=== PATIENT | female | born 1970 | race Caucasian/White ===

== ENCOUNTER 2016-07-17 10:43 | Emergency (ER) | payer BC, OTHER ==
[~2016-07-17] VITALS: Ht 170.2 cm; Wt 132.4 kg
[~2016-07-17 10:43] MED LIST: ALPR-411 PO; BUPR150T5 PO; FNCG50 TOP; IBUP-1427 PO; LSN20 PO; MELO7.5T5 PO; NSNN50 NAE; TRAM-10 PO; VENL75CA PO; WLLXL300 PO
[2016-07-17 10:48] VITALS: TEMP 37; Ht 170.2 cm; Wt 132.4 kg
[2016-07-17] MEDS ORDERED: LSN40 PO (11:05)
[2016-07-17] MEDS ORDERED: MOME6000 (11:05)
[2016-07-17] MEDS ORDERED: SODIUM CHLORIDE 0.9% 1000ML 500 ML IV ONE (11:08)
[2016-07-17 11:49] LABS: HEMATOCRIT 40.4 % (37-47); MEAN CORPUSCULAR HEMOGLOBIN 30.4 pg (25-34); MEAN CORPUSCULAR HGB CONC 34.2 g/dl (32-36); MEAN PLATELET VOLUME 9.6 fL (7.4-10.4); PLATELET COUNT 362 K/uL (130-400); RED BLOOD COUNT 4.54 M/uL (4.2-5.4); WHITE BLOOD COUNT 13.37 K/uL (4.8-10.8)
[2016-07-17 11:56] LABS: BUN/CREATININE RATIO 12.3 (10-20); CALCIUM 9.5 mg/dl (8.5-10.1); CREATININE 0.78 mg/dl (0.60-1.20); POTASSIUM 3.6 mmol/L (3.5-5.1)
[2016-07-17 12:10] LABS: URINE APPEARANCE CLEAR (CLEAR); URINE BILIRUBIN NEG (NEG); URINE COLOR YELLOW; URINE NITRITE NEG (NEG); URINE SPECIFIC GRAVITY 1.002 (1.000-1.030); UROBILINOGEN NEG (NEG); ZZUR CULT IF INDIC CLEAN CATCH NO
[2016-07-17] MEDS ORDERED: KETOROLAC TROMETHAMINE 30 MG/ML VIAL IV STA (12:20)
[2016-07-17 12:26] LABS: MANUAL MICROSCOPIC REQUIRED? NO; REVIEW REQ? NO
--- NOTE | 2016-07-17 13:31 | DIAGNOSTIC IMAGING REPORT ---
CT SCAN OF THE ABDOMEN AND PELVIS WITHOUT CONTRAST CLINICAL HISTORY: Left flank pain COMPARISON STUDY: 09/04/2015 TECHNIQUE: CT scan of the abdomen and pelvis was performed from the lung bases to the proximal femurs. Images are reviewed in the axial, sagittal, and coronal planes. IV contrast was not administered for this examination. CT DOSE: 1149.95 mGycm FINDINGS: Lower chest: There are minimal basilar atelectatic changes. Liver: The unenhanced liver is normal in size, contour, and attenuation. There is no intrahepatic biliary ductal dilatation. Gallbladder: Surgically absent Spleen: Normal in size and attenuation. Pancreas: Unremarkable. Adrenal glands: Unremarkable. Kidneys: There are bilateral nonobstructing intrarenal calculi. There is lower pole left renal cortical scarring. 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 No ureteral or bladder calculi are visualized. Bowel: There are no transition zones indicate bowel obstruction. The appendix appears normal. There is colonic diverticulosis. There is infiltration the pericolonic fat at the level of the splenic flexure consistent with acute diverticulitis. Peritoneum: There is no intraperitoneal free air or abdominal ascites. Vasculature: The abdominal aorta is normal in course and caliber. Adenopathy: None. Pelvic viscera: The bladder, and pelvic viscera are unremarkable. Skeletal structures: There is bilateral L5 spondylolysis. There is a grade 1 spinal listhesis of L5 on S1. There is a small disc osteophyte complex the T12-L1 level. IMPRESSION: 1. Acute diverticulitis at the level of the splenic flexure. No evidence of abscess. 2. No evidence of bowel obstruction. No evidence of free air 3. Normal appendix 4. Bilateral nephrolithiasis Electronically signed by: Alcides Velázquez M.D. 07/17/2016 1:30 PM Dictated Date/Time: 07/17/2016 1:26 PM
[2016-07-17] MEDS ORDERED: METRONIDAZOLE 250 MG TAB PO STA (13:52)
[2016-07-17] MEDS ORDERED: CIPROFLOXACIN 500 MG TAB PO STA (13:52)
[2016-07-17] MEDS ORDERED: CIPR-255 PO (14:12)
[2016-07-17] MEDS ORDERED: METR1TAB4 PO (14:12)
[2016-07-17 14:29] VITALS: BP 143/98; PULSE 92; O2SAT 94
--- NOTE | 2016-07-17 17:47 | EMERGENCY ROOM VISIT NOTE ---
History Report prepared by Vazquez: Lenny Luis Under the Supervision of: Dr. Luke Joseph D.O. First contact with patient: 11:42 Chief Complaint: KIDNEY STONE Stated Complaint: PAIN IN LEFT SIDE UPPER&LOWER History of Present Illness The patient is a 46 year old female who presents to the Emergency Room with complaints of persistent left flank for the past two days. The pain does not really radiate to the abdomen. She has a history of kidney stones and diverticulitis, and cannot really distinguish which her current pain resembles more. She notes that she did not have flank pain when she had previous kidney stones. There are no worsening or relieving factors known to the patient at this time. The patient is nauseous but denies any vomiting. The patient has her appendix but is s/p cholecystectomy. Patient denies headache, change in vision, fevers, chest pain, shortness of breath, diarrhea, pain with urination or other urinary symptoms, hematochezia, and melena. Source of History: patient Onset: two days ago Position: back (left flank) Timing: other (persistent) Modifying Factors (Worsening): other (none) Modifying Factors (Relieving): other (none) Associated Symptoms: + nausea, No SOB, No abdominal pain, No chest pain, No diarrhea, No fevers, No headache, No hematochezia, No melena, No urinary symptoms, No vomiting Review of Systems See HPI for pertinent positives & negatives. A total of 10 systems reviewed and were otherwise negative. Past Medical & Surgical Medical Problems: (1) Cholecystectomy (2) Kidney stone Family History No pertinent family history Social History Smoking Status: Never Smoker Alcohol Use: none Drug Use: none Marital Status: Housing Status: lives with family Occupation Status: employed Current/Historical Medications Scheduled Bupropion HCl (Bupropion HCl Xl), 300 MG PO QPM Bupropion Hcl (Bupropion Hcl Xl), 150 MG PO QPM Ciprofloxacin Hcl (Cipro), 500 MG PO BID Lisinopril (Lisinopril), 40 MG PO QPM Metronidazole (Flagyl), 500 MG PO TID Venlafaxine Hcl (Effexor Xr), 1 CAP PO QPM Scheduled PRN Alprazolam (Xanax), 0.5 MG PO TID PRN for RN Tramadol (Ultram), 50 MG PO Q6H PRN for RN Miscellaneous Medications Mometasone Furoate (Nasal) (Mometasone Furoate) Allergies Coded Allergies: Sulfa Drugs (Verified Allergy, Severe, RASH, 07/17/16) Penicillins (Verified Allergy, Mild, RASH, 07/17/16) Morphine (Verified Adverse Reaction, Severe, abd pain, 07/17/16) Hydromorphone (Verified Adverse Reaction, Unknown, abd pain, 07/17/16) Physical Exam Vital Signs Date Time Temp Pulse Resp B/P Pulse Ox O2 Delivery O2 Flow Rate FiO2 07/17/16 14:29 92 16 143/98 94 Room Air 07/17/16 12:42 88 16 157/110 99 Room Air 07/17/16 10:48 37.0 98 18 157/91 99 Room Air Physical Exam GENERAL: Sitting up in bed, disheveled, no acute distress, nontoxic. EYE EXAM: normal conjunctiva. OROPHARYNX: no exudate, no erythema, lips, buccal mucosa, and tongue normal and mucous membranes are moist NECK: supple, no nuchal rigidity, no adenopathy, non-tender LUNGS: Clear to auscultation. Normal chest wall mechanics HEART: no murmurs, S1 normal and S2 normal ABDOMEN: abdomen soft, tender in the left upper quadrant, normo-active bowel sounds, no masses, no rebound or guarding. BACK: Back is symmetrical on inspection and there is no deformity, no midline tenderness, no CVA tenderness. SKIN: no rashes and no bruising UPPER EXTREMITIES: upper extremities are grossly normal. LOWER EXTREMITIES: No pitting edema. NEURO EXAM: Normal sensorium, cranial nerves II-XII grossly intact, normal speech, no gross weakness of arms, no gross weakness of legs. Gross sensation intact. Medical Decision & Procedures ER Provider Diagnostic Interpretation: CT:Per my review, radiologist interpretation. CT SCAN OF THE ABDOMEN AND PELVIS WITHOUT CONTRAST CLINICAL HISTORY: Left flank pain COMPARISON STUDY: 09/04/2015 TECHNIQUE: CT scan of the abdomen and pelvis was performed from the lung bases to the proximal femurs. Images are reviewed in the axial, sagittal, and coronal planes. IV contrast was not administered for this examination. CT DOSE: 1149.95 mGycm FINDINGS: Lower chest: There are minimal basilar atelectatic changes. Liver: The unenhanced liver is normal in size, contour, and attenuation. There is no intrahepatic biliary ductal dilatation. Gallbladder: Surgically absent Spleen: Normal in size and attenuation. Pancreas: Unremarkable. Adrenal glands: Unremarkable. Kidneys: There are bilateral nonobstructing intrarenal calculi. There is lower pole left renal cortical scarring. 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 No ureteral or bladder calculi are visualized. Bowel: There are no transition zones indicate bowel obstruction. The appendix appears normal. There is colonic diverticulosis. There is infiltration the pericolonic fat at the level of the splenic flexure consistent with acute diverticulitis. Peritoneum: There is no intraperitoneal free air or abdominal ascites. Vasculature: The abdominal aorta is normal in course and caliber. Adenopathy: None. Pelvic viscera: The bladder, and pelvic viscera are unremarkable. Skeletal structures: There is bilateral L5 spondylolysis. There is a grade 1 spinal listhesis of L5 on S1. There is a small disc osteophyte complex the T12-L1 level. IMPRESSION: 1. Acute diverticulitis at the level of the splenic flexure. No evidence of abscess. 2. No evidence of bowel obstruction. No evidence of free air 3. Normal appendix 4. Bilateral nephrolithiasis Electronically signed by: Alcides Velázquez M.D. 07/17/2016 1:30 PM Dictated Date/Time: 07/17/2016 1:26 PM Laboratory Results 07/17/16 11:10 07/17/16 11:10 Test 07/17/16 11:10 Red Blood Count 4.54 M/uL (4.2-5.4) Mean Corpuscular Volume 89.0 fL (80-100) Mean Corpuscular Hemoglobin 30.4 pg (25-34) Mean Corpuscular Hemoglobin Concent 34.2 g/dl (32-36) RDW Standard Deviation 40.9 fL (36.4-46.3) RDW Coefficient of Variation 12.8 % (11.5-14.5) Mean Platelet Volume 9.6 fL (7.4-10.4) Urine Color YELLOW Urine Appearance CLEAR (CLEAR) Urine pH 7.0 (4.5-7.5) Urine Specific [place] 1.002 (1.000-1.030) Urine Protein NEG (NEG) Urine Glucose (UA) NEG (NEG) Urine Ketones NEG (NEG) Urine Occult Blood TRACE (NEG) Urine Nitrite NEG (NEG) Urine Bilirubin NEG (NEG) Urine Urobilinogen NEG (NEG) Urine Leukocyte Esterase NEG (NEG) Urine WBC (Auto) 1-5 /hpf (0-5) Urine RBC (Auto) 0-4 /hpf (0-4) Urine Hyaline Casts (Auto) 0 /lpf (0-5) Urine Epithelial Cells (Auto) 5-10 /lpf (0-5) Urine Bacteria (Auto) NEG (NEG) Anion Gap 8.0 mmol/L (3-11) Est Creatinine Clear Calc Drug Dose 129.3 ml/min Estimated GFR () 106.4 Estimated GFR (Non- 91.8 BUN/Creatinine Ratio 12.3 (10-20) Calcium Level 9.5 mg/dl (8.5-10.1) Total Bilirubin 0.7 mg/dl (0.2-1) Direct Bilirubin 0.2 mg/dl (0-0.2) Aspartate Amino Transf (AST/SGOT) 11 U/L (15-37) Alanine Aminotransferase (ALT/SGPT) 24 U/L (12-78) Alkaline Phosphatase 73 U/L (45-117) Total Protein 7.6 gm/dl (6.4-8.2) Albumin 3.7 gm/dl (3.4-5.0) Lipase 113 U/L (73-393) Laboratory results per my review. Medications Administered Medications (Trade) Dose Ordered Sig/[place]ron Route Start Time Stop Time Status Last Admin Dose Admin Sodium Chloride (Nss 1000ml) 500 ml @ 999 mls/hr Q31M ONCE IV 07/17/16 11:08 07/17/16 11:38 DC 07/17/16 11:08 999 MLS/HR Ketorolac Tromethamine (Toradol Inj) 30 mg NOW STAT IV 07/17/16 12:20 07/17/16 12:21 DC 07/17/16 12:41 30 MG Metronidazole (Flagyl Tab) 500 mg NOW STAT PO 07/17/16 13:52 07/17/16 13:54 DC 07/17/16 14:09 500 MG Ciprofloxacin (Cipro Tab) 500 mg NOW STAT PO 07/17/16 13:52 07/17/16 13:54 DC 07/17/16 14:08 500 MG ED Course ED COURSE: Vital signs were reviewed and were normal. The patients medical record was reviewed The above diagnostic studies were performed and reviewed. ED treatments and interventions as stated above. 1100: The patient was evaluated in room C9. A complete history and physical examination was performed. 1108: NSS 500 ml @ 999 mls/hr. 1200: Toradol 30 mg IV. 1352: Cipro 500 mg PO, Flagyl 500 mg PO. 1355: Upon reevaluation, the patient is feeling better.I discussed my findings with the patient and she understands and agrees with the treatment plan. Based on the patients age, coexisting illnesses, exam and lab findings the decision to treat as an outpatient was made. The patient remained stable while under my care. The patient appeared well at the time of discharge. Medical Decision Differential diagnoses includes but is not limited to gastritis, peptic ulcer disease, GERD, gallbladder disease, pancreatitis, small bowel obstruction, acute coronary syndrome, pericarditis, ischemic bowel, irritable bowel disease, irritable bowel syndrome, appendicitis, diverticulitis, malignancy, hernia, urinary tract infection, torsion, /ectopic (if female), perforation, trauma, infectious. Patient is a 46-year-old female who presents the ER with left upper quadrant abdominal pain which is been going on for the past several days. She denies any fevers. She is not been eating and drinking as much is normal. Labs show a leukocytosis 13.5 thousand. BMP along with LFTs, bilirubin or unremarkable. UA has trace hematuria but no signs of infection. CT of her abdomen pelvis shows acute diverticulitis. There is no abscess or perforation. The patient is otherwise well-appearing. Vitals are stable. Patient was discharged with Cipro and Flagyl to follow up as an outpatient with her primary care doctor on Wednesday. Discussed with Pt concerning signs and symptoms to watch out for. Pt was instructed to follow up with their PCP and discussed with the patient their option to return to the ED at anytime for persistent or worsening symptoms. The appropriate anticipatory guidance and out-patient management, including indications for return to the emergency department, were explained at length to the patient and understood. Impression Primary Impression: Diverticulitis Scribe Attestation The scribe's documentation has been prepared under my direction and personally reviewed by me in its entirety. I confirm that the note above accurately reflects all work, treatment, procedures, and medical decision making performed by me. Departure Information Dispostion Home / Self-Care Prescriptions Ciprofloxacin Hcl (CIPRO) 500 Mg Tab 500 MG PO BID, #20 TAB Prov: Luke Joseph, DO 07/17/16 Metronidazole (Flagyl) 250 Mg Tab 500 MG PO TID for 10 Days, #60 TAB Prov: Luke Joseph, DO 07/17/16 Referrals Ridge Ramos M.D. (PCP) Forms HOME CARE DOCUMENTATION FORM, IMPORTANT VISIT INFORMATION Patient Instructions ED Diverticulitis, [facility] Additional Instructions Please follow up with your primary care doctor with in the next 24 hours. Any worsening of your symptoms, please return to the ED immediately. This includes any fevers greater than 100.4, worsening abdominal pain, persistent nausea vomiting, or any other concerning signs or symptoms from your standpoint. Please take antibiotic as prescribed. Problem Qualifiers Primary Impression: Diverticulitis Diverticulitis site: large intestine Diverticulitis bleeding: without bleeding Diverticulitis complication: without perforation or abscess Qualified Codes: K57.32 - Diverticulitis of large intestine without perforation or abscess without bleeding
== END 2016-07-17 14:34 | disposition home or self-care (01) ==
LOC: C.EDB 10:44 → C.EDC 14:34
DX: K57.32 Diverticulitis of large intestine without perforation or abscess without bleeding (principal); Z79.899 Other long term (current) drug therapy; Z87.442 Personal history of urinary calculi; Z87.19 Personal history of other diseases of the digestive system

== ENCOUNTER 2017-01-13 09:52 | Emergency (ER) | payer OTHER ==
[~2017-01-13] VITALS: Ht 170.2 cm; Wt 131.1 kg
[~2017-01-13 09:52] MED LIST changes: +CIPR-255 PO; -FNCG50 TOP; -IBUP-1427 PO; -LSN20 PO; +LSN40 PO; -MELO7.5T5 PO; +MOME6000; -NSNN50 NAE
[2017-01-13 09:55] VITALS: TEMP 36.5; Ht 170.2 cm; Wt 131.1 kg
[2017-01-13] MEDS ORDERED: KETOROLAC TROMETHAMINE 30 MG/ML VIAL IV STA (10:13)
[2017-01-13] MEDS ORDERED: ONDANSETRON INJ 2 MG/ML 2 ML VIAL IV STA (10:13)
[2017-01-13] MEDS ORDERED: OPTIRAY 320 IV PRN (10:30)
[2017-01-13 10:48] LABS: URINE APPEARANCE CLOUDY (CLEAR); URINE BILIRUBIN NEG (NEG); URINE COLOR DK YELLOW; URINE EPITHELIAL CELL AUTO >30 /lpf (0-5); URINE NITRITE NEG (NEG); URINE SPECIFIC GRAVITY 1.024 (1.000-1.030); UROBILINOGEN NEG (NEG)
[2017-01-13 10:52] LABS: MANUAL MICROSCOPIC REQUIRED? NO; REVIEW REQ? YES
[2017-01-13 10:57] LABS: BASO % 0.3 %; BASO ABS # 0.04 K/uL (0-0.2); COMPLETE YES; EOS % 0.6 %; HEMATOCRIT 42.9 % (37-47); IG% 0.5 %; LYMPH % 14.7 %; LYMPH ABS # 1.95 K/uL (1.2-3.4); MEAN CELL VOLUME 91.1 fL (80-100); MEAN CORPUSCULAR HEMOGLOBIN 30.6 pg (25-34); MEAN CORPUSCULAR HGB CONC 33.6 g/dl (32-36); MEAN PLATELET VOLUME 9.9 fL (7.4-10.4); MONO % 5.1 %; NEUT % 78.8 %; PLATELET COUNT 376 K/uL (130-400); RED BLOOD COUNT 4.71 M/uL (4.2-5.4); WHITE BLOOD COUNT 13.28 K/uL (4.8-10.8)
[2017-01-13 11:04] LABS: BUN/CREATININE RATIO 19.4 (10-20); CALCIUM 9.1 mg/dl (8.5-10.1); CREATININE 0.86 mg/dl (0.60-1.20); POTASSIUM 3.9 mmol/L (3.5-5.1)
[2017-01-13] MEDS ORDERED: EFFSR150 PO (11:11)
[2017-01-13] MEDS ORDERED: FENTANYL CITRATE INJ 50 MCG/1 ML 2 ML VIAL IV STA (11:21)
--- NOTE | 2017-01-13 12:58 | DIAGNOSTIC IMAGING REPORT ---
CT OF THE ABDOMEN AND PELVIS WITH CONTRAST CLINICAL HISTORY: Left lower quadrant abdominal pain. COMPARISON STUDY: CT of the abdomen and pelvis July 17, 2016. TECHNIQUE: Following IV administration of 91 mL of Optiray-320, axial images of the abdomen and pelvis were obtained from the lung bases to the proximal femurs. Images were reviewed in the axial, sagittal, and coronal planes. IV contrast was administered without complication. A dose lowering technique was utilized adhering to the principles of ALARA. Oral contrast was administered. CT DOSE: 1784.25 mGy.cm FINDINGS: There is no biliary ductal dilatation status post cholecystectomy. No peripancreatic infiltration is present. The spleen and adrenal glands are normal. Malrotation of both kidneys is noted. There is no hydronephrosis. There is a 1.3 cm left renal cyst. Numerous bilateral renal calculi are noted. There are no ureteral calculi. There is no evidence for a bowel obstruction. There is colonic diverticulosis. Note is made of mild wall thickening and mild pericolonic infiltration of the distal descending colon consistent with acute diverticulitis. This may also involve the proximal sigmoid colon. There is trace fluid within the pelvis. There is no free air or abscess. No lymphadenopathy is present. There are no suspicious skeletal lesions. IMPRESSION: 1. Mild acute diverticulitis at the junction of the descending colon and sigmoid colon. No free air or abscess. 2. Bilateral nephrolithiasis. 3. Trace fluid within the pelvis. Electronically signed by: Alexandru Ragsdale M.D. 01/13/2017 12:57 PM Dictated Date/Time: 01/13/2017 12:44 PM
[2017-01-13] MEDS ORDERED: CIPR-255 PO (13:28)
[2017-01-13] MEDS ORDERED: OXYC1TAB3 PO (13:28)
[2017-01-13] MEDS ORDERED: METR-163 PO (13:28)
[2017-01-13 13:50] VITALS: BP 152/85; PULSE 92; O2SAT 97
--- NOTE | 2017-01-13 15:39 | EMERGENCY ROOM VISIT NOTE ---
History Report prepared by Vazquez: Shaunna Raymond Under the Supervision of: Dr. Evelio Miller M.D. First contact with patient: 10:00 Chief Complaint: ABDOMINAL PAIN Stated Complaint: PAIN IN LEFT LOWER FRONT Nursing Triage Summary: pt c/o of left-sided abdominal pain since last Wednesday and then began with nausea yesterday History of Present Illness The patient is a 46 year old female who presents to the Emergency Room with complaints of constant LLQ abdominal pain for the past 5 days. Initially her pain started higher up in the abdomen and moved into her LLQ. She describes her pain as cramping. Yesterday she developed nausea. The patient states that her pain was worse today so she came in for evaluation. She rates her current pain as a 9/10 in severity. She has a history of kidney stones, but states that this does not feel like her typical kidney stones. The patient also has a history of diverticulitis and was seen in the hospital for this in July. She states that her current symptoms feel similar to her previous episodes of diverticulitis. She denies any fever, vomiting, diarrhea, rectal bleeding, and urinary symptoms. Source of History: patient Onset: 5 days ago Position: abdomen (LLQ) Symptom Intensity: 9/10 Quality: cramping Timing: constant, worsening Associated Symptoms: + nausea, No fevers, No vomiting, No hematochezia, No diarrhea, No urinary symptoms Review of Systems See HPI for pertinent positives & negatives. A total of 10 systems reviewed and were otherwise negative. Past Medical & Surgical Medical Problems: (1) Cholecystectomy (2) Kidney stone Family History No pertinent family history Social History Smoking Status: Former Smoker Alcohol Use: none Drug Use: none Marital Status: Housing Status: lives with family Occupation Status: employed Current/Historical Medications Scheduled Bupropion HCl (Bupropion HCl Xl), 300 MG PO QPM Bupropion Hcl (Bupropion Hcl Xl), 150 MG PO QPM Ciprofloxacin Hcl (Cipro), 500 MG PO BID Lisinopril (Lisinopril), 40 MG PO QPM Metronidazole (Flagyl), 500 MG PO TID Venlafaxine Hcl (Effexor Xr), 75 MG PO QPM Venlafaxine Hcl (Effexor Extended Rel), 150 MG PO QPM Scheduled PRN Alprazolam (Xanax), 0.5 MG PO TID PRN for RN Oxycodone Ir (Roxicodone Ir), 5 MG PO Q4H PRN for Pain Tramadol (Ultram), 50 MG PO Q6H PRN for RN Miscellaneous Medications Mometasone Furoate (Nasal) (Mometasone Furoate) Allergies Coded Allergies: Sulfa Drugs (Verified Allergy, Severe, RASH, 01/13/17) Penicillins (Verified Allergy, Mild, RASH, 01/13/17) Morphine (Verified Adverse Reaction, Severe, abd pain, 01/13/17) Hydromorphone (Verified Adverse Reaction, Unknown, abd pain, 01/13/17) Physical Exam Vital Signs Date Time Temp Pulse Resp B/P (MAP) Pulse Ox O2 Delivery O2 Flow Rate FiO2 01/13/17 13:50 92 18 152/85 97 01/13/17 12:52 95 18 130/78 100 Room Air 01/13/17 11:10 90 18 125/67 99 Room Air 01/13/17 09:55 36.5 63 20 143/95 98 Room Air Physical Exam Constitutional: Vital signs reviewed. Eyes: Pupils are equal round reactive to light. Conjunctiva are noninjected. ENT: Pharynx is clear without erythema or exudate. Mucous membranes are moist. Neck supple without meningeal signs. Respiratory: Clear to auscultation bilaterally. Breath sounds are equal bilaterally. Cardiovascular: Regular rate and rhythm. No rubs or gallops. GI: Soft, nondistended. LLQ tenderness, no rebound or guarding. Bowel sounds are present. Musculoskeletal: No peripheral edema. No lower extremity tenderness. Integumentary: No cyanosis. Neurological: The patient is awake and alert. No focal deficits. Psychiatric: Normal affect. Medical Decision & Procedures ER Provider Diagnostic Interpretation: Radiology results as stated below per my review and the radiologist's interpretation: CT OF THE ABDOMEN AND PELVIS WITH CONTRAST CLINICAL HISTORY: Left lower quadrant abdominal pain. COMPARISON STUDY: CT of the abdomen and pelvis July 17, 2016. TECHNIQUE: Following IV administration of 91 mL of Optiray-320, axial images of the abdomen and pelvis were obtained from the lung bases to the proximal femurs. Images were reviewed in the axial, sagittal, and coronal planes. IV contrast was administered without complication. A dose lowering technique was utilized adhering to the principles of ALARA. Oral contrast was administered. CT DOSE: 1784.25 mGy.cm FINDINGS: There is no biliary ductal dilatation status post cholecystectomy. No peripancreatic infiltration is present. The spleen and adrenal glands are normal. Malrotation of both kidneys is noted. There is no hydronephrosis. There is a 1.3 cm left renal cyst. Numerous bilateral renal calculi are noted. There are no ureteral calculi. There is no evidence for a bowel obstruction. There is colonic diverticulosis. Note is made of mild wall thickening and mild pericolonic infiltration of the distal descending colon consistent with acute diverticulitis. This may also involve the proximal sigmoid colon. There is trace fluid within the pelvis. There is no free air or abscess. No lymphadenopathy is present. There are no suspicious skeletal lesions. IMPRESSION: 1. Mild acute diverticulitis at the junction of the descending colon and sigmoid colon. No free air or abscess. 2. Bilateral nephrolithiasis. 3. Trace fluid within the pelvis. Electronically signed by: Alexandru Ragsdale M.D. 01/13/2017 12:57 PM Dictated Date/Time: 01/13/2017 12:44 PM Laboratory Results 01/13/17 10:20 Red Blood Count 4.71, Mean Corpuscular Volume 91.1, Mean Corpuscular Hemoglobin 30.6, Mean Corpuscular Hemoglobin Concent 33.6, Mean Platelet Volume 9.9, Neutrophils (%) (Auto) 78.8, Lymphocytes (%) (Auto) 14.7, Monocytes (%) (Auto) 5.1, Eosinophils (%) (Auto) 0.6, Basophils (%) (Auto) 0.3, Neutrophils # (Auto) 10.46, Lymphocytes # (Auto) 1.95, Monocytes # (Auto) 0.68, Eosinophils # (Auto) 0.08, Basophils # (Auto) 0.04 01/13/17 10:20 Test 01/13/17 10:15 01/13/17 10:20 Urine Color DK YELLOW Urine Appearance CLOUDY (CLEAR) Urine pH 6.0 (4.5-7.5) Urine Specific [place] 1.024 (1.000-1.030) Urine Protein NEG (NEG) Urine Glucose (UA) NEG (NEG) Urine Ketones NEG (NEG) Urine Occult Blood NEG (NEG) Urine Nitrite NEG (NEG) Urine Bilirubin NEG (NEG) Urine Urobilinogen NEG (NEG) Urine Leukocyte Esterase TRACE (NEG) Urine WBC (Auto) 5-10 /hpf (0-5) Urine RBC (Auto) 0-4 /hpf (0-4) Urine Hyaline Casts (Auto) 5-10 /lpf (0-5) Urine Epithelial Cells (Auto) >30 /lpf (0-5) Urine Bacteria (Auto) 2+ (NEG) Urine Test NEG (NEG) White Blood Count 13.28 K/uL (4.8-10.8) Red Blood Count 4.71 M/uL (4.2-5.4) Hemoglobin 14.4 g/dL (12.0-16.0) Hematocrit 42.9 % (37-47) Mean Corpuscular Volume 91.1 fL (80-100) Mean Corpuscular Hemoglobin 30.6 pg (25-34) Mean Corpuscular Hemoglobin Concent 33.6 g/dl (32-36) Platelet Count 376 K/uL (130-400) Mean Platelet Volume 9.9 fL (7.4-10.4) Neutrophils (%) (Auto) 78.8 % Lymphocytes (%) (Auto) 14.7 % Monocytes (%) (Auto) 5.1 % Eosinophils (%) (Auto) 0.6 % Basophils (%) (Auto) 0.3 % Neutrophils # (Auto) 10.46 K/uL (1.4-6.5) Lymphocytes # (Auto) 1.95 K/uL (1.2-3.4) Monocytes # (Auto) 0.68 K/uL (0.11-0.59) Eosinophils # (Auto) 0.08 K/uL (0-0.5) Basophils # (Auto) 0.04 K/uL (0-0.2) RDW Standard Deviation 42.9 fL (36.4-46.3) RDW Coefficient of Variation 12.7 % (11.5-14.5) Immature Granulocyte % (Auto) 0.5 % Immature Granulocyte # (Auto) 0.07 K/uL (0.00-0.02) Anion Gap 5.0 mmol/L (3-11) Est Creatinine Clear Calc Drug Dose 116.6 ml/min Estimated GFR () 94.6 Estimated GFR (Non- 81.6 BUN/Creatinine Ratio 19.4 (10-20) Calcium Level 9.1 mg/dl (8.5-10.1) Total Bilirubin 0.5 mg/dl (0.2-1) Direct Bilirubin 0.1 mg/dl (0-0.2) Aspartate Amino Transf (AST/SGOT) 10 U/L (15-37) Alanine Aminotransferase (ALT/SGPT) 28 U/L (12-78) Alkaline Phosphatase 78 U/L (45-117) Total Protein 7.4 gm/dl (6.4-8.2) Albumin 3.5 gm/dl (3.4-5.0) Lipase 123 U/L (73-393) Laboratory results as reviewed by me. Medications Administered Medications (Trade) Dose Ordered Sig/Byron Route Start Time Stop Time Status Last Admin Dose Admin Ondansetron HCl (Zofran Inj) 4 mg NOW STAT IV 01/13/17 10:13 01/13/17 10:15 DC 01/13/17 10:34 4 MG Ketorolac Tromethamine (Toradol Inj) 10 mg NOW STAT IV 01/13/17 10:13 01/13/17 10:15 DC 01/13/17 10:35 10 MG Fentanyl Citrate (Fentanyl Inj) 50 mcg NOW STAT IV 01/13/17 11:21 01/13/17 11:22 DC 01/13/17 11:31 50 MCG ED Course 1000: The patient was evaluated in room B7. A complete history and physical exam was performed. 1013: Toradol 10 mg IV, Zofran 4 mg IV 1117: The patient is requesting more pain medications. 1121: Fentanyl 50 mcg IV 1318: I reassessed the patient at this time. She is feeling better and resting comfortably. I discussed the results and treatment plan with the patient. I discussed precautions regarding medications. I answered all pertaining questions that she had. She expressed understanding and verbalized agreement. The patient will be discharged home. 1334: The patient states that she is no longer taking Tramadol. Medical Decision This is a 46-year-old female who presents with left-sided abdominal pain. Differential diagnosis includes diverticulitis, perforation, abscess, kidney stone, UTI, strain. I did perform a limited focused review of portions of the patient's old chart on the electronic medical record. The patient was here in July for left sided flank pain. A CT of the abdomen and pelvis showed diverticulitis at the splenic flexure, no abscess. She was treated with Cipro and Flagyl. Medication Reconciliation: I attest that I have personally reviewed the patient' s current medication list. Blood Pressure Screening: Patient was found to have an elevated blood pressure and was referred to their primary doctor for recheck and further treatment. I did evaluate the patient as noted above. The patient is presenting with left- sided abdominal pain and has a prior history of diverticulitis. She has tenderness to left lower quadrant concerning for diverticulitis. She has no peritoneal signs. I did initially discuss conservative treatment with antibiotics and close follow up. After further discussion the patient preferred to have a CAT scan here despite risks of repeat CT scanning. IV access was established. The patient was treated with IV Toradol. She had no relief of her symptoms and so she was given fentanyl and Zofran IV. I did order and personally review the patient's urinalysis as described above. This specimen does appear contaminated. She denies urinary symptoms. I did order and review the patient's blood work as noted in the electronic medical record. Her white blood cell count slightly elevated. I did order a CT of the abdomen and pelvis. I did review the images myself as well as the radiology report as described above. She does have mild acute diverticulitis. I did discuss the test results with the patient. She is feeling better. She was discharged with a prescription for oxycodone, Flagyl and Cipro. She was given precautions regarding all of these medications and advised to avoid her tramadol while taking these medications. She states that she does not use her tramadol very often. She was discharged in good condition and will follow up with her doctor. [place] Drug Monitoring Program Search Results: patient reviewed within database, no issues identified Impression Primary Impression: Acute diverticulitis Scribe Attestation The scribe's documentation has been prepared under my direct and personally reviewed by me in its entirety. I confirm that the note above accurately reflects all work, treatment, procedures, and medical decision making performed by me. Departure Information Dispostion Home / Self-Care Prescriptions Metronidazole (Flagyl) 500 Mg Tab 500 MG PO TID for 10 Days, #30 TAB Prov: Evelio Miller M.D. 01/13/17 Oxycodone Ir (Roxicodone Ir) 5 Mg Tab 5 MG PO Q4H Y for Pain, #20 TAB Prov: Evelio Miller M.D. 01/13/17 Ciprofloxacin Hcl (CIPRO) 500 Mg Tab 500 MG PO BID, #20 TAB Prov: Evelio Miller M.D. 01/13/17 Referrals Ridge Ramos M.D. (PCP) Forms Call Back Authorization, HOME CARE DOCUMENTATION FORM, IMPORTANT VISIT INFORMATION Patient Instructions Diverticulitis [facility] Additional Instructions You have been examined and treated today on an emergency basis only. This is not a substitute for, or an effort to provide, complete comprehensive medical care. It is impossible to recognize and treat all injuries or illnesses in a single emergency department visit. It is therefore important that you follow up closely with your physician. Call as soon as possible for an appointment. Return for worsening symptoms or if you develop fever, vomiting, or any other concerning symptoms. Do not take tramadol with oxycodone. Do not take tramadol with Cipro as it will increase your risk of seizure.
== END 2017-01-13 13:45 | disposition home or self-care (01) ==
LOC: C.EDB 09:54
DX: K57.92 Diverticulitis of intestine, part unspecified, without perforation or abscess without bleeding (principal); Z87.442 Personal history of urinary calculi; Z90.49 Acquired absence of other specified parts of digestive tract; Z87.891 Personal history of nicotine dependence; Z79.899 Other long term (current) drug therapy

== ENCOUNTER 2021-05-26 10:39 | Inpatient (IN) ==
[2021-05-26 11:49] LABS: Basophils # (auto) 0.03 K/uL (0-0.2); Basophils % (auto) 0.3 %; Eosinophils # (auto) 0.11 K/uL (0-0.5); Eosinophils % (auto) 0.9 %; Hematocrit (blood only) 45.6 % (37-47); Hemoglobin 14.8 g/dL (12.0-16.0); Immature Granulocytes # (auto) 0.03 K/uL (0.00-0.02); Immature Granulocytes % (auto) 0.3 %; Lymphocytes # (auto) 1.53 K/uL (1.2-3.4); Lymphocytes % (auto) 13.1 %; Mean Corpuscular Hemoglobin 30.3 pg (25-34); Mean Corpuscular Hgb Conc 32.5 g/dL (32-36); Mean Corpuscular Volume 93.3 fL (80-100); Monocytes # (auto) 0.64 K/uL (0.11-0.59); Monocytes % (auto) 5.5 %; Neutrophils # (auto) 9.37 K/uL (1.4-6.5); Neutrophils % (auto) 79.9 %; Platelet Count 326 K/uL (130-400); RDW Coefficient of Variation 13.1 % (11.5-14.5); RDW Standard Deviation 44.9 fL (36.4-46.3); Red Blood Count 4.89 M/uL (4.2-5.4); White Blood Count 11.71 K/uL (4.8-10.8)
[2021-05-26 12:01] LABS: Partial Thromboplastin Ratio 1.1; Partial Thromboplastin Time 28.4 Seconds (21.0-31.0); Prothrombin Time 10.3 Seconds (9.0-12.0)
[2021-05-26 12:21] LABS: Albumin Level 3.8 gm/dl (3.4-5.0); BUN Creatinine Ratio 12.6 (10-20); Blood Urea Nitrogen 13 mg/dl (7-18); Calcium 10.1 mg/dl (8.5-10.1); Carbon Dioxide 28 mmol/L (21-32); Chloride 105 mmol/L (98-107); Creatinine Clr Calc Pharmacy 93.9 ml/min; Est GFR (African American) 73.4 ml/min; Est GFR (Non-African American) 63.3 ml/min; Glucose 122 mg/dl (70-99); Magnesium 2.3 mg/dl (1.8-2.4); Potassium 3.6 mmol/L (3.5-5.1); Sodium 139 mmol/L (136-145)
[2021-05-26 12:27] LABS: Alanine Aminotransferase 26 (12-78); Albumin Globulin Ratio 0.9 (0.9-2); Alkaline Phosphatase 89 U/L (45-117); Aspartate Aminotransferase 14 U/L (15-37); Bilirubin,Total 0.7 mg/dl (0.2-1); Globulin 4.4 gm/dl (2.5-4.0); Total Protein 8.2 gm/dl (6.4-8.2); Troponin I < 0.015 ng/ml (0-0.045)
[2021-05-26] MEDS ORDERED: KETOROLAC 30 MG/ML VIAL IV ONE (13:06)
--- NOTE | 2021-05-26 14:14 | XRay Report ---
XR chest 1V portable HISTORY: 51 years-old Female SOB acute shortness of breath COMPARISON: CT abdomen and pelvis 01/04/2020 TECHNIQUE: Portable AP view of the chest FINDINGS: The cardiomediastinal and hilar silhouettes are within normal limits. There is no pneumothorax, pleur al effusion, airspace consolidation or overt pulmonary edema. Subtle interstitial opacities of the david ng bases. The bones appear grossly intact. IMPRESSION: Subtle interstitial opacities of the lung bases may represent atelectasis versus a develo ping infectious or inflammatory pneumonitis. ACT 112: Negative or not required by law. The above report was generated using voice recognition software. It may contain grammatical, syntax o r spelling errors. Electronically signed by: Paras William M.D. 05/26/2021 2:13 PM
--- NOTE | 2021-05-26 14:20 | Electrocardiogram Report ---
Test Reason : Blood Pressure : / mmHG Vent. Rate : 097 BPM Atrial Rate : 097 BPM P-R Int : 168 ms QRS Dur : 090 ms QT Int : 374 ms P-R-T Axes : 056 -04 022 degrees QTc Int : 474 ms Normal sinus rhythm Possible Old Septal infarct (cited on or before 04-JAN-2020) Abnormal ECG When compared with ECG of 04-JAN-2020 15:52, Nonspecific T wave abnormality no longer evident in Lateral leads Confirmed by Colt Fang ([id number]) on 05/26/2021 2:20:07 PM Referred By: REFERRED SELF Confirmed By:Colt Fang
[2021-05-26] MEDS ORDERED: OPTIRAY 320 125ml IV ONE (14:35)
--- NOTE | 2021-05-26 14:56 | CT Scan Report ---
CT angio chest PE protocol CLINICAL HISTORY: Shortness of breath. Evaluate for pulmonary embolus COMPARISON STUDY: Portable chest from 05/26/2021 and old CTA chest from 02/20/2013 CT DOSE: 832.55 mGy.cm TECHNIQUE: CT Angio of the chest was performed.followed by image post processing with coronal, and s agittal MIP reformats. Contrast Volume: Optiray 320, 120 ml FINDINGS: Vasculature: There are intraluminal filling defects seen within the right upper lobe and right lower lobe pulmonary arteries along with the left upper lobe and left lower lobe pulmonary arteries. No sven tral emboli are identified. Airway: The airway is clear. No endobronchial lesion is identified. Lungs: The suspected interstitial opacities at the lung bases represents crowding the bronchovascular markings with no evidence for atelectasis or infiltrate. The lungs are clear of acute alveolar opaci ties, air bronchograms or pulmonary nodules. Pleura: There is no evidence for pleural effusion. There is no evidence for pneumothorax. Mediastinum: There is no evidence for pathologic adenopathy. There is evidence for mild right heart s train with straightening of the interventricular septum. The heart size is within normal limits. The thoracic aorta is within normal limits. There is no evidence for pericardial effusion. Upper abdomen:There is a the 2.4 cm low-attenuation left adrenal nodule characteristic of an adenoma. Surgical clips are present from previous cholecystectomy. Osseous structures: There is no acute osseous pathology. Degenerative changes are seen within the sp ine. Impression: 1. Positive CTA with pulmonary emboli identified within the right upper and lower lobes along with th e left upper and lower lobes. 2. Associated mild right heart strain. 3. Otherwise, no acute chest disease as described. 4. Additional nonacute findings are delineated above. The emergency department will be informed of these findings. ACT 112: Negative or not required by law. Electronically signed by: Roland Carver M.D. 05/26/2021 2:55 PM
--- NOTE | 2021-05-26 15:20 | Emergency Department Note ---
Impression & Plan Bilateral pulmonary embolism, Left-sided chest pain, Left-sided back pain, Shortness of breath ED Provider Note CHIEF COMPLAINT: Left chest and back pains HISTORY OF PRESENT ILLNESS: Loreto Rojas is a 51 year old female with history including but not limited to HTN, diverticulitis, kidney stones among others listed below who presents to the Emergency Department for evaluation of left sided chest and back pains with associated shortness of breath which has been worsening over the past 4 days. Initially, her pain started in her lower left chest wall which has since radiated into her left upper back. She describes shooting pains and rates her discomfort as a 10/10 which worsens with attempts of deep breaths. She also states that she often feels like it is hard to catch her breath. Symptoms are unchanged with position or to palpation of the area. She denies recent falls or trauma to her chest or back. The patient does have a pulse ox monitor at home and noted that her HR was elevated up to 105 while she was resting last evening which is higher than normal for her. Her oxygen satu rations have remained in mid 90s on room air. Of note, the patient did recently have +COVID-19 in March after being fully vaccinated. Last week, she does state that she developed a fever x 1. She also notes recent non-productive cough, sore throat, and sinus congestion. She denies abdominal pain but does note nausea. No vomiting. She did have multiple movements of diarrhea yesterday. No urinary symptoms. The patient is not on anticoagulants/antiplatelets. She does not have known history of blood clots or clotting disorders. She does smoke cigarettes. She is not on control. She denies recent prolonged periods of immobilization. REVIEW OF SYSTEMS: 10 systems were reviewed and were negative unless otherwise stated in HPI as above PHYSICAL EXAM: VITALS: Vitals are noted on the nurse's note and reviewed by myself. Vital signs stable. General: Resting in bed, no acute distress HEENT: Normocephalic, PERRL, EOMI, mucous membranes moist, oropharynx clear Resp: Moderate inspiratory effort on room air with discomfort at the top of the breath. Breath sounds distant but clear bilaterally without wheezing, rales or rhonchi. Chest wall non-tender to palpation. CV: Regular rate and rhythm, peripheral pulses palpated Back: Notes tenderness to the left upper back but not reproducible to palpation, no CVA tenderness to palpation Abd: Soft, non-tender to palpation MSK: Moving all extremities without apparent pain or difficulty Integumentary: No apparent rash Neuro: Awake, alert, interacting and answering questions appropriately Differential diagnosis includes acute coronary syndrome, pulmonary embolus, aortic dissection, musculoskeletal pain, pneumonia, pleural effusion, p neumothorax among other etiologies were considered. EMERGENCY DEPARTMENT COURSE: Physical exam and history were performed. Nursing triage notes, EMR, and medication list were personally reviewed. Patient appears to have left sided chest and back pains with associated shortness of breath which has been worsening over the past 4 days as described above. On exam, she did have moderate inspiratory effort on room air with discomfort at the top of breath. Breath sounds were distant but clear rebekah aterally without wheezing, rales or rhonchi. Chest wall was not tender to palpation. She also noted tenderness to the left upper back which was not reproducible to palpation, no CVA tenderness. No other significant findings on exam. The patient was offered pain medication. IV access was established and she was given Toradol 30 mg. EKG was obtained and reviewed by myself as below. This did show normal sinus rhythm at 97 bpm with possible old septal infarct when compared to 01/04/2020. No ectopy or concern for acute ischemic change. Labs were obtained and reviewed by myself as below. Of note, she did have mild leukocytosis with a WBC of 11.71 with neutrophilic shift at 9.37. No concern for anemia with hemoglobin 14.8. Electrolytes WNL, renal indices stable. Troponin negative at <0.015. Coagulation studies WNL. Chest x-ray was obtained and did show subtle interstitial opacities of the lung bases which may represent atelectasis versus developing infection as or inflammatory pneumonitis. CTA was obtained and reviewed by myself and radiologist as below. This did show pulmonary emboli within the right upper and lower lobes along with the left upper and lower lobes with associated mild right heart strain. Upon reevaluation, the patient was resting more comfortably after receiving the pain medication. I discussed the results of the above findings with her at bedside as well as my attending, Dr. Green, who was involved throughout the patient's course of care. Due to the acute finding of bilateral PEs with right heart strain, we do feel that she would benefit from continued monitoring in the hospital to begin anticoagulation treatment. The patient did verbalize understanding and agreement with this treatment plan. I discussed the patient's case with the [facility] who did agree to evaluate the patient. The patient verbalized understanding and agreement with the treatment plan as above. The chart was completed utilizing [employer] Speech Voice Recognition Software. Grammatical errors, random word insertions, pronoun errors, and incomplete sentences are an occasional consequence of this system due to software limitations, ambient noise, and hardware issues. Any formal questions or concerns about the content, text, or information contained within the body of this dictation should be directly addressed to the provider for clarification. Past Med/Surg History Medical History Anxiety Chronic back pain follows with chiropractor Depression Diverticular disease Epigastric pain reason for EGD History of anesthesia reaction difficulty waking History of kidney stones History of migraine headaches Hypertension Morbid obesity with BMI of 45.0-49.9, adult Sleep apnea does not use CPAP as ordered UTI (urinary tract infection) Surgical History History of bilateral tubal ligation History of cholecystectomy History of colonoscopy History of cystoscopy History of endometrial ablation History of left breast biopsy benign History of wisdom tooth extraction Family History Father Family history of diabetes mellitus Other No family history of adverse response to anesthesia Social History Smoking Status: Current every day smoker Tobacco Type: Cigarettes Cigarettes Per Day: less than 1 pack a day; Second Hand Exposure: Yes (father smoked); Hx Alcohol Use: Yes Alcohol type: hard liquor Hx Substance Use: No Preferred Language: Palestinian Communication Ability: Effective Bar[employer]if[employer]ach Required: No Beliefs That Will Affect Care: None marital status: Current Living Situation: Spouse and Family Current Living Situation Comment: Lives with 2 adult kids current occupational status: employed Feels Safe at Home: Yes Assistive Devices: Glasses Allergies Allergies Allergy/AdvReac Type Severity Reaction Status Date / Time Penicillins Allergy Intermediate RASH Verified 05/26/21 16:11 Sulfa (Sulfonamide Allergy Intermediate RASH Verified 05/26/21 16:11 Antibiotics) hydromorphone AdvReac Intermediate abd pain Verified 05/26/21 16:11 morphine AdvReac Intermediate abd pain Verified 05/26/21 16:11 Home Meds Home Medications Medication Instructions Recorded Confirmed alprazolam 0.5 mg tablet 0.5 mg PO TID PRN 01/09/19 05/26/21 lisinopril 40 mg tablet 40 mg PO QAM 01/09/19 05/26/21 mometasone 50 mcg/actuation nasal 2 spray INTRANASAL DAILY PRN 01/09/19 05/26/21 spray montelukast 10 mg tablet 10 mg PO HS 01/09/19 05/26/21 valacyclovir 1 gram tablet 2,000 mg PO Q12H PRN 01/09/19 05/26/21 bupropion HCl 300 mg 24 hr tablet, 300 mg PO QAM 01/04/20 05/26/21 extended release (Wellbutrin XL) pantoprazole 40 mg tablet,delayed 40 mg PO QAM 01/11/20 05/26/21 release (Protonix) amlodipine 10 mg tablet 10 mg PO DAILY 05/26/21 05/26/21 cetirizine 10 mg tablet (Zyrtec) 10 mg PO HS 05/26/21 05/26/21 desvenlafaxine succinate 100 mg 100 mg PO DAILY 05/26/21 05/26/21 tablet,extended release 24 hr hydrochlorothiazide 12.5 mg capsule 12.5 mg PO DAILY 05/26/21 05/26/21 metoprolol succinate 50 mg 50 mg PO DAILY 05/26/21 05/26/21 tablet,extended release 24 hr Results & Data (ED) Vital Signs Vital Signs - 24 hr 05/26/21 11:00 05/26/21 13:13 05/26/21 13:30 Temperature 36.3 C L Temperature Source Temporal Artery Scan Pulse Rate 110 H 82 Pulse Rate [Apical] 97 H Respiratory Rate 20 17 21 Respiratory Effort / Characteristics Non-Labored Respiratory Depth Normal Blood Pressure 160/117 H 127/85 Blood Pressure [Right Arm] 128/92 Blood Pressure Mean 131 99 Blood Pressure Mean [Right Arm] 104 Pulse Oximetry 92 95 99 Oxygen Delivery Method Room Air Room Air Sepsis Recent Fever Within 48 Hours No Sepsis New/Unexplained Change in Mental Status N/A Sepsis Action Taken by Nursing No Action Required 05/26/21 16:38 05/26/21 16:48 05/26/21 17:01 Temperature Temperature Source Pulse Rate 84 87 Pulse Rate [Apical] 91 H Respiratory Rate 16 22 16 Respiratory Effort / Characteristics Respiratory Depth Blood Pressure 132/81 115/96 Blood Pressure [Right Arm] 132/81 Blood Pressure Mean 98 102 Blood Pressure Mean [Right Arm] 98 Pulse Oximetry 96 Oxygen Delivery Method Room Air Sepsis Recent Fever Within 48 Hours Sepsis New/Unexplained Change in Mental Status Sepsis Action Taken by Nursing 05/26/21 17:30 05/26/21 18:00 Temperature Temperature Source Pulse Rate Pulse Rate [Apical] 84 Respiratory Rate 18 Respiratory Effort / Characteristics Respiratory Depth Blood Pressure 130/84 Blood Pressure [Right Arm] 119/80 Blood Pressure Mean 99 Blood Pressure Mean [Right Arm] 93 Pulse Oximetry 94 Oxygen Delivery Method Room Air Sepsis Recent Fever Within 48 Hours Sepsis New/Unexplained Change in Mental Status Sepsis Action Taken by Nursing Laboratory Data Result diagrams: 05/26/21 11:25 05/26/21 11:25 Lab Results 05/26/21 05/26/21 05/26/21 Range/Units 11:25 11:25 11:25 WBC 11.71 H (4.8-10.8) K/uL RBC 4.89 (4.2-5.4) M/uL Hgb 14.8 (12.0-16.0) g/dL Hct 45.6 (37-47) % MCV 93.3 (80-100) fL MCH 30.3 (25-34) pg MCHC 32.5 (32-36) g/dL RDW Std Deviation 44.9 (36.4-46.3) fL RDW Coeff of Serenity 13.1 (11.5-14.5) % Plt Count 326 (130-400) K/uL MPV 10.0 (7.4-10.4) fL Immature Gran % (Auto) 0.3 % Neut % (Auto) 79.9 % Lymph % (Auto) 13.1 % White % (Auto) 5.5 % Eos % (Auto) 0.9 % Baso % (Auto) 0.3 % Neut # (Auto) 9.37 H (1.4-6.5) K/uL Lymph # (Auto) 1.53 (1.2-3.4) K/uL White # (Auto) 0.64 H (0.11-0.59) K/uL Eos # (Auto) 0.11 (0-0.5) K/uL Baso # (Auto) 0.03 (0-0.2) K/uL Immature Gran # (Auto) 0.03 H (0.00-0.02) K/uL PT 10.3 (9.0-12.0) Seconds INR 1.0 (0.9-1.1) APTT 28.4 (21.0-31.0) Seconds PTT Ratio 1.1 Sodium 139 (136-145) mmol/L Potassium 3.6 (3.5-5.1) mmol/L Chloride 105 (98-107) mmol/L Carbon Dioxide 28 (21-32) mmol/L Anion Gap 6.0 (3-11) BUN 13 (7-18) mg/dl Creatinine 1.03 (0.6-1.2) mg/dl Est Cr Clr Drug Dosing 93.9 ml/min Est GFR ( Amer) 73.4 ml/min Est GFR (Non-Af Amer) 63.3 ml/min BUN/Creatinine Ratio 12.6 (10-20) Glucose 122 H (70-99) mg/dl Calcium 10.1 (8.5-10.1) mg/dl Magnesium 2.3 (1.8-2.4) mg/dl Total Bilirubin 0.7 (0.2-1) mg/dl AST 14 L (15-37) U/L ALT 26 (12-78) Alkaline Phosphatase 89 (45-117) U/L Troponin I < 0.015 (0-0.045) ng/ml Total Protein 8.2 (6.4-8.2) gm/dl Albumin 3.8 (3.4-5.0) gm/dl Globulin 4.4 H (2.5-4.0) gm/dl Albumin/Globulin Ratio 0.9 (0.9-2) SARS-CoV-2, RNA, NAAT (NEGATIVE) 05/26/21 Range/Units 16:24 WBC (4.8-10.8) K/uL RBC (4.2-5.4) M/uL Hgb (12.0-16.0) g/dL Hct (37-47) % MCV (80-100) fL MCH (25-34) pg MCHC (32-36) g/dL RDW Std Deviation (36.4-46.3) fL RDW Coeff of Serenity (11.5-14.5) % Plt Count (130-400) K/uL MPV (7.4-10.4) fL Immature Gran % (Auto) % Neut % (Auto) % Lymph % (Auto) % White % (Auto) % Eos % (Auto) % Baso % (Auto) % Neut # (Auto) (1.4-6.5) K/uL Lymph # (Auto) (1.2-3.4) K/uL White # (Auto) (0.11-0.59) K/uL Eos # (Auto) (0-0.5) K/uL Baso # (Auto) (0-0.2) K/uL Immature Gran # (Auto) (0.00-0.02) K/uL PT (9.0-12.0) Seconds INR (0.9-1.1) APTT (21.0-31.0) Seconds PTT Ratio Sodium (136-145) mmol/L Potassium (3.5-5.1) mmol/L Chloride (98-107) mmol/L Carbon Dioxide (21-32) mmol/L Anion Gap (3-11) BUN (7-18) mg/dl Creatinine (0.6-1.2) mg/dl Est Cr Clr Drug Dosing ml/min Est GFR ( Amer) ml/min Est GFR (Non-Af Amer) ml/min BUN/Creatinine Ratio (10-20) Glucose (70-99) mg/dl Calcium (8.5-10.1) mg/dl Magnesium (1.8-2.4) mg/dl Total Bilirubin (0.2-1) mg/dl AST (15-37) U/L ALT (12-78) Alkaline Phosphatase (45-117) U/L Troponin I (0-0.045) ng/ml Total Protein (6.4-8.2) gm/dl Albumin (3.4-5.0) gm/dl Globulin (2.5-4.0) gm/dl Albumin/Globulin Ratio (0.9-2) SARS-CoV-2, RNA, NAAT NEGATIVE (NEGATIVE) Administered Medications Heparin Sodium/Dextrose (Heparin Sodium/Dextrose) 25,000 units in 500 mls @ 33 mls/hr IV .[id number]; Protocol Stop: 06/25/21 15:59 Last Admin: 05/26/21 16:20 Dose: 1,650 units/hr, 33 mls/hr Documented by: [id number] Cosigned by: [id number] Discontinued Medications Heparin Sodium (Porcine) (Heparin Sod (Porcine) 1000 Unit/Ml) 1 units IV NOW ONE Stop: 05/26/21 15:59 Last Admin: 05/26/21 16:19 Dose: 7,000 units Documented by: [id number] Cosigned by: [id number] Heparin Sodium/Dextrose (Heparin Iv Adult Wt-Based Standard With Bolus Protocol) 1 ea IV NOW STA; Protocol Stop: 05/26/21 15:44 Last Admin: 05/26/21 16:27 Dose: Not Given Documented by: [id number] Ioversol (Optiray 320 125ml) 114 ml IV ONCE ONE Stop: 05/26/21 14:36 Last Admin: 05/26/21 14:35 Dose: 114 ml Documented by: [id number] Ketorolac Tromethamine (Ketorolac 30 Mg/Ml Vial) 30 mg IV NOW ONE Stop: 05/26/21 13:07 Last Admin: 05/26/21 13:12 Dose: 30 mg Documented by: [id number] Imaging Data Radiologist's Impression: Chest X-Ray 05/26/21 11:03 XR chest 1V portable HISTORY: 51 years-old Female SOB acute shortness of breath COMPARISON: CT abdomen and pelvis 01/04/2020 TECHNIQUE: Portable AP view of the chest FINDINGS: The cardiomediastinal and hilar silhouettes are within normal limits. There is no pneumothorax, pleural effusion, airspace consolidation or overt pulmonary edema. Subtle interstitial opacities of the lung bases. The bones appear grossly intact. IMPRESSION: Subtle interstitial opacities of the lung bases may represent atelectasis versus a developing infectious or inflammatory pneumonitis. ACT 112: Negative or not required by law. The above report was generated using voice recognition software. It may contain grammatical, syntax or spelling errors. Electronically signed by: Paras William M.D. 05/26/2021 2:13 PM Chest CTA 05/26/21 13:04 CT angio chest PE protocol CLINICAL HISTORY: Shortness of breath. Evaluate for pulmonary embolus COMPARISON STUDY: Portable chest from 05/26/2021 and old CTA chest from 02/20/2013 CT DOSE: 832.55 mGy.cm TECHNIQUE: CT Angio of the chest was performed.followed by image post processing with coronal, and sagittal MIP reformats. Contrast Volume: Optiray 320, 120 ml FINDINGS: Vasculature: There are intraluminal filling defects seen within the right upper lobe and right lower lobe pulmonary arteries along with the left upper lobe and left lower lobe pulmonary arteries. No central emboli are identified. Airway: The airway is clear. No endobronchial lesion is identified. Lungs: The suspected interstitial opacities at the lung bases represents crowding the bronchovascular markings with no evidence for atelectasis or infiltrate. The lungs are clear of acute alveolar opacities, air bronchograms or pulmonary nodules. Pleura: There is no evidence for pleural effusion. There is no evidence for pneumothorax. Mediastinum: There is no evidence for pathologic adenopathy. There is evidence for mild right heart strain with straightening of the interventricular septum. The heart size is within normal limits. The thoracic aorta is within normal limits. There is no evidence for pericardial effusion. Upper abdomen:There is a the 2.4 cm low-attenuation left adrenal nodule characteristic of an adenoma. Surgical clips are present from previous cholecystectomy. Osseous structures: There is no acute osseous pathology. Degenerative changes are seen within the spine. Impression: 1. Positive CTA with pulmonary emboli identified within the right upper and lower lobes along with the left upper and lower lobes. 2. Associated mild right heart strain. 3. Otherwise, no acute chest disease as described. 4. Additional nonacute findings are delineated above. The emergency department will be informed of these findings. ACT 112: Negative or not required by law. Electronically signed by: Roland Carver M.D. 05/26/2021 2:55 PM ECG Data Additional Comments: normal sinus rhythm at 97 bpm with possible old septal infarct when compared to 01/04/2020. No ectopy or concern for acute ischemic change. Discharge Plan Visit Data Chief Complaint: Shortness of Breath/Dyspnea Stated Complaint: LT BACK PAIN, SOB ED Provider: Zheng Green ED Midlevel Provider: Digna Bernard Patient Disposition: Being Evaluated by Hospitalist Prescriptions Prescriptions: No Action valacyclovir 1 gram tablet 2,000 mg PO Q12H PRN (Reason: Cold Sores) RF: 0 mometasone 50 mcg/actuation spray,non-aerosol 2 spray intranasal DAILY PRN (Reason: Nasal Congestion) RF: 0 montelukast 10 mg tablet 10 mg PO HS RF: 0 lisinopril 40 mg tablet 40 mg PO QAM RF: 0 alprazolam 0.5 mg tablet 0.5 mg PO TID PRN (Reason: Anxiety) RF: 0 pantoprazole [Protonix] 40 mg Tablet,Delayed Release (Dr/Ec) 40 mg PO QAM RF: 0 bupropion HCl [Wellbutrin XL] 300 mg Tablet Extended Release 24 Hr 300 mg PO QAM RF: 0 cetirizine [Zyrtec] 10 mg Tablet 10 mg PO HS RF: 0 metoprolol succinate 50 mg tablet extended release 24 hr 50 mg PO DAILY RF: 0 amlodipine 10 mg tablet 10 mg PO DAILY RF: 0 hydrochlorothiazide 12.5 mg capsule 12.5 mg PO DAILY RF: 0 desvenlafaxine succinate 100 mg tablet extended release 24 hr 100 mg PO DAILY RF: 0
--- NOTE | 2021-05-26 15:37 | History & Physical Report ---
Date of Service May 26, 2021 Assessment & Plan (1) Pulmonary embolism: Plan: - Admit to PCU - Check 2D echo - Start on heparin gtt with bolus and can further determine switch to DOAC tomorrow per primary team - CTPE reviewed showing PE within the RUP and RLL, mild right heart strain - Encourage deep breaths, flutter, and ambulation as tolerated - Currently o2 sats in mid 90s on RA, will require 2-step prior to dc home, may need O2 with exertional activities temporarily - Hx of tobacco use, can order nicotine patch if pt requests (2) Post-acute sequelae of COVID-19 (PASC): Plan: - PE likely secondary to recent COVID-19, diagnosed on 04/07/21, with increased risk for clot formation post-infection - Pt fully vaccinated since Nov with booster shot - Check COVID swab now with fever, nasal congestion, diarrhea to r/o acute infection. (3) Depression: Plan: - Continue on home medications including wellbutrin, Pristique, and prn xanax ( although reports some days does not take any - last took 0.5 mg this morning due to pain and worsening anxiety with shortness of breath ) (4) Anxiety: Plan: - Medications as above (5) Morbid obesity with BMI of 45.0-49.9, adult: Plan: - Diet and exercise to be encouraged throughout hospital stay, may continue HH diet DVT ppx: teds, heparin gtt as above CODE: FULL Dispo: From home, likely to remain in the hospital x 1-2 days. History of Present Illness Chief Complaint: Shortness of breath Primary Care Provider: Ridge Ramos MD This is a 51 yo F with PMhx of obesity with BMI of 46.7, adjustment disorder, current tobacco use and hx of being COVID-19 positive on 04/07/21 who called her PCP office this morning with complaints of increased left sided chest pain which radiated to her back and to left side with associated shortness of breath on exertion. Chest pain started about 3 days ago in her chest with exertional activities. She reports having a fever on but didn't have any other symptoms, but denies fevers since then. Yesterday she had diarrhea x 4 episodes and thought that it was due to eating kinyarwanda food the night prior. Denies any leg swelling but states she has had some body aches involving both legs recently. She is vaccinated against COVID-19 with the last of the 2 dose series being 5 days prior to when she popped positive for COVID in March. Since then she has gotten her booster shot. At baseline she does not wear any supplemental O2, although has previously been prescribed to wear CPAP, she doesn't due to chronic nasal/sinus congestion. Pt denies any prior hx of clotting issues for herself or family. 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 When she is not working however admits to being fairly sedentary. She denies other chest pain, palpitations, flutter, fever, chills, sweats, or abdominal pain. Allergies Allergy/AdvReac Type Severity Reaction Status Date / Time Penicillins Allergy Intermediate RASH Verified 05/26/21 16:11 Sulfa (Sulfonamide Allergy Intermediate RASH Verified 05/26/21 16:11 Antibiotics) hydromorphone AdvReac Intermediate abd pain Verified 05/26/21 16:11 morphine AdvReac Intermediate abd pain Verified 05/26/21 16:11 Home Medications Medication Instructions Recorded Confirmed Type alprazolam 0.5 mg tablet 0.5 mg PO TID PRN 01/09/19 05/26/21 History lisinopril 40 mg tablet 40 mg PO QAM 01/09/19 05/26/21 History mometasone 50 mcg/actuation nasal 2 spray INTRANASAL DAILY PRN 01/09/19 05/26/21 History spray montelukast 10 mg tablet 10 mg PO 01/09/19 05/26/21 History valacyclovir 1 gram tablet 2,000 mg PO Q12H PRN 01/09/19 05/26/21 History bupropion HCl 300 mg 24 hr tablet, 300 mg PO QAM 01/04/20 05/26/21 History extended release (Wellbutrin XL) pantoprazole 40 mg tablet,delayed 40 mg PO QAM 01/11/20 05/26/21 History release (Protonix) amlodipine 10 mg tablet 10 mg PO DAILY 05/26/21 05/26/21 History cetirizine 10 mg tablet (Zyrtec) 10 mg PO 05/26/21 05/26/21 History desvenlafaxine succinate 100 mg 100 mg PO DAILY 05/26/21 05/26/21 History tablet,extended release 24 hr hydrochlorothiazide 12.5 mg capsule 12.5 mg PO DAILY 05/26/21 05/26/21 History metoprolol succinate 50 mg 50 mg PO DAILY 05/26/21 05/26/21 History tablet,extended release 24 hr Past Med/Surg History Medical History (Updated 05/26/21 @ 15:45 by Jana Garcia PA-C) Anxiety Chronic back pain follows with chiropractor Depression Diverticular disease Epigastric pain reason for EGD History of anesthesia reaction difficulty waking History of kidney stones History of migraine headaches Hypertension Morbid obesity with BMI of 45.0-49.9, adult Sleep apnea does not use CPAP as ordered UTI (urinary tract infection) Surgical History History of bilateral tubal ligation History of cholecystectomy History of colonoscopy History of cystoscopy History of endometrial ablation History of left breast biopsy benign History of wisdom tooth extraction Family History Father Family history of diabetes mellitus Other No family history of adverse response to anesthesia Social History Smoking Status: Current every day smoker Tobacco Type: Cigarettes Cigarettes Per Day: less than 1 pack a day; Second Hand Exposure: Yes (father smoked); Hx Alcohol Use: Yes Alcohol type: hard liquor Hx Substance Use: No Preferred Language: Khmer Communication Ability: Effective 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 No cough, sputum, + dyspnea on exertion Cardiovascular: As per HPI, + chest pain with radiation to back and around left side, no tightness or palpitations Abdomen: No pain, nausea, vomiting, +diarrhea x 4 yesterday, no constipation Musculoskeletal: No joint pain, calf pain, swelling Neurologic: No weakness, numbness/tingling, or balance problems Psychiatric: + anxiety and depression on mediation Skin: No rash or itch Physical Exam Physical Exam: General: awake, alert, no apparent distress, + morbidly obese with BMI of 46.7 Head: Normocephalic, atraumatic ENT: PERRL, EOMI, no pharyngeal exudate, mucous membranes moist Chest: Clear to auscultation, on room air with O2 sats at 95% at rest, no adventitious breath sounds Cardiac: Regular rate and rhythm, no murmur, no JVD, normal peripheral pulses, good capillary refill Abdominal: NABS x 4 quadrants, soft, nondistended, nontender to palpation, no rebound or guarding Extremities: Left forearm edema s/p IV contrast with bad IV site, no ecchymosis, nonpainful to touch. Otherwise Normal inspection, no peripheral edema or erythema, calfs nontender to palpation Psych: Normal mood and affect Neuro: AAO x 3, strength intact bilaterally and rated 5/5, no motor deficits, s peech is clear, no peripheral sensory deficits Results & Data Results & Data ([facility]) Vital Signs (Past 12 Hours) Vital Signs Temp Pulse Pulse Resp BP BP Pulse Ox 05/26/21 13:13 97 H 17 128/92 95 05/26/21 11:00 36.3 C L 110 H 20 160/117 H 92 Laboratory Results 05/26/21 05/26/21 05/26/21 11:25 11:25 11:25 WBC 11.71 H RBC 4.89 Hgb 14.8 Hct 45.6 MCV 93.3 MCH 30.3 MCHC 32.5 RDW Std Deviation 44.9 RDW Coeff of Serenity 13.1 Plt Count 326 MPV 10.0 Immature Gran % (Auto) 0.3 Neut % (Auto) 79.9 Lymph % (Auto) 13.1 [place] % (Auto) 5.5 Eos % (Auto) 0.9 Baso % (Auto) 0.3 Neut # (Auto) 9.37 H Lymph # (Auto) 1.53 [place] # (Auto) 0.64 H Eos # (Auto) 0.11 Baso # (Auto) 0.03 Immature Gran # (Auto) 0.03 H PT 10.3 INR 1.0 APTT 28.4 PTT Ratio 1.1 Sodium 139 Potassium 3.6 Chloride 105 Carbon Dioxide 28 Anion Gap 6.0 BUN 13 Creatinine 1.03 Est Cr Clr Drug Dosing 93.9 Est GFR ( Amer) 73.4 Est GFR (Non-Af Amer) 63.3 BUN/Creatinine Ratio 12.6 Glucose 122 H Calcium 10.1 Magnesium 2.3 Total Bilirubin 0.7 AST 14 L ALT 26 Alkaline Phosphatase 89 Troponin I < 0.015 Total Protein 8.2 Albumin 3.8 Globulin 4.4 H Albumin/Globulin Ratio 0.9 Diagnostic Findings Chest X-Ray 05/26/21 11:03 XR chest 1V portable HISTORY: 51 years-old Female SOB acute shortness of breath COMPARISON: CT abdomen and pelvis 01/04/2020 TECHNIQUE: Portable AP view of the chest FINDINGS: The cardiomediastinal and hilar silhouettes are within normal limits. There is no pneumothorax, pleural effusion, airspace consolidation or overt pulmonary edema. Subtle interstitial opacities of the lung bases. The bones appear grossly intact. IMPRESSION: Subtle interstitial opacities of the lung bases may represent atelectasis versus a developing infectious or inflammatory pneumonitis. ACT 112: Negative or not required by law. The above report was generated using voice recognition software. It may contain grammatical, syntax or spelling errors. Electronically signed by: Paras William M.D. 05/26/2021 2:13 PM Chest CTA 05/26/21 13:04 CT angio chest PE protocol CLINICAL HISTORY: Shortness of breath. Evaluate for pulmonary embolus COMPARISON STUDY: Portable chest from 05/26/2021 and old CTA chest from 02/20/2013 CT DOSE: 832.55 mGy.cm TECHNIQUE: CT Angio of the chest was performed.followed by image post processing with coronal, and sagittal MIP reformats. Contrast Volume: Optiray 320, 120 ml FINDINGS: Vasculature: There are intraluminal filling defects seen within the right upper lobe and right lower lobe pulmonary arteries along with the left upper lobe and left lower lobe pulmonary arteries. No central emboli are identified. Airway: The airway is clear. No endobronchial lesion is identified. Lungs: The suspected interstitial opacities at the lung bases represents crowding the bronchovascular markings with no evidence for atelectasis or infiltrate. The lungs are clear of acute alveolar opacities, air bronchograms or pulmonary nodules. Pleura: There is no evidence for pleural effusion. There is no evidence for pneumothorax. Mediastinum: There is no evidence for pathologic adenopathy. There is evidence for mild right heart strain with straightening of the interventricular septum. The heart size is within normal limits. The thoracic aorta is within normal limits. There is no evidence for pericardial effusion. Upper abdomen:There is a the 2.4 cm low-attenuation left adrenal nodule characteristic of an adenoma. Surgical clips are present from previous cholecystectomy. Osseous structures: There is no acute osseous pathology. Degenerative changes are seen within the spine. Impression: 1. Positive CTA with pulmonary emboli identified within the right upper and lower lobes along with the left upper and lower lobes. 2. Associated mild right heart strain. 3. Otherwise, no acute chest disease as described. 4. Additional nonacute findings are delineated above. The emergency department will be informed of these findings. ACT 112: Negative or not required by law. Electronically signed by: Roland Carver M.D. 05/26/2021 2:55 PM ECG Additional Comments: Test Reason : Blood Pressure : / mmHG Vent. Rate : 097 BPM Atrial Rate : 097 BPM P-R Int : 168 ms QRS Dur : 090 ms QT Int : 374 ms P-R-T Axes : 056 -04 022 degrees QTc Int : 474 ms Normal sinus rhythm Possible Old Septal infarct (cited on or before 04-JAN-2020) Abnormal ECG When compared with ECG of 04-JAN-2020 15:52, Nonspecific T wave abnormality no longer evident in Lateral leads Code Status & VTE Plan Code Status Full code - discussed with the patient at bedside Supervising Physician Co-Signing Physician Notes 51-year-old female with PMH of recent diagnosis of Covid [April 07] followed by self-isolation for 10 days, BMI 46, anxiety, depression, diverticulitis presented to our ED 05/26/2021 with complaint of left-sided lower chest pain that started 3 days ago prior to arrival, radiating to back that started today on the day of arrival, a/w SOB worse with exertion. Patient works as a general manager in training and states that her work does not involve much of walking around. Patient denies use of OCP. Patient is a current smoker [1 packs lasts 2 days; from age [age], relapsed again since 2014]. Patient reports rare alcohol use and no use of recreational drugs or marijuana. Patient reports having diarrheal events x4 yesterday likely secondary to Irish food she had eaten the night prior. No further diarrheal events on the day of arrival. Patient vaccinated/boosted against Covid. No personal or family history of blood clot. 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 Patient found to have bilateral PE. Echo. Heparin drip. Follow-up Covid swab. Resume home medications. Flutter valve/incentive spirometer/ambulation as tolerated. Supplemental oxygen as appropriate. Nicotine patch for history of tobacco abuse. Upon Exam GENERAL: Alert and oriented x3. NAD, on RA. Morbid obesity HEENT: No pallor, no icterus. Pupils equal, round and reactive to light. Oral mucosa moist. NECK: No JVD, no neck masses. HEART: S1 and S2 heard. Regular rate and rhythm. No murmur, no gallop. RESPIRATORY SYSTEM: Normal AP diameter. No accessory muscle use. No wheezing, no crackles. ABDOMEN: Soft, bowel sounds present, nontender, no distention. CENTRAL NERVOUS SYSTEM: No facial droop. Speech is clear. Obeys simple commands. Moves extremities. EXTREMITIES: No edema, no erythema seen. I have seen and examined the patient and have discussed the case with the provider above. I agree with the assessment and plan as stated.
[2021-05-26] MEDS ORDERED: Heparin IV Adult Wt-Based Standard WITH Bolus Protocol IV STA (15:43)
[2021-05-26] MEDS ORDERED: HEPARIN SOD (PORCINE) 1000 UNIT/ML IV ONE (15:58)
--- NOTE | 2021-05-26 16:00 | Emergency Department Note ---
ED Visit Note Physician Evaluation Note: Patient was seen in conjunction with the physician cataloging assistant. Please see the physician cataloging assistant note for full details of the visit. I have personally evaluated and examined this patient. I performed a substantive portion of the patient visit including medical decision making and interpretation of diagnostic studies. On my examination the patient is in no acute distress, CT angiography of the chest does show evidence of bilateral pulmonary emboli with radiographic evidence of right heart strain, troponin is negative x1, patient is comfortable appearing on my assessment, denies any current chest pain. Given these findings on CT imaging patient will be admitted to the [facility] hospitalist service for further care, heparin bolus/drip will be initiated per the hospitalist service. Patient is in agreement to the above plan and she was admitted in stable condition. I agree with assessment and plan of MEMO Crystal DO .
[2021-05-26] MEDS: HEPARIN SODIUM/DEXTROSE 25,000 UNITS/500 ML BAG IV SCH (16:20)
[2021-05-26] MEDS ORDERED: ONDANSETRON INJ 2 MG/ML 2 ML VIAL IV PRN (20:40)
[2021-05-26 22:56] LABS: Partial Thromboplastin Ratio 2.2; Partial Thromboplastin Time 56.7 Seconds (21.0-31.0)
[2021-05-27 06:13] LABS: Hematocrit (blood only) 40.1 % (37-47); Mean Corpuscular Hemoglobin 30.3 pg (25-34); Mean Corpuscular Hgb Conc 32.4 g/dL (32-36); Mean Corpuscular Volume 93.5 fL (80-100); Mean Platelet Volume 9.9 fL (7.4-10.4); Platelet Count 278 K/uL (130-400); RDW Coefficient of Variation 13.3 % (11.5-14.5); RDW Standard Deviation 45.9 fL (36.4-46.3); Red Blood Count 4.29 M/uL (4.2-5.4); White Blood Count 8.61 K/uL (4.8-10.8)
[2021-05-27 06:49] LABS: Albumin Level 3.3 gm/dl (3.4-5.0); BUN Creatinine Ratio 16.3 (10-20); Bilirubin,Total 0.5 mg/dl (0.2-1); Calcium 9.4 mg/dl (8.5-10.1); Creatinine Clr Calc Pharmacy 88.9 ml/min; Est GFR (African American) 68.5 ml/min; Est GFR (Non-African American) 59.1 ml/min; Potassium 3.6 mmol/L (3.5-5.1)
[2021-05-27 06:53] LABS: Partial Thromboplastin Ratio 2.1
[2021-05-27 06:54] LABS: Globulin 3.4 gm/dl (2.5-4.0); Partial Thromboplastin Time 54.9 Seconds (21.0-31.0); Total Protein 6.7 gm/dl (6.4-8.2)
[2021-05-27 07:28] LABS: Estimated Average Glucose 117 mg/dl; Hemoglobin A1C 5.7 % (4.5-5.6)
[2021-05-27] MEDS: HEPARIN SODIUM/DEXTROSE 25,000 UNITS/500 ML BAG IV SCH (08:06)
[2021-05-27] MEDS: NICOTINE 14 MG/24 HR PATCH TD SCH (08:07)
[2021-05-27] MEDS: lisinopril 40 MG TAB PO SCH (08:07)
[2021-05-27] MEDS: METOPROLOL SUCC 50MG EXT REL TAB PO SCH (08:07)
[2021-05-27] MEDS: ACETAMINOPHEN 325 MG TAB PO PRN ×2 (08:23→18:01)
[2021-05-27] MEDS: hydroCHLOROthiazide 25 MG TAB PO SCH (09:15)
[2021-05-27] MEDS: amLODIPine BESYLATE 5 MG TAB PO SCH (09:15)
[2021-05-27] MEDS: PANTOprazole 40 MG TAB PO SCH (13:57)
[2021-05-27] MEDS: buPROPion XL 300 MG TABCR PO SCH (13:57)
--- NOTE | 2021-05-27 18:09 | Hospitalist Progress Note ---
Date of Service May 27, 2021 Assessment & Plan (1) Pulmonary embolism: Plan: - CT PE reviewed showing PE within the RUP and RLL, mild right heart strain - Checked 2D echo There is moderate concentric LVH. LV wall motion is normal. LVEF 55 to 60%. LV chamber size and systolic function are qualitatively normal on the limited visual assessment. Doppler findings do not suggest pulmonary hypertension. Aortic root is mildly dilated with diameter of 4 cm. The proximal ascending aorta is normal. - Started on heparin gtt on admission, continue for now. Likely switch to DOAC tomorrow - Encourage deep breaths, flutter, and ambulation as tolerated - Currently O2 sats in mid 90s on RA, may need 2-step prior to dc home - Hx of tobacco use, can order nicotine patch if pt requests (2) Post-acute sequelae of COVID-19 (PASC): Plan: - PE likely secondary to recent COVID-19, diagnosed on 04/07/21, with increased risk for clot formation post-infection - Pt fully vaccinated since Nov with booster shot - now covid negative (3) Depression: Plan: - Continue on home medications including wellbutrin, Pristique, and prn xanax ( although reports some days does not take any - last took 0.5 mg this morning due to pain and worsening anxiety with shortness of breath ) (4) Anxiety: Plan: - Medications as above (5) Morbid obesity with BMI of 45.0-49.9, adult: Plan: - weight/ lifestyle modification counselling DVT ppx: heparin gtt as above CODE: FULL Dispo: From home, likely to remain in the hospital x 1-2 days. Admission and Anticipated Discharge Date Admission Date: May 26, 2021 Subjective Patient seen in follow-up of PE, history of COVID Currently she is lying in bed, in no acute distress Says that her chest pain is much improved, however still has some, valeri.when taking deep breath Denies any cough, denies any hemoptysis No fevers, chills, shortness of breath is much improved No abdominal pain nausea vomiting Review of Systems Review of Systems: All systems reviewed & are unremarkable except as noted in Subjective Physical Exam Physical Exam: General: + morbidly obese F in NAD (BMI of 44) Head: Normocephalic, atraumatic ENT: PERRL, EOMI, no pharyngeal exudate, mucous membranes moist Chest: Clear to auscultation, on room air with O2 sats at 94% at rest, no adventitious breath sounds Cardiac: Regular rate and rhythm, no murmur, no JVD, normal peripheral pulses, good capillary refill Abdominal: NABS x 4 quadrants, soft, nondistended, +obese, nontender to palpation, no rebound or guarding Extremities: Left forearm edema s/p IV contrast with bad IV site, no ecchymosis, nonpainful to touch. Otherwise Normal inspection, no peripheral edema or erythema, calves nontender to palpation Psych: Normal mood and affect Neuro: AAO x 3, strength intact bilaterally and rated 5/5, no motor deficits, speech is clear, no peripheral sensory deficits Results & Data Results & Data ([facility]) Vital Signs (Past 12 Hours) Vital Signs Temp Pulse Pulse Resp BP Pulse Ox 05/27/21 16:00 36.6 C 73 18 108/71 94 05/27/21 11:24 80 05/27/21 11:22 36.9 C 81 18 131/70 91 05/27/21 07:16 36.5 C 18 112/79 97 Laboratory Results 05/27/21 05/27/21 05/27/21 Range/Units 05:57 05:57 05:57 WBC (4.8-10.8) K/uL RBC (4.2-5.4) M/uL Hgb (12.0-16.0) g/dL Hct (37-47) % MCV (80-100) fL MCH (25-34) pg MCHC (32-36) g/dL RDW Std Deviation (36.4-46.3) fL RDW Coeff of Serenity (11.5-14.5) % Plt Count (130-400) K/uL MPV (7.4-10.4) fL APTT 54.9 H* (21.0-31.0) Seconds PTT Ratio 2.1 Sodium 139 (136-145) mmol/L Potassium 3.6 (3.5-5.1) mmol/L Chloride 105 (98-107) mmol/L Carbon Dioxide 30 (21-32) mmol/L Anion Gap 4.0 (3-11) BUN 18 (7-18) mg/dl Creatinine 1.09 (0.6-1.2) mg/dl Est Cr Clr Drug Dosing 88.9 ml/min Est GFR ( Amer) 68.5 ml/min Est GFR (Non-Af Amer) 59.1 ml/min BUN/Creatinine Ratio 16.3 (10-20) Glucose 90 (70-99) mg/dl Estimat Average Glucose 117 mg/dl Hemoglobin A1c 5.7 H (4.5-5.6) % Calcium 9.4 (8.5-10.1) mg/dl Total Bilirubin 0.5 (0.2-1) mg/dl AST 13 L (15-37) U/L ALT 25 (12-78) Alkaline Phosphatase 66 (45-117) U/L Total Protein 6.7 (6.4-8.2) gm/dl Albumin 3.3 L (3.4-5.0) gm/dl Globulin 3.4 (2.5-4.0) gm/dl Albumin/Globulin Ratio 1.0 (0.9-2) Triglycerides 128 (0-150) mg/dl Cholesterol 161 (0-200) mg/dl LDL Cholesterol, Calc 76 mg/dl VLDL Cholesterol, Calc 26 mg/dl HDL Cholesterol 59 mg/dl Cholesterol/HDL Ratio 3 05/27/21 05/26/21 Range/Units 05:57 22:22 WBC 8.61 (4.8-10.8) K/uL RBC 4.29 (4.2-5.4) M/uL Hgb 13.0 (12.0-16.0) g/dL Hct 40.1 (37-47) % MCV 93.5 (80-100) fL MCH 30.3 (25-34) pg MCHC 32.4 (32-36) g/dL RDW Std Deviation 45.9 (36.4-46.3) fL RDW Coeff of Serenity 13.3 (11.5-14.5) % Plt Count 278 (130-400) K/uL MPV 9.9 (7.4-10.4) fL APTT 56.7 H* (21.0-31.0) Seconds PTT Ratio 2.2 Sodium (136-145) mmol/L Potassium (3.5-5.1) mmol/L Chloride (98-107) mmol/L Carbon Dioxide (21-32) mmol/L Anion Gap (3-11) BUN (7-18) mg/dl Creatinine (0.6-1.2) mg/dl Est Cr Clr Drug Dosing ml/min Est GFR ( Amer) ml/min Est GFR (Non-Af Amer) ml/min BUN/Creatinine Ratio (10-20) Glucose (70-99) mg/dl Estimat Average Glucose mg/dl Hemoglobin A1c (4.5-5.6) % Calcium (8.5-10.1) mg/dl Total Bilirubin (0.2-1) mg/dl AST (15-37) U/L ALT (12-78) Alkaline Phosphatase (45-117) U/L Total Protein (6.4-8.2) gm/dl Albumin (3.4-5.0) gm/dl Globulin (2.5-4.0) gm/dl Albumin/Globulin Ratio (0.9-2) Triglycerides (0-150) mg/dl Cholesterol (0-200) mg/dl LDL Cholesterol, Calc mg/dl VLDL Cholesterol, Calc mg/dl HDL Cholesterol mg/dl Cholesterol/HDL Ratio Medications Administered Current Inpatient Medications Acetaminophen (Acetaminophen 325 Mg Tab) 650 mg PO Q4H PRN PRN Reason: Moderate Pain Stop: 06/25/21 20:39 Last Admin: 05/27/21 08:23 Dose: 650 mg Documented by: Amlodipine Besylate (Amlodipine Besylate 5 Mg Tab) 10 mg PO DAILY [facility] Stop: 06/26/21 08:59 Last Admin: 05/27/21 09:15 Dose: 10 mg Documented by: Bupropion HCl (Bupropion Xl 300 Mg Tabcr) 300 mg PO DAILY [facility] Stop: 06/26/21 11:59 Last Admin: 05/27/21 13:57 Dose: 300 mg Documented by: Hydrochlorothiazide (Hydrochlorothiazide 25 Mg Tab) 12.5 mg PO DAILY [facility] Stop: 06/26/21 08:59 Last Admin: 05/27/21 09:15 Dose: 12.5 mg Documented by: Heparin Sodium/Dextrose (Heparin Sodium/Dextrose) 25,000 units in 500 mls @ 33 mls/hr IV .[id number] [facility]; Protocol Stop: 06/25/21 15:59 Last Admin: 05/27/21 08:06 Dose: 1,650 units/hr, 33 mls/hr Documented by: Lisinopril (Lisinopril 40 Mg Tab) [facility] [place] Stop: 06/26/21 08:59 Last Admin: 05/27/21 08:07 Dose: 40 mg Documented by: Metoprolol Succinate (Metoprolol Succ 50mg Ext Rel Tab) 50 mg PO DAILY [facility] Stop: 06/26/21 08:59 Last Admin: 05/27/21 08:07 Dose: 50 mg Documented by: Miscellaneous (Remove Nicoderm Patch) 1 ea N/A DAILY@0859 [facility] Stop: 06/26/21 08:58 Last Admin: 05/27/21 08:06 Dose: Not Given Documented by: Miscellaneous (Pristiq- Order Awaiting Action) 1 ea N/A QS [facility] Stop: 06/26/21 15:59 Last Admin: 05/27/21 16:31 Dose: Not Given Documented by: Nicotine (Nicotine 14 Mg/24 Hr Patch) [address] [facility] Stop: 06/26/21 08:59 Last Admin: 05/27/21 08:07 Dose: Not Given Documented by: Ondansetron HCl (Ondansetron Inj 2 Mg/Ml 2 Ml Vial) 4 mg IV Q4H PRN PRN Reason: Nausea And Vomiting Stop: 06/25/21 20:39 Pantoprazole Sodium (Pantoprazole 40 Mg Tab) [address] [facility] Stop: 06/26/21 11:59 Last Admin: 05/27/21 13:57 Dose: 40 mg Documented by:
[2021-05-28] MEDS: HEPARIN SODIUM/DEXTROSE 25,000 UNITS/500 ML BAG IV SCH ×2 (00:50→17:00)
[2021-05-28 07:50] LABS: Hematocrit (blood only) 37.2 % (37-47); Hemoglobin 12.4 g/dL (12.0-16.0); Mean Corpuscular Hemoglobin 30.6 pg (25-34); Mean Corpuscular Hgb Conc 33.3 g/dL (32-36); Mean Corpuscular Volume 91.9 fL (80-100); Mean Platelet Volume 10.1 fL (7.4-10.4); Platelet Count 285 K/uL (130-400); RDW Standard Deviation 43.7 fL (36.4-46.3); Red Blood Count 4.05 M/uL (4.2-5.4); White Blood Count 8.05 K/uL (4.8-10.8)
[2021-05-28 08:10] LABS: Partial Thromboplastin Time 53.2 Seconds (21.0-31.0)
[2021-05-28 08:25] LABS: Albumin Globulin Ratio 1.3 (0.9-2); Albumin Level 3.6 gm/dl (3.4-5.0); BUN Creatinine Ratio 15.2 (10-20); Bilirubin,Total 0.4 mg/dl (0.2-1.0); Calcium 9.2 mg/dl (8.5-10.1); Creatinine Clr Calc Pharmacy 97.8 ml/min; Est GFR (Non-African American) 66.4 ml/min; Globulin 2.8 gm/dl (2.5-4.0); Total Protein 6.4 gm/dl (6.0-8.3)
[2021-05-28] MEDS: NICOTINE 14 MG/24 HR PATCH TD SCH (08:46)
[2021-05-28] MEDS: amLODIPine BESYLATE 5 MG TAB PO SCH (08:47)
[2021-05-28] MEDS: PANTOprazole 40 MG TAB PO SCH (08:47)
[2021-05-28] MEDS: METOPROLOL SUCC 50MG EXT REL TAB PO SCH (08:47)
[2021-05-28] MEDS: lisinopril 40 MG TAB PO SCH (08:47)
[2021-05-28] MEDS: buPROPion XL 300 MG TABCR PO SCH (08:48)
[2021-05-28] MEDS: hydroCHLOROthiazide 25 MG TAB PO SCH (08:48)
[2021-05-28] MEDS: ACETAMINOPHEN 325 MG TAB PO PRN (12:33)
[2021-05-28] MEDS ORDERED: RIVAROXABAN 15 MG TAB PO SCH (16:30)
--- NOTE | 2021-05-28 16:39 | Discharge Summary ---
Date of Service May 28, 2021 Admission HPI Per Admitting Provider This is a 51 yo F with PMhx of obesity with BMI of 46.7, adjustment disorder, current tobacco use and hx of being COVID-19 positive on 04/07/21 who called her PCP office this morning with complaints of increased left sided chest pain which radiated to her back and to left side with associated shortness of breath on exertion. Chest pain started about 3 days ago in her chest with exertional activities. She reports having a fever on but didn't have any other symptoms, but denies fevers since then. Yesterday she had diarrhea x 4 episodes and thought that it was due to eating setswana food the night prior. Denies any leg swelling but states she has had some body aches involving both legs recently. She is vaccinated against COVID-19 with the last of the 2 dose series being 5 days prior to when she popped positive for COVID in March. Since then she has gotten her booster shot. At baseline she does not wear any supplemental O2, although has previously been prescribed to wear CPAP, she keenan sn't due to chronic nasal/sinus congestion. Pt denies any prior hx of clotting issues for herself or family. 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 When she is not working however admits to being fairly sedentary. She denies other chest pain, palpitations, flutter, fever, chills, sweats, or abdominal pain. Admission Exam Per Admitting Provider General: awake, alert, no apparent distress, + morbidly obese with BMI of 46.7 Head: Normocephalic, atraumatic ENT: PERRL, EOMI, no pharyngeal exudate, mucous membranes moist Chest: Clear to auscultation, on room air with O2 sats at 95% at rest, no adventitious breath sounds Cardiac: Regular rate and rhythm, no murmur, no JVD, normal peripheral pulses, good capillary refill Abdominal: NABS x 4 quadrants, soft, nondistended, nontender to palpation, no rebound or guarding Extremities: Left forearm edema s/p IV contrast with bad IV site, no ecchymosis, nonpainful to touch. Otherwise Normal inspection, no peripheral edema or erythema, calfs nontender to palpation Psych: Normal mood and affect Neuro: AAO x 3, strength intact bilaterally and rated 5/5, no motor deficits, speech is clear, no peripheral sensory deficits Principal Diagnosis 35 minutes Discharge Exam General: + morbidly obese F in NAD (BMI of 44) Head: Normocephalic, atraumatic ENT: PERRL, EOMI, no pharyngeal exudate, mucous membranes moist Chest: Clear to auscultation, on room air with O2 sats at 94% at rest, no adventitious breath sounds Cardiac: Regular rate and rhythm, no murmur, no JVD, normal peripheral pulses, good capillary refill Abdominal: NABS x 4 quadrants, soft, nondistended, +obese, nontender to palpation, no rebound or guarding Extremities: Left forearm edema s/p IV contrast with bad IV site, no ecchymosis, nonpainful to touch. Otherwise Normal inspection, no peripheral edema or erythema, calves nontender to palpation Psych: Normal mood and affect Neuro: AAO x 3, strength intact bilaterally and rated 5/5, no motor deficits, speech is clear, no peripheral sensory deficits Discharge Data Allergies Allergy/AdvReac Type Severity Reaction Status Date / Time Penicillins Allergy Intermediate RASH Verified 05/26/21 16:11 Sulfa (Sulfonamide Allergy Intermediate RASH Verified 05/26/21 16:11 Antibiotics) hydromorphone AdvReac Intermediate abd pain Verified 05/26/21 16:11 morphine AdvReac Intermediate abd pain Verified 05/26/21 16:11 Consultations 05/26/21 15:33 ED Decision to Admit Stat Ordered Studies 05/26/21 13:04 CT angio chest PE protocol Stat CT angio chest PE protocol CLINICAL HISTORY: Shortness of breath. Evaluate for pulmonary embolus COMPARISON STUDY: Portable chest from 05/26/2021 and old CTA chest from 02/20/2013 CT DOSE: 832.55 mGy.cm TECHNIQUE: CT Angio of the chest was performed.followed by image post processing with coronal, and sagittal MIP reformats. Contrast Volume: Optiray 320, 120 ml FINDINGS: Vasculature: There are intraluminal filling defects seen within the right upper lobe and right lower lobe pulmonary arteries along with the left upper lobe and left lower lobe pulmonary arteries. No central emboli are identified. Airway: The airway is clear. No endobronchial lesion is identified. Lungs: The suspected interstitial opacities at the lung bases represents crowding the bronchovascular markings with no evidence for atelectasis or infiltrate. The lungs are clear of acute alveolar opacities, air bronchograms or pulmonary nodules. Pleura: There is no evidence for pleural effusion. There is no evidence for pneumothorax. Mediastinum: There is no evidence for pathologic adenopathy. There is evidence for mild right heart strain with straightening of the interventricular septum. The heart size is within normal limits. The thoracic aorta is within normal limits. There is no evidence for pericardial effusion. Upper abdomen:There is a the 2.4 cm low-attenuation left adrenal nodule characteristic of an adenoma. Surgical clips are present from previous cholecystectomy. Osseous structures: There is no acute osseous pathology. Degenerative changes are seen within the spine. Impression: 1. Positive CTA with pulmonary emboli identified within the right upper and lower lobes along with the left upper and lower lobes. 2. Associated mild right heart strain. 3. Otherwise, no acute chest disease as described. 4. Additional nonacute findings are delineated above. The emergency department will be informed of these findings. ACT 112: Negative or not required by law. Electronically signed by: Roland Carver M.D. 05/26/2021 2:55 PM Dictated:05/26/21 1445 Transcribed: 05/26/21 1445 XR chest 1V portable HISTORY: 51 years-old Female SOB acute shortness of breath COMPARISON: CT abdomen and pelvis 01/04/2020 TECHNIQUE: Portable AP view of the chest FINDINGS: The cardiomediastinal and hilar silhouettes are within normal limits. There is no pneumothorax, pleural effusion, airspace consolidation or overt pulmonary edema. Subtle interstitial opacities of the lung bases. The bones appear grossly intact. IMPRESSION: Subtle interstitial opacities of the lung bases may represent atelectasis versus a developing infectious or inflammatory pneumonitis. ACT 112: Negative or not required by law. The above report was generated using voice recognition software. It may contain grammatical, syntax or spelling errors. Electronically signed by: Paras William M.D. 05/26/2021 2:13 PM Dictated:05/26/21 1411 Transcribed: 05/26/21 141 Hospital Course (1) Pulmonary embolism: - CT PE reviewed showing PE within the RUP and RLL, mild right heart strain - Checked 2D echo There is moderate concentric LVH. LV wall motion is normal. LVEF 55 to 60%. LV chamber size and systolic function are qualitatively normal on the limited visual assessment. Doppler findings do not suggest pulmonary hypertension. Aortic root is mildly dilated with diameter of 4 cm. The proximal ascending aorta is normal. -Currently on IV heparin drip that was started on admission, transition to Xarelto - Encourage deep breaths, flutter, and ambulation as tolerated - Currently O2 sats in mid 90s on RA, may need 2-step prior to dc home - Hx of tobacco use, can order nicotine patch if pt requests -Patient walked in the hallway with nurse checking her oxygen level while walking. Oxygen level was between 92 to 95% on room air -Does not require any oxygen supplement with ambulation or exertion or at rest (2) Post-acute sequelae of COVID-19 (PASC): - PE likely secondary to recent COVID-19, diagnosed on 04/07/21, with increased risk for clot formation post-infection - Pt fully vaccinated since Nov with booster shot - now covid negative (3) Depression: - Continue on home medications including wellbutrin, Pristique, and prn xanax ( although reports some days does not take any - last took 0.5 mg this morning due to pain and worsening anxiety with shortness of breath ) (4) Anxiety: - Medications as above (5) Morbid obesity with BMI of 45.0-49.9, adult: - weight/ lifestyle modification counselling DVT ppx: heparin gtt as above CODE: FULL Dispo: Discharge home today Total Time Total Time Spent Total Time Spent (In Minutes): 35 minutes Discharge Plan Discharge Items Patient Disposition: Home - Self-Care Reason For Visit: PULMONARY EMBOLISM, BILATERAL Discharge Diagnosis: Pulmonary embolism: Post-acute sequelae of COVID-19 (PASC): Activity: Resume your previous activity Non-emergency contact: Primary Care Provider Call non-emergency contact if: you have any medication questions Follow-up/Referrals: Ridge Ramos MD [Primary Care Provider] - (Date & Time 06/02/2021 9:40 AM Provider Ridge Ramos MD Department [facility] ) Diet: Heart Healthy Addtl Attending Provider Instructions: Follow up with your primary care provider Dr. Ramos on 06/02/2021 @9:40 AM at the [facility] [place] precaution Seek medical attention if your symptoms worsening Please monitor for any abnormal bleeding(such as blood in stool, urine...) and notify your provider or seek urgent medical attention Medication Instructions: Xarelto Your condition is typically treated with an anticoagulant. Anticoagulants will thin your blood to help prevent new clots. You should take her medication exactly as directed. Never skip a dose. Never take a double dose. If you miss a dose, take it as soon as you remember. Avoid NSAIDs (Motrin, Aleve, Naproxen, Ibuprofen, Advil, Meloxicam,..) due to risks of bleeding Call your Primary Care doctor if you experience any of the following: Swelling or Pain in your leg Sudden, continuous pain deep in a muscle Pain that worsens when you are active or when you stand still for a long time Chest Pain Sudden Shortness of Breath Rapid or pounding heart beat Fainting Dizziness Cough with blood or bloody sputum Sweating more than normal Bruises Heavy or uncontrolled bleeding Blood in your urine, stool or vomit Black or tarry stools Caring for Your Self at Home: Avoid sitting, standing or lying down for long periods without moving your legs and feet When traveling by car, stop to get out and move around at least once every 3 hours On long airplane, train or bus rides, get up and move around when possible If you can't get up, wiggle your toes and tighten your calves to keep your blood moving Follow Up: It is important for you to keep your follow up appointments with your medical provider. Pending Studies at Discharge: No Stand-Alone Forms: [facility], Work/School Release, Smoking Cessation Medications and DC Order Prescriptions: New Xarelto DVT-PE Treat 30d Start 15 mg (42)- 20 mg (9) tablets,dose pack See Rx Instructions .ROUTE .COMPLEX Qty: 51 RF: 0 Continued valacyclovir 1 gram tablet 2,000 mg PO Q12H PRN (Reason: Cold Sores) RF: 0 mometasone 50 mcg/actuation spray,non-aerosol 2 spray intranasal DAILY PRN (Reason: Nasal Congestion) RF: 0 montelukast 10 mg tablet 10 mg PO HS RF: 0 lisinopril 40 mg tablet 40 mg PO QAM RF: 0 alprazolam 0.5 mg tablet 0.5 mg PO TID PRN (Reason: Anxiety) RF: 0 pantoprazole [Protonix] 40 mg Tablet,Delayed Release (Dr/Ec) 40 mg PO QAM RF: 0 bupropion HCl [Wellbutrin XL] 300 mg Tablet Extended Release 24 Hr 300 mg PO QAM RF: 0 cetirizine [Zyrtec] 10 mg Tablet 10 mg PO HS RF: 0 metoprolol succinate 50 mg tablet extended release 24 hr 50 mg PO DAILY RF: 0 amlodipine 10 mg tablet 10 mg PO DAILY RF: 0 hydrochlorothiazide 12.5 mg capsule 12.5 mg PO DAILY RF: 0 desvenlafaxine succinate 100 mg tablet extended release 24 hr 100 mg PO DAILY RF: 0 Discharge Orders: Discharge Order (Routine); Ordered 05/28/21 Ordered By: Ayanna Agustin/Other Patient Handouts: Xarelto Oral Tablet 20 mg Admission Data Admit Date/Time: 05/26/21 15:43 Attending Provider: Ayanna Eason Admit Provider: Mane Arriaga Primary Care Provider: Ridge Ramos Other Providers: Mane Arriaga ; Rl Greco Other Interventions: Discharge Summary Assessment (RN) Last Done: 05/28/21 17:44
== END 2021-05-28 19:00 | disposition home or self-care (01) | DRG 176 ==
LOC: ED 10:39 → 2S 15:43 → SUATTDRO 15:43 → 2S 18:00

== ENCOUNTER 2023-04-24 13:49 | Inpatient (IN) ==
--- OUTSIDE RECORDS SUMMARY | 2023-04-24 13:57 | External Medical Summary | Summary of Care ---
Author Name Unknown Organization [facility] Address [address] [facility] [place] [address] Phone [phone] Care Team Providers Care Special Programs Director Name Role Phone Ankush Ribeiro MD Primary Care Provider [phone] Reason for Visit * Reason Comments eRx-Medication Refill Encounter Details Date Type Department Care Team Description 12/02/2022 Refill [facility] [address] [place] [address] Ankush Ribeiro MD [address] [place] [address] Allergies Active Allergy Reactions Severity Noted Date Comments Sulfamethoxazole-Trimethoprim Rash Low 2008 Itch, hives Hydromorphone Abdominal pain 01/09/2019 Morphine Abdominal pain High 01/09/2019 Penicillins 12/19/1998 rash documented as of this encounter (statuses as of 12/03/2022) Medications Medication Sig Dispensed Refills Start Date End Date Status cetirizine (ZYRTEC) 10 MG TabletIndications: Chronic rhinitis TAKE 1 TABLET BY MOUTH EVERY DAY 30 Tab 11 01/25/20 18 Active Mometasone Furoate (NASONEX) 50 MCG/ACT nasal sprayIndications:C hronic rhinitis Administer 2 Sprays into each nostril daily. 1 Inhaler 5 01/04/20 19 Active Cyclobenzaprine HCl 10 MG Oral Tablet (Flexeril)Indicati ons:Flank pain Take by mouth 1 Tablet as needed before bedtime for Muscle spasms. 10 Tablet 0 10/18/19 22 Active valACYclovir HCl 1 GM Oral Tablet (Valtrex) TAKE 2 TABLETS BY MOUTH EVERY 12 HOURS FOR 1 DAY FOR COLD SORES 4 Tablet 5 12/13/19 22 Active [facility] Vitamin B-12 1000 MCG Oral Tablet (vitamin b 12) TAKE 1 TABLET BY MOUTH EVERY DAY IN THE MORNING 90 Tablet 1 03/09/20 22 Active Rivaroxaban 20 MG Oral Tablet (Xarelto) TAKE 1 TABLET BY MOUTH EVERY DAY 90 Tablet 1 05/07/20 22 Active Saccharomyces boulardii 250 MG Oral Capsule (Florastor)Indicat ions:Diverticuliti s of colon,Diarrhea, unspecified type Take 1 Capsule by mouth in the morning and 1 Capsule before bedtime. 60 Capsule 1 08/05/19 23 Active Ondansetron 8 MG Oral Tablet Disintegrating (Zofran)Indication s:Nausea and vomiting, unspecified vomiting type Place 1 Tablet on tongue every 8 hours as needed for Nausea. dissolve on tongue. 20 Tablet 1 08/05/19 23 Active Proventil HFA 108 (90 Base) MCG/ACT Inhalation Aerosol SolutionIndication s:Bronchitis,Short ness of breath Inhale 2 Puffs by mouth every 4 hours as needed for Wheezing. 18 g 3 08/08/19 23 Active Anoro Ellipta 62.5-25 MCG/ACT Inhalation Aerosol Powder Breath Activated (umeclidinium-celine nterol) Inhale 1 Puff by mouth in the morning. 30 Each 08/08/19 23 Active Additional Information Patient not taking.Reported on 11/25/2022 hydroCHLOROthiazid e 12.5 MG Oral Capsule (Hydrodiuril)Indic ations:Hypertensiv e urgency,Essential (primary) hypertension TAKE 1 CAPSULE BY MOUTH EVERY DAY 90 Capsule 1 09/01/19 23 Active Montelukast Sodium 10 MG Oral Tablet (Singulair) Take 1 Tablet by mouth daily. 90 Tablet 3 09/01/19 23 Active Lisinopril 40 MG Oral TabletIndications: HTN, goal below 140/90 TAKE 1 TABLET BY MOUTH EVERY DAY IN THE MORNING 90 Tablet 0 09/22/19 23 Active Metoprolol Succinate ER 50 MG Oral Tablet Extended Release 24 Hour (toPROL XL)Indications:Hyp ertensive urgency,Essential (primary) hypertension TAKE 1 TABLET BY MOUTH EVERY DAY 90 Tablet 3 10/08/19 23 Active ALPRAZolam 0.5 MG Oral Tablet (xaNAX) Take 1 Tablet by mouth 3 times a day as needed for Anxiety. 90 Tablet 1 10/08/19 Active buPROPion HCl ER (XL) 150 MG Oral Tablet Extended Release 24 Hour (Wellbutrin XL) Take 3 Tablets by mouth in the morning. 90 Tablet 2 10/29/19 Active Desvenlafaxine Succinate ER 100 MG Oral Tablet Extended Release 24 Hour (Pristiq) Take 1 Tablet by mouth in the morning. Note- take it with the desvenlafaxine 50 mg tablet for a total of 150 mg daily. 30 Tablet 2 10/29/19 Active Desvenlafaxine Succinate ER 50 MG Oral Tablet Extended Release 24 Hour (Pristiq) Take 1 Tablet by mouth in the morning. 30 Tablet 2 10/29/19 Active Pantoprazole Sodium 40 MG Oral Tablet Delayed Release (Protonix) TAKE 1 TABLET BY MOUTH EVERY DAY 90 Tablet 1 12/04/19 Active amLODIPine Besylate 10 MG Oral Tablet (Norvasc) TAKE 1 TABLET BY MOUTH EVERY DAY 90 Tablet 1 12/04/19 Active amLODIPine Besylate 10 MG Oral Tablet (Norvasc) TAKE 1 TABLET BY MOUTH EVERY DAY 90 Tablet 1 05/26/19 023 Discontinued Pantoprazole Sodium 40 MG Oral Tablet Delayed Release (Protonix) TAKE 1 TABLET BY MOUTH EVERY DAY 90 Tablet 05/26/19 023 Discontinued Hospital, Clinic, or Other Facility Administered Medication Ordered Dose Route Frequency Start Date End Date Status Albuterol Sulfate (Proventil) (2.5 MG/3ML) 0.083% inhalation solution 2.5 mgIndications:Chronic obstructive pulmonary disease, unspecified COPD type (HCC),History of tobacco abuse 2.5 mg NEBULIZER ONCE PRN 11/27/2022 11/27/2023 Active documented as of this encounter (statuses as of 12/03/2022) Active Problems Problem Noted Date Chronic obstructive pulmonary disease Treatment-resistant depression 3 LAI (generalized anxiety disorder) 08/06 History of pulmonary embolism 03/20/2022 Chronic anticoagulation 03/20/2022 Moderate episode of recurrent major depr essive disorder 09/09/2021 Obesity, morbid (more than 100 lbs over ideal weight or BMI > 40) 12/17/2011 Overview: bmi= 47.02 12/17/11 HTN, goal below 140/90 01/08/1999 Allergic rhinitis ADJ DISORDER W/DEPRES MOOD documented as of this encounter (statuses as of 12/03/2022) Resolved Problems Problem Noted Date Resolved Date Open wound of finger 12/17/2011 01/05/2017 Cat bite 12/17/2011 01/05/2017 Allergic reaction 12/17/2011 01/05/2017 Need for fxjactjsco-vljfzch-gixuudhvb (Tdap) vac cine 12/17/2011 01/20/2012 Obesity, morbid (more than 1 00 lbs over ideal weight or BMI > 40) 08/13/2009 01/05/2017 Overview: Per Obesity Taxonomy ICD-10 update of inactive term OBESITY, UNSPECIFIED 09/20/2000 08/13/2009 Overview: Per Obesity Taxonomy Other general counseling and advice for contraceptive management 01/08/1999 01/05/2017 documented as of this encounter (statuses as of 12/03/2022) Immunizations Name Administration Dates Next Due COVID-19 mRNA, LNP-s, No Pre serve, 2-Dose Series (Pfizer) 04/01/2021,09/03/2020,08/13/2020 Pneumococcal Conjugate Vacci ne, 20-valent ([id number]) 11/27/2022 Pneumococcal Polysaccharide PPV23 (Pneumovax) 09/09/2021,02/17/2016(Deferred: Patient Refused) Seasonal Influenza Virus Vac cine, Unspecified Formulation 03/11/2022 Seasonal Influenza, Quadriva lent, No Preserve, 6 Mons & Above, IM 03/11/2022,02/07/2021,03/22/2020,12/0 09/2018,05/03/2018,05/06/2017 Seasonal Influenza, Quadriva lent, No Preserve, IM 02/17/2016,02/25/2015 Seasonal Influenza, Split, I IV3, With Preserve, Inj 01/20/2012,04/05/2010,04/25/2008(Defe rred: Patient Refused),03/15/2007 TDAP (age 10 and older)(Boostrix) 01/30/2022,06/201112/16/2021 Zoster Vaccine Recombinant (Shingrix) 11/27/2022 ,09/09/2021 documented as of this encounter Social History Tobacco Use Types Packs/Day Years Used Date Smoking Tobacco: Every Day Cigarettes 1 15 Passive Smoke Exposure: Current Smokeless Tobacco: Never Comments:09/17/20 currently smoking 10 cig/day; has smoked on and off-quit several times Alcohol Use Standard Drinks/Week Comments Yes 0 (1 standard drink = 0.6 oz pur e alcohol) occ Food Insecurity Answer Date Recorded Within the past 12 months, y ou worried that your food would run out before you got money to buy more. Never true 2022 Within the past 12 months, t he food you bought just didn't last and you didn't have money to get more. Patient refused 10/2022 Sex Assigned at Date Recorded Female 08/07/2022 11:05 AM EDT Job Start Date Occupation Industry Not on file Not on file Not on file documented as of this encounter Miscellaneous Notes * Telephone Encounter - Michel Snowden RPh - 12/03/2022 11:37 AM EDT Signed Prescriptions: Disp Refills Pantoprazole Sodium 40 MG Oral Tablet Shea*90 Tab*1 Sig: TAKE 1TABLET BY MOUTH EVERY DAYAuthorizing Provider: ANKUSH RIBEIRO User: MICHEL SNOWDEN amLODIPine Besylate 10 MG Oral Tablet (Nor*90 Tab*1 Sig: TAKE 1 TABLET BY MOUTH EVERY DAYAuthori zing Provider: ANKUSH RIBEIRO User: MICHEL SNOWDEN documented in this encounter Plan of Treatment Upcoming Encounters Date Type Specialty Care Team Description 12/04/2022 Telemedicine Psychiatry Cathie Jewell CRNP [address] [place] [address] 12/22/2022 PulmDiagnostic Pulmonary Function [place], [address] [place] [id number] 12/22/2022 Imaging Radiology 05/31/2023 Office Visit Family Medicine Ankush Ribeiro MD [address], [place] [id number] Scheduled Procedures Name Priority Associated Diagnoses Date/Ti me COLONOSCOPY FLEXIBLE PROXIMA L DIAGNOSTIC Recall Special screening for malignant neoplasms, colon Health Maintenance Due Date Last Done Comments DISCUSS TOBACCO CESSATION (REFER TO SMARTSET #2801) 1971 Hepatitis B (1 of 3 - 3-dose series) 1971 HIV Screening 1986 Albumin/Creatinine Ratio 1989 Alpha-1 Antitrypsin 1989 Hepatitis C Screening 1989 Cologuard 2016 Fecal Occult Blood Test 2016 Sigmoidoscopy 2016 Pap Smear 11/18/2020 11/19/2015, 01/2008 (Done elsewhere), 01/05/2003, Additional history exists COVID-19 Vaccine (4 - Pfizer series) 05/27/2021 04/01/2021, 09/03/2020, 08/13/2020 Mammogram 07/16/2022 07/16/2021, 01/2017, 10/25/2015, Additional history exists GFR 09/09/2022 09/09/2021, 03/17, 04/24/2019, Additional history exists *COPD SEVERITY VERIFIED BY PFT 11/29/2022 Influenza Vaccine (FLU shot) (#1) 2023 03/11/2022, 03/11/2022, 02/07/2021, Additional history exists Depression Screening, Annual for Pts 12 and Over 11/20/2023 11/19/2022 O2 ASSESSMENT COMPLETED IN PAST YEAR FOR COPD 11/28/2023 11/27/2022 Diabetes Screening 09/09/2024 09/09/2021, 1 05/27/2019, 04/24/2019, Additional history exists Colonoscopy 10/29/2024 10/29/2014, 10/29/2014 Colorectal Cancer Screening 10/29/2024 Lipid Panel 03/27/2025 03/27/2020, 01/2019, 05/12/2018, Additional history exists DTaP,Tdap,and Td Vaccines (3 - Td or Tdap) 01/31/2032 01/30/2022, 12/17/2011 Pneumococcal Vaccine: Pediatrics (0 to 5 Years) and At-Risk Patients (6 to 64 Years) Completed 11/27/2022, 09/09/2021 Zoster Vaccines Completed 11/27/2022, 09/09/2021 GARDASIL-HPV IMMUNIZATION SERIES Aged Out No longer eligible based on patient's age to complete this topic MENINGOCOCCAL (MENACTRA/MENVEO) Aged Out No longer eligible based on patient's age to complete this topic documented as of this encounter Medical Devices Not on filedocumented as of this encounter Care Teams Special Programs Director Relationship Specialty Start Date End Date Ankush Ribeiro MD [address] [place] [address] PCP - General 05/26/00 documented as of this encounter
--- OUTSIDE RECORDS SUMMARY | 2023-04-24 13:57 | External Medical Summary | Summary of Care ---
Author Name Unknown Organization [facility] Address [address] [place] [address] Phone [phone] Care Team Providers Care Billet Driller Name Role Phone Ridge Ramos MD Primary Care Provider [phone] Reason for Visit * Reason Onset Date Comments Medication Refill 01/08/2023 Encounter Details Date Type Department Care Team Description 01/08/2023 Refill [facility] [address], [place] [id number] Cathie Jewell CRNP [address] [place] [address] Allergies Active Allergy Reactions Severity Noted Date Comments Sulfamethoxazole-Trimethoprim Rash Low 2008 Itch, hives Hydromorphone Abdominal pain 01/09/2019 Morphine Abdominal pain High 01/09/2019 Penicillins 12/19/1998 rash documented as of this encounter (statuses as of 01/08/2023) Medications Medication Sig Dispensed Refills Start Date End Date Status cetirizine (ZYRTEC) 10 MG TabletIndications:C hronic rhinitis TAKE 1 TABLET BY MOUTH EVERY DAY 30 Tab 11 8 Active Mometasone Furoate (NASONEX) 50 MCG/ACT nasal sprayIndications:Ch ronic rhinitis Administer 2 Sprays into each nostril daily. 1 Inhaler 5 9 Active Cyclobenzaprine HCl 10 MG Oral Tablet (Flexeril)Indicatio ns:Flank pain Take by mouth 1 Tablet as needed before bedtime for Muscle spasms. 10 Tablet 0 2 Active valACYclovir HCl 1 GM Oral Tablet (Valtrex) TAKE 2 TABLETS BY MOUTH EVERY 12 HOURS FOR 1 DAY FOR COLD SORES 4 Tablet 5 2 Active [facility] Vitamin B-12 1000 MCG Oral Tablet (vitamin b 12) TAKE 1 TABLET BY MOUTH EVERY DAY IN THE MORNING 90 Tablet 1 2 Active Rivaroxaban 20 MG Oral Tablet (Xarelto) TAKE 1 TABLET BY MOUTH EVERY DAY 90 Tablet 1 2 Active Saccharomyces boulardii 250 MG Oral Capsule (Florastor)Indicati ons:Diverticulitis of colon,Diarrhea, unspecified type Take 1 Capsule by mouth in the morning and 1 Capsule before bedtime. 60 Capsule 1 3 Active Ondansetron 8 MG Oral Tablet Disintegrating (Zofran)Indications :Nausea and vomiting, unspecified vomiting type Place 1 Tablet on tongue every 8 hours as needed for Nausea. dissolve on tongue. 20 Tablet 1 3 Active Proventil HFA 108 (90 Base) MCG/ACT Inhalation Aerosol SolutionIndications :Bronchitis,Shortne ss of breath Inhale 2 Puffs by mouth every 4 hours as needed for Wheezing. 18 g 3 3 Active Anoro Ellipta 62.5-25 MCG/ACT Inhalation Aerosol Powder Breath Activated (umeclidinium-vilan terol) Inhale 1 Puff by mouth in the morning. 30 Each 3 Active Additional Information Patient not taking.Reported on 11/25/2022 hydroCHLOROthiazide 12.5 MG Oral Capsule (Hydrodiuril)Indica tions:Hypertensive urgency,Essential (primary) hypertension TAKE 1 CAPSULE BY MOUTH EVERY DAY 90 Capsule 1 3 Active Montelukast Sodium 10 MG Oral Tablet (Singulair) Take 1 Tablet by mouth daily. 90 Tablet 3 3 Active Lisinopril 40 MG Oral TabletIndications:H TN, goal below 140/90 TAKE 1 TABLET BY MOUTH EVERY DAY IN THE MORNING 90 Tablet 0 3 Active Metoprolol Succinate ER 50 MG Oral Tablet Extended Release 24 Hour (toPROL XL)Indications:Hype rtensive urgency,Essential (primary) hypertension TAKE 1 TABLET BY MOUTH EVERY DAY 90 Tablet 3 3 Active buPROPion HCl ER (XL) 150 MG Oral Tablet Extended Release 24 Hour (Wellbutrin XL) Take 3 Tablets by mouth in the morning. 90 Tablet 2 3 Active Desvenlafaxine Succinate ER 100 MG Oral Tablet Extended Release 24 Hour (Pristiq) Take 1 Tablet by mouth in the morning. Note- take it with the desvenlafaxine 50 mg tablet for a total of 150 mg daily. 30 Tablet 2 3 Active Desvenlafaxine Succinate ER 50 MG Oral Tablet Extended Release 24 Hour (Pristiq) Take 1 Tablet by mouth in the morning. 30 Tablet 2 3 Active Pantoprazole Sodium 40 MG Oral Tablet Delayed Release (Protonix) TAKE 1 TABLET BY MOUTH EVERY DAY 90 Tablet 1 3 Active amLODIPine Besylate 10 MG Oral Tablet (Norvasc) TAKE 1 TABLET BY MOUTH EVERY DAY 90 Tablet 1 3 Active Neomycin-Polymyxin- HC 3.5-72595-5 Otic SolutionIndications :Black head Administer 4 Drops into the left ear in the morning and 4 Drops at noon and 4 Drops before bedtime. To affected ear, for 10 days.. 10 mL 1 3 Active ALPRAZolam 0.5 MG Oral Tablet (xaNAX) Take 1 Tablet by mouth 3 times a day as needed for Anxiety. 90 Tablet 0 3 Active ALPRAZolam 0.5 MG Oral Tablet (xaNAX) Take 1 Tablet by mouth 3 times a day as needed for Anxiety. 90 Tablet 1 3 01/09/20 23 Discontinu ed(Refill) Hospital, Clinic, or Other Facility Administered Medication Ordered Dose Route Frequency Start Date End Date Status Albuterol Sulfate (Proventil) (2.5 MG/3ML) 0.083% inhalation solution 2.5 mgIndications:Chronic obstructive pulmonary disease, unspecified COPD type (HCC),History of tobacco abuse 2.5 mg NEBULIZER ONCE PRN 11/27/2022 11/27/2023 Active documented as of this encounter (statuses as of 01/08/2023) Active Problems Problem Noted Date Chronic obstructive [...] as of this encounter (statuses as of 01/08/2023) Resolved Problems Problem Noted Date Resolved Date Open wound of finger 12/17/2011 01/05/2017 Cat bite 12/17/2011 01/05/2017 Allergic reaction 12/17/2011 01/05/2017 Need for nllkwehveg-navpljf-nhdxfiiqk (Tdap) vac cine 12/17/2011 01/20/2012 Obesity, morbid (more than 1 00 lbs over ideal weight or BMI > 40) 08/13/2009 01/05/2017 Overview: Per Obesity Taxonomy ICD-10 update of inactive term OBESITY, UNSPECIFIED 09/20/2000 08/13/2009 Overview: Per Obesity Taxonomy Other general counseling and advice for contraceptive management 01/08/1999 01/05/2017 documented as of this encounter (statuses as of 01/08/2023) Immunizations Name Administration Dates Next Due COVID-19 mRNA, LNP-s, No Pre serve, 2-Dose Series (Pfizer) 04/01/2021,09/03/2020,08/13/2020 Pneumococcal Conjugate Vacci ne, 20-valent ([id number]) 11/27/2022 Pneumococcal Polysaccharide PPV23 (Pneumovax) 09/09/2021,02/17/2016(Deferred: Patient Refused) Seasonal Influenza Virus Vac cine, Unspecified Formulation 03/11/2022 Seasonal Influenza, PF, 6 mo ns & Above, IM , (Flulaval) 03/11/2022,02/07/2021,03/22/2020,1209/2018,05/03/2018,05/06/2017 Seasonal Influenza, Quadriva lent, No Preserve, IM [...] encounter Miscellaneous Notes * Telephone Encounter - Mikki Cowan MD - 01/08/2023 4:09 PM EDT Signed Prescriptions: Disp Refills ALPRAZolam 0.5 MG Oral Tablet (xaNAX) 90 Tab*0 Sig: Take 1 Tablet by mouth 3 times a day as needed for Anxiety. Authorizing Provider: MIKKI COWAN * Telephone Encounter - Leyla Felder LPN - 01/08/2023 12:54 PM EDTPending Prescriptions: Disp Refills ALPRAZolam 0.5 MG Oral Tablet (xaNAX) 90 Tab*1 Sig: Take 1 Tablet by mouth 3 times a day as needed for Anxiety. * Telephone Encounter - Leyla Felder LPN - 01/08/2023 12:52 PM EDT Refill request from patient ([facility]) for Xanax 0.5mg. Medication last filled on 10/07/22 with 1 refills. Patient last seen on 10/28/22 with return appointment scheduled for NEEDS. Patient had 1 cancelled appointments and 0 NO SHOW appointments. documented in this encounter Plan of Treatment Upcoming Encounters Date Type Specialty Care Team Description 05/31/2023 Office Visit Family Medicine Ridge Ramos MD [address] [place] [address] Scheduled Procedures Name Priority Associated Diagnoses Date/Ti me COLONOSCOPY FLEXIBLE PROXIMA L DIAGNOSTIC Recall Special screening for malignant neoplasms, colon Health Maintenance Due Date Last Done Comments DISCUSS TOBACCO CESSATION (REFER TO SMARTSET #8681) 1971 Hepatitis B (1 of 3 - 3-dose series) 1971 HIV Screening 1986 Albumin/Creatinine Ratio 1989 Alpha-1 Antitrypsin 1989 Hepatitis C Screening 1989 HPV/Co-Test 2001 Cologuard 2016 Fecal Occult Blood Test 2016 Sigmoidoscopy 2016 Cervical Cancer Screening 11/18/2018 Pap Smear 11/18/2018 11/19/2015, 01/2008 (Done elsewhere), 01/05/2003, Additional history exists COVID-19 Vaccine (4 - Pfizer series) 05/27/2021 04/01/2021, 09/03/2020, 08/13/2020 Mammogram 07/16/2022 07/16/2021, 060 01/2017, 10/25/2015, Additional history exists GFR 09/09/2022 09/09/2021, 03/17, 04/24/2019, Additional history exists *COPD SEVERITY VERIFIED BY PFT 11/29/2022 Influenza Vaccine (FLU shot) (#1) 2023 03/11/2022, 03/11/2022, 02/07/2021, Additional history exists Depression Screening, Annual for Pts 12 and Over 11/20/2023 11/19/2022 O2 ASSESSMENT COMPLETED IN PAST YEAR FOR COPD 01/08/2024 01/07/2023 Diabetes Screening 09/09/2024 09/09/2021, 1 05/27/2019, 04/24/2019, [...] filedocumented as of this encounter Care Teams Billet Driller Relationship Specialty Start Date End Date Ridge Ramos MD [address] [place] [address] PCP - General 05/26/00 documented as of this encounter
--- OUTSIDE RECORDS SUMMARY | 2023-04-24 13:57 | External Medical Summary | Summary of Care ---
Author Name Unknown Organization [facility] Address [address] [place] [facility] [place] [address] Phone [phone] Care Team Providers Care Wheelabrator Operator Name Role Phone Ridge Ramos MD Primary Care Provider [phone]- [phone] Reason for Referral * (Within 10 days (routine)) - Authorized Specialty Diagnoses / Procedures Referred By Jalen cullen Referred To Contact Radiology Diagnoses History of tobacco abuse Procedures LUNG CANCER SCREENING PROGRAM REFERRAL Claudia Rivas PA-C [address] [place] [address] Referral ID Status Reason Start Date Expiration Date V isits Requested Visits Authorized [id number] Authorized 11/27/2022 999 999 Reason for Visit * Reason Onset Date Comments Acute Follow up from e r visit 11/25/2022 back pain, chest tightness. Still has back pain and chest feels better. Immunizations 11/27/2022 Shingrix Encounter Details Date Type Department Care Team Description 11/27/2022 Office Visit [facility] [address] [place] [facility] [place] [id number] Claudia Rivas PA-C [address] [place] [facility] [facility] [place] [address] Chronic obstructive pulmonary disease, unspecified COPD type (HCC)*; Flank pain; Chest pain on breathing; Encounter for screening mammogram for breast cancer; History of tobacco abuse; Need for pneumococcal 20-valent conjugate vaccination; Need for vaccination for zoster Allergies Active Allergy Reactions Severity Noted Date Comments Sulfamethoxazole-Trimethoprim Rash Low 02/05/ 2009 Itch, hives Hydromorphone Abdominal pain 01/09/2019 Morphine Abdominal pain High 01/09/2019 Penicillins 12/19/1998 rash documented as of this encounter (statuses as of 11/27/2022) Medications Medication Sig Dispensed Refills Start Date End Date Status cetirizine (ZYRTEC) 10 MG TabletIndications:C hronic rhinitis TAKE 1 TABLET BY MOUTH EVERY DAY 30 Tab 11 01/24/2018 Active Mometasone Furoate (NASONEX) 50 MCG/ACT nasal sprayIndications:Ch ronic rhinitis Administer 2 Sprays into each nostril daily. 1 Inhaler 5 01/03/2019 Active Cyclobenzaprine HCl 10 MG Oral Tablet (Flexeril)Indicatio ns:Flank pain Take by mouth 1 Tablet as needed before bedtime for Muscle spasms. 10 Tablet 0 10/17/2021 Active valACYclovir HCl 1 GM Oral Tablet (Valtrex) TAKE 2 TABLETS BY MOUTH EVERY 12 HOURS FOR 1 DAY FOR COLD SORES 4 Tablet 5 12/12/2021 Active [facility] Vitamin B-12 1000 MCG Oral Tablet (vitamin b 12) TAKE 1 TABLET BY MOUTH EVERY DAY IN THE MORNING 90 Tablet 1 03/09/2022 Active Rivaroxaban 20 MG Oral Tablet (Xarelto) TAKE 1 TABLET BY MOUTH EVERY DAY 90 Tablet 1 05/07/2022 Active amLODIPine Besylate 10 MG Oral Tablet (Norvasc) TAKE 1 TABLET BY MOUTH EVERY DAY 90 Tablet 1 05/26/2022 Active Pantoprazole Sodium 40 MG Oral Tablet Delayed Release (Protonix) TAKE 1 TABLET BY MOUTH EVERY DAY 90 Tablet 1 05/26/2022 Active Saccharomyces boulardii 250 MG Oral Capsule (Florastor)Indicati ons:Diverticulitis of colon,Diarrhea, unspecified type Take 1 Capsule by mouth in the morning and 1 Capsule before bedtime. 60 Capsule 1 08/04/2022 Active Ondansetron 8 MG Oral Tablet Disintegrating (Zofran)Indications :Nausea and vomiting, unspecified vomiting type Place 1 Tablet on tongue every 8 hours as needed for Nausea. dissolve on tongue. 20 Tablet 1 08/04/2022 Active Proventil HFA 108 (90 Base) MCG/ACT Inhalation Aerosol SolutionIndications :Bronchitis,Shortne ss of breath Inhale 2 Puffs by mouth every 4 hours as needed for Wheezing. 18 g 3 08/07/2022 Active Anoro Ellipta 62.5-25 MCG/ACT Inhalation Aerosol Powder Breath Activated (umeclidinium-vilan terol) Inhale 1 Puff by mouth in the morning. 30 Each 08/07/2022 Active Additional Information Patient not taking.Reported on 11/25/2022 hydroCHLOROthiazide 12.5 MG Oral Capsule (Hydrodiuril)Indica tions:Hypertensive urgency,Essential (primary) hypertension TAKE 1 CAPSULE BY MOUTH EVERY DAY 90 Capsule 1 08/31/2022 Active Montelukast Sodium 10 MG Oral Tablet (Singulair) Take 1 Tablet by mouth daily. 90 Tablet 3 08/31/2022 Active Lisinopril 40 MG Oral TabletIndications:H TN, goal below 140/90 TAKE 1 TABLET BY MOUTH EVERY DAY IN THE MORNING 90 Tablet 0 09/21/2022 Active Metoprolol Succinate ER 50 MG Oral Tablet Extended Release 24 Hour (toPROL XL)Indications:Hype rtensive urgency,Essential (primary) hypertension TAKE 1 TABLET BY MOUTH EVERY DAY 90 Tablet 3 10/07/2022 Active ALPRAZolam 0.5 MG Oral Tablet (xaNAX) Take 1 Tablet by mouth 3 times a day as needed for Anxiety. 90 Tablet 1 10/07/2022 Active buPROPion HCl ER (XL) 150 MG Oral Tablet Extended Release 24 Hour (Wellbutrin XL) Take 3 Tablets by mouth in the morning. 90 Tablet 2 10/28/2022 Active Desvenlafaxine Succinate ER 100 MG Oral Tablet Extended Release 24 Hour (Pristiq) Take 1 Tablet by mouth in the morning. Note- take it with the desvenlafaxine 50 mg tablet for a total of 150 mg daily. 30 Tablet 2 10/28/2022 Active Desvenlafaxine Succinate ER 50 MG Oral Tablet Extended Release 24 Hour (Pristiq) Take 1 Tablet by mouth in the morning. 30 Tablet 2 10/28/2022 Active Hospital, Clinic, or Other Facility Administered Medication Ordered Dose Route Frequency Start Date End Date Status Albuterol Sulfate (Proventil) (2.5 MG/3ML) 0.083% inhalation solution 2.5 mgIndications:Chronic obstructive pulmonary disease, unspecified COPD type (HCC),History of tobacco abuse 2.5 mg NEBULIZER ONCE PRN 11/27/2022 11/27/2023 Active documented as of this encounter (statuses as of 11/27/2022) Active Problems Problem Noted Date Chronic obstructive [...] as of this encounter (statuses as of 11/27/2022) Resolved Problems Problem Noted Date Resolved Date Open wound of finger 12/17/2011 01/05/2017 Cat bite 12/17/2011 01/05/2017 Allergic reaction 12/17/2011 01/05/2017 Need for qarivqlpyo-fpjmcwv-agjfamjpc (Tdap) vac cine 12/17/2011 01/20/2012 Obesity, morbid (more than 1 00 lbs over ideal weight or BMI > 40) 08/13/2009 01/05/2017 Overview: Per Obesity Taxonomy ICD-10 update of inactive term OBESITY, UNSPECIFIED 09/20/2000 08/13/2009 Overview: Per Obesity Taxonomy Other general counseling and advice for contraceptive management 01/08/1999 01/05/2017 documented as of this encounter (statuses as of 11/27/2022) Immunizations Name Administration Dates Next Due COVID-19 mRNA, LNP-s, No Pre serve, 2-Dose Series ([employer]) 04/01/2021,09/03/2020,08/13/2020 Pneumococcal Conjugate Vacci ne, 20-valent (Lyalkcc06) 11/27/2022 Pneumococcal Polysaccharide PPV23 (Pneumovax) 09/09/2021,02/17/2016(Deferred: Patient Refused) Seasonal Influenza Virus Vac cine, Unspecified Formulation 03/11/2022 Seasonal Influenza, Quadriva lent, No Preserve, 6 Mons & Above, IM 03/11/2022,02/07/2021,03/22/2020,12/09/2018,05/03/2018,05/06/2017 Seasonal Influenza, Quadriva lent, No Preserve, IM 02/17/2016,02/25/2015 Seasonal Influenza, Split, I IV3, With Preserve, Inj 01/20/2012,04/05/2010,04/25/2008(Defe rred: Patient Refused),03/15/2007 TDAP (age 10 and older)(Boostrix) 01/30/2022,06/201112/16/2021 Zoster Vaccine Recombinant (Shingrix) 11/27/2022 ,09/09/2021 documented as of this encounter Social History Tobacco Use Types Packs/Day Years Used Date Smoking Tobacco: Every Day Cigarettes 1 15 Passive Smoke Exposure: Current Smokeless Tobacco: Never Tobacco Cessation:Ready to Q uit: Not Asked; Counseling Given: Not Answered Comments:09/17/20 currently smoking 10 cig/day; has smoked [...] on file documented as of this encounter Last Filed Vital Signs Vital Sign Reading Time Taken Comments Blood Pressure 134/84 11/27/2022 12:43 PM EDT Pulse 100 11/27/2022 12:43 PM EDT Temperature 36.9 C (98.4 F) 11/27/2022 1 2:43 PM EDT Respiratory Rate 18 11/27/2022 12:4 3 PM EDT Oxygen Saturation 98% 11/27/2022 12: 43 PM EDT Inhaled Oxygen Concentration - - Weight 139.3 kg (307 lb 3.2 oz) 023 12:43 PM EDT Height - - Body Mass Index 46.16 11/25/2022 2:14 PM EDT documented in this encounter Patient Instructions * Patient Instructions* Malini Iverson LPN - 11/27/2022 12:42 PM EDT ~~PATIENT INSTRUCTIONS FOR SHINGRIX VACCINE~~ Possible side effects of Shingrix vaccine, (shingles), are usually mild and can include: 1. Soreness or redness at injection site 2. Low grade fever 3. Body aches You may use a fever / pain reducing medication as needed for these symptoms. LET YOUR DOCTOR KNOW IMMEDIATELY IF YOU HAVE DIFFICULTY BREATHING OR SWALLOWING, EXPERIENCE ITCHINGOF FEET OR HANDS, HAVE SWELLING OF EYES, FACE OR INSIDE OF NOSE. Loreto Rojas [phone] Benefits of Quitting Smoking Why should I quit smoking? Smoking is bad for you and bad for others around you. Smoking causes cancer, heart attacks, hardening of the arteries, bronchitis, emphysema, cough, shortness of breath, wrinkles, and premature aging. It stains teeth and fingers, irritates the eyes, furs the tongue, and causes bad breath. People are living longer today than their parents did, so it makes sense to work on staying healthy and independent. One of the best ways to do this is to quit smoking. Benefits of quitting smoking It takes time to reverse many years' worth of smoking damage to your body, but some benefits of quitting smoking begin immediately. For example, you're financially better off on day one. Your health starts to improve right away, too, because you remove a former constant source of irritation from your lungs. People may comment that you no longer cough. Your blood circulation is likely to improve, so your hands and feet may feel warmer. Your teeth, breath, and fingers are no longer a turn-off. Benefits that you're less aware of also begin to occur. These include better resistance to colds and respiratory infections, less likelihood of major heart and circulation problems, less risk of high blood pressure or stroke, and less risk of developing cancer. The following arguments are often presented by smokers as justifications for their continuing to smoke: "I have to sometime, so I might as well enjoy life until then." True, but as a smoker you're much more likely to of a heart attack or cancer - neither of whichare very pleasant ways to go. "I'm only hurting myself." True, if you don't count the heartache and grief you may cause your loved ones by your early or permanent disability, or the damage of your smoke to others. "Lots of people who smoke live to ripe old ages in perfect health." True, but this is rare. Nearly all smokers have significant health problems. "Smoking is one of my pleasures. I don't want to quit." Smoking is associated with pleasure because the nicotine in tobacco is an addictive drug. Your bodywill continue to crave a regular supply until you can overcome the habit. Smoking is always a disadvantage to your health and that of your loved ones. "It's my choice and I choose to smoke." True. It is your choice. In a survey of older former smokers, more than 90% quit on their own because they decided to do so. The main reasons they gave for quitting were wanting to stay healthy, following health care provider's advice, regaining control of their lives, and making a loved one happy . [place] Department of Health Quit Line [employer] Free Quitline 0-641 QUIT NOW ( ) Your insurance company may also have more information and helpful programs to help you quit. Some may even help cover some of the costs. For example, [facility] members can call to find out about their smoking cessation program and medication coverage. Developed by Ivana Matute MD, for [employer]. Published by [employer]. Last modified: 2005-09-25 Last reviewed: 2005-07-15 This content is reviewed periodically and is subject to change as new health information becomes available. The information is intended to inform and educate and is not a replacement for medical evaluation, advice, diagnosis or treatment by a healthcare professional. Adult Health Advisor 2006.4 Index Adult Health Advisor 2006.4 Credits Copyright 2006 [employer] and/or one of its subsidiaries. All Rights Reserved. documented in this encounter Progress Notes * Claudia Rivas PA-C - 11/27/2022 12:49 PM EDT Images from the original note were not included. History of Present Illness Loreto Rojas is a 52 year old female that presents for Acute (Follow up from er visit 11/25/2022 back pain, chest tightness. Still has back pain and chest feels better.) and Immunizations (Shingrix) Here for er f/u. Was to [facility] on 11/25/2022 for back pain and chest tightness. [facility] to [facility] and had hematuria. There was concern for pe or renal calculi. PE was ruled out. They did not check for kidney stone. She was felt to have msk pain. She has had this before - similar to when she had the blood clot before. She feels like it might be a pulled muscle. She has had renal calculi before. She is urinating normally. She is not good about getting enough fluids. denies fever and chills. Pain is still present in her back when she takes a deep breathe. It is more dull. At the er, she was just laying in bed and her oxygen level dropped. She was told she should have pft and possibly some films done. She does smoke She has smoked since she was a teenager. She has quit multiple times. Physical Exam Vitals: 11/27/22 1243 Temp: 36.9 C (98.4 F) Pulse: 100 Resp: 18 SpO2: 98% BP: 134/84 BP Readings from Last 3 Encounters: 11/27/22 134/84 11/25/22 128/76 11/19/22 132/84 Wt Readings from Last 3 Encounters: 11/27/22 (!) 139.3 kg (307 lb 3.2 oz) 11/25/22 (!) 139.3 kg (307 lb 3.2 oz) 11/19/22 (!) 137.9 kg (304 lb) BMI Readings from Last 3 Encounters: 11/27/22 46.16 kg/m 11/25/22 46.16 kg/m 11/19/22 47.61 kg/m Ht Readings from Last 3 Encounters: 11/25/22 1.737 m (5' 8.4") 11/19/22 1.702 m (5' 7") 03/24/23 1.702 m (5' 7") General: alert, healthy and no distress Head: Normocephalic, No masses, lesions, tenderness or abnormalities Eye Exam: PERRLA, extraocular movements intact, conjunctiva are pink and non- injected, sclera clear Heart: regular rate & rhythm, no murmur, no gallops, S-1 normal and S-2 normal Lungs: chest symmetric with normal AP diameter, no chest deformities noted, no chest wall tenderness, lungs clear to auscultation Abdomen: abdomen soft, non-tender, normal bowel sounds and no masses or organomegaly Back: back symmetric, no curvature, range of motion is normal, mild L cva Extremities: less than 2 second capillary refill, no joint deformities, effusion, or inflammation Skin: skin color, texture, turgor are normal, no rashes or significant lesions Assessment and Plan Chronic obstructive pulmonary disease, unspecified COPD type (HCC) (Primary) - SPIROMETRY B/A BRONCHODILATOR; Future; Expected date: 11/27/2022 - Albuterol Sulfate (Proventil) (2.5 MG/3ML) 0.083% inhalation solution 2.5 mg - PNEUMOCOCCAL VACC, PCV20, IM ([id number]) Flank pain - possible stone, push fluids, consider imaging - she will think about this. Chest pain on breathing -resolved Encounter for screening mammogram for breast cancer - MAMMOGRAM SCREENING MARGIE BILATERAL; Future; Expected date: 11/27/2022 History of tobacco abuse - LUNG CANCER SCREENING PROGRAM REFERRAL; Future; Expected date: 11/27/2022 - SPIROMETRY B/A BRONCHODILATOR; Future; Expected date: 11/27/2022 - Albuterol Sulfate (Proventil) (2.5 MG/3ML) 0.083% inhalation solution 2.5 mg - PNEUMOCOCCAL VACC, PCV20, IM ([id number]) Need for pneumococcal 20-valent conjugate vaccination - PNEUMOCOCCAL VACC, PCV20, IM ([id number]) Need for vaccination for zoster - ZOSTER VACCINE RECOMB, 2 DOSE, IM (SHINGRIX) Check-out note: Pft Wrap-Up Rev er note from [facility] along with ct scan Time: I spent a total of 20-29 minutes (exact time 29 mins) on the date of service in preparation, delivery, and documentation of the care provided to Loreto Rojas excluding any time spent in the performance of separately billed services. The following information was reviewed/discussed with the patient: ? Benefits & harms of screening ? Potential indications for follow-up testing, if/when necessary ? Risk of over-diagnosis, false positive findings, and radiation exposure ? Importance of cigarette smoking abstinence, if applicable ? Annual adherence to lung cancer screening ? Impact of comorbidities and ability or willingness to undergo diagnostic testing and/or treatmentif something concerning is identified during screening. Claudia Rivas PA-C 11/27/2022 1:03 PM * Malini Iverson LPN - 11/27/2022 12:42 PM EDT Pre-Administration Time Out Procedure Performed: Yes Patient Identified (Ask Name/Date of ): Yes Does the patient have a fever greater than 101 degrees today? No Patient allergic to latex? No Has the patient ever fainted after receiving an injection? No VFC Stock: No Immunization(s) verified: Yes, Immunization Name: Prevnar 20 (PCV20) and Shingrix, VIS Sheet(s) given: Yes Verified Side and Site: Yes Verified Shot(s) with Parent(s)/Patient: Yes documented in this encounter Nursing Notes * Malini Iverson LPN - 11/27/2022 12:36 PM EDT Chief Complaint Patient presents with Acute Follow up from er visit 11/25/2022 back pain, chest tightness. Still has back pain and chest feels better. documented in this encounter Plan of Treatment Upcoming Encounters Date Type Specialty Care Team Description 12/04/2022 Telemedicine Psychiatry Cathie Jewell CRNP [address] [place] [address] 12/22/2022 PulmDiagnostic Pulmonary Function [place], [address] [place] [address] 12/22/2022 Imaging Radiology 05/31/2023 Office Visit Family Medicine Ridge Ramos MD [address] [facility] [place] [address] Scheduled Orders Name Type Priority Associated Diagnoses Orde r Schedule MAMMOGRAM SCREENING MARGIE BILATERAL Medical Imaging Routine Encounter for screening mammogram for breast cancer Expected: 11/27/2022, Expires: 12/29/2023 LUNG CANCER SCREENING PROGRAM REFERRAL Medical Imaging Routine History of tobacco abuse Expected: 11/27/2022, Expires: 11/27/2024 SPIROMETRY B/A BRONCHODILATOR Procedures Routine Chronic obstructive pulmonary disease, unspecified COPD type (HCC) History of tobacco abuse Expected: 11/27/2022, Expires: 11/28/2023 Scheduled Procedures Name Priority Associated Diagnoses Date/Ti me COLONOSCOPY FLEXIBLE PROXIMA L DIAGNOSTIC Recall Special screening for malignant neoplasms, colon Health Maintenance Due Date Last Done Comments DISCUSS TOBACCO CESSATION (REFER TO SMARTSET #3294) 1970 Hepatitis B (1 of 3 - [...] 09/09/2022 09/09/2021, 03/17, 04/24/2019, Additional history exists Influenza Vaccine (FLU shot) (#1) 2023 03/11/2022, 03/11/2022, 02/07/2021, Additional history exists Depression Screening, Annual for Pts 12 and Over 11/20/2023 11/19/2022 O2 ASSESSMENT COMPLETED IN PAST YEAR FOR COPD 11/26/2023 11/25/2022 Diabetes Screening 09/09/2024 09/09/2021, 1 05/27/2019, 04/24/2019, Additional history exists Colonoscopy 10/29/2024 10/29/2014, 10/29/2014 Colorectal Cancer Screening 10/29/2024 Lipid Panel 03/27/2025 03/27/2020, 12/0 01/2019, 05/12/2018, Additional history exists DTaP,Tdap,and Td [...] Not on filedocumented as of this encounter Visit Diagnoses Diagnosis Chronic obstructive pulmonary disease, unspecified COPD type (HCC)- Primary Flank pain Abdominal pain, unspecified site Chest pain on breathing Painful respiration Encounter for screening mammogram for breast cancer History of tobacco abuse Personal history of tobacco use, presenting hazards to health Need for pneumococcal 20-valent conjugate vaccination Need for vaccination for zoster Need for prophylactic vaccination and inoculation against other viral diseases documented in this encounter Care Teams Wheelabrator Operator Relationship Specialty Start Date End Date Ridge Ramos MD [address] [place] [address] PCP - General 05/26/00 documented as of this encounter
--- OUTSIDE RECORDS SUMMARY | 2023-04-24 13:57 | External Medical Summary | Summary of Care ---
Author Name Unknown Organization [facility] Address [address] [facility] [place] [address] Phone [phone] Care Team Providers Care Ict Customer Support Officer Name Role Phone Ridge Ramos MD Primary Care Provider [phone]- [phone] Reason for Visit * Reason Comments Acute Possible Covid, Husb and tested positive WednesdayPt started feeling sick on Wednesday morning Encounter Details Date Type Department Care Team (Late st Contact Info) Description 04/09/2023 8:20 AM EST Office Visit [facility] [address] [place] [address] Ridge Ramos MD [address] [place] [address] Viral respiratory illness* Allergies Active Allergy Reactions Criticality Noted Date Comments Sulfamethoxazole-Trimethoprim Rash Low 2008 Itch, hives Hydromorphone Abdominal pain 01/09/2019 Morphine Abdominal pain High 01/09/2019 Penicillins 12/19/1998 rash documented as of this encounter (statuses as of 04/09/2023) Medications Medication Sig Dispensed Refills Start Date [...] Muscle spasms. 10 Tablet 0 2 Active Saccharomyces boulardii 250 MG Oral [...] for Wheezing. 18 g 3 3 Active Montelukast Sodium 10 MG Oral Tablet (Singulair) Take 1 Tablet by mouth daily. 90 Tablet 3 3 Active Metoprolol Succinate ER 50 MG Oral Tablet Extended Release 24 Hour (toPROL XL)Indications:Hype rtensive urgency,Essential (primary) hypertension TAKE 1 TABLET BY MOUTH EVERY DAY 90 Tablet 3 3 Active Desvenlafaxine Succinate ER 100 MG [...] 90 Tablet 1 3 Active Neomycin-Polymyxin- HC 3.5-51559-7 Otic SolutionIndications :Black head Administer 4 Drops into the left ear in the morning and 4 Drops at noon and 4 Drops before bedtime. To affected ear, for 10 days.. 10 mL 1 3 Active ALPRAZolam 0.5 MG Oral Tablet (xaNAX) Take 1 Tablet by mouth 3 times a day as needed for Anxiety. 90 Tablet 0 3 Active buPROPion HCl ER (XL) 300 MG Oral Tablet Extended Release 24 Hour (Wellbutrin XL) Take 1 Tablet by mouth in the morning. 0 3 Active buPROPion HCl ER (XL) 150 MG Oral Tablet Extended Release 24 Hour (Wellbutrin XL) Take 3 Tablets by mouth in the morning. Note to pharmacy- please tell patient to make appointment to be seen in order to get subsequent refill.. 30 Tablet 0 3 Active Lisinopril 40 MG Oral TabletIndications:H TN, goal below 140/90 TAKE 1 TABLET BY MOUTH EVERY DAY IN THE MORNING 90 Tablet 0 3 Active hydroCHLOROthiazide 12.5 MG Oral Capsule (Hydrodiuril)Indica tions:Hypertensive urgency,Essential (primary) hypertension TAKE 1 CAPSULE BY MOUTH EVERY DAY 90 Capsule 0 3 Active Rivaroxaban 20 MG Oral Tablet (Xarelto) TAKE 1 TABLET BY MOUTH EVERY DAY 90 Tablet 0 3 Active valACYclovir HCl 1 GM Oral Tablet (Valtrex) TAKE 2 TABLETS BY MOUTH EVERY 12 HOURS FOR 1 DAY FOR COLD SORES 4 Tablet 0 3 Active B-12 1000 MCG Oral Capsule TAKE 1 CAPSULE BY MOUTH EVERY DAY IN THE MORNING 90 Capsule 1 3 Active Anoro Ellipta 62.5-25 MCG/ACT Inhalation Aerosol Powder Breath Activated (umeclidinium-vilan terol) Inhale 1 Puff by mouth in the morning. 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 LAI (generalized anxiety disorder) 08/06/2022 History of pulmonary embolism 03/20/2022 Chronic anticoagulation 03/20/2022 Moderate episode of recurrent major depressive d isorder 09/09/2021 Obesity, morbid (more than 1 00 lbs over ideal weight or BMI > 40) 12/17/2011 Overview: bmi= 47.02 12/17/11 HTN, goal below 140/90 01/08/1999 Allergic rhinitis ADJ DISORDER W/DEPRES MOOD documented as of this encounter (statuses as of 04/09/2023) Resolved Problems Problem Noted Date Diagnosed Date Resolved Date Open wound of finger 12/17/2011 017 Cat bite 12/17/2011 01/05/2017 Allergic reaction 12/17/2011 01/05/2017 Need for diphtheria-tetanus- pertussis (Tdap) vaccine 12/17/2011 01/20/2012 Obesity, morbid (more than 1 00 lbs over ideal weight or BMI > 40) 08/13/2009 01/05/2017 Overview: Per Obesity Taxonomy ICD-10 update of inactive term OBESITY, UNSPECIFIED 09/20/2000 010 Overview: Per Obesity Taxonomy Other general counseling and advice for contraceptive management 01/08/1999 01/05/2017 documented as of this encounter (statuses as of 04/09/2023) Immunizations Name Administration Dates Next Due COVID-19 mRNA, LNP-s, No Pre serve, 2-Dose Series ([employer]) 04/01/2021,09/03/2020,08/13/2020 Pneumococcal Conjugate Vacci ne, 20-valent ([id number]) 11/27/2022 Pneumococcal Polysaccharide PPV23 (Pneumovax) 09/09/2021,02/17/2016(Deferred: Patient Refused) SEASONAL INFLUENZA, PF, 6 M & Above, IM , (FLULAVAL or FLUZONE) 03/11/2022,02/07/2021,03/22/2020,12/0 09/2018,05/03/2018,05/06/2017 Seasonal Influenza Virus Vac cine, Unspecified Formulation 03/11/2022 Seasonal Influenza, Quadriva lent, No Preserve, IM [...] = 0.6 oz pur e alcohol) occ PHQ-2 Answer Date Recorded PHQ Adult Total Score 1 11/19/2022 Hunger Vital Sign Answer Date Recorded Within the past 12 months, y ou worried that your food would run out before you got the money to buy more. Never true Within the past 12 months, t he food you bought just didn't last and you didn't have money to get more. Patient refused 10/2022 Sex and Gender Information Value Date Recorded Sex Assigned at Female 08/07/2022 11:05 AM EDT Gender Identity Female 08/07/2022 11:05 AM EDT Sexual Orientation Straight 08/07/2022 11 :05 AM EDT Job Start Date Occupation Industry Not on file Not on file Not on file documented as of this encounter Last Filed Vital Signs Vital Sign Reading Time Taken Comments Blood Pressure 130/86 04/09/2023 8:23 AM EST Pulse 98 04/09/2023 8:23 AM EST Temperature 36.3 C (97.3 F) 04/09/2023 8:23 AM ES T Respiratory Rate 18 04/09/2023 8:23 AM EST Oxygen Saturation 95% 04/09/2023 8:23 AM EST Inhaled Oxygen Concentration - - Weight 140.3 kg (309 lb 6.4 oz) 04/09/2023 8:23 AM EST Height - - Body Mass Index 47.04 02/03/2023 8:56 AM EDT documented in this encounter Progress Notes * Ridge Ramos MD - 04/09/2023 8:47 AM EST Subjective: Loreto Rojas is a 52 year old female here today for Chief Complaint Patient presents with Acute Possible Covid, tested positive Wednesday Pt started feeling sick on Wednesday morning Patient presents for evaluation of acute illness. Patient started feeling poorly 2 days ago on Wednesday. On the same day, her tested positive for COVID. Patient states that was there last kit so she did not test herself. She has upper respiratory congestion, fever, body aches, cough. No respiratory distress. No fever at the current time. Past Medical History: Diagnosis Date Adjustment disorder with depressed mood Allergic rhinitis HTN, goal to be determined 2001 on lisinopril Obesity, BMI not known Sleep apnea, obstructive Past Surgical History: Procedure Laterality Date BREAST BIOPSY Right 10/27/2016 Benign COLONOSCOPY, DIAGNOSTIC (RECTUM) 10/29/2014 diverticulosis/[facility] EGD, FLEXIBLE, DIAGNOSTIC 01/17/2020 gastritis / [facility] HYSTEROSCOPY;ENDOMETRIAL ABLAT 03/13/2016 LAP;FULGURATION OVIDUCTS Tubal Ligation,Laparoscopic REMOVE GALLBLADDER 10/2002 Review of patient's allergies indicates: Allergen Reactions Morphine Abdominal pain Hydromorphone Abdominal pain Penicillins rash Bactrim [Sulfamethoxazole-Trimethoprim] Rash Itch, hives Current Outpatient Medications Medication Sig Dispense Refill cetirizine (ZYRTEC) 10 MG Tablet TAKE 1 TABLET BY MOUTH EVERY DAY 30 Tab 11 Cyclobenzaprine HCl 10 MG Oral Tablet (Flexeril) Take by mouth 1 Tablet as needed before bedtime for Muscle spasms. 10 Tablet 0 Saccharomyces boulardii 250 MG Oral Capsule (Florastor) Take 1 Capsule by mouth in the morning and 1 Capsule before bedtime. 60 Capsule 1 Ondansetron 8 MG Oral Tablet Disintegrating (Zofran) Place 1 Tablet on tongue every 8 hours as needed for Nausea. dissolve on tongue. 20 Tablet 1 Proventil HFA 108 (90 Base) MCG/ACT Inhalation Aerosol Solution Inhale 2 Puffs by mouth every 4 hours as needed for Wheezing. 18 g 3 Montelukast Sodium 10 MG Oral Tablet (Singulair) Take 1 Tablet by mouth daily. 90 Tablet 3 Metoprolol Succinate ER 50 MG Oral Tablet Extended Release 24 Hour (toPROL XL) TAKE 1 TABLET BY MOUTH EVERY DAY 90 Tablet 3 Desvenlafaxine Succinate ER 100 MG Oral Tablet Extended Release 24 Hour (Pristiq) Take 1 Tablet by mouth in the morning. Note- take it with the desvenlafaxine 50 mg tablet for a total of 150 mg daily. 30 Tablet 2 Desvenlafaxine Succinate ER 50 MG Oral Tablet Extended Release 24 Hour (Pristiq) Take 1 Tablet by mouth in the morning. 30 Tablet 2 Pantoprazole Sodium 40 MG Oral Tablet Delayed Release (Protonix) TAKE 1 TABLET BY MOUTH EVERY DAY 90 Tablet 1 amLODIPine Besylate 10 MG Oral Tablet (Norvasc) TAKE 1 TABLET BY MOUTH EVERY DAY 90 Tablet 1 Tnmarthx-Ellfsrtzv-UL 3.5-57240-3 Otic Solution Administer 4 Drops into the left ear in the morningand 4 Drops at noon and 4 Drops before bedtime. To affected ear, for 10 days.. 10 mL 1 ALPRAZolam 0.5 MG Oral Tablet (xaNAX) Take 1 Tablet by mouth 3 times a day as needed for Anxiety. 90 Tablet 0 buPROPion HCl ER (XL) 300 MG Oral Tablet Extended Release 24 Hour (Wellbutrin XL) Take 1 Tablet by mouth in the morning. buPROPion HCl ER (XL) 150 MG Oral Tablet Extended Release 24 Hour (Wellbutrin XL) Take 3 Tablets bymouth in the morning. Note to pharmacy- please tell patient to make appointment to be seen in orderto get subsequent refill.. 30 Tablet 0 Lisinopril 40 MG Oral Tablet TAKE 1 TABLET BY MOUTH EVERY DAY IN THE MORNING 90 Tablet 0 hydroCHLOROthiazide 12.5 MG Oral Capsule (Hydrodiuril) TAKE 1 CAPSULE BY MOUTH EVERY DAY 90 Capsule0 Rivaroxaban 20 MG Oral Tablet (Xarelto) TAKE 1 TABLET BY MOUTH EVERY DAY 90 Tablet 0 valACYclovir HCl 1 GM Oral Tablet (Valtrex) TAKE 2 TABLETS BY MOUTH EVERY 12 HOURS FOR 1 DAY FOR COLD SORES 4 Tablet 0 B-12 1000 MCG Oral Capsule TAKE 1 CAPSULE BY MOUTH EVERY DAY IN THE MORNING 90 Capsule 1 Mometasone Furoate (NASONEX) 50 MCG/ACT nasal spray Administer 2 Sprays into each nostril daily. 1 Inhaler 5 Current Facility-Administered Medications Medication Dose Route Frequency Provider Last Rate Last Admin Albuterol Sulfate (Proventil) (2.5 MG/3ML) 0.083% inhalation solution 2.5 mg 2.5 mg Nebulizer Once PRN Claudia Rivas PA-C Objective: BP 130/86 | Pulse 98 | Temp 36.3 C (97.3 F) (Infrared ) | Resp 18 | Wt (!) 140.3 kg (309 lb 6.4 oz) | SpO2 95% | BMI 47.04 kg/m | BSA 2.59 m GEN: NAD HEENT: TM's clear, OP clear, Nares clear. MMM NECK: Supple with no LAD, TM, JVD CHEST: CTA B CV: RRR Assessment and Plan: Viral respiratory illness (Primary) -patient has the same symptoms and timeline of illness as her who tested positive for COVID. We discussed that patient should be considered to have COVID. I would consider a negative test to be a false negative. I believe diagnosis can be made clinically and with the history. No evidence for bacterial infection on exam. Patient is not interested in taking Paxlovid so we do not need a testfor that purpose. She will call for any new or worsening symptoms. She should be out of work through 04/12/23. She may return on 04/13/23 provided she is not having any fever and is improving with her symptoms. 20 min with pt and documentation Ridge Ramos MD documented in this encounter Nursing Notes * Malini Iverson LPN - 04/09/2023 8:19 AM EST Chief Complaint Patient presents with Acute Possible Covid, tested positive Wednesday Pt started feeling sick on Wednesday morning documented in this encounter Plan of Treatment Upcoming Encounters Date Type Department Care Team (Late st Contact Info) Description 05/31/2023 10:20 AM EST Office Visit [facility] [address] [facility], [place] [address] Ridge Ramos MD [address] [place] [facility] [place] [address] Scheduled Procedures Name Priority Associated Diagnoses Date/Ti me COLONOSCOPY FLEXIBLE PROXIMA L DIAGNOSTIC Recall Special screening for malignant neoplasms, colon Health Maintenance Due Date Last Done Comments DISCUSS TOBACCO CESSATION (REFER TO SMARTSET #8205) 1971 Hepatitis B (1 of 3 - 3-dose series) 1971 HIV Screening 1986 Albumin/Creatinine Ratio 1989 Alpha-1 Antitrypsin 1989 Hepatitis C Screening 1989 HPV/Co-Test 2001 Cologuard 2016 Fecal Occult Blood Test 2016 Sigmoidoscopy 2016 Cervical Cancer Screening 11/18/2018 Pap Smear 11/18/2018 11/19/2015, 01/2008 (Done elsewhere), 01/05/2003, Additional history exists Mammogram 07/16/2022 07/16/2021, 01/2017, 10/25/2015, Additional history exists GFR 09/09/2022 09/09/2021, 03/17, 04/24/2019, Additional history exists *COPD SEVERITY VERIFIED BY PFT 11/29/2022 COVID-19 Vaccine ( season) 2023 04/01/2021, 09/03/2020, 08/13/2020 Influenza Vaccine (FLU shot) (#1) 2023 03/11/2022, 03/11/2022, 02/07/2021, Additional history exists Depression Screening 11/20/2023 11/19/2022 O2 ASSESSMENT COMPLETED IN PAST YEAR FOR COPD 02/04/2024 02/03/2023 Diabetes Screening 09/09/2024 09/09/2021, 1 05/27/2019, 04/24/2019, [...] as of this encounter Visit Diagnoses Diagnosis Viral respiratory illness- Primary Unspecified viral infection, in conditions classified elsewhere and of unspecified site documented in this encounter Care Teams Ict Customer Support Officer Relationship Specialty Start Date End Date Ridge Ramos MD [address] [place] [address] PCP - General 05/26/00 documented as of this encounter"
--- OUTSIDE RECORDS SUMMARY | 2023-04-24 13:57 | External Medical Summary | Summary of Care ---
Author Name Unknown Organization [facility] Address [address] [facility] [place] [address] Phone [phone] Care Team Providers Care Sander Setter Name Role Phone Ankush Ribeiro MD Primary Care Provider [phone]- [phone] Reason for Visit * Reason Comments eRx-Medication Refill Encounter Details Date Type Department Care Team Description 02/22/2023 Refill [facility] [address] [place] [address] Ankush Ribeiro MD [address] [place] [address] Hypertensive urgency; Essential (primary) hypertension Allergies Active Allergy Reactions Severity Noted Date Comments Sulfamethoxazole-Trimethoprim Rash Low 2008 Itch, hives Hydromorphone Abdominal pain 01/09/2019 Morphine Abdominal pain High 01/09/2019 Penicillins 12/19/1998 rash documented as of this encounter (statuses as of 02/23/2023) Medications Medication Sig Dispensed Refills Start Date [...] spasms. 10 Tablet 0 10/18/19 22 Active [facility] Vitamin B-12 1000 MCG Oral Tablet (vitamin b 12) TAKE 1 TABLET BY MOUTH EVERY DAY IN THE MORNING 90 Tablet 1 03/09/20 22 Active Saccharomyces boulardii 250 MG Oral [...] mouth in the morning. 30 Each 11 08/08/19 23 Active Additional Information Patient not taking.Reported on 11/25/2022 Montelukast Sodium 10 MG Oral Tablet (Singulair) Take 1 Tablet by mouth daily. 90 Tablet 3 09/01/19 23 Active Metoprolol Succinate ER 50 MG Oral Tablet Extended Release 24 Hour (toPROL XL)Indications:Hyp ertensive urgency,Essential (primary) hypertension TAKE 1 TABLET BY MOUTH EVERY DAY 90 Tablet 3 10/08/19 23 Active Desvenlafaxine Succinate ER 100 MG Oral Tablet Extended Release 24 Hour (Pristiq) Take 1 Tablet by mouth in the morning. Note- take it with the desvenlafaxine 50 mg tablet for a total of 150 mg daily. 30 Tablet 2 10/29/19 23 Active Desvenlafaxine Succinate ER 50 MG Oral Tablet Extended Release 24 Hour (Pristiq) Take 1 Tablet by mouth in the morning. 30 Tablet 2 10/29/19 23 Active Pantoprazole Sodium 40 MG Oral Tablet Delayed Release (Protonix) TAKE 1 TABLET BY MOUTH EVERY DAY 90 Tablet 1 12/04/19 23 Active amLODIPine Besylate 10 MG Oral Tablet (Norvasc) TAKE 1 TABLET BY MOUTH EVERY DAY 90 Tablet 1 12/04/19 23 Active Neomycin-Polymyxin -HC 3.5-10283-1 Otic SolutionIndication s:Black head Administer 4 Drops into the left ear in the morning and 4 Drops at noon and 4 Drops before bedtime. To affected ear, for 10 days.. 10 mL 1 01/08/20 23 Active ALPRAZolam 0.5 MG Oral Tablet (xaNAX) Take 1 Tablet by mouth 3 times a day as needed for Anxiety. 90 Tablet 0 01/09/20 23 Active buPROPion HCl ER (XL) 300 MG Oral Tablet Extended Release 24 Hour (Wellbutrin XL) Take 1 Tablet by mouth in the morning. 0 01/09/20 23 Active buPROPion HCl ER (XL) 150 MG Oral Tablet Extended Release 24 Hour (Wellbutrin XL) Take 3 Tablets by mouth in the morning. Note to pharmacy- please tell patient to make appointment to be seen in order to get subsequent refill.. 30 Tablet 0 02/05/20 23 Active Lisinopril 40 MG Oral TabletIndications: HTN, goal below 140/90 TAKE 1 TABLET BY MOUTH EVERY DAY IN THE MORNING 90 Tablet 0 02/10/20 23 Active hydroCHLOROthiazid e 12.5 MG Oral Capsule (Hydrodiuril)Indic ations:Hypertensiv e urgency,Essential (primary) hypertension TAKE 1 CAPSULE BY MOUTH EVERY DAY 90 Capsule 0 02/24/20 23 Active Rivaroxaban 20 MG Oral Tablet (Xarelto) TAKE 1 TABLET BY MOUTH EVERY DAY 90 Tablet 0 02/24/20 23 Active valACYclovir HCl 1 GM Oral Tablet (Valtrex) TAKE 2 TABLETS BY MOUTH EVERY 12 HOURS FOR 1 DAY FOR COLD SORES 4 Tablet 0 02/24/20 23 Active valACYclovir HCl 1 GM Oral Tablet (Valtrex) TAKE 2 TABLETS BY MOUTH EVERY 12 HOURS FOR 1 DAY FOR COLD SORES 4 Tablet 5 12/13/19 22 023 Discontinued Rivaroxaban 20 MG Oral Tablet (Xarelto) TAKE 1 TABLET BY MOUTH EVERY DAY 90 Tablet 1 05/07/20 22 023 Discontinued hydroCHLOROthiazid e 12.5 MG Oral Capsule (Hydrodiuril)Indic ations:Hypertensiv e urgency,Essential (primary) hypertension TAKE 1 CAPSULE BY MOUTH EVERY DAY 90 Capsule 1 09/01/19 23 023 Discontinued Hospital, Clinic, or Other Facility Administered Medication Ordered Dose Route Frequency Start Date End Date Status Albuterol Sulfate (Proventil) (2.5 MG/3ML) 0.083% inhalation solution 2.5 mgIndications:Chronic obstructive pulmonary disease, unspecified COPD type (HCC),History of tobacco abuse 2.5 mg NEBULIZER ONCE PRN 11/27/2022 11/27/2023 Active documented as of this encounter (statuses as of 02/23/2023) Active Problems Problem Noted Date Chronic obstructive pulmonary disease Treatment-resistant depression LAI (generalized anxiety disorder) 08/06 History of pulmonary embolism 03/20/2022 Chronic anticoagulation 03/20/2022 Moderate episode of recurrent major depr essive disorder 09/09/2021 Obesity, morbid (more than 100 lbs over ideal weight or BMI > 40) 12/17/2011 Overview: bmi= 47.02 12/17/11 HTN, goal below 140/90 01/08/1999 Allergic rhinitis ADJ DISORDER W/DEPRES MOOD documented as of this encounter (statuses as of 02/23/2023) Resolved Problems Problem Noted Date Resolved Date Open wound of finger 12/17/2011 01/05/2017 Cat bite 12/17/2011 01/05/2017 Allergic reaction 12/17/2011 01/05/2017 Need for dlrygcpkop-lfzirpw-lbrwxbpqs (Tdap) vac cine 12/17/2011 01/20/2012 Obesity, morbid (more than 1 00 lbs over ideal weight or BMI > 40) 08/13/2009 01/05/2017 Overview: Per Obesity Taxonomy ICD-10 update of inactive term OBESITY, UNSPECIFIED 09/20/2000 08/13/2009 Overview: Per Obesity Taxonomy Other general counseling and advice for contraceptive management 01/08/1999 01/05/2017 documented as of this encounter (statuses as of 02/23/2023) Immunizations Name Administration Dates Next Due COVID-19 mRNA, LNP-s, No Pre serve, 2-Dose Series (Amanda Huff [employer]) 04/01/2021,09/03/2020,08/13/2020 Pneumococcal Conjugate Vacci ne, 20-valent ([id number]) 11/27/2022 Pneumococcal Polysaccharide PPV23 (Pneumovax) 09/09/2021,02/17/2016(Deferred: Patient [...] encounter Miscellaneous Notes * Telephone Encounter - Janki Wooten RPh - 02/23/2023 3:31 PM EDT Signed Prescriptions: Disp Refills hydroCHLOROthiazide 12.5 MG Oral Capsule (*90 Cap*0 Sig: TAKE 1 CAPSULE BY MOUTH EVERY DAYAuthorizing Provider: ANKUSH RIBEIRO User: TUMAN, JANKI GREGG Rivaroxaban 20 MG Oral Tablet (Xarelto) 90 Tab*0 Sig: TAKE 1 TABLET BY MOUTH EVERY DAYJavon roberto Provider: ANKUSH RIBEIRO User: JANKI WOOTEN valACYclovir HCl 1 GM Oral Tablet (Valtrex)4 Tabl*0 Sig: TAKE 2 TABLETS BY MOUTH EVERY 12 HOURS FOR 1 DAY FOR COLD SORESAuthorizing Provider: ANKUSH RIBEIRO User: JANKI WOOTEN * Telephone Encounter - Janki Wooten RPh - 02/23/2023 3:26 PM EDT Patient will be contacted in 02/09 encounter regarding needing OV and/or lab work. 1 refill approved. Thank you, Janki Wooten, PharmD, RIMA Clinical Pharmacist [facility] ([facility]) (formerly Telepharmacy) 02/23/23 3:28 PM [phone] documented in this encounter Plan of Treatment Upcoming Encounters Date Type Specialty Care Team Description 05/31/2023 Office Visit Family Medicine Ankush Ribeiro MD [address] [place] [address] Scheduled Procedures Name Priority Associated Diagnoses Date/Ti me COLONOSCOPY FLEXIBLE PROXIMA L DIAGNOSTIC Recall Special screening for malignant neoplasms, colon Health Maintenance Due Date Last Done Comments DISCUSS TOBACCO CESSATION (REFER TO SMARTSET #1486) 1971 Hepatitis B (1 of 3 - [...] as of this encounter Visit Diagnoses Diagnosis Hypertensive urgency Unspecified essential hypertension Essential (primary) hypertension Unspecified essential hypertension documented in this encounter Care Teams Sander Setter Relationship Specialty Start Date End Date Ankush Ribeiro MD [address] [place] [address] PCP - General 05/26/00 documented as of this encounter
--- OUTSIDE RECORDS SUMMARY | 2023-04-24 13:57 | External Medical Summary | Summary of Care ---
Author Name Unknown Organization [facility] Address [address] [place] [address] Phone [phone] Care Team Providers Care Alteration Tailor Apprentice Name Role Phone Ridge Ramos MD Primary Care Provider +1- [phone] Reason for Visit * Reason Onset Date Comments Referral 11/30/2022 Encounter Details Date Type Department Care Team Description 11/30/2022 Telephone Thoracic Surg [facility] [address] [place] [address] Maryellen Garcia, butcher's assistant Allergies Active Allergy Reactions Severity Noted Date Comments Sulfamethoxazole-Trimethoprim Rash Low 2008 Itch, hives Hydromorphone Abdominal pain 01/09/2019 Morphine Abdominal pain High 01/09/2019 Penicillins 12/19/1998 rash documented as of this encounter (statuses as of 12/15/2022) Medications Medication Sig Dispensed Refills Start Date [...] EVERY DAY 90 Tablet 1 05/07/2022 Active Saccharomyces boulardii 250 MG Oral Capsule [...] mouth in the morning. 30 Each 11 08/07/2022 Active Additional Information Patient not taking.Reported [...] as of this encounter (statuses as of 12/15/2022) Active Problems Problem Noted Date Chronic obstructive [...] as of this encounter (statuses as of 12/15/2022) Resolved Problems Problem Noted Date Resolved Date Open wound of finger 12/17/2011 01/05/2017 Cat bite 12/17/2011 01/05/2017 Allergic reaction 12/17/2011 01/05/2017 Need for abfguymgxl-fqaylah-ylsgblvfs (Tdap) vac cine 12/17/2011 01/20/2012 Obesity, morbid (more than 1 00 lbs over ideal weight or BMI > 40) 08/13/2009 01/05/2017 Overview: Per Obesity Taxonomy ICD-10 update of inactive term OBESITY, UNSPECIFIED 09/20/2000 08/13/2009 Overview: Per Obesity Taxonomy Other general counseling and advice for contraceptive management 01/08/1999 01/05/2017 documented as of this encounter (statuses as of 12/15/2022) Immunizations Name Administration Dates Next Due COVID-19 mRNA, LNP-s, No Pre serve, 2-Dose Series (Pfizer) 04/01/2021,09/03/2020,08/13/2020 Pneumococcal Conjugate Vacci ne, 20-valent ([id number]) 11/27/2022 Pneumococcal Polysaccharide PPV23 (Pneumovax) 09/09/2021,02/17/2016(Deferred: Patient [...] encounter Miscellaneous Notes * Telephone Encounter - Maryellen Garcia RN - 12/15/2022 10:08 AM EDT Lung Cancer Screening Program ([facility]) Referral Call Summary 12/15/2022 Outcome: I cannot reach the patient to discuss - letter sent. Ordering provider contacted. The patient has been referred by their provider to the Lung Cancer Screening Program (LCSP). Patient contacted to review the LCSP program and address any questions. The following program requirements criteria have been reviewed: Age 50-80 Current or Former Smoker (quit within 15 years) 20+ pack year No Signs of Lung Cancer Shared decision making completed Maryellen Garcia RN Lung Cancer Screening Analytical Scientist * Telephone Encounter - Maryellen Garcia RN - 12/03/2022 2:57 PM EDT Lung Cancer Screening Program ([facility]) Referral Call Summary 12/03/2022 Outcome: Left Message Calling to verify smoking history The patient has been referred by their provider to the Lung Cancer Screening Program ([facility]SP). Patient contacted to review the LCSP program and address any questions. The following program requirements criteria have been reviewed: Age 50-80 Current or Former Smoker (quit within 15 years) 20+ pack year No Signs of Lung Cancer Shared decision making completed Maryellen Garcia RN Lung Cancer Screening Analytical Scientist * Telephone Encounter - Maryellen Garcia RN - 11/30/2022 10:19 AM EDT Lung Cancer Screening Program ([facility]) Referral Call Summary 11/30/2022 Outcome: Left Message The patient has been referred by their provider to the Lung Cancer Screening Program ([facility]). Patient contacted to review the LCSP program and address any questions. The following program requirements criteria have been reviewed: Age 50-80 Current or Former Smoker (quit within 15 years) 20+ pack year No Signs of Lung Cancer Shared decision making completed Maryellen Garcia RN Lung Cancer Screening Analytical Scientist documented in this encounter Plan of Treatment Upcoming Encounters Date Type Specialty Care Team Description 12/22/2022 PulmDiagnostic Pulmonary Function [place], [address] [facility] [place] [address] 12/22/2022 Imaging Radiology 05/31/2023 Office Visit Family Medicine Ridge Ramos MD [address] [place] [address] Scheduled Procedures Name Priority Associated Diagnoses Date/Ti me COLONOSCOPY FLEXIBLE PROXIMA L DIAGNOSTIC Recall Special screening for malignant neoplasms, colon Health Maintenance Due Date Last Done Comments DISCUSS TOBACCO CESSATION (REFER TO SMARTSET #9417) 1970 Hepatitis B (1 of 3 - [...] filedocumented as of this encounter Care Teams Alteration Tailor Apprentice Relationship Specialty Start Date End Date Ridge Ramos MD [address] [place] [address] PCP - General 05/26/00 documented as of this encounter
--- OUTSIDE RECORDS SUMMARY | 2023-04-24 13:57 | External Medical Summary | Summary of Care ---
Author Name Unknown Organization [facility] Address [address] [facility] [address] Phone [phone] Care Team Providers Care Chemical Engineering Intern Name Role Phone Ridge Ramos MD Primary Care Provider +1- [phone] Reason for Visit * Reason Comments Acute Cough, congestion, s ore throat-symptoms started Wednesday, slight fever Wednesday. Coworkers had covid Encounter Details Date Type Department Care Team Description 02/03/2023 Office Visit [facility] [address] [place] [address] SeptemberRashi MD [address] [place] [address] Viral URI with cough* Allergies Active Allergy Reactions Severity Noted Date Comments Sulfamethoxazole-Trimethoprim Rash Low 2008 Itch, hives Hydromorphone Abdominal pain 01/09/2019 Morphine Abdominal pain High 01/09/2019 Penicillins 12/19/1998 rash documented as of this encounter (statuses as of 02/03/2023) Medications Medication Sig Dispensed Refills Start Date [...] EVERY DAY 90 Tablet 3 10/07/2022 Active buPROPion HCl ER (XL) 150 [...] the morning. 30 Tablet 2 10/28/2022 Active Pantoprazole Sodium 40 MG Oral Tablet Delayed Release (Protonix) TAKE 1 TABLET BY MOUTH EVERY DAY 90 Tablet 1 12/03/2022 Active amLODIPine Besylate 10 MG Oral Tablet (Norvasc) TAKE 1 TABLET BY MOUTH EVERY DAY 90 Tablet 1 12/03/2022 Active Neomycin-Polymyxin- HC 3.5-46442-5 Otic SolutionIndications :Black head Administer 4 Drops into the left ear in the morning and 4 Drops at noon and 4 Drops before bedtime. To affected ear, for 10 days.. 10 mL 1 01/07/2023 Active ALPRAZolam 0.5 MG Oral Tablet (xaNAX) Take 1 Tablet by mouth 3 times a day as needed for Anxiety. 90 Tablet 0 01/08/2023 Active buPROPion HCl ER (XL) 300 MG Oral Tablet Extended Release 24 Hour (Wellbutrin XL) Take 1 Tablet by mouth in the morning. 0 01/08/2023 Active Hospital, Clinic, or Other Facility Administered Medication Ordered Dose Route Frequency Start Date End Date Status Albuterol Sulfate (Proventil) (2.5 MG/3ML) 0.083% inhalation solution 2.5 mgIndications:Chronic obstructive pulmonary disease, unspecified COPD type (HCC),History of tobacco abuse 2.5 mg NEBULIZER ONCE PRN 11/27/2022 11/27/2023 Active documented as of this encounter (statuses as of 02/03/2023) Active Problems Problem Noted Date Chronic obstructive [...] as of this encounter (statuses as of 02/03/2023) Resolved Problems Problem Noted Date Resolved Date Open wound of finger 12/17/2011 01/05/2017 Cat bite 12/17/2011 01/05/2017 Allergic reaction 12/17/2011 01/05/2017 Need for ljoaxzhdqm-ekgtokn-vclndnjpg (Tdap) vac cine 12/17/2011 01/20/2012 Obesity, morbid (more than 1 00 lbs over ideal weight or BMI > 40) 08/13/2009 01/05/2017 Overview: Per Obesity Taxonomy ICD-10 update of inactive term OBESITY, UNSPECIFIED 09/20/2000 08/13/2009 Overview: Per Obesity Taxonomy Other general counseling and advice for contraceptive management 01/08/1999 01/05/2017 documented as of this encounter (statuses as of 02/03/2023) Immunizations Name Administration Dates Next Due COVID-19 mRNA, LNP-s, No Pre serve, 2-Dose Series ([employer]) 04/01/2021,09/03/2020,08/13/2020 Pneumococcal Conjugate Vacci ne, 20-valent (Ivamtsv22) 11/27/2022 Pneumococcal Polysaccharide PPV23 (Pneumovax) 09/09/2021,02/17/2016(Deferred: Patient Refused) Seasonal Influenza Virus Vac cine, Unspecified Formulation 03/11/2022 Seasonal Influenza, PF, 6 mo ns & Above, IM , (Flulaval) 03/11/2022,02/07/2021,03/22/2020,12/0 09/2018,05/03/2018,05/06/2017 Seasonal Influenza, Quadriva lent, No [...] Sign Reading Time Taken Comments Blood Pressure 120/82 02/03/2023 8:56 AM EDT Pulse 86 02/03/2023 8:56 AM EDT Temperature 36.5 C (97.7 F) 02/03/2023 8:56 AM ED T Respiratory Rate 18 02/03/2023 8:56 AM EDT Oxygen Saturation 96% 02/03/2023 8:56 AM EDT Inhaled Oxygen Concentration - - Weight 140.6 kg (310 lb) 02/03/2023 8:56 AM EDT Height 172.7 cm (5' 8") 02/03/2023 8:56 AM EDT Body Mass Index 47.14 02/03/2023 8:56 AM EDT documented in this encounter Progress Notes * Rashi Greene MD - 02/03/2023 9:09 AM EDT Images from the original note were not included. Assessment and Plan 1. Viral URI with cough Viral URI. Rule out COVID. If COVID positive must isolate through 02/05/2023 then wear mask through02/10/2023. If COVID negative can go to scheduled meeting on 02/04/2023. Recommend patient get COVIDbooster either ALYSE if COVID negative or 90 days after illness if COVID positive. Continue szkc-cfz-akpkjva medications. Notify the office if shortness of breath, lethargy, inability to tolerate p.o.develop. - SARS-COV-2 (COVID-19), NAAT - RETURN TO WORK OR SCHOOL Wrap-Up Follow up as needed. History of Present Illness The patient is a 52 year old female with past medical history of HTN, COPD, obesity, LAI/depressionwho presents for sick visit. Patient presents with symptoms starting late 01/31/2023. On 02/01/2023 she had fever, cough, chills, fatigue. This has slowly improved since that time. She was exposed to a co-worker who tested positive for COVID last week. She has not tested herself. She denies significant chest pain or shortness a breath. She has been taking oiat-zpb-slrmyrl cough medicines with mild improvement. She is eating and drinking normally without nausea or diarrhea. Physical Exam Vitals: 02/03/23 0856 Temp: 36.5 C (97.7 F) Pulse: 86 Resp: 18 SpO2: 96% BP: 120/82 BMI: 47.15 Physical Exam Physical Exam Vitals reviewed. Constitutional: General: She is not in acute distress. Appearance: She is obese. HENT: Right Ear: Tympanic membrane normal. There is no impacted cerumen. Left Ear: Tympanic membrane normal. There is no impacted cerumen. Nose: Rhinorrhea present. Mouth/Throat: Mouth: Mucous membranes are moist. Pharynx: Posterior oropharyngeal erythema present. No oropharyngeal exudate. Cardiovascular: Rate and Rhythm: Normal rate and regular rhythm. Heart sounds: No murmur heard. Pulmonary: Effort: Pulmonary effort is normal. No respiratory distress. Breath sounds: Normal breath sounds. No wheezing. Musculoskeletal: Cervical back: Neck supple. Lymphadenopathy: Cervical: No cervical adenopathy. Skin: General: Skin is warm and dry. Neurological: Mental Status: She is alert. documented in this encounter Nursing Notes * Roselyn Damian LPN - 02/03/2023 9:02 AM EDT The patient has been properly identified by confirmation of name and date of . Chief Complaint Patient presents with Acute Cough, congestion, sore throat-symptoms started Wednesday, slight fever Wednesday. Coworkers had covid documented in this encounter Plan of Treatment Upcoming Encounters Date Type Specialty Care Team Description 05/31/2023 Office Visit Family Medicine Ridge Ramos MD [address] [place] [address] Pending Results Name Type Priority Associated Diagnoses Date /Time SARS-COV-2 (COVID-19), NAAT Lab Routine Viral URI with cough 02/03/2023 9:30 AM EDT Scheduled Procedures Name Priority Associated Diagnoses Date/Ti me COLONOSCOPY FLEXIBLE PROXIMA L DIAGNOSTIC Recall Special screening for malignant neoplasms, colon Health Maintenance Due Date Last Done Comments DISCUSS TOBACCO CESSATION (REFER TO SMARTSET #3296) 1970 Hepatitis B (1 of 3 - [...] of this encounter Visit Diagnoses Diagnosis Viral URI with cough- Primary Acute upper respiratory infections of unspecified site documented in this encounter Care Teams Chemical Engineering Intern Relationship Specialty Start Date End Date Ridge Ramos MD [address] [place] [address] PCP - General 05/26/00 documented as of this encounter
--- OUTSIDE RECORDS SUMMARY | 2023-04-24 13:57 | External Medical Summary | Summary of Care ---
Author Name Unknown Organization [facility] Address [address] [place] [address] Phone [phone] Care Team Providers Care Smooth And Burr Worker Composites Name Role Phone Ridge Ramos MD Primary Care Provider [phone]- [phone] Reason for Visit * Reason Onset Date Comments Medication Refill 02/03/2023 Encounter Details Date Type Department Care Team Description 02/03/2023 Refill [facility] [address], [place] [id number] Hilaria Jewell CRNP [address] [place] [address] Allergies Active Allergy Reactions Severity Noted Date Comments Sulfamethoxazole-Trimethoprim Rash Low 2008 Itch, hives Hydromorphone Abdominal pain 01/09/2019 Morphine Abdominal pain High 01/09/2019 Penicillins 12/19/1998 rash documented as of this encounter (statuses as of 02/04/2023) Medications Medication Sig Dispensed Refills Start Date [...] 90 Tablet 1 3 Active Neomycin-Polymyxin- HC 3.5-80003-9 Otic SolutionIndications :Black head Administer 4 Drops [...] subsequent refill.. 30 Tablet 0 3 Active buPROPion HCl ER (XL) 150 MG Oral Tablet Extended Release 24 Hour (Wellbutrin XL) Take 3 Tablets by mouth in the morning. 90 Tablet 2 3 02/04/20 23 Discontinu ed(Refill) Hospital, Clinic, or Other Facility Administered Medication Ordered Dose Route Frequency Start Date End Date Status Albuterol Sulfate (Proventil) (2.5 MG/3ML) 0.083% inhalation solution 2.5 mgIndications:Chronic obstructive pulmonary disease, unspecified COPD type (HCC),History of tobacco abuse 2.5 mg NEBULIZER ONCE PRN 11/27/2022 11/27/2023 Active documented as of this encounter (statuses as of 02/04/2023) Active Problems Problem Noted Date Chronic obstructive [...] as of this encounter (statuses as of 02/04/2023) Resolved Problems Problem Noted Date Resolved Date Open wound of finger 12/17/2011 01/05/2017 Cat bite 12/17/2011 01/05/2017 Allergic reaction 12/17/2011 01/05/2017 Need for sspsflsmfr-cywbbsh-eiunmgbyt (Tdap) vac cine 12/17/2011 01/20/2012 Obesity, morbid (more than 1 00 lbs over ideal weight or BMI > 40) 08/13/2009 01/05/2017 Overview: Per Obesity Taxonomy ICD-10 update of inactive term OBESITY, UNSPECIFIED 09/20/2000 08/13/2009 Overview: Per Obesity Taxonomy Other general counseling and advice for contraceptive management 01/08/1999 01/05/2017 documented as of this encounter (statuses as of 02/04/2023) Immunizations Name Administration Dates Next Due COVID-19 mRNA, LNP-s, No Pre serve, 2-Dose Series (Pfizer) 04/01/2021,09/03/2020,08/13/2020 Pneumococcal Conjugate Vacci ne, 20-valent ([id number]) 11/27/2022 Pneumococcal Polysaccharide PPV23 (Pneumovax) 09/09/2021,02/17/2016(Deferred: Patient Refused) Seasonal Influenza Virus Vac cine, Unspecified Formulation 03/11/2022 Seasonal Influenza, PF, 6 mo ns & Above, IM , (Flulaval) 03/11/2022,02/07/2021,03/22/2020,12/09/2018,05/03/2018,05/06/2017 Seasonal Influenza, Quadriva lent, No Preserve, [...] encounter Miscellaneous Notes * Telephone Encounter - OLGA Zheng - 02/04/2023 11:27 AM EDT Signed Prescriptions: Disp Refills buPROPion HCl ER (XL) 150 MG Oral Tablet E*30 Tab*0 Sig: Take 3 Tablets by mouth in the morning. Note to pharmacy- please tell patient to make appointment to be seen in order to get subsequent refill..Authorizing Provider: HILARIA JEWELL * Telephone Encounter - Emely Arriaga LPN - 02/03/2023 1:52 PM EDT Patient calling for refill on Wellbutrin. Medication was last filled on 10/28/2022 with 2 refills. Patient last seen on 10/28/2022 with return appointment scheduled for NONE. Patient had 1 cancelled appointments and 1 NO SHOW appointments. documented in this encounter Plan of Treatment Upcoming Encounters Date Type Specialty Care Team Description 05/31/2023 Office Visit Family Medicine Ridge Ramos MD [address] [place] [address] Scheduled Procedures Name Priority Associated Diagnoses Date/Ti me COLONOSCOPY FLEXIBLE PROXIMA L DIAGNOSTIC Recall Special screening for malignant neoplasms, colon Health Maintenance Due Date Last Done Comments DISCUSS TOBACCO CESSATION (REFER TO SMARTSET #1354) 1970 Hepatitis B (1 of 3 - [...] Cancer Screening 10/29/2024 Lipid Panel 03/27/2025 03/27/2020, 1201/2019, 05/12/2018, Additional history exists DTaP,Tdap,and Td Vaccines [...] filedocumented as of this encounter Care Teams Smooth And Burr Worker Composites Relationship Specialty Start Date End Date Ridge Ramos MD [address], [place] [id number] PCP - General 05/26/00 documented as of this encounter
--- OUTSIDE RECORDS SUMMARY | 2023-04-24 13:57 | External Medical Summary | Summary of Care ---
Author Name Unknown Organization [facility] Address [address] [facility] [place] [address] Phone [phone] Care Team Providers Care Geophysical Laboratory Chief Name Role Phone Ridge Ramos MD Primary Care Provider +1- [phone] Reason for Visit * Reason Comments eRx-Medication Refill Encounter Details Date Type Department Care Team (Late st Contact Info) Description 04/01/2023 Refill [facility] [address] [place] [address] Ridge Ramos MD [address] [place] [address] Hypertensive urgency; Essential (primary) hypertension Allergies Active Allergy Reactions Criticality Noted Date Comments Sulfamethoxazole-Trimethoprim Rash Low 2008 Itch, hives Hydromorphone Abdominal pain 01/09/2019 Morphine Abdominal pain High 01/09/2019 Penicillins 12/19/1998 rash documented as of this encounter (statuses as of 04/02/2023) Medications Medication Sig Dispensed Refills Start Date [...] Muscle spasms. 10 Tablet 0 10/17/2021 Active Saccharomyces boulardii 250 MG Oral Capsule [...] mouth daily. 90 Tablet 3 08/31/2022 Active Metoprolol Succinate ER 50 MG Oral Tablet Extended Release 24 Hour (toPROL XL)Indications:Hype rtensive urgency,Essential (primary) hypertension TAKE 1 TABLET BY MOUTH EVERY DAY 90 Tablet 3 10/07/2022 Active Desvenlafaxine Succinate ER 100 MG Oral [...] 90 Tablet 1 12/03/2022 Active Neomycin-Polymyxin- HC 3.5-35356-2 Otic SolutionIndications :Black head Administer 4 Drops [...] mouth in the morning. 0 01/08/2023 Active buPROPion HCl ER (XL) 150 MG Oral Tablet Extended Release 24 Hour (Wellbutrin XL) Take 3 Tablets by mouth in the morning. Note to pharmacy- please tell patient to make appointment to be seen in order to get subsequent refill.. 30 Tablet 0 02/04/2023 Active Lisinopril 40 MG Oral TabletIndications:H TN, goal below 140/90 TAKE 1 TABLET BY MOUTH EVERY DAY IN THE MORNING 90 Tablet 0 02/09/2023 Active hydroCHLOROthiazide 12.5 MG Oral Capsule (Hydrodiuril)Indica tions:Hypertensive urgency,Essential (primary) hypertension TAKE 1 CAPSULE BY MOUTH EVERY DAY 90 Capsule 0 02/23/2023 Active Rivaroxaban 20 MG Oral Tablet (Xarelto) TAKE 1 TABLET BY MOUTH EVERY DAY 90 Tablet 0 02/23/2023 Active valACYclovir HCl 1 GM Oral Tablet (Valtrex) TAKE 2 TABLETS BY MOUTH EVERY 12 HOURS FOR 1 DAY FOR COLD SORES 4 Tablet 0 02/23/2023 Active B-12 1000 MCG Oral Capsule TAKE 1 CAPSULE BY MOUTH EVERY DAY IN THE MORNING 90 Capsule 1 03/19/2023 Active Hospital, Clinic, or Other Facility Administered Medication Ordered Dose Route Frequency Start Date End Date Status Albuterol Sulfate (Proventil) (2.5 MG/3ML) 0.083% inhalation solution 2.5 mgIndications:Chronic obstructive pulmonary disease, unspecified COPD type (HCC),History of tobacco abuse 2.5 mg NEBULIZER ONCE PRN 11/27/2022 11/27/2023 Active documented as of this encounter (statuses as of 04/02/2023) Active Problems Problem Noted Date Diagnosed Date [...] as of this encounter (statuses as of 04/02/2023) Resolved Problems Problem Noted Date Diagnosed Date [...] as of this encounter (statuses as of 04/02/2023) Immunizations Name Administration Dates Next Due COVID-19 mRNA, LNP-s, No Pre serve, 2-Dose Series ([email or web address]) 04/01/2021,09/03/2020,08/13/2020 Pneumococcal Conjugate Vacci ne, 20-valent ([email or web address]) 11/27/2022 Pneumococcal Polysaccharide PPV23 (Pneumovax) 09/09/2021,02/17/2016(Deferred: Patient [...] encounter Miscellaneous Notes * Telephone Encounter - Zabrina Steven RPh - 04/02/2023 5:51 AM EST Refused Prescriptions: Disp Refills hydroCHLOROthiazide 12.5 MG Oral Capsule (*90 Cap*0 Sig: TAKE 1 CAPSULE BY MOUTH EVERY DAYRefused By: ZABRINA STEVEN for Refusal: Too soon documented in this encounter Plan of Treatment Upcoming Encounters Date Type Department Care Team (Late st Contact Info) Description 05/31/2023 10:20 AM EST Office Visit [facility] [address] [place] [facility] [place] [address] Ridge Ramos MD [address] [place] [address] Scheduled Procedures Name Priority Associated Diagnoses Date/Ti me COLONOSCOPY FLEXIBLE PROXIMA L DIAGNOSTIC Recall Special screening for malignant neoplasms, colon Health Maintenance Due Date Last Done Comments DISCUSS TOBACCO CESSATION (REFER TO SMARTSET #2137) 1970 Hepatitis B (1 of 3 - [...] Cancer Screening 10/29/2024 Lipid Panel 03/27/2025 03/27/2020, 12/01/2019, 05/12/2018, Additional history exists DTaP,Tdap,and Td Vaccines [...] hypertension documented in this encounter Care Teams Geophysical Laboratory Chief Relationship Specialty Start Date End Date Ridge Ramos MD [address] [place] [address] PCP - General 05/26/00 documented as of this encounter
--- OUTSIDE RECORDS SUMMARY | 2023-04-24 13:57 | External Medical Summary | Summary of Care ---
Author Name Unknown Organization [facility] Address [address] [facility] [place] [address] Phone [phone] Care Team Providers Care Access Liaison Name Role Phone Ridge Ramos MD Primary Care Provider +1- [phone] Reason for Referral * Evaluate & Treat - Unlimited Visits (Within 30 days (routine)) - Authorized Specialty Diagnoses / Procedures Referred By Contac t Referred To Contact Contact Center Team Lead Diagnoses Moderate episode of recurrent major depressive disorder (HCC) Anxiety Ridge Ramos MD [address] [place] [address] Referral ID Status Reason Start Date Expiration Date Visits Requested Visits Authorized [id number] Authorized Specialty Services Required 11/19/[phone] Question Answer Referral Priority Within 30 days (routine) Role Behavioral Health Contact Center Team LeadClinical Account Liaison Health Contact Center Team Lead Referral Reason Depression (PHQ-[id number]) Comments Please assist with arranging psychology visit for cognitive behavioral therapy for depression and anxiety Reason for Visit * Reason Onset Date Comments Status Check Immunizations 11/19/2022 Shingrix Encounter Details Date Type Department Care Team Description 11/19/2022 Office Visit [facility] [address] [place] [facility] [place] [address] Ridge Ramos MD [address] [place] [address] HTN, goal below 140/90*; Need for vaccination for zoster; Moderate episode of recurrent major depressive disorder (HCC); Anxiety; Obesity, morbid (more than 100 lbs over ideal weight or BMI > 40) (HCC); ADJ DISORDER W/DEPRES MOOD; LAI (generalized anxiety disorder) Allergies Active Allergy Reactions Severity Noted Date Comments Sulfamethoxazole-Trimethoprim Rash Low 2008 Itch, hives Hydromorphone Abdominal pain 01/09/2019 Morphine Abdominal pain High 01/09/2019 Penicillins 12/19/1998 rash documented as of this encounter (statuses as of 12/07/2022) Medications Medication Sig Dispensed Refills Start Date [...] needed for Wheezing. 18 g 3 08/08/19 Active Anoro Ellipta 62.5-25 MCG/ACT Inhalation Aerosol Powder Breath Activated (umeclidinium-celine nterol) Inhale 1 Puff by mouth in the morning. 30 Each 08/08/19 Active Additional Information Patient not taking.Reported on 11/25/2022 hydroCHLOROthiazid e 12.5 MG Oral Capsule (Hydrodiuril)Indic ations:Hypertensiv e urgency,Essential (primary) hypertension TAKE 1 CAPSULE BY MOUTH EVERY DAY 90 Capsule 1 09/01/19 Active Montelukast Sodium 10 MG Oral Tablet (Singulair) Take 1 Tablet by mouth daily. 90 Tablet 3 09/01/19 Active Lisinopril 40 MG Oral TabletIndications: HTN, goal below 140/90 TAKE 1 TABLET BY MOUTH EVERY DAY IN THE MORNING 90 Tablet 0 09/22/19 Active Metoprolol Succinate ER 50 MG Oral Tablet Extended Release 24 Hour (toPROL XL)Indications:Hyp ertensive urgency,Essential (primary) hypertension TAKE 1 TABLET BY MOUTH EVERY DAY 90 Tablet 3 10/08/19 Active ALPRAZolam 0.5 MG Oral Tablet (xaNAX) [...] the morning. 30 Tablet 2 10/29/19 Active amLODIPine Besylate 10 MG Oral Tablet (Norvasc) TAKE 1 TABLET BY MOUTH EVERY DAY 90 Tablet 1 05/26/19 023 Discontinued Pantoprazole Sodium 40 MG Oral Tablet Delayed Release (Protonix) TAKE 1 TABLET BY MOUTH EVERY DAY 90 Tablet 1 05/26/19 023 Discontinued Ciprofloxacin HCl 500 MG Oral Tablet (Cipro) Take 1 Tablet by mouth in the morning and 1 Tablet before bedtime. 0 07/31/19 23 023 Discontinued(Me dication List Clean Up) metroNIDAZOLE 500 MG Oral Tablet (Flagyl) TAKE 1 TABLET BY MOUTH TWICE A DAY FOR 14 DAYS 0 07/31/19 23 023 Discontinued(Me dication List Clean Up) Azithromycin 250 MG Oral Tablet (Zithromax Z-Moisés) Take two tablets by mouth on first day, then 1 tablet daily until gone 6 Tablet 0 08/08/19 23 023 Discontinued(Me dication List Clean Up) methylPREDNISolone 4 MG Oral Tablet Therapy Pack (Medrol Dosepack) follow package directions 21 Tablet 0 08/08/19 23 023 Discontinued(Me dication List Clean Up) documented as of this encounter (statuses as of 12/07/2022) Active Problems Problem Noted Date Chronic obstructive [...] as of this encounter (statuses as of 12/07/2022) Resolved Problems Problem Noted Date Resolved Date Open wound of finger 12/17/2011 01/05/2017 Cat bite 12/17/2011 01/05/2017 Allergic reaction 12/17/2011 01/05/2017 Need for yzyfejsooi-ejrgwoz-zpjisjhqw (Tdap) vac cine 12/17/2011 01/20/2012 Obesity, morbid (more than 1 00 lbs over ideal weight or BMI > 40) 08/13/2009 01/05/2017 Overview: Per Obesity Taxonomy ICD-10 update of inactive term OBESITY, UNSPECIFIED 09/20/2000 08/13/2009 Overview: Per Obesity Taxonomy Other general counseling and advice for contraceptive management 01/08/1999 01/05/2017 documented as of this encounter (statuses as of 12/07/2022) Immunizations Name Administration Dates Next Due COVID-19 mRNA, LNP-s, No Pre serve, 2-Dose Series (Pfizer) 04/01/2021,09/03/2020,08/13/2020 Pneumococcal Polysaccharide PPV23 (Pneumovax) 09/09/2021,02/17/2016(Deferred: Patient Refused) Seasonal Influenza Virus Vac cine, Unspecified Formulation 03/11/2022 Seasonal Influenza, Quadriva lent, No Preserve, 6 Mons & Above, IM 03/11/2022,02/07/2021,03/22/2020,09/2018,05/03/2018,05/06/2017 Seasonal Influenza, Quadriva lent, No Preserve, IM 02/17/2016,02/25/2015 Seasonal Influenza, Split, I IV3, With Preserve, Inj 01/20/2012,04/05/2010,04/25/2008(Defe rred: Patient Refused),03/15/2007 TDAP (age 10 and older)(Boostrix) 01/30/2022,06/201112/16/2021 Zoster Vaccine Recombinant (Shingrix) 09/09/2021 documented as of this encounter Social History Tobacco Use Types Packs/Day Years Used Date Smoking Tobacco: Every Day Cigarettes 1 15 Smokeless Tobacco: Never Comments:09/17/20 currently smoking 10 [...] Sign Reading Time Taken Comments Blood Pressure 132/84 11/19/2022 12:58 PM EDT Pulse 77 11/19/2022 12:58 PM EDT Temperature 36.7 C (98 F) 11/19/2022 12:58 PM EDT Respiratory Rate 16 11/19/2022 12:58 PM EDT Oxygen Saturation 94% 11/19/2022 12:58 PM EDT Inhaled Oxygen Concentration - - Weight 137.9 kg (304 lb) 11/19/2022 12:58 PM EDT Height 170.2 cm (5' 7") 11/19/2022 12:58 PM EDT Body Mass Index 47.61 11/19/2022 12:58 PM EDT documented in this encounter Patient Instructions * Patient Instructions* Amie Fischer LPN - 11/19/2022 1:02 PM EDT ~~PATIENT INSTRUCTIONS FOR SHINGRIX VACCINE~~ [...] OF EYES, FACE OR INSIDE OF NOSE. documented in this encounter Progress Notes * Ridge Ramos MD - 12/07/2022 10:40 PM EDT Subjective: Loreto Rojas is a 52 year old female here today for Chief Complaint Patient presents with Status Check Immunizations Shingrix Here for routine recheck. Still working on mental health and trying to assist getting adequate evals and treatment. Agreeable to shingrix Tolerating current meds for BP. Denies chest pain, shortness of breath, cough, nausea, vomiting, abd pain, dysuria, urinary frequency, nocturia, fever, melena, hematochezia, peripheral edema. Past Medical History: Diagnosis Date Adjustment disorder with depressed mood Allergic rhinitis HTN, goal to be determined 2001 on lisinopril Obesity, BMI not known Sleep apnea, obstructive Past Surgical History: Procedure Laterality Date BREAST BIOPSY Right 10/27/2016 Benign COLONOSCOPY, DIAGNOSTIC (RECTUM) 10/29/2014 diverticulosis/[facility] EGD, FLEXIBLE, DIAGNOSTIC 01/17/2020 gastritis / [facility] HYSTEROSCOPY;ENDOMETRIAL ABLAT 03/13/2016 LAP;FULGURATION OVIDUCTS Tubal Ligation,Laparoscopic REMOVE GALLBLADDER 10/2002 Review of patient's allergies indicates: Allergen Reactions Morphine Abdominal pain Hydromorphone Abdominal pain Penicillins rash Bactrim [Sulfamethoxazole-Trimethoprim] Rash Itch, hives Current Outpatient Medications Medication Sig Dispense Refill Mometasone Furoate (NASONEX) 50 MCG/ACT nasal spray Administer 2 Sprays into each nostril daily. 1 Inhaler 5 Cyclobenzaprine HCl 10 MG Oral Tablet (Flexeril) Take by mouth 1 Tablet as needed before bedtime for Muscle spasms. 10 Tablet 0 [facility] Vitamin B-12 1000 MCG Oral Tablet (vitamin b 12) TAKE 1 TABLET BY MOUTH EVERY DAY IN THE MORNING 90 Tablet 1 Rivaroxaban 20 MG Oral Tablet (Xarelto) TAKE 1 TABLET BY MOUTH EVERY DAY 90 Tablet 1 hydroCHLOROthiazide 12.5 MG Oral Capsule (Hydrodiuril) TAKE 1 CAPSULE BY MOUTH EVERY DAY 90 Capsule 1 Montelukast Sodium 10 MG Oral Tablet (Singulair) Take 1 Tablet by mouth daily. 90 Tablet 3 Lisinopril 40 MG Oral Tablet TAKE 1 TABLET BY MOUTH EVERY DAY IN THE MORNING 90 Tablet 0 Metoprolol Succinate ER 50 MG Oral Tablet Extended Release 24 Hour (toPROL XL) TAKE 1 TABLET BYMOUTH EVERY DAY 90 Tablet 3 ALPRAZolam 0.5 MG Oral Tablet (xaNAX) Take 1 Tablet by mouth 3 times a day as needed for Anxiety. 90 Tablet 1 buPROPion HCl ER (XL) 150 MG Oral Tablet Extended Release 24 Hour (Wellbutrin XL) Take 3 Tablets by mouth in the morning. 90 Tablet 2 Desvenlafaxine Succinate ER 100 MG Oral Tablet Extended Release 24 Hour (Pristiq) Take 1 Tabletby mouth in the morning. Note- take it with the desvenlafaxine 50 mg tablet for a total of 150 mg daily. 30 Tablet 2 Desvenlafaxine Succinate ER 50 MG Oral Tablet Extended Release 24 Hour (Pristiq) Take 1 Tablet by mouth in the morning. 30 Tablet 2 cetirizine (ZYRTEC) 10 MG Tablet TAKE 1 TABLET BY MOUTH EVERY DAY 30 Tab 11 valACYclovir HCl 1 GM Oral Tablet (Valtrex) TAKE 2 TABLETS BY MOUTH EVERY 12 HOURS FOR 1 DAY FOR COLD SORES 4 Tablet 5 Saccharomyces boulardii 250 MG Oral Capsule (Florastor) Take 1 Capsule by mouth in the morning and 1 Capsule before bedtime. 60 Capsule 1 Ondansetron 8 MG Oral Tablet Disintegrating (Zofran) Place 1 Tablet on tongue every 8 hours as needed for Nausea. dissolve on tongue. 20 Tablet 1 Proventil HFA 108 (90 Base) MCG/ACT Inhalation Aerosol Solution Inhale 2 Puffs by mouth every 4hours as needed for Wheezing. 18 g 3 Anoro Ellipta 62.5-25 MCG/ACT Inhalation Aerosol Powder Breath Activated (umeclidinium-vilanterol) Inhale 1 Puff by mouth in the morning. (Patient not taking: Reported on 11/25/2022) 30 Each 11 Pantoprazole Sodium 40 MG Oral Tablet Delayed Release (Protonix) TAKE 1 TABLET BY MOUTH EVERY DAY 90 Tablet 1 amLODIPine Besylate 10 MG Oral Tablet (Norvasc) TAKE 1 TABLET BY MOUTH EVERY DAY 90 Tablet 1 Current Facility-Administered Medications Medication Dose Route Frequency Provider Last Rate Last Admin Albuterol Sulfate (Proventil) (2.5 MG/3ML) 0.083% inhalation solution 2.5 mg 2.5 mg Nebulizer Once PRN Claudia Rivas PA-C Objective: BP 132/84 | Pulse 77 | Temp 36.7 C (98 F) (Infrared ) | Resp 16 | Ht 1.702 m (5' 7")| Wt (!) 137.9 kg (304 lb) | SpO2 94% | BMI 47.61 kg/m | BSA 2.55 m GEN: NAD HEENT: Benign NECK: Supple with no LAD, TM, JVD CHEST: CTA B CV: RRR ABD: Soft, NT/ND, No HSM, NABS EXT: No c,c,e Assessment and Plan: HTN, goal below 140/90 (Primary) -continue current meds Need for vaccination for zoster Moderate episode of recurrent major depressive disorder (HCC) Anxiety - POPULATION HEALTH REFERRAL OP -continue current meds Obesity, morbid (more than 100 lbs over ideal weight or BMI > 40) (HCC) -best efforts with dietary change, exercise, weight loss ADJ DISORDER W/DEPRES MOOD LAI (generalized anxiety disorder) -as above Follow Up: Return for 40 min ben for skin lesion removal. | For: 40 min ben for skin lesion removal 32 min with pt and chart review Ridge Ramos MD * Amie Fischer LPN - 11/19/2022 1:02 PM EDT . documented in this encounter Nursing Notes * Amie Fischer LPN - 11/19/2022 12:57 PM EDT The patient has been properly identified by confirmation of name and date of . Chief Complaint Patient presents with Status Check Return visit No concerns documented in this encounter Plan of Treatment Upcoming Encounters Date Type Specialty Care Team Description 12/22/2022 PulmDiagnostic Pulmonary Function [place] [address] [place] [address] 12/22/2022 Imaging Radiology 05/31/2023 Office Visit Family Medicine Ridge Ramos MD [address] [place] [address] Scheduled Procedures Name Priority Associated Diagnoses Date/Ti ms COLONOSCOPY FLEXIBLE PROXIMA L DIAGNOSTIC Recall Special screening for malignant neoplasms, colon Scheduled Referrals Name Type Priority Associated Diagnoses Orde r Schedule POPULATION HEALTH REFERRAL OP Referral Within 30 days (routine) Moderate episode of recurrent major depressive disorder (HCC) Anxiety Ordered: 11/19/2022 Health Maintenance Due Date Last Done Comments DISCUSS TOBACCO CESSATION (REFER TO SMARTSET #1426) 1970 Hepatitis B (1 of 3 - [...] as of this encounter Visit Diagnoses Diagnosis HTN, goal below 140/90- Primary Unspecified essential hypertension Need for vaccination for zoster Need for prophylactic vaccination and inoculation against other viral diseases Moderate episode of recurrent major depressive disorder (HCC) Anxiety Anxiety state, unspecified Obesity, morbid (more than 100 lbs over ideal weight or BMI > 40) (HCC) Morbid obesity ADJ DISORDER W/DEPRES MOOD Adjustment disorder with depressed mood LAI (generalized anxiety disorder) Generalized anxiety disorder documented in this encounter Care Teams Access Liaison Relationship Specialty Start Date End Date Ridge Ramos MD [address] [place] [address] PCP - General 05/26/00 documented as of this encounter
--- OUTSIDE RECORDS SUMMARY | 2023-04-24 13:57 | External Medical Summary | Summary of Care ---
Author Name Unknown Organization [facility] Address [address] [facility] [place] [address] Phone [phone] Care Team Providers Care Reimbursement Analyst Name Role Phone Ridge Ramos MD Primary Care Provider +1- [phone] Reason for Visit * Reason Onset Date Comments Excuse for Absence 04/12/2023 Work excuse / Covid -19 Encounter Details Date Type Department Care Team (Late st Contact Info) Description 04/12/2023 Telephone [facility] [address] [place] [address] Ridge Ramos MD [address] [place] [address] Excuse for Absence (Work excuse /Covid -19) Allergies Active Allergy Reactions Criticality Noted Date Comments Sulfamethoxazole-Trimethoprim Rash Low 2008 Itch, hives Hydromorphone Abdominal pain 01/09/2019 Morphine Abdominal pain High 01/09/2019 Penicillins 12/19/1998 rash documented as of this encounter (statuses as of 04/13/2023) Medications Medication Sig Dispensed Refills Start Date [...] for Wheezing. 18 g 3 08/07/2022 Active Montelukast Sodium 10 MG Oral Tablet [...] 90 Tablet 1 12/03/2022 Active Neomycin-Polymyxin- HC 3.5-76144-1 Otic SolutionIndications :Black head Administer 4 Drops [...] as of this encounter (statuses as of 04/13/2023) Active Problems Problem Noted Date Diagnosed Date [...] as of this encounter (statuses as of 04/13/2023) Resolved Problems Problem Noted Date Diagnosed Date [...] as of this encounter (statuses as of 04/13/2023) Immunizations Name Administration Dates Next Due COVID-19 mRNA, LNP-s, No Pre serve, 2-Dose Series (Pfizer) 04/01/2021,09/03/2020,08/13/2020 Pneumococcal Conjugate Vacci ne, 20-valent ([id number]) 11/27/2022 Pneumococcal Polysaccharide PPV23 (Pneumovax) 09/09/2021,02/17/2016(Deferred: Patient [...] encounter Miscellaneous Notes * Telephone Encounter - Toshia Guillen OSA - 04/13/2023 9:26 AM EST Faxed to patients workplace with success. Patient will stop by the office to apple picker a hard copy. * Telephone Encounter - Ridge Ramos MD - 04/12/2023 5:06 PM EST Signed - can fax or return to pt. * Telephone Encounter - Prudence Pennington OSA - 04/12/2023 12:16 PM EST School or Work Note?: Work Has patient been seen for the current issue? Yes /Covid -19 If yes patient has been seen for the current issue, list issue/symptoms causing missed work/school (Call Details not required): tired , aches , low grade fever If no patient has not been seen for the current issue, complete Call Details. Dates Missed: 04/07/2023-04-14-2023 Date Returnin04/15/2023 Note will be faxed or picked up?: fax to [phone] Fax number or phone number to call when note is completed: [phone] documented in this encounter Plan of Treatment Upcoming Encounters Date Type Department Care Team (Late st Contact Info) Description 05/31/2023 10:20 AM EST Office Visit [facility] [address] [place] [address] Ridge Ramos MD [address] [place] [address] Scheduled Procedures Name Priority Associated Diagnoses Date/Ti me COLONOSCOPY FLEXIBLE PROXIMA L DIAGNOSTIC Recall Special screening for malignant neoplasms, colon Health Maintenance Due Date Last Done Comments DISCUSS TOBACCO CESSATION (REFER TO SMARTSET #1164) 1970 Hepatitis B (1 of 3 - [...] ASSESSMENT COMPLETED IN PAST YEAR FOR COPD 04/09/2024 04/09/2023 Diabetes Screening 09/09/2024 09/09/2021, 1 05/27/2019, 04/24/2019, [...] as of this encounter Visit Diagnoses Diagnosis COVID-19 virus infection- Primary documented in this encounter Care Teams Reimbursement Analyst Relationship Specialty Start Date End Date Ridge Ramos MD [address] [place] [address] PCP - General 05/26/00 documented as of this encounter
--- OUTSIDE RECORDS SUMMARY | 2023-04-24 13:57 | External Medical Summary | Summary of Care ---
Author Name Unknown Organization [facility] Address [address] [facility] [place] [address] Phone [phone] Care Team Providers Care Membership Secretary Name Role Phone Ridge Ramos MD Primary Care Provider +1- [phone] Reason for Visit * Reason Comments Blocked Ear Pt states that her L ear feels blocked since 01/06 Encounter Details Date Type Department Care Team Description 01/07/2023 Office Visit [facility] [address] [place] [address] Claudia Rivas PA-C [address] [place] [address] Bilateral impacted cerumen*; Black head Allergies Active Allergy Reactions Severity Noted Date Comments Sulfamethoxazole-Trimethoprim Rash Low 2008 Itch, hives Hydromorphone Abdominal pain 01/09/2019 Morphine Abdominal pain High 01/09/2019 Penicillins 12/19/1998 rash documented as of this encounter (statuses as of 01/07/2023) Medications Medication Sig Dispensed Refills Start Date [...] 90 Tablet 1 12/03/2022 Active Neomycin-Polymyxin- HC 3.5-40401-0 Otic SolutionIndications :Black head Administer 4 Drops into the left ear in the morning and 4 Drops at noon and 4 Drops before bedtime. To affected ear, for 10 days.. 10 mL 1 01/07/2023 Active Hospital, Clinic, or Other Facility Administered Medication Ordered Dose Route Frequency Start Date End Date Status Albuterol Sulfate (Proventil) (2.5 MG/3ML) 0.083% inhalation solution 2.5 mgIndications:Chronic obstructive pulmonary disease, unspecified COPD type (HCC),History of tobacco abuse 2.5 mg NEBULIZER ONCE PRN 11/27/2022 11/27/2023 Active documented as of this encounter (statuses as of 01/07/2023) Active Problems Problem Noted Date Chronic obstructive [...] as of this encounter (statuses as of 01/07/2023) Resolved Problems Problem Noted Date Resolved Date Open wound of finger 12/17/2011 01/05/2017 Cat bite 12/17/2011 01/05/2017 Allergic reaction 12/17/2011 01/05/2017 Need for lovkvddlln-tyqmitj-jimhjjiyp (Tdap) vac cine 12/17/2011 01/20/2012 Obesity, morbid (more than 1 00 lbs over ideal weight or BMI > 40) 08/13/2009 01/05/2017 Overview: Per Obesity Taxonomy ICD-10 update of inactive term OBESITY, UNSPECIFIED 09/20/2000 08/13/2009 Overview: Per Obesity Taxonomy Other general counseling and advice for contraceptive management 01/08/1999 01/05/2017 documented as of this encounter (statuses as of 01/07/2023) Immunizations Name Administration Dates Next Due COVID-19 mRNA, LNP-s, No Pre serve, 2-Dose Series (Pfizer) 04/01/2021,09/03/2020,08/13/2020 Pneumococcal Conjugate Vacci ne, 20-valent ([id number]) 11/27/2022 Pneumococcal Polysaccharide PPV23 (Pneumovax) 09/09/2021,02/17/2016(Deferred: Patient [...] Sign Reading Time Taken Comments Blood Pressure 126/85 01/07/2023 8:39 AM EDT Pulse 98 01/07/2023 8:39 AM EDT Temperature 36.3 C (97.3 F) 01/07/2023 8:39 AM ED T Respiratory Rate 16 01/07/2023 8:39 AM EDT Oxygen Saturation 99% 01/07/2023 8:39 AM EDT Inhaled Oxygen Concentration - - Weight 141.6 kg (312 lb 3.2 oz) 01/07/2023 8:39 AM EDT Height 172.7 cm (5' 8") 01/07/2023 8:39 AM EDT Body Mass Index 47.47 01/07/2023 8:39 AM EDT documented in this encounter Patient Instructions * Patient Instructions* Claudia Rivas PA-C - 01/07/2023 8:[address] 1 - 3 drops of baby oil in each ear. Then place a cotton ball in the ear, take a warm bath with the cotton balls in place. Remove the cotton balls after the bath. You may do this every 3 weeks as needed for maintenance. Avoid q-tips or any other object that is placed in the ear canal as this may push wax further into the canal or damage the ear. documented in this encounter Progress Notes * Claudia Rivas PA-C - 01/07/2023 8:48 AM EDT Images from the original note were not included. History of Present Illness Loreto Rojas is a 52 year old female that presents for Blocked Ear (Pt states that her L ear feelsblocked since 01/06) Here for blocked ear. Her L ear has been blocked since 01/06. She thinks this is due to wax. There might be a pimple in there as well. Physical Exam Vitals: 01/07/23 0839 Temp: 36.3 C (97.3 F) Pulse: 98 Resp: 16 SpO2: 99% BP: 126/85 BMI: 47.48 BP Readings from Last 3 Encounters: 01/07/23 126/85 11/27/22 134/84 11/25/22 128/76 Wt Readings from Last 3 Encounters: 01/07/23 (!) 141.6 kg (312 lb 3.2 oz) 11/27/22 (!) 139.3 kg (307 lb 3.2 oz) 11/25/22 (!) 139.3 kg (307 lb 3.2 oz) BMI Readings from Last 3 Encounters: 01/07/23 47.47 kg/m 11/27/22 46.16 kg/m 11/25/22 46.16 kg/m Ht Readings from Last 3 Encounters: 01/07/23 1.727 m (5' 8") 11/25/22 1.737 m (5' 8.4") 11/19/22 1.702 m (5' 7") General: alert, healthy, and no distress Head: Normocephalic, No masses, lesions, tenderness or abnormalities Eye Exam: PERRLA, extraocular movements intact, conjunctiva are pink and non- injected, sclera clear Ears: External ears normal, R TM not visualized secondary to cerumen, L TM not visualized secondaryto cerumen, black head in L ear canal - no infection noted Assessment and Plan Bilateral impacted cerumen (Primary) - REMOVAL IMPACTED CERUMEN IRRIGATION/LAVAGE, UNILAT Black head - Tvaayuvt-Kyxvdknzu-XB 3.5-47600-6 Otic Solution; Administer 4 Drops into the left ear in the morning and 4 Drops at noon and 4 Drops before bedtime. To affected ear, for 10 days.. Nursing to do water lavage Place 1 - 3 drops of baby oil in each ear. Then place a cotton ball in the ear, take a warm bath with the cotton balls in place. Remove the cotton balls after the bath. You may do this every 3 weeks as needed for maintenance. Avoid q-tips or any other object that is placed in the ear canal as this may push wax further into the canal or damage the ear. Wrap-Up Time: I spent a total of 10-19 minutes (exact time 10 mins) on the date of service in preparation, delivery, and documentation of the care provided to Loreto Rojas excluding any time spent in the performance of separately billed services. Claudia Rivas PA-C 01/07/2023 8:52 AM documented in this encounter Nursing Notes * ALEXEI Ascencio - 01/07/2023 8:39 AM EDT Loreto Rojas is a 52 year old female who presents today for Chief Complaint Patient presents with Blocked Ear Pt states that her L ear feels blocked since 01/06 documented in this encounter Plan of Treatment Upcoming Encounters Date Type Specialty Care Team Description 05/31/2023 Office Visit Family Medicine Ridge Ramos MD [address] [place] [address] Scheduled Orders Name Type Priority Associated Diagnoses Orde r Schedule REMOVAL IMPACTED CERUMEN IRRIGATION/LAVAGE, UNILAT Procedures Routine Bilateral impacted cerumen Ordered: 01/07/2023 Scheduled Procedures Name Priority Associated Diagnoses Date/Ti me COLONOSCOPY FLEXIBLE PROXIMA L DIAGNOSTIC Recall Special screening for malignant neoplasms, colon Health Maintenance Due Date Last Done Comments DISCUSS TOBACCO CESSATION (REFER TO SMARTSET #3290) 1970 Hepatitis B (1 of 3 - [...] as of this encounter Visit Diagnoses Diagnosis Bilateral impacted cerumen- Primary Impacted cerumen Black head Other acne documented in this encounter Care Teams Membership Secretary Relationship Specialty Start Date End Date Ridge Ramos MD [address] [place] [address] PCP - General 05/26/00 documented as of this encounter
--- OUTSIDE RECORDS SUMMARY | 2023-04-24 13:57 | External Medical Summary | Summary of Care ---
Author Name Unknown Organization [facility] Address [address] [facility] [place] [address] Phone [phone] Care Team Providers Care Cathead Operator Name Role Phone Ankush Ribeiro MD Primary Care Provider [phone]- [phone] Reason for Visit * Reason Comments eRx-Medication Refill Encounter Details Date Type Department Care Team (Late st Contact Info) Description 03/19/2023 Refill [facility] [address] [place] [address] Ankush Ribeiro MD [address] [place] [address] Allergies Active Allergy Reactions Criticality Noted Date Comments Sulfamethoxazole-Trimethoprim Rash Low 2008 Itch, hives Hydromorphone Abdominal pain 01/09/2019 Morphine Abdominal pain High 01/09/2019 Penicillins 12/19/1998 rash documented as of this encounter (statuses as of 03/19/2023) Medications Medication Sig Dispensed Refills Start Date [...] spasms. 10 Tablet 0 10/18/19 22 Active Saccharomyces boulardii 250 MG Oral [...] Tablet 1 12/04/19 23 Active Neomycin-Polymyxin -HC [id number] Otic SolutionIndication s:Black head Administer 4 Drops [...] SORES 4 Tablet 0 02/24/20 23 Active B-12 1000 MCG Oral Capsule TAKE 1 CAPSULE BY MOUTH EVERY DAY IN THE MORNING 90 Capsule 1 03/19/20 23 Active [facility] Vitamin B-12 1000 MCG Oral Tablet (vitamin b 12) TAKE 1 TABLET BY MOUTH EVERY DAY IN THE MORNING 90 Tablet 1 03/09/20 22 023 Discontinued Hospital, Clinic, or Other Facility Administered Medication Ordered Dose Route Frequency Start Date End Date Status Albuterol Sulfate (Proventil) (2.5 MG/3ML) 0.083% inhalation solution 2.5 mgIndications:Chronic obstructive pulmonary disease, unspecified COPD type (HCC),History of tobacco abuse 2.5 mg NEBULIZER ONCE PRN 11/27/2022 11/27/2023 Active documented as of this encounter (statuses as of 03/19/2023) Active Problems Problem Noted Date Diagnosed Date [...] as of this encounter (statuses as of 03/19/2023) Resolved Problems Problem Noted Date Diagnosed Date [...] as of this encounter (statuses as of 03/19/2023) Immunizations Name Administration Dates Next Due COVID-19 mRNA, LNP-s, No Pre serve, 2-Dose Series (Pfizer) 04/01/2021,09/03/2020,08/13/2020 Pneumococcal Conjugate Vacci ne, 20-valent ([id number]) 11/27/2022 Pneumococcal Polysaccharide PPV23 (Pneumovax) 09/09/2021,02/17/2016(Deferred: Patient Refused) SEASONAL INFLUENZA, PF, 6 M & Above, IM , (FLULAVAL or FLUZONE) 03/11/2022,02/07/2021,03/22/2020,12/09/2018,05/03/2018,05/06/2017 Seasonal Influenza Virus Vac cine, Unspecified Formulation [...] encounter Miscellaneous Notes * Telephone Encounter - Ankush Ribeiro MD - 03/19/2023 3:47 PM EDTSigned Prescriptions: Disp Refills B-12 1000 MCG Oral Capsule 90 Cap*1 Sig: TAKE 1 CAPSULE BY MOUTH EVERY DAY IN THE MORNINGAuthorizing Provider: ANKUSH RIBEIRO * Telephone Encounter - Shayy Golden LPN - 03/19/2023 2:38 PM EDTPending Prescriptions: Disp Refills B-12 1000 MCG Oral Capsule [Pharmacy Med N*90 Cap*1 Sig: TAKE 1 CAPSULE BY MOUTH EVERY DAY IN THE MORNING * Telephone Encounter - Ashwin Vogel - 03/19/2023 1:54 PM EDTPending Prescriptions: Disp Refills B-12 1000 MCG Oral Capsule [Pharmacy Med N*90 Cap*1 Sig: TAKE 1CAPSULE BY MOUTH EVERY DAY IN THE MORNING documented in this encounter Plan of Treatment Upcoming Encounters Date Type Department Care Team (Late st Contact Info) Description 05/31/2023 10:20 AM EST Office Visit [facility] [address] [facility] [place] [place] [address] Ankush Ribeiro MD [address] [place] [facility] [place] [address] Scheduled Procedures Name Priority Associated Diagnoses Date/Ti me COLONOSCOPY FLEXIBLE PROXIMA L DIAGNOSTIC Recall Special screening for malignant neoplasms, colon Health Maintenance Due Date Last Done Comments DISCUSS TOBACCO CESSATION (REFER TO SMARTSET #3243) 1970 Hepatitis B (1 of 3 - [...] filedocumented as of this encounter Care Teams Cathead Operator Relationship Specialty Start Date End Date Ankush Ribeiro MD [address] [place] [address] PCP - General 05/26/00 documented as of this encounter
--- OUTSIDE RECORDS SUMMARY | 2023-04-24 13:57 | External Medical Summary ---
Author Name Unknown Address Unknown Organization K01:[facility] - [address] [place] [address] Laboratory Report Ordering Provider Test Date Status 02/03/2023 09:30:54 Final For PreSurgery, Procedure, O B Admit, or Surveillance testing - Nasal Turbinate source preferred.

For Symptomatic testing - Nasopharyngeal source preferred.
null Observation Date Value Abnormality Reference (Units ) Status SARS Coronavirus 2 02/03/2023 09:30:54 Negative N egative Final 2018 Novel Coronavirus not d etected.

This automated test was developed and its performance characteristics determined by [facility]. It has not been cleared or approved by the U.S. Food and Drug Administration (FDA). FDA does not require this test to go thru premarket FDA review. This test is used for clinical purposes. It should not be regarded as investigational or for research. This laboratory is certified under the Clinical Laboratory Improvement Amendments (CLIA) as qualified to perform high complexity clinical laboratory testing.

This test is a nucleic acid amplification test (NAAT), a reverse transcriptase polymerase chain reaction (RT-PCR) test, or a Centers for Disease Control-acceptable equivalent. The test is performed in a high complexity Clinical Laboratory Improvement Amendments-(CLIA) certified laboratory. The test is acceptable for SARS-CoV-2 diagnosis, surveillance, and travel within the [place] and to most countries. Please check with local testing authorities about requirements before travel. Performing Location [facility] - [address] [place] [address]
--- OUTSIDE RECORDS SUMMARY | 2023-04-24 13:58 | External Medical Summary | Summary of Care ---
Author Name Unknown Organization [facility] Address [address] [facility] [place] [address] Phone [phone] Care Team Providers Care Law Researcher Name Role Phone Ridge Ramos MD Primary Care Provider [phone]- [phone] Reason for Visit * Reason Comments Other Left flank pain Encounter Details Date Type Department Care Team Description 11/25/2022 Convenient Care Visit [facility] [address] [place] [address] Loreto Subramanian PA-C [address] [facility] [place] [address] Acute left flank pain* Allergies Active Allergy Reactions Severity Noted Date Comments Sulfamethoxazole-Trimethoprim Rash Low 2008 Itch, hives Hydromorphone Abdominal pain 01/09/2019 Morphine Abdominal pain High 01/09/2019 Penicillins 12/19/1998 rash documented as of this encounter (statuses as of 11/25/2022) Medications Medication Sig Dispensed Refills Start Date End Date Status cetirizine (ZYRTEC) 10 MG TabletIndications:C hronic rhinitis TAKE 1 TABLET BY MOUTH EVERY DAY 30 Tab 11 01/24/2018 Active Mometasone Furoate (NASONEX) 50 MCG/ACT nasal sprayIndications:Ch ronic rhinitis Administer 2 Sprays into each nostril daily. 1 Inhaler 5 01/03/2019 Active Additional Information Patient not taking.Reported on 11/25/2022 Cyclobenzaprine HCl 10 MG Oral Tablet (Flexeril)Indicatio [...] on tongue. 20 Tablet 1 08/04/2022 Active Additional Information Patient not taking.Reported on 11/25/2022 Proventil HFA 108 (90 Base) MCG/ACT Inhalation [...] the morning. 30 Tablet 2 10/28/2022 Active documented as of this encounter (statuses as of 11/25/2022) Active Problems Problem Noted Date Treatment-resistant depression LAI (generalized anxiety disorder) 08/06 History of pulmonary embolism 03/20/2022 Chronic anticoagulation 03/20/2022 Moderate episode of recurrent major depr essive disorder 09/09/2021 Obesity, morbid (more than 100 lbs over ideal weight or BMI > 40) 12/17/2011 Overview: bmi= 47.02 12/17/11 HTN, goal below 140/90 01/08/1999 Allergic rhinitis ADJ DISORDER W/DEPRES MOOD documented as of this encounter (statuses as of 11/25/2022) Resolved Problems Problem Noted Date Resolved Date Open wound of finger 12/17/2011 01/05/2017 Cat bite 12/17/2011 01/05/2017 Allergic reaction 12/17/2011 01/05/2017 Need for jtmbsunxgz-yxskwac-kxeuakvyn (Tdap) vac cine 12/17/2011 01/20/2012 Obesity, morbid (more than 1 00 lbs over ideal weight or BMI > 40) 08/13/2009 01/05/2017 Overview: Per Obesity Taxonomy ICD-10 update of inactive term OBESITY, UNSPECIFIED 09/20/2000 08/13/2009 Overview: Per Obesity Taxonomy Other general counseling and advice for contraceptive management 01/08/1999 01/05/2017 documented as of this encounter (statuses as of 11/25/2022) Immunizations Name Administration Dates Next Due COVID-19 mRNA, LNP-s, No Pre serve, 2-Dose Series (Pfizer) 04/01/2021,09/03/2020,08/13/2020 Pneumococcal Polysaccharide PPV23 (Pneumovax) 09/09/2021,02/17/2016(Deferred: Patient Refused) Seasonal Influenza Virus Vac cine, Unspecified Formulation 03/11/2022 Seasonal Influenza, Quadriva lent, No Preserve, 6 Mons & Above, IM 03/11/2022,02/07/2021,03/22/2020,1209/2018,05/03/2018,05/06/2017 Seasonal Influenza, Quadriva lent, No Preserve, IM 02/17/2016,02/25/2015 Seasonal Influenza, Split, I IV3, With Preserve, Inj 01/20/2012,04/05/2010,04/25/2008(Defe rred: Patient Refused),03/15/2007 TDAP (age 10 and older)(Boostrix) 01/30/2022,06/201112/16/2021 Zoster Vaccine Recombinant (Shingrix) 09/09/2021 documented as of this encounter Social History Tobacco Use Types Packs/Day Years Used Date Smoking Tobacco: Every Day Cigarettes 1 15 Smokeless Tobacco: Never Tobacco Cessation:Ready to Q [...] Sign Reading Time Taken Comments Blood Pressure 128/76 11/25/2022 2:14 PM EDT Pulse 94 11/25/2022 2:14 PM EDT Temperature 36.7 C (98.1 F) 11/25/2022 2:14 PM ED T Respiratory Rate 18 11/25/2022 2:14 PM EDT Oxygen Saturation 96% 11/25/2022 2:14 PM EDT Inhaled Oxygen Concentration - - Weight 139.3 kg (307 lb 3.2 oz) 11/25/2022 2:14 PM EDT Height 173.7 cm (5' 8.4") 11/25/2022 2:14 PM EDT Body Mass Index 46.16 11/25/2022 2:14 PM EDT documented in this encounter Patient Instructions * Patient Instructions* Loreto Subramanian PA-C - 11/25/2022 2:51 PM EDT I recommend ED eval to rule out PE and stone disease. documented in this encounter Progress Notes * Loreto Subramanian PA-C - 11/25/2022 2:22 PM EDT CONVENIENT CARE NOTE HPI: Loreto Rojas is a 52 year old female who presents with chief complaint of flank pain x today.Notes "this is the same pain that I have had when I have blood clots in my lungs". Patient is currently taking anti-coagulation. Follows with hematology. Last diagnosed with bilateral PE in May 2021. Denies fam history of clotting issues. Patient notes that she was told that the clots were likely due to covid. Patient describes the pain as sharp sensation which doesn't radiate. Patient also notes that "my chest feels a little heavy". Pain started acutely 1 day ago while walking to car afterball game. Patient notes that she drove an hour and 45 minutes to daughters over a weekend about 3-6 weeks. Denies recent change in legs-no new pain or swelling. Patient rates the pain a 7-8/10. States pain seems worse with abdominal rotation, and deep breathing. Pain improves with "being still". No change in pain with leaning forward, or lying supine. Patient denies SOB, diaphoresis, + nausea, denies vomiting. Denies any hemoptysis, loss of taste/smell, notes that she had some dizziness yesterday but not since then. Past medical history significant for smoking, HTN, high stress (mother in alf, work environment), BENITA (does not use cpap). Patient possibly have a history of asthma. Notes "I get inhalers when I am sick". Patient does have a history of GERD-notes that she is on pantoprazole. Recent dyspepsia. Family hx significant for none Denies dysuria, urinary frequency Reports hx of UTIs in the past ( last UTI months ago). hx of kidney stones. Last one a few years ago. No blood in urine. denies fever, chills, +left upper back pain. denies chance of . denies new sexual partners or concern for STD's. denies genital itching, discharge or bleeding. Patient was accompanied by Self. Constitutional: no fevers, chills, sweats, fatigue Last test for COVID was not recent Patient is vaccinated against COVID Patient has not been positive for COVID in the last 90 days ROS All others negative other than those noted in HPI Recent illnesses in household: No PAST MEDICAL HISTORY: Patient Active Problem List Diagnosis Code HTN, goal below 140/90 I10 Allergic rhinitis J30.9 ADJ DISORDER W/DEPRES MOOD F43.21 Obesity, morbid (more than 100 lbs over ideal weight or BMI > 40) ([facility]) E66.01 Moderate episode of recurrent major depressive disorder (HCC) F33.1 History of pulmonary embolism Z86.711 Chronic anticoagulation Z79.01 LAI (generalized anxiety disorder) F41.1 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 Past Surgical History: Procedure Laterality Date BREAST BIOPSY Right 10/27/2016 Benign COLONOSCOPY, DIAGNOSTIC (RECTUM) 10/29/2014 diverticulosis/[facility] EGD, FLEXIBLE, DIAGNOSTIC 01/17/2020 gastritis / [facility] HYSTEROSCOPY;ENDOMETRIAL ABLAT 03/13/2016 LAP;FULGURATION OVIDUCTS Tubal Ligation,Laparoscopic REMOVE GALLBLADDER 10/2002 Review of patient's allergies indicates: Allergen Reactions Morphine Abdominal pain Hydromorphone Abdominal pain Penicillins rash Bactrim [Sulfamethoxazole-Trimethoprim] Rash Itch, hives Current Outpatient Medications Medication Sig Dispense Refill cetirizine (ZYRTEC) 10 MG Tablet TAKE 1 TABLET BY MOUTH EVERY DAY 30 Tab 11 [facility] Vitamin B-12 1000 MCG Oral Tablet (vitamin b 12) TAKE 1 TABLET BY MOUTH EVERY DAY IN THE MORNING 90 Tablet 1 Rivaroxaban 20 MG Oral Tablet (Xarelto) TAKE 1 TABLET BY MOUTH EVERY DAY 90 Tablet 1 amLODIPine Besylate 10 MG Oral Tablet (Norvasc) TAKE 1 TABLET BY MOUTH EVERY DAY 90 Tablet 1 Pantoprazole Sodium 40 MG Oral Tablet Delayed Release (Protonix) TAKE 1 TABLET BY MOUTH EVERY DAY 90 Tablet 1 Saccharomyces boulardii 250 MG Oral Capsule (Florastor) Take 1 Capsule by mouth in the morning and 1 Capsule before bedtime. 60 Capsule 1 hydroCHLOROthiazide 12.5 MG Oral Capsule (Hydrodiuril) [...] TABLET BYMOUTH EVERY DAY 90 Tablet 3 buPROPion HCl ER (XL) 150 MG Oral [...] mouth in the morning. 30 Tablet 2 Mometasone Furoate (NASONEX) 50 MCG/ACT nasal spray Administer 2 Sprays into each nostril daily. (Patient not taking: Reported on 11/25/2022) 1 Inhaler 5 Cyclobenzaprine HCl 10 MG Oral Tablet (Flexeril) Take by mouth 1 Tablet as needed before bedtime for Muscle spasms. 10 Tablet 0 valACYclovir HCl 1 GM Oral Tablet (Valtrex) TAKE 2 TABLETS BY MOUTH EVERY 12 HOURS FOR 1 DAY FOR COLD SORES 4 Tablet 5 Ondansetron 8 MG Oral Tablet Disintegrating (Zofran) Place 1 Tablet on tongue every 8 hours as needed for Nausea. dissolve on tongue. (Patient not taking: Reported on 11/25/2022) 20 Tablet 1 Proventil HFA 108 (90 Base) MCG/ACT Inhalation Aerosol Solution Inhale 2 Puffs by mouth every 4hours as needed for Wheezing. 18 g 3 Anoro Ellipta 62.5-25 MCG/ACT Inhalation Aerosol Powder Breath Activated (umeclidinium-vilanterol) Inhale 1 Puff by mouth in the morning. (Patient not taking: Reported on 11/25/2022) 30 Each 11 ALPRAZolam 0.5 MG Oral Tablet (xaNAX) Take 1 Tablet by mouth 3 times a day as needed for Anxiety. 90 Tablet 1 No current facility-administered medications for this visit. Nursing Notes: Wilner Demarco LPN 11/25/22 1420 Signed Loreto Arellano Crystal is a 52 year old female who presents to walk-in clinic today complaining of Chief Complaint Patient presents with Other Left flank pain How lon11-25-22 Tried: Pt accompanied by: self EXAM: BP 128/76 | Pulse 94 | Temp 36.7 C (98.1 F) (Tympanic) | Resp 18 | Ht 1.737 m (5' 8.4") | Wt (!) 139.3 kg (307 lb 3.2 oz) | SpO2 96% | BMI 46.16 kg/m | BSA 2.59 m GENERAL: alert, healthy, no distress, obese, well nourished and well developed NECK: supple, no adenopathy HEART: regular rate & rhythm, no murmurs and no gallops LUNGS: coarse breath sounds but clear to auscultation bilaterally, no wheezing, rales or rhonchi ABDOMEN: abdomen soft, non-tender, normal bowel sounds and no masses or organomegaly, no CVA tenderness NEURO: alert & oriented x 3 with fluent speech, no focal motor/sensory deficits, gait normal, reflexes normal and symmetric ASSESSMENT/PLAN Acute left flank pain (Primary) - URINALYSIS, POINT OF CARE (ENTER/EDIT) - CULTURE, URINE, QUANTITATIVE; Future; Expected date: 11/25/2022 - CULTURE, URINE, QUANTITATIVE Urinalysis shows microscopic hematuria. Due to RF and exam findings, cannot rule out stone disease vs PE. Patient has several risk factors. Spoke to [facility] and agreeable for ED evaluation. ED triage nurse contacted and patient presented for continuity of care. Care instructions given. Additional instructions per patient instructions attached. Patient agrees with the plan and demonstrates verbal understanding. Patient stable at the time of discharge. Loreto Subramanian PA-C [address] [address] documented in this encounter Nursing Notes * Wilner Demarco LPN - 11/25/2022 2:19 PM EDT Loreto Rojas is a 52 year old female who presents to walk-in clinic today complaining of Chief Complaint Patient presents with Other Left flank pain How lon-12-23 Tried: Pt accompanied by: self documented in this encounter Plan of Treatment Upcoming Encounters Date Type Specialty Care Team Description 12/04/2022 Telemedicine Psychiatry Cathie Jewell CRNP [address] [place] [address] 05/31/2023 Office Visit Family Medicine Ridge Ramos MD [facility] [place] [address] Pending Results Name Type Priority Associated Diagnoses Date /Time CULTURE, URINE, QUANTITATIVE Lab Routine Acute left flank pain 11/25/2022 2:33 PM EDT Scheduled Orders Name Type Priority Associated Diagnoses Orde r Schedule CULTURE, URINE, QUANTITATIVE Lab Routine Acute left flank pain Expected: 11/25/2022, Expires: 11/26/2023 Scheduled Procedures Name Priority Associated Diagnoses Date/Ti me COLONOSCOPY FLEXIBLE PROXIMA L DIAGNOSTIC Recall Special screening for malignant neoplasms, colon Health Maintenance Due Date Last Done Comments Hepatitis B (1 of 3 - 3-dose series) 1970 HIV Screening 1986 Albumin/Creatinine Ratio 1989 Hepatitis C Screening 1989 Cologuard 2016 Fecal Occult Blood Test 2016 Sigmoidoscopy 2016 Pap Smear 11/18/2020 11/19/2015, 01/2008 (Done elsewhere), 01/05/2003, Additional history exists COVID-19 Vaccine (4 - Pfizer series) 05/27/2021 04/01/2021, 09/03/2020, 08/13/2020 Zoster Vaccines (2 of 2) 11/04/2021 09/09/2021 Mammogram 07/16/2022 07/16/2021, 01/2017, 10/25/2015, Additional history exists GFR 09/09/2022 09/09/2021, 03/17, 04/24/2019, Additional history exists Pneumococcal Vaccine: Pediatrics (0 to 5 Years) and At-Risk Patients (6 to 64 Years) (2 - PCV) 09/09/2022 09/09/2021 Influenza Vaccine (FLU shot) (#1) 2023 03/11/2022, 03/11/2022, 02/07/2021, Additional history exists Depression Screening, Annual for Pts 12 and Over 11/20/2023 11/19/2022 Diabetes Screening 09/09/2024 09/09/2021, 1 05/27/2019, 04/24/2019, Additional history exists Colonoscopy 10/29/2024 10/29/2014, 10/29/2014 Colorectal Cancer Screening 10/29/2024 Lipid Panel 03/27/2025 03/27/2020, 01/2019, 05/12/2018, Additional history exists DTaP,Tdap,and Td Vaccines (3 - Td or Tdap) 01/31/2032 01/30/2022, 12/17/2011 GARDASIL-HPV IMMUNIZATION SERIES Aged Out No longer eligible based on patient's age to complete this topic MENINGOCOCCAL (MENACTRA/MENVEO) Aged Out No longer eligible based on patient's age to complete this topic documented as of this encounter Medical Devices Not on filedocumented as of this encounter Procedures Procedure Name Priority Date/Time Associated Diagnosis Comments URINALYSIS, POINT OF CARE (ENTER/EDIT) Routine 11/25/2022 2:31 PM EDT Acute left flank pain documented in this encounter Results * (ABNORMAL) URINALYSIS, POINT OF CARE (ENTER/EDIT) (11/25/2022 2:31 PM EDT) Color, Urine Yellow Yellow or Light Yellow Clarity, Urine Clear Clear Glucose, Urine Negative Negative mg/dL Bilirubin, Urine Negative Negative Ketone, Urine Negative Negative mg/dL Specific [place], Urine 1.025 1.003 - 1.030 Blood, Urine Moderate(A) Negative pH, Urine 6.0 5.0 - 7.5 units Protein, Urine Negative Negative mg/dL Urobilinogen, Urine 0.2 0.2 - 1.0 mg/dL Nitrite, Urine Negative Negative Esterase, Urine Negative Negative Urine 11/25/2022 2:31 PM EDT Loreto Subramanian PA-C LAB POINT OF CARE TEST ENTER/EDIT ORDERABLES documented in this encounter Visit Diagnoses Diagnosis Acute left flank pain- Primary Abdominal pain, unspecified site documented in this encounter Care Teams Law Researcher Relationship Specialty Start Date End Date Ridge Ramos MD [address] [place] [address] PCP - General 05/26/00 documented as of this encounter
--- OUTSIDE RECORDS SUMMARY | 2023-04-24 13:58 | External Medical Summary | Summary of Care ---
Author Name Unknown Organization [facility] Address [address] [place] [place] [address] Phone [phone] Care Team Providers Care Slunk Skinner Name Role Phone Ridge Ramos MD Primary Care Provider [phone]- [phone] Reason for Visit * Reason Onset Date Comments Referral 11/19/2022 Epic 178 Encounter Details Date Type Department Care Team Description 11/19/2022 Telephone [facility] [address] [place] [address] [facility] Referral (Epic 178) Allergies Active Allergy Reactions Severity Noted Date Comments Sulfamethoxazole-Trimethoprim Rash Low 2008 Itch, hives Hydromorphone Abdominal pain 01/09/2019 Morphine Abdominal pain High 01/09/2019 Penicillins 12/19/1998 rash documented as of this encounter (statuses as of 11/19/2022) Medications Medication Sig Dispensed Refills Start Date [...] the morning. 30 Each 11 08/07/2022 Active hydroCHLOROthiazide 12.5 MG Oral Capsule (Hydrodiuril)Indica [...] as of this encounter (statuses as of 11/19/2022) Active Problems Problem Noted Date Treatment-resistant depression [...] as of this encounter (statuses as of 11/19/2022) Resolved Problems Problem Noted Date Resolved Date Open wound of finger 12/17/2011 01/05/2017 Cat bite 12/17/2011 01/05/2017 Allergic reaction 12/17/2011 01/05/2017 Need for ukgwmvrmkf-fvkjlfa-bgezeprqc (Tdap) vac cine 12/17/2011 01/20/2012 Obesity, morbid (more than 1 00 lbs over ideal weight or BMI > 40) 08/13/2009 01/05/2017 Overview: Per Obesity Taxonomy ICD-10 update of inactive term OBESITY, UNSPECIFIED 09/20/2000 08/13/2009 Overview: Per Obesity Taxonomy Other general counseling and advice for contraceptive management 01/08/1999 01/05/2017 documented as of this encounter (statuses as of 11/19/2022) Immunizations Name Administration Dates Next Due COVID-19 [...] encounter Miscellaneous Notes * Telephone Encounter - BENITA Barragan - 11/19/2022 2:20 PM EDT Referring provider: Ridge Ramos MD [facility] Reason for referral: Member interested in CBT for depression and anxiety. Outcome: Contacted member. Emailed member a list a providers as requested. [facility] closed [facility] provider list emailed to [email or web address] Member can be directed to [facility] at [phone] M-F 8am-5pm documented in this encounter Plan of Treatment Upcoming Encounters Date Type Specialty Care Team Description 12/04/2022 Telemedicine Psychiatry Cathie Jewell CRNP [address] [place] [address] 05/31/2023 Office Visit Family Medicine Ridge Raoms MD [address] [place] [address] Scheduled Procedures Name Priority Associated Diagnoses Date/Ti [...] 07/16/2022 07/16/2021, 01/2017, 10/25/2015, Additional history exists Depression Screening, Annual for Pts 12 and Over 09/09/2022 09/09/2021 GFR 09/09/2022 09/09/2021, 03/17, 04/24/2019, Additional history exists Influenza Vaccine (FLU shot) (#1) 2023 03/11/2022, 03/11/2022, 02/07/2021, Additional history exists Diabetes Screening 09/09/2024 09/09/2021, 1 05/27/2019, 04/24/2019, Additional history exists Colonoscopy 10/29/2024 10/29/2014, 10/29/2014 Colorectal Cancer Screening 10/29/2024 Lipid Panel 03/27/2025 03/27/2020, 1201/2019, 05/12/2018, Additional history exists DTaP,Tdap,and Td Vaccines (3 - Td or Tdap) 01/31/2032 01/30/2022, 12/17/2011 Pneumococcal Vaccine: Pediatrics (0 to 5 Years) and At-Risk Patients (6 to 64 Years) Aged Out 09/09/2021 No longer eligible based on patient's age to complete this topic GARDASIL-HPV IMMUNIZATION SERIES Aged Out No longer eligible based on patient's age to complete this topic MENINGOCOCCAL (MENACTRA/MENVEO) Aged Out No longer eligible based on patient's age to complete this topic documented as of this encounter Medical Devices Not on filedocumented as of this encounter Care Teams Slunk Skinner Relationship Specialty Start Date End Date Ridge Ramos MD [address] [place] [address] PCP - General 05/26/00 documented as of this encounter
--- OUTSIDE RECORDS SUMMARY | 2023-04-24 13:58 | External Medical Summary | Summary of Care ---
Author Name Unknown Organization [facility] Address [address] [place] [address] Phone [phone] Care Team Providers Care Team Assembler Name Role Phone Ridge Ramos MD Primary Care Provider [phone]- [phone] Reason for Visit * Reason Onset Date Comments Other 10/29/2022 Encounter Details Date Type Department Care Team Description 10/29/2022 Telephone [facility] [place] [address] [place] [address] Cathie Jewell CRNP [address] [place] [address] Other (/) Allergies Active Allergy Reactions Severity Noted Date Comments Sulfamethoxazole-Trimethoprim Rash Low 2008 Itch, hives Hydromorphone Abdominal pain 01/09/2019 Morphine Abdominal pain High 01/09/2019 Penicillins 12/19/1998 rash documented as of this encounter (statuses as of 10/29/2022) Medications Medication Sig Dispensed Refills Start Date [...] EVERY DAY 90 Tablet 1 05/26/2022 Active Ciprofloxacin HCl 500 MG Oral Tablet (Cipro) Take 1 Tablet by mouth in the morning and 1 Tablet before bedtime. 0 07/30/2022 Active metroNIDAZOLE 500 MG Oral Tablet (Flagyl) TAKE 1 TABLET BY MOUTH TWICE A DAY FOR 14 DAYS 0 07/30/2022 Active Saccharomyces boulardii 250 MG Oral Capsule [...] on tongue. 20 Tablet 1 08/04/2022 Active Azithromycin 250 MG Oral Tablet (Zithromax Z-Moisés) Take two tablets by mouth on first day, then 1 tablet daily until gone 6 Tablet 0 08/07/2022 Active methylPREDNISolone 4 MG Oral Tablet Therapy Pack (Medrol Dosepack) follow package directions 21 Tablet 0 08/07/2022 Active Proventil HFA 108 (90 Base) MCG/ACT [...] as of this encounter (statuses as of 10/29/2022) Active Problems Problem Noted Date Treatment-resistant depression 3 LAI (generalized anxiety disorder) 08/06 History of pulmonary embolism 03/20/2022 Chronic anticoagulation 03/20/2022 Moderate episode of recurrent major depr essive disorder 09/09/2021 Obesity, morbid (more than 100 lbs over ideal weight or BMI > 40) 12/17/2011 Overview: bmi= 47.02 12/17/11 HTN, goal below 140/90 01/08/1999 Allergic rhinitis ADJ DISORDER W/DEPRES MOOD documented as of this encounter (statuses as of 10/29/2022) Resolved Problems Problem Noted Date Resolved Date Open wound of finger 12/17/2011 01/05/2017 Cat bite 12/17/2011 01/05/2017 Allergic reaction 12/17/2011 01/05/2017 Need for ehpataudec-uommkby-tbuqiirya (Tdap) vac cine 12/17/2011 01/20/2012 Obesity, morbid (more than 1 00 lbs over ideal weight or BMI > 40) 08/13/2009 01/05/2017 Overview: Per Obesity Taxonomy ICD-10 update of inactive term OBESITY, UNSPECIFIED 09/20/2000 08/13/2009 Overview: Per Obesity Taxonomy Other general counseling and advice for contraceptive management 01/08/1999 01/05/2017 documented as of this encounter (statuses as of 10/29/2022) Immunizations Name Administration Dates Next Due COVID-19 [...] Types Packs/Day Years Used Date Smoking Tobacco: Former Cigarettes 1 15 Smokeless Tobacco: Never Comments:09/17/20 currently smoking 10 cig/day; has smoked on and off-quit several times Alcohol Use Standard Drinks/Week Comments Yes 0 (1 standard drink = 0.6 oz pur e alcohol) occ Food Insecurity Answer Date Recorded Within the past 12 months, y ou worried that your food would run out before you got money to buy more. Never true 08/07/2022 Within the past 12 months, t he food you bought just didn't last and you didn't have money to get more. Never true 08/07/2022 Sex Assigned at Date Recorded Female 08/07/2022 11:05 AM EDT Job Start Date Occupation Industry Not on file Not on file Not on file documented as of this encounter Miscellaneous Notes * Telephone Encounter - BENITA Haile - 10/29/2022 8:08 AM EDT Joo, Provider Cathie Jewell reached out in regards to therapy and ADHD resources. Please confirm that these resources are in network. [facility] [address] [place], [place] [id number] miles [facility] [address] [place], [place] [phone] miles [facility] [address] [place], [place] [phone] miles Arabella Kingsley PhD [facility] [address] [place], [place] [phone] miles documented in this encounter Plan of Treatment Upcoming Encounters Date Type Specialty Care Team Description 11/19/2022 Office Visit Family Medicine Ridge Ramos MD [address] [place] [address] 11/20/2022 Telemedicine Psychiatry Cathie Jewell CRNP [address] [place] [address] Scheduled Procedures Name Priority Associated Diagnoses Date/Ti [...] 09/09/2022 09/09/2021, 03/17, 04/24/2019, Additional history exists Diabetes Screening 09/09/2024 09/09/2021, [...] on patient's age to complete this topic Influenza Vaccine (FLU shot) Completed , 03/11/2022, 02/07/2021, Additional history exists GARDASIL-HPV IMMUNIZATION SERIES Aged Out No longer eligible based on patient's age to complete this topic MENINGOCOCCAL (MENACTRA/MENVEO) Aged Out No longer eligible based on patient's age to complete this topic documented as of this encounter Medical Devices Not on filedocumented as of this encounter Care Teams Team Assembler Relationship Specialty Start Date End Date Ridge Ramos MD [address] [place] [address] PCP - General 05/26/00 documented as of this encounter
--- OUTSIDE RECORDS SUMMARY | 2023-04-24 13:58 | External Medical Summary | Summary of Care ---
Author Name Unknown Organization [facility] Address [address] [place] [address] Phone [phone] Care Team Providers Care Packaging Design Engineer Name Role Phone Ridge Ramos MD Primary Care Provider [phone] Reason for Visit * Reason Comments Anxiety Depression Encounter Details Date Type Department Care Team Description 10/28/2022 [facility] Psychiatry, [place] [address] [place] [address] Cathie Jewell CRNP [address] [place] [address] Treatment-resistant depression*; LAI (generalized anxiety disorder) Allergies Active Allergy Reactions Severity Noted Date Comments Sulfamethoxazole-Trimethoprim Rash Low 2008 Itch, hives Hydromorphone Abdominal pain 01/09/2019 Morphine Abdominal pain High 01/09/2019 Penicillins 12/19/1998 rash documented as of this encounter (statuses as of 10/28/2022) Medications Medication Sig Dispensed Refills Start Date [...] DAY 90 Tablet 1 05/07/20 22 Active amLODIPine Besylate 10 MG Oral Tablet (Norvasc) TAKE 1 TABLET BY MOUTH EVERY DAY 90 Tablet 1 05/26/19 23 Active Pantoprazole Sodium 40 MG Oral Tablet Delayed Release (Protonix) TAKE 1 TABLET BY MOUTH EVERY DAY 90 Tablet 1 05/26/19 23 Active Ciprofloxacin HCl 500 MG Oral Tablet (Cipro) Take 1 Tablet by mouth in the morning and 1 Tablet before bedtime. 0 07/31/19 23 Active metroNIDAZOLE 500 MG Oral Tablet (Flagyl) TAKE 1 TABLET BY MOUTH TWICE A DAY FOR 14 DAYS 0 07/31/19 23 Active Saccharomyces boulardii 250 MG Oral Capsule [...] tongue. 20 Tablet 1 08/05/19 23 Active Azithromycin 250 MG Oral Tablet (Zithromax Z-Moisés) Take two tablets by mouth on first day, then 1 tablet daily until gone 6 Tablet 0 08/08/19 23 Active methylPREDNISolone 4 MG Oral Tablet Therapy Pack (Medrol Dosepack) follow package directions 21 Tablet 0 08/08/19 23 Active Proventil HFA 108 (90 Base) MCG/ACT Inhalation Aerosol SolutionIndication s:Bronchitis,Short ness of breath Inhale 2 Puffs by mouth every 4 hours as needed for Wheezing. 18 g 3 08/08/19 23 Active Anoro Ellipta 62.5-25 MCG/ACT Inhalation Aerosol Powder Breath Activated (umeclidinium-celine nterol) Inhale 1 Puff by mouth in the morning. 30 Each 11 08/08/19 23 Active hydroCHLOROthiazid e 12.5 MG Oral [...] needed for Anxiety. 90 Tablet 1 10/08/19 23 Active buPROPion HCl ER (XL) 150 MG Oral Tablet Extended Release 24 Hour (Wellbutrin XL) Take 3 Tablets by mouth in the morning. 90 Tablet 2 10/29/19 23 Active Desvenlafaxine Succinate ER 100 MG [...] morning. 30 Tablet 2 10/29/19 23 Active Desvenlafaxine Succinate ER 100 MG Oral Tablet Extended Release 24 Hour (Pristiq) Take 1 Tablet by mouth in the morning. Note- take it with the desvenlafaxine 50 mg tablet for a total of 150 mg daily. 30 Tablet 2 10/08/19 23 023 Discontinued(Re fill) buPROPion HCl ER (XL) 300 MG Oral Tablet Extended Release 24 Hour (Wellbutrin XL) Take 1 Tablet by mouth in the morning. 30 Tablet 2 10/08/19 23 023 Discontinued Desvenlafaxine Succinate ER 50 MG Oral Tablet Extended Release 24 Hour (Pristiq) Take 1 Tablet by mouth in the morning. 30 Tablet 2 10/08/19 23 023 Discontinued(Re fill) documented as of this encounter (statuses as of 10/28/2022) Active Problems Problem Noted Date Treatment-resistant depression [...] as of this encounter (statuses as of 10/28/2022) Resolved Problems Problem Noted Date Resolved Date Open wound of finger 12/17/2011 01/05/2017 Cat bite 12/17/2011 01/05/2017 Allergic reaction 12/17/2011 01/05/2017 Need for dwalviztwm-qxgyndm-qedvpcyrt (Tdap) vac cine 12/17/2011 01/20/2012 Obesity, morbid (more than 1 00 lbs over ideal weight or BMI > 40) 08/13/2009 01/05/2017 Overview: Per Obesity Taxonomy ICD-10 update of inactive term OBESITY, UNSPECIFIED 09/20/2000 08/13/2009 Overview: Per Obesity Taxonomy Other general counseling and advice for contraceptive management 01/08/1999 01/05/2017 documented as of this encounter (statuses as of 10/28/2022) Immunizations Name Administration Dates Next Due COVID-19 mRNA, LNP-s, No Pre serve, 2-Dose Series (Radio Waves) 04/01/2021,09/03/2020,08/13/2020 Pneumococcal Polysaccharide PPV23 (Pneumovax) 09/09/2021,02/17/2016(Deferred: Patient [...] on file documented as of this encounter Progress Notes * OLGA Zheng - 10/28/2022 10:30 AM EDT OUTPATIENT PSYCHIATRY RETURN VISIT DIVISION OF PSYCHIATRY [place] [address] Name: Loreto Rojas : 1970 Date and Time Patient was Seen: 10/28/2022 at 10:40 AM After connecting through televstartuplyo, patient was verified with two unique identifiers. Patient (or authorized legal ambulatory service representative) was then informed that this was a Telemedicine visit and that the exam was being conducted confidentially over secure lines. My office door was closed. No one else was in the room with me. Patient acknowledged consent and understanding of privacy and security of the Telemedicine visit and gave permission to have a telemedicine presenter stay in the room in order to assist with the history and to conduct the exam as needed. I informed the patient that I have reviewed their record in [facility] and presented the opportunity for them to ask any questions regarding the visit today. The patient agreed to participate. Additional telemed for psych required: Provider reviewed elements of Outpatient Services Description including limits of confidentiality, how to contact the department, risks and benefits of treatment and consent for treatment. Patient isunable to sign acknowledgment receiving form. Signature will be obtained when Covid 19 crisis has passed and in person services resume. For [facility] members, Encounter Form unable to be signed, signature exempt - Telehealth, and will beobtained when Covid 19 crisis has passed and in person services resume. Treatment plan signature page document signatures may be marked "signature exempt - Telehealth" with a provider policy to obtain signatures as soon as possible after the COVID-19 crisis has passed and in person services resume. Start Time: . Stop Time: 11.20 Total direct cikn-oa-fbau time: 20 Physical Location of patient: home CC: follow up INTERVAL HISTORY: Pt didn't notice any change since the increase of pristiq to 150 mg daily except " I dont cry as much. I still have low energy, dont feel like doing stuff". Reviewed ask a doc message by her pcp who reported trail of several antidepressants alone and in combination with Wellbutrin w/o benefit. Per the message, those antidepressants(prozac, abilify , effexor, ativan, zoloft, celexa, wellbutrin, abilify) were titrated up to a therapeutic dose. During this encounter, pt admitted all those trails and said her symptoms have been chronic though worsened last year. Pt said there wasn't added stresslast year and unsure what made symptoms worse. She continues to report low energy, low motivation, p oor focus, poor concentration, easily distracted, depressed mood, anhedonia and anxiety. Sleep is 'good'. Denied si, hi, avh, paranoia, delusion, nightmares and flashbacks. Discussed need to incorporate other tx modalities , like therapy which pt hasnt had in "a long time". During first encounter, she denied trauma though endorsed "difficult marriage, my is difficult to talk to, my cause me anxiety". Informed her the need for therapy. Also due to issues with focus, poor concentration and easily distracted, encouraged her to seek a neuropsychologist to evaluate her though she is yet to call her insurance. Informed her the need to complete blood workordered last month because medical issues like hypothyroidism, low fe level etc could cause symptoms like low energy, weakness , which are some symptoms she complain. Pt agreed to complete blood workand agreed to call her insurance to get a therapist and a neuropsychologist. Informed the team to send resources for therapy and neuropsychologist to her. Also recommended pt follows up with a medical claims manager due to high BMI , and increased appetite. She declined need. Pt reports good adherence with medication and denies side effects. Plan to increase wellbutrin to 450mg daily, no sz d/o, glaucoma etc. Pt has h/o HTN and bp has been wdl, in july it was 136/82 and pt said she has done couple others and they are wdl. Educated her about benefits and risks of increasing wellbutrin and pt agreed with plan. [place]-SUICIDE SEVERITY RATING SCALE Frequent Screener Ask questions that are bold and underlined Since Last Contact (Zheng with an X) YES NO Have you actually had thoughts about killing yourself? x If YES, ask the following questions. If NO, go directly to the last question Have you been thinking about how you might do this? Have you had these thoughts and had some intention of acting on them? E.g. I thought about taking an overdose, but I never made a specific plan as to when where or how I would actually do it.and I would never go through with it. Have you started to work out or worked out the details of how to kill yourself? Do you intend to carry out this plan? As opposed to I have the thoughts, but I definitely will not do anything about them. Have you done anything, started to do anything, or prepared to do anything to end your life? Examples: Collected pills, obtained a gun, gave away valuables, wrote a will or suicide note, took out pills but didn't swallow any, held a gun but changed your mind or it was grabbed from your hand,went to the roof but didn't jump; or actually took pills, tried to shoot yourself, cut yourself, tried to hang yourself, etc. x Low Risk 1. Complete or review crisis plan with patient 2. Discuss risk/protective factors and reasons for living Moderate Risk 3. Complete or review crisis plan with patient 4. Discuss risk/protective factors and reasons for living 5. Discuss removal of means 6. High Risk 7. Maintain 1 to 1 monitoring until assessment is completed 8. Evaluate for higher level of care (Inpatient or PHP) 9. Consultation with Emergency Services as appropriate 10. If patient not admitted: Complete or review crisis plan with patient Discuss risk/protective factors and reasons for living Advise removal of means Consider family or collateral contact to promote safety Schedule follow up care consistent with assessment ALLERGIES Review of patient's allergies indicates: Allergen Reactions Morphine Abdominal pain Hydromorphone Abdominal pain Penicillins rash Bactrim [Sulfamethoxazole-Trimethoprim] Rash Itch, hives CURRENT MEDICATIONS: Current Outpatient Medications Medication Sig Dispense Refill cetirizine (ZYRTEC) 10 MG Tablet TAKE 1 TABLET BY MOUTH EVERY DAY 30 Tab 11 Mometasone Furoate (NASONEX) 50 MCG/ACT nasal spray Administer 2 Sprays into each nostril daily. 1 Inhaler 5 Cyclobenzaprine HCl 10 MG Oral Tablet (Flexeril) Take by mouth 1 Tablet as needed before bedtime for Muscle spasms. 10 Tablet 0 valACYclovir HCl 1 GM Oral Tablet (Valtrex) TAKE 2 TABLETS BY MOUTH EVERY 12 HOURS FOR 1 DAY FOR COLD SORES 4 Tablet 5 [facility] Vitamin B-12 1000 MCG Oral Tablet [...] BY MOUTH EVERY DAY 90 Tablet 1 Ciprofloxacin HCl 500 MG Oral Tablet (Cipro) Take 1 Tablet by mouth in the morning and 1 Tabletbefore bedtime. metroNIDAZOLE 500 MG Oral Tablet (Flagyl) TAKE 1 TABLET BY MOUTH TWICE A DAY FOR 14 DAYS Saccharomyces boulardii 250 MG Oral Capsule (Florastor) Take 1 Capsule by mouth in the morning and 1 Capsule before bedtime. 60 Capsule 1 Ondansetron 8 MG Oral Tablet Disintegrating (Zofran) Place 1 Tablet on tongue every 8 hours as needed for Nausea. dissolve on tongue. 20 Tablet 1 Azithromycin 250 MG Oral Tablet (Zithromax Z-Moisés) Take two tablets by mouth on first day, then 1 tablet daily until gone 6 Tablet 0 methylPREDNISolone 4 MG Oral Tablet Therapy Pack (Medrol Dosepack) follow package directions 21Tablet 0 Proventil HFA 108 (90 Base) MCG/ACT Inhalation Aerosol Solution Inhale 2 Puffs by mouth every 4hours as needed for Wheezing. 18 g 3 Anoro Ellipta 62.5-25 MCG/ACT Inhalation Aerosol Powder Breath Activated (umeclidinium-vilanterol) Inhale 1 Puff by mouth in the morning. 30 Each 11 hydroCHLOROthiazide 12.5 MG Oral Capsule (Hydrodiuril) TAKE [...] TABLET BYMOUTH EVERY DAY 90 Tablet 3 Desvenlafaxine Succinate ER 100 MG Oral Tablet Extended Release 24 Hour (Pristiq) Take 1 Tabletby mouth in the morning. Note- take it with the desvenlafaxine 50 mg tablet for a total of 150 mg daily. 30 Tablet 2 buPROPion HCl ER (XL) 300 MG Oral Tablet Extended Release 24 Hour (Wellbutrin XL) Take 1 Tabletby mouth in the morning. 30 Tablet 2 ALPRAZolam 0.5 MG Oral Tablet (xaNAX) Take 1 Tablet by mouth 3 times a day as needed for Anxiety. 90 Tablet 1 Desvenlafaxine Succinate ER 50 MG Oral Tablet Extended Release 24 Hour (Pristiq) Take 1 Tablet by mouth in the morning. 30 Tablet 2 No current facility-administered medications for this visit. RECENT LABS/IMAGING: No results found for this or any previous visit (from the past 672 hour(s)). VITALS There were no vitals filed for this visit. Wt Readings from Last 3 Encounters: 08/07/22 (!) 136.5 kg (300 lb 14.4 oz) 08/04/22 (!) 137.4 kg (303 lb) 07/13/22 (!) 139.7 kg (308 lb) There is no height or weight on file to calculate BMI. CURRENT MEDICATIONS: Current Outpatient Medications Medication Sig Dispense Refill cetirizine (ZYRTEC) 10 MG Tablet TAKE 1 TABLET BY MOUTH EVERY DAY 30 Tab 11 Mometasone Furoate (NASONEX) 50 MCG/ACT nasal spray Administer 2 Sprays into each nostril daily. 1 Inhaler 5 Cyclobenzaprine HCl 10 MG Oral Tablet (Flexeril) Take by mouth 1 Tablet as needed before bedtime for Muscle spasms. 10 Tablet 0 valACYclovir HCl 1 GM Oral Tablet (Valtrex) TAKE 2 TABLETS BY MOUTH EVERY 12 HOURS FOR 1 DAY FOR COLD SORES 4 Tablet 5 [facility] Vitamin B-12 1000 MCG Oral Tablet [...] BY MOUTH EVERY DAY 90 Tablet 1 Ciprofloxacin HCl 500 MG Oral Tablet (Cipro) Take 1 Tablet by mouth in the morning and 1 Tabletbefore bedtime. metroNIDAZOLE 500 MG Oral Tablet (Flagyl) TAKE 1 TABLET BY MOUTH TWICE A DAY FOR 14 DAYS Saccharomyces boulardii 250 MG Oral Capsule (Florastor) Take 1 Capsule by mouth in the morning and 1 Capsule before bedtime. 60 Capsule 1 Ondansetron 8 MG Oral Tablet Disintegrating (Zofran) Place 1 Tablet on tongue every 8 hours as needed for Nausea. dissolve on tongue. 20 Tablet 1 Azithromycin 250 MG Oral Tablet (Zithromax Z-Moisés) Take two tablets by mouth on first day, then 1 tablet daily until gone 6 Tablet 0 methylPREDNISolone 4 MG Oral Tablet Therapy Pack (Medrol Dosepack) follow package directions 21Tablet 0 Proventil HFA 108 (90 Base) MCG/ACT Inhalation Aerosol Solution Inhale 2 Puffs by mouth every 4hours as needed for Wheezing. 18 g 3 Anoro Ellipta 62.5-25 MCG/ACT Inhalation Aerosol Powder Breath Activated (umeclidinium-vilanterol) Inhale 1 Puff by mouth in the morning. 30 Each 11 hydroCHLOROthiazide 12.5 MG Oral Capsule (Hydrodiuril) TAKE [...] TABLET BYMOUTH EVERY DAY 90 Tablet 3 Desvenlafaxine Succinate ER 100 MG Oral Tablet Extended Release 24 Hour (Pristiq) Take 1 Tabletby mouth in the morning. Note- take it with the desvenlafaxine 50 mg tablet for a total of 150 mg daily. 30 Tablet 2 buPROPion HCl ER (XL) 300 MG Oral Tablet Extended Release 24 Hour (Wellbutrin XL) Take 1 Tabletby mouth in the morning. 30 Tablet 2 ALPRAZolam 0.5 MG Oral Tablet (xaNAX) Take 1 Tablet by mouth 3 times a day as needed for Anxiety. 90 Tablet 1 Desvenlafaxine Succinate ER 50 MG Oral Tablet Extended Release 24 Hour (Pristiq) Take 1 Tablet by mouth in the morning. 30 Tablet 2 No current facility-administered medications for this visit. FAMILY HISTORY: Family History Problem Relation Age of Onset Diabetes Father Hypertension Father Other (Sepsis) Father in his 80s No Known Problems Sister No Known Problems Sister Cancer Grandfather (Paternal) lung PAST MEDICAL HISTORY: Past Medical History: Diagnosis Date Adjustment disorder with depressed mood Allergic rhinitis HTN, goal to be determined 2001 on lisinopril Obesity, BMI not known Sleep apnea, obstructive SUMMARY OF/CHANGES TO PAST PSYCHIATRIC, MEDICAL, FAMILY, OR SOCIAL HISTORY: See interval history MEDICAL REVIEW OF SYSTEMS: CONSTITUTIONAL: No weakness, No fatigue and No fevers, sweats, or chills EYE: No recent significant change in vision, No eye pain, redness, discharge, No diplopia, No h/o cataracts and No h/o glaucoma EARS: No ear pain, No drainage, No tinnitus or vertigo and No recent change in hearing NOSE: No history of frequent colds or sinusitis, No nasal stuffiness, No history of Hay Fever and No significant epistaxis MOUTH: No bleeding gums, No thrush or No sore throat NECK: No lumps or masses, No swollen glands, No recent swelling in thyroid area, No significant pain in neck and No h/o goiter or thyroid disease PULMONARY: No cough, sputum, or hemoptysis, No wheezing, No rales, No shortness of breath and No recent change in breathing CARDIOVASCULAR: No chest pain, No shortness of breath, No dyspnea on exertion, No orthopnea, No paroxysmal nocturnal dyspnea, No edema, No palpitations and No syncope GASTROINTESTINAL:+fluctuating weight, No abdominal pain, No change in bowel habits, No significant heartburn, No nausea, vomiting, diarrhea, or constipation, No hematemesis, No blood in stools or black tarry stools, No abdominal bloating or early satiety and No dysphagia EXTREMITIES: No pain, redness or swelling on the joints MENTAL STATUS EVALUATION: Appearance: overweight Muscle strength and tone: no abnormal involuntary movement or gross abnormality of muscle strength and tone noticeable via tele-medicine encounter Gait and Station: No abnormalities noted via tele-medicine encounter Behavior: cooperative and fidgety Speech: normal, rate, tone and volume Mood: anxious and depressed Affect: type - dysthymic and anxious; range - full range; lability - yes Associations: intact Thought Process: goal directed and logical Abstract Reasoning: intact Thought Content: denies suicidal ideations, homicidal ideations, auditory hallucinations, visual hallucinations, delusions, impulsivity to act out or preoccupation with violence Orientation: alert and oriented to person, place, time and situation Attention span/concentration as evidenced by: following conversation - intact, though she reported "I have poor focus all my life, and it is getting worse" Insight: age appropriate Judgment: age appropriate ASSESSMENT AND PLAN: Treatment resistant depression, 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 2. Laboratory tests: None ordered, needs to complete blood work ordered on 09/21/22 3. Therapy: continue to offer psychotherapy as an adjunct to evaluation and management and prescription of psychiatric medications. Pt is yet to connect with a therapist, yet to call her insurance, encouraged her again to. Also informed the team to send resources for therapy and for ADHD testing to her 4. RTC: in 3week(s) and earlier if needed 5: Teach coping skills and encourage her to use skills 6: Recommended medical claims manager referral, pt declined at this time Treatment options and alternatives reviewed with patient who agrees with the above plan. Information about current medications was provided to the patient including reasons why medications are being used. Patient understood the risks, benefits, side-effects, and potential complications associated with changes in medications being proposed (both medications being started, and medications being discontinued or having dose changed). Patient is making an informed medical decision to follow the recommendations outlined in this note. Directed pt to call with any questions or concerns, worsening symptoms and/or ask for earlier appointment. Greater than 50% of the time was spent counseling or coordinating the care of the patient Risk assessment was performed. This is a patient being treated for chronic mental health conditionsand/or substance use disorder as characterized above; at the time of this visit, there was no indication that this patient was either a risk to self, others, or gravely disabled by symptoms of a mental illness or substance use disorder. At the time of this evaluation, pt did not appear to be an acute risk to self or others, there were enough protective factors in place, and it was deemed safe andappropriate to continue with treatment on an outpatient basis with return to clinic in the timeframe described above. We reviewed previous crisis plan should he/she experience worsening of symptoms before next follow-up appointment, including being aware of what resources to use according to the urgency and severityof symptoms. Loreto Rojas was able to verbalize understanding of the steps necessary to obtain help between appointments should be needed, from requesting a phone call, to requesting an appointment sooner, including reaching clinic after hours, accessing our system, and accessing emergency mental health and medical services, either at a local emergency department or by activating mobile crisis teams and EMS. Time Spent on Visit: 30 minutes Please note 17 minutes of counseling time over and above medication management was spent on Billing code: [id number] and [id number] Outpatient Adult Psychiatry Treatment Plan Treatment plan was developed on 10/07/22, treatment will continue to focus on goals below; Treatment update will occur when clinically indicated or by 04/25/2023. 1. Patient's goals captured in patient's words: "to feel happy again, have good energy and go to the beach" 2. Crisis Planning: What I can do if I ever experience a crisis (much worse symptoms, severe distress or thoughts of self-harm): Call my provider or dial 911 3. People I can call in the event of a crisis: Provider: OLGA Guzman and 911 2. Additional resources I can utilize if the previous steps are ineffective (e.g: ED, hotlines): Suicide and Crisis Lifeline - 988 3. Patient/Family Received Copy of Treatment Plan: Patient has access to MyChart 4. Signature Obtained on Treatment Plan: Treatment plan developed with patient and/or family duringtelemedicine/telephonic visit. No treatment plan signature page was signed. Will obtain signatures once sessions resume in clinic. 5. Expected family or significant other involvement: Not applicable 6. Patient strengths and facilitating factors to care:Recognizes need for change, Seeking help, Goal Oriented, Attempting to realize ones potential, Manages multiple demands in life, Has a purpose inlife, Steady employment, Cooperative and Able to care for own personal hygiene Patient Identified Needs/Goals Interventions/Type of Service Duration of Treatment Frequency of Treatment Objective/ Discharge Criteria Problem/Need1: Medication Mangement Medication Management ongoing Next apt in 3 weeks PHQ<5 and LAI<5 Please choose a method to track patient's improvement based on clinical assessment: PHQ-9 Adult Data LAI-7 Data Treatment plan reviewed with the patient. Patient voices understanding and concurs with plan. OLGA Scherer [facility] 10/28/2022 documented in this encounter Plan of Treatment Upcoming Encounters Date Type Specialty Care Team Description 11/19/2022 Office Visit Family Medicine Ridge Ramos MD [address], [place] [id number] 11/20/2022 Telemedicine Psychiatry Cathie Jewell CRNP [address] [place], [place] [id number] Scheduled Procedures Name Priority Associated Diagnoses Date/Ti [...] as of this encounter Visit Diagnoses Diagnosis Treatment-resistant depression- Primary LAI (generalized anxiety disorder) Generalized anxiety disorder documented in this encounter Care Teams Packaging Design Engineer Relationship Specialty Start Date End Date Ridge Ramos MD [address] [place] [address] PCP - General 05/26/00 documented as of this encounter
--- OUTSIDE RECORDS SUMMARY | 2023-04-24 13:58 | External Medical Summary | Summary of Care ---
Author Name Unknown Organization [facility] Address [address] [facility] [place] [address] Phone [phone] Care Team Providers Care Key Holder Name Role Phone Ridge Ramos MD Primary Care Provider [phone]- [phone] Reason for Visit * Reason Comments Other Left flank pain Encounter Details Date Type Department Care Team Description 11/25/2022 Convenient Care Visit [facility] [address] [id number] Loreto Subramanian PA-C [address] [facility] [place] [address] Acute left flank pain* Allergies Active Allergy [...] 01/05/2017 Allergic reaction 12/17/2011 01/05/2017 Need for awknmhanda-agvncem-zdvxxhkdm (Tdap) vac cine 12/17/2011 01/20/2012 Obesity, morbid [...] for smoking, HTN, high stress (mother in [employer], work environment), BENITA (does not use cpap). 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 Loreto Subramanian PA-C [address] [address] documented in this encounter Nursing Notes * [...] Telemedicine Psychiatry Cathie Jewell CRNP [address] [place] [address] 05/31/2023 Office Visit Family Medicine Ridge [place] [address] Pending Results Name Type Priority Associated Diagnoses [...] Negative Ketone, Urine Negative Negative mg/dL Specific [place], Urine 1.025 1.003 - 1.030 Blood, Urine [...] site documented in this encounter Care Teams Key Holder Relationship Specialty Start Date End Date Ridge Ramos MD [address] [place] [address] PCP - General 05/26/00 documented as of this encounter
--- OUTSIDE RECORDS SUMMARY | 2023-04-24 13:58 | External Medical Summary ---
Author Name Unknown Address Unknown Organization K01:[facility] [place] - [address] [place] [id number] Laboratory Report Ordering Provider Test Date Status TADEO BARRETO 11/25/2022 14:33:21 Final Observation Date Value Abnormality Reference (Units) Status Bacteria identified in Unspecified specimen by Culture 11/25/2022 14:33:21 No significant growth Final Test: Culture, Urine, Quanti tative
Specimen Source: Urine, Clean Catch
Specimen Type: Urine
Specimen Date: 11/25/2022 2:33 PM
Result Date: 11/26/2022 3:24 PM
Result Status: Final result
Resulting Lab: [facility] [place]
[address]
[place] [id number]

CULTURE

No significant growth

null Performing Location [facility] [place] - [address] [place] [id number]
[2023-04-24 14:46] LABS: Basophils # (auto) 0.07 K/uL (0.00-0.20); Basophils % (auto) 0.6 %; Eosinophils # (auto) 0.21 K/uL (0.00-0.50); Eosinophils % (auto) 1.8 %; Hematocrit (blood only) 38.4 % (37.0-47.0); Hemoglobin 12.8 g/dl (12.0-16.0); Immature Granulocytes # (auto) 0.04 K/uL (0.01-0.20); Immature Granulocytes % (auto) 0.3 %; Lymphocytes # (auto) 1.81 K/uL (1.20-3.40); Lymphocytes % (auto) 15.6 %; Mean Corpuscular Hemoglobin 29.7 pg (25.0-34.0); Mean Corpuscular Hgb Conc 33.3 g/dL (32.0-36.0); Mean Corpuscular Volume 89.1 fL (80.0-100.0); Mean Platelet Volume 10.1 fL (9.4-12.4); Monocytes # (auto) 0.56 K/uL (0.11-0.59); Monocytes % (auto) 4.8 %; Neutrophils # (auto) 8.94 K/uL (1.40-6.50); Neutrophils % (auto) 76.9 %; Platelet Count 345 K/uL (130-400); RDW Coefficient of Variation 12.5 % (11.5-14.5); RDW Standard Deviation 40.5 fL (36.4-46.3); Red Blood Count 4.31 M/uL (4.20-5.40); White Blood Count 11.63 K/ul (4.8-10.8)
[2023-04-24 15:04] LABS: Albumin Globulin Ratio 1.3 (0.9-2); Albumin Level 3.9 gm/dl (3.4-5.0); Bilirubin,Total 0.9 mg/dl (0.2-1.0); Calcium 9.4 mg/dl (8.6-10.3); Creatinine Clr Calc Pharmacy 98.3 ml/min; Est GFR (African American) 75.5 ml/min; Est GFR (Non-African American) 65.2 ml/min; Globulin 2.9 gm/dl (2.5-4.0); Potassium 4.4 mmol/L (3.5-5.1); Total Protein 6.8 gm/dl (6.0-8.3)
[2023-04-24] MEDS ORDERED: KETOROLAC TROMETHAMINE 15 MG/ML VIAL IV ONE (15:13)
[2023-04-24] MEDS ORDERED: SODIUM CHLORIDE 0.9% 500 ML IV ONE (15:13)
[2023-04-24] MEDS ORDERED: OPTIRAY 320 500ml IV ONE (16:05)
[2023-04-24] MEDS: SODIUM CHLORIDE 0.9% 1,000 ML IV SCH ×2 (16:16→22:18)
[2023-04-24] MEDS ORDERED: CIPROFLOXACIN 500 MG TAB PO STA (16:20)
[2023-04-24] MEDS ORDERED: metroNIDAZOLE 500 MG TAB PO STA (16:20)
--- NOTE | 2023-04-24 16:35 | CT Scan Report ---
ABDOMEN AND PELVIS CT WITH IV CONTRAST CT DOSE: 1789.22 mGy.cm HISTORY: Left lower quadrant abdominal pain. TECHNIQUE: Multiaxial CT images of the abdomen and pelvis were performed following the use of intrave nous contrast. A dose lowering technique was utilized adhering to the principles of ALARA. COMPARISON STUDY: Abdomen and pelvis CT 07/30/2022. FINDINGS: The lung bases are clear. No pneumoperitoneum. No pneumatosis. Bilateral L5 spondylolysis w ith associated grade 1 anterolisthesis. Cholecystectomy. The liver, spleen, right adrenal gland unrem arkable. Stable 1.5 cm left adrenal gland nodule. This favors a benign adenoma. No retroperitoneal ly mphadenopathy. Normal caliber abdominal aorta. Bilateral nephrolithiasis. No ureteral stones. No hydr onephrosis. Stable 9 mm hypodense lesion within the left side of the uterine fundus. This may represe nt a small fibroid. Normal bladder. No pelvic free fluid or pelvic lymphadenopathy. No evidence for a bowel obstruction. Multiple colonic diverticula. There is an inflamed diverticulum within the distal sigmoid colon consistent with acute diverticulitis. No perforation or abscess at this time. There is mild bowel wall thickening at this location. Normal appendix. IMPRESSION: 1. Acute diverticulitis involving the distal descending colon. No perforation or abscess at this time . 2. Bilateral nephrolithiasis. No hydronephrosis. 3. Additional findings as described above. ACT 112: Negative or not required by law. Electronically signed by: Raymond Leavitt M.D. 04/24/2023 4:32 PM
[2023-04-24] MEDS ORDERED: FAMOTIDINE 20MG IV PUSH 20 MG/5 ML SYR IV STA (17:24)
[2023-04-24] MEDS ORDERED: methylPREDNISolone 125 MG/2 ML VIAL IV STA (17:24)
[2023-04-24] MEDS ORDERED: diphenhydrAMINE 50 MG/ML VIAL IV STA (17:24)
--- NOTE | 2023-04-24 18:12 | History & Physical Report ---
Date of Service April 24, 2023 Assessment & Plan (1) Allergic reaction caused by a drug: Plan: This is a 52 y/o female with HTN, anxiety, depression, hx PE, chronic AC, COPD, BENITA, and other history as outlined who presented to the ED today with LLQ pain radiating to her back. Work-up in the ED showed acute diverticulitis of the distal descending colon. Originally, she was to be discharged on oral Cipro/Flagyl with outpatient follow-up. However, upon first dose of these antibiotics in the ED, she became flushed, pruritic, hypotensive, and hypoxic. She was also noted to have nausea and flushing after the IV contrast but this improved before she took the antibiotics. In the ED, she received methylpred, famotidine, and diphenhydramine but did not require epinephrine. Her allergic symptoms have been improving but due to the severity of her reaction (po tentially life-threatening) and the need for antibiotic treatment for the diverticulitis, she was referred for admission - Admit to PCU - Hold additional steroids for now but will monitor closely overnight - PRN Benadryl and Epinephrine ordered - Wean O2 as tolerated - Pharmacy has recommended ertapenem for the diverticulitis - will give first dose this evening, pre-medicate with dose of diphenhydramine - Toradol for pain control - Labs in the AM - NPO except meds/ice chips/sips tonight and re-evaluate pain in the AM (2) Acute diverticulitis: Plan: See plan for #1 (3) Chronic anticoagulation: Plan: Continue Xarelto (4) Hypertension: Plan: Resume home BP meds tomorrow with holds (5) Anxiety: (6) Depression: Plan Continue other home medications as appropriate. Pt seen and reviewed with attending physician, Dr. Umanzor. Plan of care discussed and as outlined above. Code Status: Full code DVT Prophylaxis: on Xarelto chronically - will continue Azul Rhodes PA-C History of Present Illness Chief Complaint: LLQ pain to back Primary Care Provider: Ridge Ramos MD This is a 52 y/o female with HTN, anxiety, depression, hx PE, chronic AC, COPD, BENITA, and other history as outlined who presented to the ED today with LLQ pain radiating to her back. She started two evenings ago with lower abdominal pressure, bloating,and gas. This continued yesterday, today sensation worsened to pain from the discomfort. Has had diverticulitis previously, which felt similar. This was treated with Cipro/Flagyl - noted some itching with initial dose in the ED but no issues after that and was able to complete the course. This morning, she also noted chills with low-grade fever, fatigue and malaise. Her last normal BM was yesterday. Her bowel are variable at baseline, alternat ing between constipation and dirarhea. She does note that the last time she had IV contrast she felt warm and nauseated but this sensation passed quickly. Today, felt very nauseated and flushed after the contrast but worse than prior. However, this seemed to improve before she took the Cipro and Flagyl in the ED. Shortly after taking the antibiotics, pt became flushed, pruritic, hypotensive, and hypoxic. She was given methylprednisolone, diphenhydramine, and famotidine but did not require epinephrine. Her allergic reaction symptoms are improving but she is still requiring 2L of O2 and will need antibiotics for the diverticulitis so she was referred for admission. She also notes that she had COVID over [place] and is slowly recovering. Allergies Allergy/AdvReac Type Severity Reaction Status Date / Time ciprofloxacin [From Cipro] Allergy Severe Anaphylaxis Verified 04/24/23 17:30 metronidazole [From Flagyl] Allergy Severe Anaphylaxis Verified 04/24/23 17:30 Penicillins Allergy Intermediate RASH Verified 11/25/22 18:34 Sulfa (Sulfonamide Allergy Intermediate RASH Verified 11/25/22 18:34 Antibiotics) hydromorphone AdvReac Intermediate abd pain Verified 11/25/22 18:34 morphine AdvReac Intermediate abd pain Verified 11/25/22 18:34 Home Medications Medication Instructions Recorded Confirmed Type alprazolam 0.5 mg tablet 0.5 mg PO TID PRN Anxiety 01/09/19 04/24/23 History lisinopril 40 mg tablet 40 mg PO QAM 01/09/19 04/24/23 History mometasone 50 mcg/actuation nasal 2 spray intranasal DAILY PRN Nasal 01/09/19 04/24/23 History spray Congestion montelukast 10 mg tablet 10 mg PO HS 01/09/19 04/24/23 History valacyclovir 1 gram tablet 2,000 mg PO Q12H PRN Cold Sores 01/09/19 04/24/23 History bupropion HCl 300 mg 24 hr tablet, 300 mg PO QAM 01/04/20 04/24/23 History extended release (Wellbutrin XL) pantoprazole 40 mg tablet,delayed 40 mg PO QAM 01/11/20 04/24/23 History release (Protonix) amlodipine 10 mg tablet 10 mg PO DAILY 05/26/21 04/24/23 History cetirizine 10 mg tablet (Zyrtec) 10 mg PO HS 05/26/21 04/24/23 History desvenlafaxine succinate 100 mg 100 mg PO QAM 05/26/21 04/24/23 History tablet,extended release 24 hr hydrochlorothiazide 12.5 mg capsule 12.5 mg PO DAILY 05/26/21 04/24/23 History metoprolol succinate 50 mg 50 mg PO DAILY 05/26/21 04/24/23 History tablet,extended release 24 hr bupropion HCl 150 mg 24 hr tablet, 150 mg PO QAM 11/25/22 04/24/23 History extended release cyanocobalamin (vitamin B-12) 1,000 mcg PO DAILY 11/25/22 04/24/23 History 1,000 mcg tablet (Vitamin B-12) desvenlafaxine succinate 50 mg 50 mg PO QAM 11/25/22 04/24/23 History tablet,extended release 24 hr rivaroxaban 20 mg tablet (Xarelto) 20 mg PO QAM 11/25/22 04/24/23 History Past Med/Surg History Medical History (Updated 04/24/23 @ 19:30 by Loyda Rhodes PA-C) Depression Fracture of toe of right foot Post-acute sequelae of COVID-19 ([facility]) Pulmonary embolism Morbid obesity with BMI of 45.0-49.9, adult History of anesthesia reaction difficulty waking Chronic back pain follows with chiropractor History of kidney stones Epigastric pain reason for EGD Diverticular disease Anxiety History of migraine headaches Hypertension Sleep apnea does not use CPAP as ordered UTI (urinary tract infection) Surgical History History of left breast biopsy benign History of endometrial ablation History of bilateral tubal ligation History of cystoscopy History of colonoscopy History of cholecystectomy History of wisdom tooth extraction Family History Father Diabetes Heart disease Hypertension Other Family history of diabetes mellitus No family history of adverse response to anesthesia Social History Smoking Status: Current some day smoker Tobacco Type: Cigarettes and E-cigarettes / Vaping Cigarettes Per Day: less than 1 pack a day - started age 15-15, has quit multiple times; Second Hand Exposure: No; Do You Dip or Chew Tobacco: No; Hx Alcohol Use: Yes (rare) Alcohol type: hard liquor Hx Substance Use: No Preferred Language: Zambian Communication Ability: Effective Maintenance Assistant Required: No Beliefs That Will Affect Care: None marital status: Current Living Situation: Spouse Current Living Situation Comment: Lives with 2 adult kids current occupational status: employed Feels Safe at Home: Yes Assistive Devices: None Review of Systems Review of Systems: All systems reviewed & are unremarkable except as noted in HPI & below Constitutional: + fever, + chills and + fatigue Eyes: no diplopia Ear, Nose, Mouth, Throat: no nasal congestion and no sore throat Respiratory: no cough and no dyspnea Cardiovascular: no chest pain and no palpitations Gastrointestinal: as per Subjective / HPI Genitourinary: no dysuria, no urinary frequency and no hematuria Integumentary: + pruritus; no yellowing of the skin Psychiatric: + depression and + anxiety Physical Exam Physical Exam: See physician note for details of the physical exam Results & Data Results & Data Vital Signs (Past 12 Hours) Vital Signs Temp Pulse Pulse Pulse Resp BP BP 04/24/23 18:04 84 04/24/23 17:57 84 20 103/77 04/24/23 17:35 04/24/23 17:33 90 18 112/85 04/24/23 17:32 88 20 112/85 04/24/23 17:30 93 H 16 108/70 04/24/23 17:28 89/59 L 04/24/23 17:26 90 16 98/64 L 04/24/23 17:25 04/24/23 16:16 18 121/76 04/24/23 13:52 36.7 C 108 H 18 142/86 H Pulse Ox O2 Del Method O2 Flow Rate 04/24/23 18:04 04/24/23 17:57 98 Nasal Cannula 2 04/24/23 17:35 93 Nasal Cannula 4 04/24/23 17:33 93 Nasal Cannula 4 04/24/23 17:32 90 Nasal Cannula 2 04/24/23 17:30 93 Nasal Cannula 2 04/24/23 17:28 04/24/23 17:26 90 Room Air 04/24/23 17:25 87 L Room Air 04/24/23 16:16 94 Room Air 04/24/23 13:52 98 Room Air Laboratory Results Laboratory Results - last 24 hr 04/24/23 14:24 WBC 11.63 H RBC 4.31 Hgb 12.8 Hct 38.4 MCV 89.1 MCH 29.7 MCHC 33.3 RDW Std Deviation 40.5 RDW Coeff of Serenity 12.5 Plt Count 345 MPV 10.1 Immature Gran % (Auto) 0.3 Neut % (Auto) 76.9 Lymph % (Auto) 15.6 [place] % (Auto) 4.8 Eos % (Auto) 1.8 Baso % (Auto) 0.6 Neut # (Auto) 8.94 H Lymph # (Auto) 1.81 [place] # (Auto) 0.56 Eos # (Auto) 0.21 Baso # (Auto) 0.07 Immature Gran # (Auto) 0.04 Sodium 139 Potassium 4.4 Chloride 105 Carbon Dioxide 24 Anion Gap 10 BUN 13 Creatinine 1.00 Est Cr Clr Drug Dosing 98.3 Est GFR ( Amer) 75.5 Est GFR (Non-Af Amer) 65.2 BUN/Creatinine Ratio 13.0 Glucose 98 Calcium 9.4 Total Bilirubin 0.9 AST 21 ALT 27 Alkaline Phosphatase 66 Total Protein 6.8 Albumin 3.9 Globulin 2.9 Albumin/Globulin Ratio 1.3 Diagnostic Findings Abdomen/Pelvis CT 04/24/23 15:[address] WITH IV CONTRAST CT DOSE: 1789.22 mGy.cm HISTORY: Left lower quadrant abdominal pain. TECHNIQUE: Multiaxial CT images of the abdomen and pelvis were performed following the use of intravenous contrast. A dose lowering technique was util ized adhering to the principles of ALARA. COMPARISON STUDY: Abdomen and pelvis CT 07/30/2022. FINDINGS: The lung bases are clear. No pneumoperitoneum. No pneumatosis. Bilateral L5 spondylolysis with associated grade 1 anterolisthesis. Cholecystectomy. The liver, spleen, right adrenal gland unremarkable. Stable 1.5 cm left adrenal gland nodule. This favors a benign adenoma. No retroperitoneal lymphadenopathy. Normal caliber abdominal aorta. Bilateral nephrolithiasis. No ureteral stones. No hydronephrosis. Stable 9 mm hypodense lesion within the left side of the uterine fundus. This may represent a small fibroid. Normal bladder. No pelvic free fluid or pelvic lymphadenopathy. No evidence for a bowel obstruction. Multiple colonic diverticula. There is an inflamed diverticulum within the distal sigmoid colon consistent with acute diverticulitis. No perforation or abscess at this time. There is mild bowel wall thickening at this location. Normal appendix. IMPRESSION: 1. Acute diverticulitis involving the distal descending colon. No perforation or abscess at this time. 2. Bilateral nephrolithiasis. No hydronephrosis. 3. Additional findings as described above. ACT 112: Negative or not required by law. Electronically signed by: Raymond Leavitt M.D. 04/24/2023 4:32 PM Medications Administered Sodium Chloride (Nss) 1,000 mls @ 125 mls/hr IV .Q8H RODDY Stop: 05/24/23 15:14 Last Admin: 04/24/23 16:16 Dose: 125 mls/hr Documented By: TERESE Discontinued Medications Ciprofloxacin (Ciprofloxacin 500 Mg Tab) 500 mg PO NOW STA Stop: 04/24/23 16:21 Last Admin: 04/24/23 16:36 Dose: 500 mg Documented By: TERESE Diphenhydramine HCl (Diphenhydramine 50 Mg/Ml Vial) 50 mg IV NOW STA Stop: 04/24/23 17:25 Last Admin: 04/24/23 17:27 Dose: 50 mg Documented By: TERESE Sodium Chloride (Nss) 500 mls @ 999 mls/hr IV .Q31M ONE Stop: 04/24/23 15:43 Last Infusion: 04/24/23 17:32 Dose: Infused Documented By: Admin: 04/24/23 15:29 Dose: 999 mls/hr Documented By: TERESE Famotidine (Pepcid 20mg Iv Push) 20 mg in 5 mls @ 2.5 mls/min IV NOW STA Stop: 04/24/23 17:25 Last Admin: 04/24/23 17:28 Dose: 2.5 mls/min Documented By: TERESE Ioversol (Optiray 320 500ml) 88 ml IV ONCE ONE Stop: 04/24/23 16:06 Last Admin: 04/24/23 16:06 Dose: 88 ml Documented By: ALVARO Ketorolac Tromethamine (Ketorolac Tromethamine 15 Mg/Ml Vial) 10 mg IV NOW ONE Stop: 04/24/23 15:14 Last Admin: 04/24/23 15:29 Dose: 10 mg Documented By: TERESE Methylprednisolone (Methylprednisolone 125 Mg/2 Ml Vial) 60 mg IV NOW STA Stop: 04/24/23 17:25 Last Admin: 04/24/23 17:28 Dose: 60 mg Documented By: TERESE Metronidazole (Metronidazole 500 Mg Tab) 500 mg PO NOW STA; Protocol Stop: 04/24/23 16:21 Last Admin: 04/24/23 16:36 Dose: 500 mg Documented By: TERESE Code Status & VTE Plan VTE Prophylaxis Plan VTE Prophylaxis will be ordered: Yes Supervising Physician Co-Signing Physician Notes I have seen and discussed the case with the collaborating PACandice. I agree with the above H&P. I have reviewed and confirmed the patients medical history, the findings on physical examination, and the patients diagnosis and treatment plan with Meagan HAMPTON and agree with the information documented. In short, Ms Rojas is a 52 year old woman with HTN, prior PE, BENITA non compliant with CPAP, prior diverticulitis, and multiple allergies who is admitted for monitoring after anaphylaxis from contrast and cipro/flagyl. Received Benadryl and famotidine, but no EPI administered in ED. Patient to be admitted for monitoring of post anaphylaxis, as well as new antibiotic administration for diverticulitis. Labs reviewed and fairly unremarkable except for leukocytosis to 11.63. Imaging consistent with diverticulitis, uncomplicated. PE: Patient pleasant and conversation, no signs of distress CV: RRR, no murmur Resp: 2L NC, saturating in high 90s, CTABL, no wheezing appreciated GI: soft, nondistended, tender to light palpation LLQ MSK: strength intact 5/5 Skin: erythematous skin on forhead, cheeks, urtiaria on neck, erythematous patches on bilateral hands #Anaphylaxis #Acute Diverticulitis Plan: Admit to PCU for close monitoring Start ertapenem, NPO except for sips/chips for diverticulitis Epi, benadryl, and famotidine prn Rest of plan as above (1) Allergic reaction caused by a drug Encounter type: initial encounter Qualified Code(s): T78.40XA - Allergy, unspecified, initial encounter (4) Hypertension Hypertension type: primary hypertension Qualified Code(s): I10 - Essential (primary) hypertension (6) Depression Active/Remission status: remission status unspecified Depression Type: major depressive disorder Major depression recurrence: recurrent Qualified Code(s): F33.9 - Major depressive disorder, recurrent, unspecified
[2023-04-24] MEDS ORDERED: diphenhydrAMINE 2%/ZINC 0.1% CREAM 28.4GM TUBE EXT PRN (18:31)
--- NOTE | 2023-04-24 19:17 | Emergency Department Note ---
Impression & Plan Acute diverticulitis ED Provider Note CHIEF COMPLAINT: LLQ abd pain HISTORY OF PRESENT ILLNESS: This 52-year-old female patient presents to the emergency department with complaints of left lower quadrant abdominal pain that began yesterday. Patient states she has a history of kidney stones and diverticulitis and is uncertain what what this would be. Patient denies any fevers, blood in stool or difficulty with urination. She has not had any vomiting. REVIEW OF SYSTEMS: A review of systems was performed with positives and pertinent negatives listed in the history of present illness. 10 systems were reviewed and are otherwise negative. ALLERGIES: see below MEDICATIONS: see below PMH: see below SOCIAL HISTORY: see below DDx: Diverticulitis, kidney stone, appendicitis, UTI, pyelonephritis ovarian cyst, ovarian torsion among others. PHYSICAL EXAM: Vital signs reviewed. General: Well-appearing 52-year-old female, in no significant distress. HEENT: No scleral icterus, PERRLA, neck supple. Atraumatic. Cardiovascular: Regular rate and rhythm, no extra sounds. Pulmonary: Clear to auscultation bilaterally, normal work of breathing. Abdomen: Soft, obese, tender to palpation in the left lower suprapubic region, nondistended, positive bowel sounds. Musculoskeletal: Atraumatic, no peripheral edema. No significant CVA tenderness Neurologic: Patient awake alert and oriented x 3, speech is clear Skin: Warm, dry, no rash EMERGENCY DEPARTMENT COURSE/MDM: This patient was evaluated and appeared to be in no significant distress. IV access was obtained and laboratory work was drawn. The patient was placed on the cardiac exercise specialist noted to be in normal sinus rhythm. Laboratory work reveals a mild leukocytosis. CT imaging of the abdomen pelvis was performed with IV contrast. Reveals evidence of uncomplicated diverticulitis. Patient had documented allergy to penicillin and had tolerated Cipro and Flagyl previously. She was given these medications but shortly thereafter began to feel throat tightening, nausea and flushing. Patient's blood pressure did become soft into the 80s and she was noted to be hypoxic by nursing staff. She was placed on nasal cannula oxygen. She was given a liter of IV normal saline solution, IV Benadryl, IV Solu-Medrol and IV Pepcid. Patient was reevaluated on several occasions and she did improve without epinephrine after some monitoring. In retrospect, the patient states she felt a little flushed and itchy after the IV contrast, however this resolved without any intervention. I did consult with the clinical pharmacist who has recommended ertapenem given the patient's allergy profile. This medication was ordered. Patient will require admission for IV antibiotics and further monitoring regarding the anaphylactic reaction. Patient is aware of the plan and agrees. MONITORING: An order for cardiac monitoring was placed and the patient is noted to be in a normal sinus rhythm 88 beats per minute. RADIOLOGY: CT imaging of the abdomen pelvis to my review reveals inflammatory change in the left lower quadrant consistent with diverticulitis. Otherwise refer to radiology's over read. DISPOSITION: Admission I have personally spent 35 minutes of critical care time in the direct management of this patient. This was a life/limb threatening event. This 35 minutes is in excess of all separately billable procedures. Past Med/Surg History Medical History (Updated 04/24/23 @ 19:30 by Loyda Rhodes PA-C) Depression Fracture of toe of right foot Post-acute sequelae of COVID-19 ([facility]) Pulmonary embolism Morbid obesity with BMI of 45.0-49.9, adult History of anesthesia reaction difficulty waking Chronic back pain follows with chiropractor History of kidney stones Epigastric pain reason for EGD Diverticular disease Anxiety History of migraine headaches Hypertension Sleep apnea does not use CPAP as ordered UTI (urinary tract infection) Surgical History History of left breast biopsy benign History of endometrial ablation History of bilateral tubal ligation History of cystoscopy History of colonoscopy History of cholecystectomy History of wisdom tooth extraction Family History Father Diabetes Heart disease Hypertension Other Family history of diabetes mellitus No family history of adverse response to anesthesia Social History Smoking Status: Current some day smoker Tobacco Type: E-cigarettes / Vaping Cigarettes Per Day: less than 1 pack a day - started age 15-15, has quit multiple times; Second Hand Exposure: Yes; Do You Dip or Chew Tobacco: No; Tobacco Cessation Education Requested by Patient: No Hx Alcohol Use: Yes Alcohol type: hard liquor Hx Substance Use: No Preferred Language: Korean Communication Ability: Effective Eyelet Row Marker Required: No Beliefs That Will Affect Care: None marital status: Current Living Situation: Spouse Current Living Situation Comment: home current occupational status: employed Other Information That Helps Us Care for You: No Feels Safe at Home: Yes Safety Concerns: Feels Safe At This Time Assistive Devices: None Allergies Allergies Allergy/AdvReac Type Severity Reaction Status Date / Time ciprofloxacin [From Cipro] Allergy Severe Anaphylaxis Verified 04/24/23 17:30 metronidazole [From Flagyl] Allergy Severe Anaphylaxis Verified 04/24/23 17:30 Penicillins Allergy Intermediate RASH Verified 11/25/22 18:34 Sulfa (Sulfonamide Allergy Intermediate RASH Verified 11/25/22 18:34 Antibiotics) hydromorphone AdvReac Intermediate abd pain Verified 11/25/22 18:34 morphine AdvReac Intermediate abd pain Verified 11/25/22 18:34 Home Meds Home Medications Medication Instructions Recorded Confirmed alprazolam 0.5 mg tablet 0.5 mg PO TID PRN Anxiety 01/09/19 04/24/23 lisinopril 40 mg tablet 40 mg PO QAM 01/09/19 04/24/23 mometasone 50 mcg/actuation nasal 2 spray intranasal DAILY PRN Nasal 01/09/19 04/24/23 spray Congestion montelukast 10 mg tablet 10 mg PO HS 01/09/19 04/24/23 valacyclovir 1 gram tablet 2,000 mg PO Q12H PRN Cold Sores 01/09/19 04/24/23 bupropion HCl 300 mg 24 hr tablet, 300 mg PO QAM 01/04/20 04/24/23 extended release (Wellbutrin XL) pantoprazole 40 mg tablet,delayed 40 mg PO QAM 01/11/20 04/24/23 release (Protonix) amlodipine 10 mg tablet 10 mg PO DAILY 05/26/21 04/24/23 cetirizine 10 mg tablet (Zyrtec) 10 mg PO HS 05/26/21 04/24/23 desvenlafaxine succinate 100 mg 100 mg PO QAM 05/26/21 04/24/23 tablet,extended release 24 hr hydrochlorothiazide 12.5 mg capsule 12.5 mg PO DAILY 05/26/21 04/24/23 metoprolol succinate 50 mg 50 mg PO DAILY 05/26/21 04/24/23 tablet,extended release 24 hr bupropion HCl 150 mg 24 hr tablet, 150 mg PO QAM 11/25/22 04/24/23 extended release cyanocobalamin (vitamin B-12) 1,000 mcg PO DAILY 11/25/22 04/24/23 1,000 mcg tablet (Vitamin B-12) desvenlafaxine succinate 50 mg 50 mg PO QAM 11/25/22 04/24/23 tablet,extended release 24 hr rivaroxaban 20 mg tablet (Xarelto) 20 mg PO QAM 11/25/22 04/24/23 Results & Data (ED) Vital Signs Vital Signs - 24 hr 04/24/23 13:52 04/24/23 16:16 04/24/23 17:25 Temperature 36.7 C Temperature Source Temporal Artery Scan Pulse Rate 108 H Pulse Rate [Apical] Pulse Rate [Right Finger] Pulse Rhythm [Right Finger] Respiratory Rate 18 18 Respiratory Effort / Characteristics Non-Labored Spontaneous Non-Labored Spontaneous Respiratory Depth Normal Normal Respiratory Pattern Regular Blood Pressure 142/86 H Blood Pressure [Right Arm] 121/76 Blood Pressure Mean 104 Blood Pressure Mean [Right Arm] 91 Blood Pressure Position Sitting Blood Pressure Position [Right Arm] Lying Pulse Oximetry 98 94 87 L Oxygen Delivery Method Room Air Room Air Room Air Oxygen Flow Rate Sepsis Recent Fever Within 48 Hours No Sepsis New/Unexplained Change in Mental Status No Sepsis Action Taken by Nursing No Action Required 04/24/23 17:26 04/24/23 17:28 04/24/23 17:30 Temperature Temperature Source Pulse Rate Pulse Rate [Apical] 93 H Pulse Rate [Right Finger] 90 Pulse Rhythm [Right Finger] Respiratory Rate 16 16 Respiratory Effort / Characteristics Non-Labored Spontaneous Non-Labored Spontaneous Respiratory Depth Normal Normal Respiratory Pattern Regular Regular Blood Pressure Blood Pressure [Right Arm] 98/64 L 89/59 L 108/70 Blood Pressure Mean Blood Pressure Mean [Right Arm] 75 69 82 Blood Pressure Position Blood Pressure Position [Right Arm] Pulse Oximetry 90 93 Oxygen Delivery Method Room Air Nasal Cannula Oxygen Flow Rate 2 Sepsis Recent Fever Within 48 Hours Sepsis New/Unexplained Change in Mental Status Sepsis Action Taken by Nursing 04/24/23 17:32 04/24/23 17:33 04/24/23 17:35 Temperature Temperature Source Pulse Rate Pulse Rate [Apical] 88 90 Pulse Rate [Right Finger] Pulse Rhythm [Right Finger] Regular Respiratory Rate 20 18 Respiratory Effort / Characteristics Non-Labored Spontaneous Non-Labored Spontaneous Respiratory Depth Normal Normal Respiratory Pattern Regular Regular Blood Pressure Blood Pressure [Right Arm] 112/85 112/85 Blood Pressure Mean Blood Pressure Mean [Right Arm] 94 94 Blood Pressure Position Blood Pressure Position [Right Arm] Lying Pulse Oximetry 90 93 93 Oxygen Delivery Method Nasal Cannula Nasal Cannula Nasal Cannula Oxygen Flow Rate 2 4 4 Sepsis Recent Fever Within 48 Hours Sepsis New/Unexplained Change in Mental Status Sepsis Action Taken by Nursing 04/24/23 17:57 04/24/23 18:04 Temperature Temperature Source Pulse Rate 84 Pulse Rate [Apical] 84 Pulse Rate [Right Finger] Pulse Rhythm [Right Finger] Respiratory Rate 20 Respiratory Effort / Characteristics Non-Labored Spontaneous Respiratory Depth Normal Respiratory Pattern Regular Blood Pressure Blood Pressure [Right Arm] 103/77 Blood Pressure Mean Blood Pressure Mean [Right Arm] 85 Blood Pressure Position Blood Pressure Position [Right Arm] Lying Pulse Oximetry 98 Oxygen Delivery Method Nasal Cannula Oxygen Flow Rate 2 Sepsis Recent Fever Within 48 Hours Sepsis New/Unexplained Change in Mental Status Sepsis Action Taken by Skilled Nursing Medications Current Medication List: was personally reviewed by me Laboratory Data Attestation: I reviewed the patient's lab results. 04/27/23 05:22 04/27/23 05:22 Lab Results 04/24/23 Range/Units 14:24 WBC 11.63 H (4.8-10.8) K/ul RBC 4.31 (4.20-5.40) M/uL Hgb 12.8 (12.0-16.0) g/dl Hct 38.4 (37.0-47.0) % MCV 89.1 (80.0-100.0) fL MCH 29.7 (25.0-34.0) pg MCHC 33.3 (32.0-36.0) g/dL RDW Std Deviation 40.5 (36.4-46.3) fL RDW Coeff of Serenity 12.5 (11.5-14.5) % Plt Count 345 (130-400) K/uL MPV 10.1 (9.4-12.4) fL Immature Gran % (Auto) 0.3 % Neut % (Auto) 76.9 % Lymph % (Auto) 15.6 % Mellette % (Auto) 4.8 % Eos % (Auto) 1.8 % Baso % (Auto) 0.6 % Neut # (Auto) 8.94 H (1.40-6.50) K/uL Lymph # (Auto) 1.81 (1.20-3.40) K/uL Mellette # (Auto) 0.56 (0.11-0.59) K/uL Eos # (Auto) 0.21 (0.00-0.50) K/uL Baso # (Auto) 0.07 (0.00-0.20) K/uL Immature Gran # (Auto) 0.04 (0.01-0.20) K/uL Sodium 139 (136-145) mmol/L Potassium 4.4 (3.5-5.1) mmol/L Chloride 105 (98-107) mmol/L Carbon Dioxide 24 (21-32) mmol/L Anion Gap 10 (3-11) BUN 13 (6-23) mg/dl Creatinine 1.00 (0.6-1.2) mg/dl Est Cr Clr Drug Dosing 98.3 ml/min Est GFR ( Amer) 75.5 ml/min Est GFR (Non-Af Amer) 65.2 ml/min BUN/Creatinine Ratio 13.0 (10-20) Glucose 98 (70-99(Fasting)) mg/dl Calcium 9.4 (8.6-10.3) mg/dl Total Bilirubin 0.9 (0.2-1.0) mg/dl AST 21 (13-39) U/L ALT 27 (7-52) U/L Alkaline Phosphatase 66 (34-104) U/L Total Protein 6.8 (6.0-8.3) gm/dl Albumin 3.9 (3.4-5.0) gm/dl Globulin 2.9 (2.5-4.0) gm/dl Albumin/Globulin Ratio 1.3 (0.9-2) Administered Medications Discontinued Medications Amlodipine Besylate (Amlodipine Besylate 5 Mg Tab) 10 mg PO DAILY RODDY Stop: 05/25/23 08:59 Last Admin: 04/27/23 09:00 Dose: 10 mg Documented By: Admin: 04/26/23 09:33 Dose: 10 mg Documented By: Admin: 04/25/23 10:45 Dose: 10 mg Documented By: MRT Bupropion HCl (Bupropion Xl 300 Mg Tabcr) 300 mg PO QAM RODDY Stop: 05/25/23 08:59 Last Admin: 04/27/23 09:00 Dose: 300 mg Documented By: Admin: 04/26/23 09:33 Dose: 300 mg Documented By: Admin: 04/25/23 10:45 Dose: 300 mg Documented By: MEGAN Bupropion HCl (Bupropion Xl 150 Mg Tabcr) 150 mg PO QAM RODDY Stop: 05/25/23 08:59 Last Admin: 04/27/23 09:00 Dose: 150 mg Documented By: Admin: 04/26/23 09:33 Dose: 150 mg Documented By: Admin: 04/25/23 10:45 Dose: 150 mg Documented By: MEGAN Cetirizine HCl (Cetirizine Hcl 10 Mg Tablet) 10 mg PO HS [facility] Stop: 05/24/23 21:00 Last Admin: 04/26/23 20:17 Dose: 10 mg Documented By: Admin: 04/25/23 21:04 Dose: 10 mg Documented By: Admin: 04/24/23 21:34 Dose: 10 mg Documented By: TERESE Ciprofloxacin (Ciprofloxacin 500 Mg Tab) 500 mg PO NOW STA Stop: 04/24/23 16:21 Last Admin: 04/24/23 16:36 Dose: 500 mg Documented By: TERESE Cyanocobalamin (Cyanocobalamin (B-12) 500 Mcg Tablet) 1,000 mcg PO DAILY RODDY Stop: 05/25/23 08:59 Last Admin: 04/27/23 09:00 Dose: 1,000 mcg Documented By: Admin: 04/26/23 09:33 Dose: 1,000 mcg Documented By: Admin: 04/25/23 10:45 Dose: 1,000 mcg Documented By: MEGAN Desvenlafaxine Succinate (Pt's Own Med: Desvenlafaxine Succinate Er Tablet 100mg) 1 tab PO DAILY RODDY Stop: 05/25/23 11:59 Last Admin: 04/27/23 09:00 Dose: 1 tab Documented By: Admin: 04/26/23 09:34 Dose: 1 tab Documented By: Admin: 04/25/23 13:48 Dose: 1 tab Documented By: MEGAN Diphenhydramine HCl (Diphenhydramine 50 Mg/Ml Vial) 50 mg IV NOW STA Stop: 04/24/23 17:25 Last Admin: 04/24/23 17:27 Dose: 50 mg Documented By: TERESE Diphenhydramine HCl (Diphenhydramine 50 Mg/Ml Vial) 12.5 mg IV ONE ONE Stop: 04/24/23 21:02 Last Admin: 04/24/23 21:34 Dose: 12.5 mg Documented By: TERESE Sodium Chloride (Nss) 500 mls @ 999 mls/hr IV .Q31M ONE Stop: 04/24/23 15:43 Last Infusion: 04/24/23 17:32 Dose: Infused Documented By: Admin: 04/24/23 15:29 Dose: 999 mls/hr Documented By: TERESE Sodium Chloride (Nss) 1,000 mls @ 125 mls/hr IV .Q8H RODDY Stop: 05/24/23 15:14 Last Admin: 04/25/23 15:24 Dose: Not Given Documented By: Infusion: 04/25/23 10:50 Dose: Infused Documented By: Infusion: 04/25/23 10:48 Dose: Infused Documented By: Admin: 04/24/23 22:18 Dose: 125 mls/hr Documented By: [facility] Infusion: 04/24/23 20:33 Dose: Infused Documented By: Admin: 04/24/23 16:16 Dose: 125 mls/hr Documented By: TERESE Famotidine (Pepcid 20mg Iv Push) 20 mg in 5 mls @ 2.5 mls/min IV NOW STA Stop: 04/24/23 17:25 Last Admin: 04/24/23 17:28 Dose: 2.5 mls/min Documented By: TERESE Ertapenem 1,000 mg/ Syringe 10 mls @ 2 mls/min IV Q24H RODDY Stop: 05/04/23 21:00 Last Admin: 04/26/23 22:45 Dose: 2 mls/min Documented By: Admin: 04/25/23 21:51 Dose: 2 mls/min Documented By: Admin: 04/24/23 21:33 Dose: 2 mls/min Documented By: TERESE Influenza Virus Vaccine Quadrival (Influenza Virus Quadrivalent Vaccine (Iiv4) 0.5 Ml Syr) 0.5 ml IM .ONCE ONE Stop: 04/24/23 22:25 Last Admin: 04/27/23 11:45 Dose: Not Given Documented By: JONATHAN Ioversol (Optiray 320 500ml) 88 ml IV ONCE ONE Stop: 04/24/23 16:06 Last Admin: 04/24/23 16:06 Dose: 88 ml Documented By: ALVARO Ketorolac Tromethamine (Ketorolac Tromethamine 15 Mg/Ml Vial) 10 mg IV NOW ONE Stop: 04/24/23 15:14 Last Admin: 04/24/23 15:29 Dose: 10 mg Documented By: TERESE Ketorolac Tromethamine (Ketorolac Tromethamine 15 Mg/Ml Vial) 15 mg IV Q6H PRN PRN Reason: Pain Stop: 04/29/23 21:00 Last Admin: 04/26/23 20:17 Dose: 15 mg Documented By: Admin: 04/25/23 05:35 Dose: 15 mg Documented By: Admin: 04/24/23 22:51 Dose: 15 mg Documented By: SANDRITA Lisinopril (Lisinopril 40 Mg Tab) 40 mg PO QAM [facility] Stop: 05/25/23 08:59 Last Admin: 04/27/23 09:01 Dose: 40 mg Documented By: Admin: 04/26/23 09:33 Dose: 40 mg Documented By: Admin: 04/25/23 10:46 Dose: 40 mg Documented By: MEGAN Methylprednisolone (Methylprednisolone 125 Mg/2 Ml Vial) 60 mg IV NOW STA Stop: 04/24/23 17:25 Last Admin: 04/24/23 17:28 Dose: 60 mg Documented By: TERESE Metoprolol Succinate (Metoprolol Succ 50mg Ext Rel Tab) 50 mg PO DAILY [facility] Stop: 05/25/23 08:59 Last Admin: 04/27/23 09:00 Dose: 50 mg Documented By: Admin: 04/26/23 09:33 Dose: 50 mg Documented By: Admin: 04/25/23 10:49 Dose: 50 mg Documented By: MEGAN Metronidazole (Metronidazole 500 Mg Tab) 500 mg PO NOW STA; Protocol Stop: 04/24/23 16:21 Last Admin: 04/24/23 16:36 Dose: 500 mg Documented By: TERESE Miscellaneous (Desvenlafaxine 100mg - Order Awaiting Action) 1 each N/A QS [facility] Stop: 05/25/23 00:00 Last Admin: 04/25/23 15:25 Dose: Not Given Documented By: Admin: 04/24/23 22:19 Dose: Not Given Documented By: DANIEL Miscellaneous (Desvenlafaxine 50mg - Order Awaiting Action) 1 each N/A [facility] Stop: 05/25/23 00:00 Last Admin: 04/25/23 15:26 Dose: Not Given Documented By: Admin: 04/24/23 22:19 Dose: Not Given Documented By: DANIEL Montelukast Sodium (Montelukast Sodium 10 Mg Tablet) 10 mg PO [facility] Stop: 05/24/23 21:00 Last Admin: 04/26/23 20:16 Dose: 10 mg Documented By: Admin: 04/25/23 21:04 Dose: 10 mg Documented By: Admin: 04/24/23 21:34 Dose: 10 mg Documented By: TERESE Pantoprazole Sodium (Pantoprazole 40 Mg Tab) 40 mg PO [facility] Stop: 05/25/23 08:59 Last Admin: 04/27/23 08:59 Dose: 40 mg Documented By: Admin: 04/26/23 09:33 Dose: 40 mg Documented By: T Admin: 04/25/23 10:43 Dose: 40 mg Documented By: MEGAN Polyethylene Glycol (Polyethylene (Miralax) 17 Gm Pack) 17 gm PO DAILY [facility] Stop: 05/26/23 08:59 Last Admin: 04/27/23 09:02 Dose: Not Given Documented By: Admin: 04/26/23 09:32 Dose: 17 gm Documented By: MRMiley Rivaroxaban (Rivaroxaban 20 Mg Tab) 20 mg PO [facility] Stop: 05/25/23 08:59 Last Admin: 04/27/23 09:01 Dose: 20 mg Documented By: Admin: 04/26/23 09:33 Dose: 20 mg Documented By: MRMiley Admin: 04/25/23 10:45 Dose: 20 mg Documented By: MEGAN Imaging Data Radiologist's Impression: Abdomen/Pelvis CT 04/24/23 15:[address] WITH IV CONTRAST CT DOSE: 1789.22 mGy.cm HISTORY: Left lower quadrant abdominal pain. TECHNIQUE: Multiaxial CT images of the abdomen and pelvis were performed following the use of intravenous contrast. A dose lowering technique was utilized adhering to the principles of ALARA. COMPARISON STUDY: Abdomen and pelvis CT 07/30/2022. FINDINGS: The lung bases are clear. No pneumoperitoneum. No pneumatosis. Bilateral L5 spondylolysis with associated grade 1 anterolisthesis. Cholecystectomy. The liver, spleen, right adrenal gland unremarkable. Stable 1.5 cm left adrenal gland nodule. This favors a benign adenoma. No retroperitoneal lymphadenopathy. Normal caliber abdominal aorta. Bilateral nephrolithiasis. No ureteral stones. No hydronephrosis. Stable 9 mm hypodense lesion within the left side of the uterine fundus. This may represent a small fibroid. Normal bladder. No pelvic free fluid or pelvic lymphadenopathy. No evidence for a bowel obstruction. Multiple colonic diverticula. There is an inflamed diverticulum within the distal sigmoid colon consistent with acute diverticulitis. No perforation or abscess at this time. There is mild bowel wall thickening at this location. Normal appendix. IMPRESSION: 1. Acute diverticulitis involving the distal descending colon. No perforation or abscess at this time. 2. Bilateral nephrolithiasis. No hydronephrosis. 3. Additional findings as described above. ACT 112: Negative or not required by law. Electronically signed by: Raymond Leavitt M.D. 04/24/2023 4:32 PM Discharge Plan Visit Data Chief Complaint: Flank Pain Stated Complaint: FLANK PAIN LEFT SIDE ED Provider: Clarissa Foster Discharge Problem: Acute diverticulitis Patient Disposition: Admitted As Inpatient Condition: Good Discharge Instructions Interventions: ED Discharge Assessment Last Done: 04/24/23 21:01
[2023-04-24] MEDS ORDERED: ALPRAZolam 0.5 MG TABLET PO PRN (21:01)
[2023-04-24] MEDS ORDERED: diphenhydrAMINE 50 MG/ML VIAL IV ONE (21:01)
[2023-04-24] MEDS ORDERED: diphenhydrAMINE 50 MG/ML VIAL IV PRN (21:01)
[2023-04-24] MEDS ORDERED: EPINEPHrine INJ 1 MG/ML AMP IM PRN (21:22)
[2023-04-24] MEDS: ERTAPENEM SODIUM 1,000 MG in SYRINGE 0 ML IV SCH (21:33)
[2023-04-24] MEDS: MONTELUKAST SODIUM 10 MG TABLET PO SCH (21:34)
[2023-04-24] MEDS: CETIRIZINE HCL 10 MG TABLET PO SCH (21:34)
[2023-04-24] MEDS ORDERED: INFLUENZA VIRUS QUADRIVALENT VACCINE (IIV4) 0.5 ML SYR IM ONE (22:24)
[2023-04-24] MEDS: KETOROLAC TROMETHAMINE 15 MG/ML VIAL IV PRN (22:51)
[2023-04-25] MEDS: KETOROLAC TROMETHAMINE 15 MG/ML VIAL IV PRN (05:35)
[2023-04-25 07:11] LABS: Basophils # (auto) 0.02 K/uL (0.00-0.20); Basophils % (auto) 0.2 %; Hematocrit (blood only) 36.5 % (37.0-47.0); Hemoglobin 11.8 g/dl (12.0-16.0); Immature Granulocytes # (auto) 0.04 K/uL (0.01-0.20); Immature Granulocytes % (auto) 0.4 %; Lymphocytes # (auto) 0.94 K/uL (1.20-3.40); Lymphocytes % (auto) 8.8 %; Mean Corpuscular Hemoglobin 29.6 pg (25.0-34.0); Mean Corpuscular Hgb Conc 32.3 g/dL (32.0-36.0); Mean Corpuscular Volume 91.5 fL (80.0-100.0); Mean Platelet Volume 10.1 fL (9.4-12.4); Monocytes # (auto) 0.21 K/uL (0.11-0.59); Neutrophils # (auto) 9.53 K/uL (1.40-6.50); Neutrophils % (auto) 88.6 %; Platelet Count 314 K/uL (130-400); RDW Coefficient of Variation 12.3 % (11.5-14.5); Red Blood Count 3.99 M/uL (4.20-5.40); White Blood Count 10.74 K/ul (4.8-10.8)
--- NOTE | 2023-04-25 07:12 | Hospitalist Progress Note ---
Date of Service April 25, 2023 Assessment & Plan (1) Allergic reaction caused by a drug: (2) Acute diverticulitis: (3) Chronic anticoagulation: Plan: Continue Xarelto (4) Hypertension: Plan: Resume home BP meds tomorrow with holds (5) Anxiety: (6) Depression: Plan Ms. Rojas is a 52 y/o female with HTN, anxiety, depression, hx PE, chronic AC, COPD, BENITA, and other history as outlined who presented to the ED today with LLQ pain radiating to her back. Work-up in the ED showed acute diverticulitis of the distal descending colon. Originally, she was to be discharged on oral Cipro/Flagyl with outpatient follow-up. However, upon first dose of these antibiotics in the ED, she became flushed, pruritic, hypotensive, and hypoxic. She was also noted to have nausea and flushing after the IV contrast but this improved before she took the antibiotics. In the ED, she received methylpred, famotidine, and diphenhydramine but did not require epinephrine. Her allergic symptoms have been improving but due to the severity of her reaction (potentially life-threatening) and the need for antibiotic treatment for the diverticulitis, she was referred for admission. #Anaphylaxis 2/2 cipro/flagyl, +/- contrast Reports history of "itching" with contrast, as well as prior regimen with cipro/flagyl, but denies airway swelling/hives previously Noted reaction after contrast, mostly nausea; however, hypoxia, hypotension, hives with cipro/flagyl - No further steroids at this time - PRN Benadryl and Epinephrine ordered - Wean O2 as tolerated - Continue ertapenem, no signs of reaction or reports of reaction per patient - Will need referral to OP mannequin molder to discuss/determine allergy to multiple listed antibiotics/consideration of controlled desensitiation #Acute, uncomplicated diverticulitis Given intolerance to PO regimen (penicillins and fluoroquinolones), will continue IV ertapenem - Toradol for pain control - Labs in the AM - CLD today, consider increasing as tolerated #Hypertension #Relative hypotension -Holding home antihypertensives, resume when pressures tolerate #Incidental COVID positive -Asymptomatic, known exposure 04/09 from ; remains afebrile, without hypoxia or URI concerns #History of PE -Continue Xarelto Continue other home medications as appropriate. e. Code Status: Full code DVT Prophylaxis: on Xarelto chronically - will continue Admission and Anticipated Discharge Date Admission Date: April 24, 2023 Subjective Reports noted improvement in abdominal pain this morning, still some tenderness but mild overall Reports strong appetite Denies nausea, vomiting, fevers Reports remote (04/09) exposure to COVID from , denies any fevers, SOB, cough or concerns related to infection/pneumonia Physical Exam Constitutional: WD/WN, vitals as above Respiratory: normal respiratory effort, lungs clear to auscultation Cardiovascular: RRR, no murmur, no edema Gastrointestinal (Abdomen): soft abdomen, BS+, mild LLQ tenderness Skin: resolution of erythematous spots on chest/face/hands Results & Data Results & Data Vital Signs (Past 12 Hours) Vital Signs Temp Pulse Pulse Resp BP BP Pulse Ox 04/25/23 02:17 36.5 C 79 16 121/85 94 04/24/23 22:42 36.7 C 83 18 110/75 97 04/24/23 22:25 36.7 C 83 16 110/75 96 04/24/23 21:56 95 04/24/23 21:20 70 18 94/66 L 94 04/24/23 19:48 83 18 108/70 94 O2 Del Method O2 Flow Rate 04/25/23 02:17 Room Air 04/24/23 22:42 Room Air 04/24/23 22:25 Room Air 04/24/23 21:56 Room Air 04/24/23 21:20 Nasal Cannula 2 04/24/23 19:48 Room Air Laboratory Results Short CBC 04/24/23 04/25/23 Range/Units 14:24 06:31 WBC 11.63 H 10.74 (4.8-10.8) K/ul Hgb 12.8 11.8 L (12.0-16.0) g/dl Hct 38.4 36.5 L (37.0-47.0) % Plt Count 345 314 (130-400) K/uL BMP 04/24/23 04/25/23 14:24 06:31 Sodium 139 140 Potassium 4.4 4.2 Chloride 105 109 H Carbon Dioxide 24 24 BUN 13 16 Creatinine 1.00 1.05 Glucose 98 124 H Calcium 9.4 8.5 L Liver Function 04/24/23 Range/Units 14:24 Total Bilirubin 0.9 (0.2-1.0) mg/dl AST 21 (13-39) U/L ALT 27 (7-52) U/L Alkaline Phosphatase 66 (34-104) U/L Albumin 3.9 (3.4-5.0) gm/dl Medications Administered Home Medications Medication Instructions Recorded Confirmed Last Taken alprazolam 0.5 mg tablet 0.5 mg PO TID PRN Anxiety 01/09/19 04/24/23 05/26/21 09:00 lisinopril 40 mg tablet 40 mg PO QAM 01/09/19 04/24/23 11/25/22 mometasone 50 mcg/actuation nasal 2 spray intranasal DAILY PRN Nasal 01/09/19 04/24/23 Unknown spray Congestion montelukast 10 mg tablet 10 mg PO HS 01/09/19 04/24/23 11/24/22 valacyclovir 1 gram tablet 2,000 mg PO Q12H PRN Cold Sores 01/09/19 04/24/23 Unknown bupropion HCl 300 mg 24 hr tablet, 300 mg PO QAM 01/04/20 04/24/23 11/25/22 extended release (Wellbutrin XL) pantoprazole 40 mg tablet,delayed 40 mg PO QAM 01/11/20 04/24/23 11/25/22 release (Protonix) amlodipine 10 mg tablet 10 mg PO DAILY 05/26/21 04/24/23 11/25/22 cetirizine 10 mg tablet (Zyrtec) 10 mg PO HS 05/26/21 04/24/23 11/24/22 desvenlafaxine succinate 100 mg 100 mg PO QAM 05/26/21 04/24/23 11/25/22 tablet,extended release 24 hr hydrochlorothiazide 12.5 mg capsule 12.5 mg PO DAILY 05/26/21 04/24/23 11/25/22 metoprolol succinate 50 mg 50 mg PO DAILY 05/26/21 04/24/23 11/25/22 tablet,extended release 24 hr bupropion HCl 150 mg 24 hr tablet, 150 mg PO QAM 11/25/22 04/24/23 11/25/22 extended release cyanocobalamin (vitamin B-12) 1,000 mcg PO DAILY 11/25/22 04/24/2311/25/23 1,000 mcg tablet (Vitamin B-12) desvenlafaxine succinate 50 mg 50 mg PO QAM 11/25/22 04/24/23 11/25/22 tablet,extended release 24 hr rivaroxaban 20 mg tablet (Xarelto) 20 mg PO QAM 11/25/22 04/24/23 11/25/22 Active Medications Generic Name Dose Route Start Last Admin Trade Name Freq PRN Reason Stop Dose Admin Amlodipine Besylate 10 mg 04/25/23 09:00 04/25/23 10:45 Amlodipine Besylate 5 Mg Tab PO 05/25/23 08:59 10 mg DAILY RODDY Administration Bupropion HCl 300 mg 04/25/23 09:00 04/25/23 10:45 Bupropion Xl 300 Mg Tabcr PO 05/25/23 08:59 300 mg QAM RODDY Administration Bupropion HCl 150 mg 04/25/23 09:00 04/25/23 10:45 Bupropion Xl 150 Mg Tabcr PO 05/25/23 08:59 150 mg QAM RODDY Administration Cetirizine HCl 10 mg 04/24/23 21:01 04/24/23 21:34 Cetirizine Hcl 10 Mg Tablet PO 05/24/23 21:00 10 mg HS RODDY Administration Cyanocobalamin 1,000 mcg 04/25/23 09:00 04/25/23 10:45 Cyanocobalamin (B-12) 500 Mcg Tablet PO 05/25/23 08:59 1,000 mcg DAILY RODDY Administration Ertapenem 1,000 mg/ Syringe 10 mls @ 2 mls/min 04/24/23 21:30 04/24/23 21:33 IV 05/04/23 21:00 2 mls/min Q24H RODDY Administration Ketorolac Tromethamine 15 mg 04/24/23 21:01 04/25/23 05:35 Ketorolac Tromethamine 15 Mg/Ml Vial IV 04/29/23 21:00 15 mg Q6H PRN Administration Pain Lisinopril 40 mg 04/25/23 09:00 04/25/23 10:46 Lisinopril 40 Mg Tab PO 05/25/23 08:59 40 mg QAM RODDY Administration Metoprolol Succinate 50 mg 04/25/23 09:00 04/25/23 10:49 Metoprolol Succ 50mg Ext Rel Tab PO 05/25/23 08:59 50 mg DAILY RODDY Administration Montelukast Sodium 10 mg 04/24/23 21:01 04/24/23 21:34 Montelukast Sodium 10 Mg Tablet PO 05/24/23 21:00 10 mg HS RODDY Administration Pantoprazole Sodium 40 mg 04/25/23 09:00 04/25/23 10:43 Pantoprazole 40 Mg Tab PO 05/25/23 08:59 40 mg QAM RODDY Administration Rivaroxaban 20 mg 04/25/23 09:00 04/25/23 10:45 Rivaroxaban 20 Mg Tab PO 05/25/23 08:59 20 mg QAM RODDY Administration (1) Allergic reaction caused by a drug Encounter type: initial encounter Qualified Code(s): T78.40XA - Allergy, unspecified, initial encounter (4) Hypertension Hypertension type: primary hypertension Qualified Code(s): I10 - Essential (primary) hypertension (6) Depression Active/Remission status: remission status unspecified Depression Type: major depressive disorder Major depression recurrence: recurrent Qualified Code(s): F33.9 - Major depressive disorder, recurrent, unspecified
[2023-04-25 07:24] LABS: BUN Creatinine Ratio 15.2 (10-20); Calcium 8.5 mg/dl (8.6-10.3); Creatinine Clr Calc Pharmacy 93.1 ml/min; Est GFR (African American) 71.2 ml/min; Est GFR (Non-African American) 61.4 ml/min; Potassium 4.2 mmol/L (3.5-5.1)
[2023-04-25] MEDS: PANTOprazole 40 MG TAB PO SCH (10:43)
[2023-04-25] MEDS: buPROPion XL 300 MG TABCR PO SCH (10:45)
[2023-04-25] MEDS: CYANOCOBALAMIN (B-12) 500 MCG TABLET PO SCH (10:45)
[2023-04-25] MEDS: amLODIPine BESYLATE 5 MG TAB PO SCH (10:45)
[2023-04-25] MEDS: RIVAROXABAN 20 MG TAB PO SCH (10:45)
[2023-04-25] MEDS: buPROPion XL 150 MG TABCR PO SCH (10:45)
[2023-04-25] MEDS: lisinopril 40 MG TAB PO SCH (10:46)
[2023-04-25] MEDS: METOPROLOL SUCC 50MG EXT REL TAB PO SCH (10:49)
[2023-04-25] MEDS: DESVENLAFAXINE SUCCINATE 100 MG PO SCH (13:48)
[2023-04-25] MEDS: SODIUM CHLORIDE 0.9% 1,000 ML IV SCH (15:24)
[2023-04-25] MEDS: CETIRIZINE HCL 10 MG TABLET PO SCH (21:04)
[2023-04-25] MEDS: MONTELUKAST SODIUM 10 MG TABLET PO SCH (21:04)
[2023-04-25] MEDS: ERTAPENEM SODIUM 1,000 MG in SYRINGE 0 ML IV SCH (21:51)
[2023-04-26 06:31] LABS: Hematocrit (blood only) 32.6 % (37.0-47.0); Hemoglobin 10.5 g/dl (12.0-16.0); Mean Corpuscular Hemoglobin 29.7 pg (25.0-34.0); Mean Corpuscular Hgb Conc 32.2 g/dL (32.0-36.0); Mean Corpuscular Volume 92.1 fL (80.0-100.0); Mean Platelet Volume 10.2 fL (9.4-12.4); Platelet Count 313 K/uL (130-400); RDW Coefficient of Variation 12.6 % (11.5-14.5); RDW Standard Deviation 42.4 fL (36.4-46.3); Red Blood Count 3.54 M/uL (4.20-5.40); White Blood Count 11.81 K/ul (4.8-10.8)
[2023-04-26 06:37] LABS: Calcium 8.8 mg/dl (8.6-10.3); Creatinine Clr Calc Pharmacy 89.4 ml/min; Est GFR (African American) 68.8 ml/min; Est GFR (Non-African American) 59.4 ml/min
--- NOTE | 2023-04-26 08:17 | Hospitalist Progress Note ---
Date of Service April 26, 2023 Assessment & Plan (1) Allergic reaction caused by a drug: (2) Acute diverticulitis: (3) Chronic anticoagulation: (4) Hypertension: (5) Anxiety: (6) Depression: Plan Ms. Rojsa is a 52 y/o female with HTN, anxiety, depression, hx PE, chronic AC, COPD, BENITA, and other history as outlined who presented to the ED today with LLQ pain radiating to her back. Work-up in the ED showed acute diverticulitis of the distal descending colon. Originally, she was to be discharged on oral Cipro/Flagyl with outpatient follow-up. However, upon first dose of these antibiotics in the ED, she became flushed, pruritic, hypotensive, and hypoxic. She was also noted to have nausea and flushing after the IV contrast but this improved before she took the antibiotics. In the ED, she received methylpred, famotidine, and diphenhydramine but did not require epinephrine. Her allergic symptoms have been improving but due to the severity of her reaction (potentially life-threatening) and the need for antibiotic treatment for the diverticulitis, she was referred for admission. Patient tolerating CLD without issues, ready to advance diet to full liquids. #Anaphylaxis 2/2 cipro/flagyl, +/- contrast *improved/resolved Reports history of "itching" with contrast, as well as prior regimen with cipro/flagyl, but denies airway swelling/hives previously Noted reaction after contrast, mostly nausea; however, hypoxia, hypotension, hi ves with cipro/flagyl - No further steroids at this time - PRN Benadryl and Epinephrine ordered - Wean O2 as tolerated - Continue ertapenem, no signs of reaction or reports of reaction per patient--E OT 04/27 for 4 day course of ertapenem - Will need referral to OP waterworks pump station operator to discuss/determine allergy to multiple listed antibiotics/consideration of controlled desensitization #Acute, uncomplicated diverticulitis Given intolerance to PO regimen (penicillins and fluoroquinolones), will continue IV ertapenem - Toradol for pain control - Advance diet as tolerated, likely dispo tomorrow #Hypertension -Continue Metoprolol, Lisinopril, Amlodipine #Incidental COVID positive -Asymptomatic, known exposure 04/09 from ; remains afebrile, without hypoxia or URI concerns #History of PE -Continue Xarelto #Depression Continue wellbutrin 450mg daily Continue other home medications as appropriate. Code Status: Full code DVT Prophylaxis: on Xarelto chronically - will continue Likely discharge tomorrow Admission and Anticipated Discharge Date Admission Date: April 24, 2023 Subjective NAEO Reports pain is notably improved ready to advance diet Physical Exam Constitutional: WD/WN, vitals as above Respiratory: normal respiratory effort, lungs clear to auscultation Gastrointestinal (Abdomen): normal bowel sounds, soft, nontender, no hepatosplenomegaly Results & Data Results & Data Vital Signs (Past 12 Hours) Vital Signs Temp Pulse Pulse Resp BP BP Pulse Ox 04/26/23 07:39 36.8 C 81 18 120/72 95 04/26/23 03:00 36.5 C 76 18 92/65 L 97 04/25/23 22:15 36.7 C 86 18 100/66 94 04/25/23 22:00 82 O2 Del Method 04/26/23 07:39 Room Air 04/26/23 03:00 Room Air 04/25/23 22:15 Room Air 04/25/23 22:00 Laboratory Results Short CBC 04/26/23 Range/Units 05:49 WBC 11.81 H (4.8-10.8) K/ul Hgb 10.5 L (12.0-16.0) g/dl Hct 32.6 L (37.0-47.0) % Plt Count 313 (130-400) K/uL BMP 04/26/23 05:49 Sodium 142 Potassium 4.0 Chloride 109 H Carbon Dioxide 28 BUN 14 Creatinine 1.08 Glucose 93 Calcium 8.8 Medications Administered Home Medications Medication Instructions Recorded Confirmed Last Taken alprazolam 0.5 mg tablet 0.5 mg PO TID PRN Anxiety 01/09/19 04/24/23 05/26/21 09:00 lisinopril 40 mg tablet 40 mg PO QAM 01/09/19 04/24/23 11/25/22 mometasone 50 mcg/actuation nasal 2 spray intranasal DAILY PRN Nasal 01/09/19 04/24/23 Unknown spray Congestion montelukast 10 mg tablet 10 mg PO HS 01/09/19 04/24/23 11/24/22 valacyclovir 1 gram tablet 2,000 mg PO Q12H PRN Cold Sores 01/09/19 04/24/23 Unknown bupropion HCl 300 mg 24 hr tablet, 300 mg PO QAM 01/04/20 04/24/23 11/25/22 extended release (Wellbutrin XL) pantoprazole 40 mg tablet,delayed 40 mg PO QAM 01/11/20 04/24/23 11/25/22 release (Protonix) amlodipine 10 mg tablet 10 mg PO DAILY 05/26/21 04/24/23 11/25/22 cetirizine 10 mg tablet (Zyrtec) 10 mg PO HS 05/26/21 04/24/23 11/24/22 desvenlafaxine succinate 100 mg 100 mg PO QAM 05/26/21 04/24/23 11/25/22 tablet,extended release 24 hr hydrochlorothiazide 12.5 mg capsule 12.5 mg PO DAILY 05/26/21 04/24/23 11/25/22 metoprolol succinate 50 mg 50 mg PO DAILY 05/26/21 04/24/23 11/25/22 tablet,extended release 24 hr bupropion HCl 150 mg 24 hr tablet, 150 mg PO QAM 11/25/22 04/24/23 11/25/22 extended release cyanocobalamin (vitamin B-12) 1,000 mcg PO DAILY 11/25/22 04/24/23 11/25/22 1,000 mcg tablet (Vitamin B-12) desvenlafaxine succinate 50 mg 50 mg PO QAM 11/25/22 04/24/23 11/25/22 tablet,extended release 24 hr rivaroxaban 20 mg tablet (Xarelto) 20 mg PO QAM 11/25/22 04/24/23 11/25/22 Active Medications Generic Name Dose Route Start Last Admin Trade Name Freq PRN Reason Stop Dose Admin Amlodipine Besylate 10 mg 04/25/23 09:00 04/26/23 09:33 Amlodipine Besylate 5 Mg Tab PO 05/25/23 08:59 10 mg DAILY RODDY Administration Bupropion HCl 300 mg 04/25/23 09:00 04/26/23 09:33 Bupropion Xl 300 Mg Tabcr PO 05/25/23 08:59 300 mg QAM RODDY Administration Bupropion HCl 150 mg 04/25/23 09:00 04/26/23 09:33 Bupropion Xl 150 Mg Tabcr PO 05/25/23 08:59 150 mg QAM RODDY Administration Cetirizine HCl 10 mg 04/24/23 21:01 04/25/23 21:04 Cetirizine Hcl 10 Mg Tablet PO 05/24/23 21:00 10 mg HS RODDY Administration Cyanocobalamin 1,000 mcg 04/25/23 09:00 04/26/23 09:33 Cyanocobalamin (B-12) 500 Mcg Tablet PO 05/25/23 08:59 1,000 mcg DAILY RODDY Administration Desvenlafaxine Succinate 1 tab 04/25/23 12:00 04/26/23 09:34 Pt's Own Med: Desvenlafaxine Succinate Er Tablet 100mg PO 05/25/23 11:59 1 tab DAILY RODDY Administration Ertapenem 1,000 mg/ Syringe 10 mls @ 2 mls/min 04/24/23 21:30 04/25/23 21:51 IV 05/04/23 21:00 2 mls/min Q24H RODDY Administration Ketorolac Tromethamine 15 mg 04/24/23 21:01 04/25/23 05:35 Ketorolac Tromethamine 15 Mg/Ml Vial IV 04/29/23 21:00 15 mg Q6H PRN Administration Pain Lisinopril 40 mg 04/25/23 09:00 04/26/23 09:33 Lisinopril 40 Mg Tab PO 05/25/23 08:59 40 mg QAM RODDY Administration Metoprolol Succinate 50 mg 04/25/23 09:00 04/26/23 09:33 Metoprolol Succ 50mg Ext Rel Tab PO 05/25/23 08:59 50 mg DAILY RODDY Administration Montelukast Sodium 10 mg 04/24/23 21:01 04/25/23 21:04 Montelukast Sodium 10 Mg Tablet PO 05/24/23 21:00 10 mg HS RODDY Administration Pantoprazole Sodium 40 mg 04/25/23 09:00 04/26/23 09:33 Pantoprazole 40 Mg Tab PO 05/25/23 08:59 40 mg QAM RODDY Administration Polyethylene Glycol 17 gm 04/26/23 09:00 04/26/23 09:32 Polyethylene (Miralax) 17 Gm Pack PO 05/26/23 08:59 17 gm DAILY RODDY Administration Rivaroxaban 20 mg 04/25/23 09:00 04/26/23 09:33 Rivaroxaban 20 Mg Tab PO 05/25/23 08:59 20 mg QAM RODDY Administration (1) Allergic reaction caused by a drug Encounter type: initial encounter Qualified Code(s): T78.40XA - Allergy, unspecified, initial encounter (4) Hypertension Hypertension type: primary hypertension Qualified Code(s): I10 - Essential (primary) hypertension (6) Depression Active/Remission status: remission status unspecified Depression Type: major depressive disorder Major depression recurrence: recurrent Qualified Code(s): F33.9 - Major depressive disorder, recurrent, unspecified
[2023-04-26] MEDS: POLYETHYLENE (MIRALAX) 17 GM PACK PO SCH (09:32)
[2023-04-26] MEDS: PANTOprazole 40 MG TAB PO SCH (09:33)
[2023-04-26] MEDS: CYANOCOBALAMIN (B-12) 500 MCG TABLET PO SCH (09:33)
[2023-04-26] MEDS: buPROPion XL 300 MG TABCR PO SCH (09:33)
[2023-04-26] MEDS: buPROPion XL 150 MG TABCR PO SCH (09:33)
[2023-04-26] MEDS: RIVAROXABAN 20 MG TAB PO SCH (09:33)
[2023-04-26] MEDS: amLODIPine BESYLATE 5 MG TAB PO SCH (09:33)
[2023-04-26] MEDS: METOPROLOL SUCC 50MG EXT REL TAB PO SCH (09:33)
[2023-04-26] MEDS: lisinopril 40 MG TAB PO SCH (09:33)
[2023-04-26] MEDS: DESVENLAFAXINE SUCCINATE 100 MG PO SCH (09:34)
[2023-04-26] MEDS: MONTELUKAST SODIUM 10 MG TABLET PO SCH (20:16)
[2023-04-26] MEDS: KETOROLAC TROMETHAMINE 15 MG/ML VIAL IV PRN (20:17)
[2023-04-26] MEDS: CETIRIZINE HCL 10 MG TABLET PO SCH (20:17)
[2023-04-26] MEDS: ERTAPENEM SODIUM 1,000 MG in SYRINGE 0 ML IV SCH (22:45)
[2023-04-27 06:19] LABS: Hematocrit (blood only) 33.4 % (37.0-47.0); Hemoglobin 10.9 g/dl (12.0-16.0); Mean Corpuscular Hemoglobin 29.7 pg (25.0-34.0); Mean Corpuscular Hgb Conc 32.6 g/dL (32.0-36.0); Mean Platelet Volume 10.3 fL (9.4-12.4); Platelet Count 337 K/uL (130-400); RDW Coefficient of Variation 12.9 % (11.5-14.5); RDW Standard Deviation 42.5 fL (36.4-46.3); Red Blood Count 3.67 M/uL (4.20-5.40); White Blood Count 8.26 K/ul (4.8-10.8)
[2023-04-27 06:23] LABS: BUN Creatinine Ratio 11.9 (10-20); Calcium 8.9 mg/dl (8.6-10.3); Creatinine Clr Calc Pharmacy 81.3 ml/min; Est GFR (African American) 61.8 ml/min; Est GFR (Non-African American) 53.4 ml/min; Potassium 3.8 mmol/L (3.5-5.1)
[2023-04-27] MEDS: PANTOprazole 40 MG TAB PO SCH (08:59)
[2023-04-27] MEDS: buPROPion XL 150 MG TABCR PO SCH (09:00)
[2023-04-27] MEDS: METOPROLOL SUCC 50MG EXT REL TAB PO SCH (09:00)
[2023-04-27] MEDS: CYANOCOBALAMIN (B-12) 500 MCG TABLET PO SCH (09:00)
[2023-04-27] MEDS: DESVENLAFAXINE SUCCINATE 100 MG PO SCH (09:00)
[2023-04-27] MEDS: buPROPion XL 300 MG TABCR PO SCH (09:00)
[2023-04-27] MEDS: amLODIPine BESYLATE 5 MG TAB PO SCH (09:00)
[2023-04-27] MEDS: RIVAROXABAN 20 MG TAB PO SCH (09:01)
[2023-04-27] MEDS: lisinopril 40 MG TAB PO SCH (09:01)
[2023-04-27] MEDS: POLYETHYLENE (MIRALAX) 17 GM PACK PO SCH (09:02)
--- NOTE | 2023-04-27 10:01 | Discharge Summary ---
Discharge Summary Date of Service April 27, 2023 Notes For Next Care Provider -Allergy follow up to discuss plan for multiple antibiotic sensitivities -GI referral for colonoscopy given 2nd episode of noncomplicated diverticulitis Medication Changes From Visit none Admission HPI Per Admitting Provider This is a 52 y/o female with HTN, anxiety, depression, hx PE, chronic AC, COPD, BENITA, and other history as outlined who presented to the ED today with LLQ pain radiating to her back. She started two evenings ago with lower abdominal pressure, bloating,and gas. This continued yesterday, today sensation worsened to pain from the discomfort. Has had diverticulitis previously, which felt similar. This was treated with Cipro/Flagyl - noted some itching with initial dose in the ED but no issues after that and was able to complete the course. This morning, she also noted chills with low-grade fever, fatigue and malaise. Her last normal BM was yesterday. Her bowel are variable at baseline, alternating between constipation and dirarhea. She does note that the last time she had IV contrast she felt warm and nauseated but this sensation passed quickly. Today, felt very nauseated and flushed after the contrast but worse than prior. However, this seemed to improve before she took the Cipro and Flagyl in the ED. Shortly after taking the antibiotics, pt became flushed, pruritic, hypotensive, and hypoxic. She was given methylprednisolone, diphenhydramine, and famotidine but did not require epinephrine. Her allergic reaction symptoms are improving but she is still requiring 2L of O2 and will need antibiotics for the diverticulitis so she was referred for admission. She also notes that she had COVID over Thanksgiving and is slowly recovering. Principal Dx & Hospital Course #1 = Principal Diagnosis (1) Allergic reaction caused by a drug: (2) Acute diverticulitis: (3) Chronic anticoagulation: (4) Hypertension: (5) Anxiety: (6) Depression: Plan Ms. Rojas is a 52 y/o female with HTN, anxiety, depression, hx PE, chronic AC, COPD, BENITA, and other history as outlined who presented to the ED today with LLQ pain radiating to her back. Work-up in the ED showed acute diverticulitis of the distal descending colon. Originally, she was to be discharged on oral Cipro/Flagyl with outpatient follow-up. However, upon first dose of these antibiotics in the ED, she became flushed, pruritic, hypotensive, and hypoxic. She was also noted to have nausea and flushing after the IV contrast but this improved before she took the antibiotics. In the ED, she received methylpred, famotidine, and diphenhydramine but did not require epinephrine. Her allergic symptoms have been improving but due to the severity of her reaction (potentially life-threatening) and the need for antibiotic treatment for the diverticulitis, she was referred for admission. Patient improved rapidly with diet advancement and resolution of pain. Patient completed 4 days of IV abx for uncomplicated diverticulitis in the setting of multiple severe antibiotic allergies. #Anaphylaxis 2/2 cipro/flagyl, +/- contrast *improved/resolved Reports history of "itching" with contrast, as well as prior regimen with cipro/flagyl, but denies airway swelling/hives previously Noted reaction after contrast, mostly nausea; however, hypoxia, hypotension, hives with cipro/flagyl - No further steroids at this time - PRN Benadryl and Epinephrine ordered; did not require epinephrine - Will need referral to OP administrative services director to discuss/determine allergy to multiple listed antibiotics/consideration of controlled desensitization #Acute, uncomplicated diverticulitis Given intolerance to PO regimen (penicillins and fluoroquinolones), will continue IV ertapenem - Toradol for pain control -Completed 4 day course of ertapenem. Tolerated diet without issues -OP GI follow up to discuss timing of colonoscopy #Hypertension -Continue Metoprolol, Lisinopril, Amlodipine #Incidental COVID positive -Asymptomatic, known exposure 04/09 from ; remains afebrile, without hypoxia or URI concerns #History of PE -Continue Xarelto #Depression Continue wellbutrin 450mg daily On day of discharge, patient denied any acute concerns and reports feeling much improved. All pain resolved and she tolerated diet without issue. No signs of hives, hypoxia, or other concerns related to anaphylaxis on discharge. Discharge Exam Constitutional WD/WN, vitals as above Respiratory normal respiratory effort, lungs clear to auscultation Cardiovascular RRR, no murmur, no edema Gastrointestinal (Abdomen) normal bowel sounds, soft, nontender, no hepatosplenomegaly Musculoskeletal no cyanosis or clubbing, extremities motor strength 5/5 Updated Medication List Medication Instructions Recorded Confirmed Type alprazolam 0.5 mg tablet 0.5 mg PO TID PRN Anxiety 01/09/19 04/24/23 History lisinopril 40 mg tablet 40 mg PO QAM 01/09/19 04/24/23 History mometasone 50 mcg/actuation nasal 2 spray intranasal DAILY PRN Nasal 01/09/19 04/24/23 History spray Congestion montelukast 10 mg tablet 10 mg PO HS 01/09/19 04/24/23 History valacyclovir 1 gram tablet 2,000 mg PO Q12H PRN Cold Sores 01/09/19 04/24/23 History bupropion HCl 300 mg 24 hr tablet, 300 mg PO QAM 01/04/20 04/24/23 History extended release (Wellbutrin XL) pantoprazole 40 mg tablet,delayed 40 mg PO QAM 01/11/20 04/24/23 History release (Protonix) amlodipine 10 mg tablet 10 mg PO DAILY 05/26/21 04/24/23 History cetirizine 10 mg tablet (Zyrtec) 10 mg PO HS 05/26/21 04/24/23 History desvenlafaxine succinate 100 mg 100 mg PO QAM 05/26/21 04/24/23 History tablet,extended release 24 hr hydrochlorothiazide 12.5 mg capsule 12.5 mg PO DAILY 05/26/21 04/24/23 History metoprolol succinate 50 mg 50 mg PO DAILY 05/26/21 04/24/23 History tablet,extended release 24 hr bupropion HCl 150 mg 24 hr tablet, 150 mg PO QAM 11/25/22 04/24/23 History extended release cyanocobalamin (vitamin B-12) 1,000 mcg PO DAILY 11/25/22 04/24/23 History 1,000 mcg tablet (Vitamin B-12) desvenlafaxine succinate 50 mg 50 mg PO QAM 11/25/22 04/24/23 History tablet,extended release 24 hr rivaroxaban 20 mg tablet (Xarelto) 20 mg PO QAM 11/25/22 04/24/23 History Hospital Stay Data Consultations 04/24/23 17:49 ED Decision to Admit Stat Diagnostic Imagining Performed 04/24/23 15:13 CT abd pelvis IV con only Stat Discharge Instructions Given to Patient (Per Discharging Provider) You were admitted due to allergic/anaphylaxis to antibiotics for attempted treatment of diverticulitis Given the acute reaction to orals, you completed a 4 day course of IV antibiot ics for uncomplicated diverticulitis. You will need close follow up with an administrative services director to discuss the allergies to medications you have and to determine a plan regarding desensitization or other looming allergies. You will need to follow up with your PCP and discuss referral for colonoscopy and GI visit given the recurrence of diverticulitis. Total Time Total Time Spent Total Time Spent (In Minutes): 35
== END 2023-04-27 12:32 | disposition home or self-care (01) | DRG 915 ==
LOC: ED 13:49 → EDINP 18:04 → 2S 21:01 → 2E 23:51
DX: Z79.01 Long term (current) use of anticoagulants; Z68.42 Body mass index [BMI] 45.0-49.9, adult; J44.9 Chronic obstructive pulmonary disease, unspecified; Z88.5 Allergy status to narcotic agent; Z88.1 Allergy status to other antibiotic agents; Z88.0 Allergy status to penicillin; Z83.3 Family history of diabetes mellitus; T36.8X5A Adverse effect of other systemic antibiotics, initial encounter; G47.33 Obstructive sleep apnea (adult) (pediatric); Y92.238 Other place in hospital as the place of occurrence of the external cause; K57.92 Diverticulitis of intestine, part unspecified, without perforation or abscess without bleeding; T88.6XXA Anaphylactic reaction due to adverse effect of correct drug or medicament properly administered, initial encounter; Z86.711 Personal history of pulmonary embolism; F32.A Depression, unspecified; Z87.442 Personal history of urinary calculi; F17.290 Nicotine dependence, other tobacco product, uncomplicated; I10 Essential (primary) hypertension; U07.0 Vaping-related disorder; T37.3X5A Adverse effect of other antiprotozoal drugs, initial encounter; E66.01 Morbid (severe) obesity due to excess calories; T50.8X5A Adverse effect of diagnostic agents, initial encounter; Z88.2 Allergy status to sulfonamides; U07.1 COVID-19

== ENCOUNTER 2023-06-08 12:10 | Inpatient (IN) ==
[2023-06-08 12:57] LABS: Basophils # (auto) 0.06 K/uL (0.00-0.20); Basophils % (auto) 0.5 %; Eosinophils # (auto) 0.13 K/uL (0.00-0.50); Eosinophils % (auto) 1.1 %; Hematocrit (blood only) 41.9 % (37.0-47.0); Hemoglobin 13.3 g/dl (12.0-16.0); Immature Granulocytes # (auto) 0.05 K/uL (0.01-0.20); Immature Granulocytes % (auto) 0.4 %; Lymphocytes # (auto) 1.71 K/uL (1.20-3.40); Lymphocytes % (auto) 14.4 %; Mean Corpuscular Hemoglobin 29.2 pg (25.0-34.0); Mean Corpuscular Hgb Conc 31.7 g/dL (32.0-36.0); Mean Corpuscular Volume 92.1 fL (80.0-100.0); Mean Platelet Volume 10.1 fL (9.4-12.4); Monocytes # (auto) 0.57 K/uL (0.11-0.59); Monocytes % (auto) 4.8 %; Neutrophils # (auto) 9.34 K/uL (1.40-6.50); Neutrophils % (auto) 78.8 %; Platelet Count 400 K/uL (130-400); RDW Coefficient of Variation 12.5 % (11.5-14.5); RDW Standard Deviation 42.3 fL (36.4-46.3); Red Blood Count 4.55 M/uL (4.20-5.40); White Blood Count 11.86 K/ul (4.8-10.8)
[2023-06-08 13:04] LABS: Appearance Urine Cloudy (Clear); Bacteria Urine Automated 1+ (Negative); Bilirubin Urine Negative (Negative); Blood Urine 2+ (Negative); Color Urine Yellow; Epithelial Cell Urine Auto >30 /lpf (0-5); Glucose Urine UA Negative (Negative); Ketones Urine Negative (Negative); Leukocyte Esterase Urine 1+ (Negative); Nitrite Urine Negative (Negative); Protein Urine Negative (Negative); Specific Gravity Urine 1.018 (1.000-1.030); Urobilinogen Urine Negative (Negative)
[2023-06-08 13:10] LABS: Albumin Level 4.1 gm/dl (3.4-5.0); Bilirubin,Total 0.7 mg/dl (0.2-1.0); Calcium 9.8 mg/dl (8.6-10.3); Potassium 3.9 mmol/L (3.5-5.1)
[2023-06-08 13:16] LABS: Albumin Globulin Ratio 1.1 (0.9-2); BUN Creatinine Ratio 14.2 (10-20); Creatinine Clr Calc Pharmacy 67.9 ml/min; Est GFR (African American) 49.5 ml/min; Est GFR (Non-African American) 42.7 ml/min; Globulin 3.6 gm/dl (2.5-4.0); Total Protein 7.7 gm/dl (6.0-8.3)
[2023-06-08 13:28] LABS: Pregnancy Test, Serum Negative (Negative)
--- NOTE | 2023-06-08 13:28 | Emergency Department Note ---
ED Provider Note History of Present Illness Chief Complaint: Referred by Doctor Stated Complaint: SENT FROM DOC ABD PAIN Time Seen by Provider: 06/08/23 12:23 Source: patient Mode of arrival: ambulatory Limitations: no limitations This patient is a 53-year-old female who presents to the emergency department for evaluation of abdominal pain. Patient reports that the pain started 2 days ago. It has been fairly constant. Pain is severe and located in the left lower quadrant. It does not radiate anywhere. She reports some nausea associated with the pain but denies any vomiting, changes in bowel movements or fevers/chills. She does report some pressure/sensation that she needs to urinate. She was seen by her PCP today and states that they ruled out UTI and wanted her to come here for imaging. Home Medications Medication Instructions Recorded Confirmed Type alprazolam 0.5 mg tablet 0.5 mg PO TID PRN Anxiety 01/09/19 06/08/23 History lisinopril 40 mg tablet 40 mg PO QAM 01/09/19 06/08/23 History mometasone 50 mcg/actuation nasal 2 spray intranasal DAILY PRN Nasal 01/09/19 06/08/23 History spray Congestion montelukast 10 mg tablet 10 mg PO HS 01/09/19 06/08/23 History valacyclovir 1 gram tablet 2,000 mg PO Q12H PRN Cold Sores 01/09/19 06/08/23 History bupropion HCl 300 mg 24 hr tablet, 300 mg PO QAM 01/04/20 06/08/23 History extended release (Wellbutrin XL) pantoprazole 40 mg tablet,delayed 40 mg PO QAM 01/11/20 06/08/23 History release (Protonix) amlodipine 10 mg tablet 10 mg PO DAILY 05/26/21 06/08/23 History cetirizine 10 mg tablet (Zyrtec) 10 mg PO HS 05/26/21 06/08/23 History desvenlafaxine succinate 100 mg 100 mg PO QAM 05/26/21 06/08/23 History tablet,extended release 24 hr hydrochlorothiazide 12.5 mg capsule 12.5 mg PO DAILY 05/26/21 06/08/23 History metoprolol succinate 50 mg 50 mg PO DAILY 05/26/21 06/08/23 History tablet,extended release 24 hr bupropion HCl 150 mg 24 hr tablet, 150 mg PO QAM 11/25/22 06/08/23 History extended release cyanocobalamin (vitamin B-12) 1,000 mcg PO DAILY 11/25/22 06/08/23 History 1,000 mcg tablet (Vitamin B-12) desvenlafaxine succinate 50 mg 50 mg PO QAM 11/25/22 06/08/23 History tablet,extended release 24 hr rivaroxaban 20 mg tablet (Xarelto) 20 mg PO QAM 11/25/22 06/08/23 History Saccharomyces boulardii 250 mg 250 mg PO DAILY 06/08/23 06/08/23 History capsule (Florastor) albuterol sulfate 90 mcg/actuation 1 puff inhalation Q6H 06/08/23 06/08/23 History aerosol inhaler Allergies Allergy/AdvReac Type Severity Reaction Status Date / Time ciprofloxacin [From Cipro] Allergy Severe Anaphylaxis Verified 04/24/23 17:30 metronidazole [From Flagyl] Allergy Severe Anaphylaxis Verified 04/24/23 17:30 Penicillins Allergy Intermediate RASH Verified 11/25/22 18:34 Sulfa (Sulfonamide Allergy Intermediate RASH Verified 11/25/22 18:34 Antibiotics) Iodinated Contrast Media AdvReac Severe Vomiting Verified 06/08/23 12:19 morphine AdvReac Severe abd pain Verified 06/08/23 18:16 hydromorphone AdvReac Intermediate abd pain Verified 11/25/22 18:34 Past Med/Surg History Medical History Acute diverticulitis Depression Fracture of toe of right foot Post-acute sequelae of COVID-19 (PASC) Pulmonary embolism Morbid obesity with BMI of 45.0-49.9, adult History of anesthesia reaction difficulty waking Chronic back pain follows with chiropractor History of kidney stones Epigastric pain reason for EGD Diverticular disease Anxiety History of migraine headaches Hypertension Sleep apnea does not use CPAP as ordered UTI (urinary tract infection) Surgical History History of left breast biopsy benign History of endometrial ablation History of bilateral tubal ligation History of cystoscopy History of colonoscopy History of cholecystectomy History of wisdom tooth extraction Family History Father Diabetes Heart disease Hypertension Other Family history of diabetes mellitus No family history of adverse response to anesthesia Social History Smoking Status: Former smoker Tobacco Type: E-cigarettes / Vaping Cigarettes Per Day: less than 1 pack a day - started age 15-15, has quit multiple times; Second Hand Exposure: Yes; Do You Dip or Chew Tobacco: No; Tobacco Cessation Education Requested by Patient: No Hx Alcohol Use: Yes Alcohol type: hard liquor Hx Substance Use: No Preferred Language: Filipino Communication Ability: Effective Technical Training Coordinator Required: No Beliefs That Will Affect Care: None marital status: Current Living Situation: Spouse Current Living Situation Comment: home current occupational status: employed Other Information That Helps Us Care for You: No Feels Safe at Home: Yes Safety Concerns: Feels Safe At This Time Assistive Devices: None Physical Exam Vital Signs Vital Signs - 24 hr 06/08/23 12:13 06/08/23 14:41 06/08/23 16:01 Temperature 36.9 C Temperature Source Temporal Artery Scan Pulse Rate 105 H Pulse Rate [Apical] 85 85 Pulse Rhythm Regular Pulse Strength Normal Respiratory Rate 18 19 12 Respiratory Effort / Characteristics Non-Labored Respiratory Depth Normal Respiratory Pattern Agonal Blood Pressure 157/100 H Blood Pressure [Left Arm] 112/78 112/78 Blood Pressure Mean 119 Blood Pressure Mean [Left Arm] 89 89 Blood Pressure Position Sitting Pulse Oximetry 100 100 96 Oxygen Delivery Method Room Air Room Air Sepsis Recent Fever Within 48 Hours No Sepsis New/Unexplained Change in Mental Status No Sepsis Action Taken by Nursing No Action Required VITALS: Vitals are noted on the nurse's note and reviewed by myself. GENERAL: This is a 53-year-old female, in no acute distress, well-developed well-nourished. SKIN: The skin was without rashes. HEART: Regular rate and rhythm without murmurs gallops or rubs. LUNGS: Clear to auscultation bilaterally without wheezes, rales or rhonchi. ABDOMEN: Positive bowel sounds x 4. Soft, tenderness in the left lower quadrant. No guarding or rebound tenderness. NEURO: Patient was alert and oriented to person place and time. Course Administered Medications Acetaminophen (Acetaminophen 325 Mg Tab) 650 mg PO Q6H RODDY Stop: 07/08/23 18:29 Last Admin: 06/09/23 15:37 Dose: 650 mg Documented By: Admin: 06/09/23 05:07 Dose: 650 mg Documented By: Admin: 06/08/23 23:04 Dose: 650 mg Documented By: Admin: 06/08/23 18:13 Dose: 650 mg Documented By: RANULFO Amlodipine Besylate (Amlodipine Besylate 5 Mg Tab) 10 mg PO DAILY RODDY Stop: 07/09/23 08:59 Last Admin: 06/09/23 08:54 Dose: 10 mg Documented By: MATTHEW Bupropion HCl (Bupropion Xl 150 Mg Tabcr) 450 mg PO QAM RODDY Stop: 07/09/23 08:59 Last Admin: 06/09/23 08:56 Dose: 450 mg Documented By: MATTHEW Cetirizine HCl (Cetirizine Hcl 10 Mg Tablet) 10 mg PO HS RODDY Stop: 07/08/23 20:59 Last Admin: 06/08/23 19:43 Dose: 10 mg Documented By: MIGUELITO Cyanocobalamin (Cyanocobalamin (B-12) 500 Mcg Tablet) 1,000 mcg PO DAILY RODDY Stop: 07/09/23 08:59 Last Admin: 06/09/23 08:54 Dose: 1,000 mcg Documented By: MATTHEW Sodium Chloride (Nss) 1,000 mls @ 150 mls/hr IV .Q6H40M RODDY Stop: 07/08/23 17:57 Last Admin: 06/09/23 12:22 Dose: 150 mls/hr Documented By: Infusion: 06/09/23 11:48 Dose: Infused Documented By: Admin: 06/09/23 05:07 Dose: 150 mls/hr Documented By: Infusion: 06/09/23 05:07 Dose: Infused Documented By: Admin: 06/08/23 23:04 Dose: 150 mls/hr Documented By: Infusion: 06/08/23 23:04 Dose: Infused Documented By: Admin: 06/08/23 18:14 Dose: 150 mls/hr Documented By: RANULFO Cefoxitin Sodium 2,000 mg/ (Dextrose) 50 mls @ 120 mls/hr IV Q6H RODDY Stop: 06/18/23 20:59 Last Infusion: 06/09/23 16:31 Dose: Infused Documented By: Admin: 06/09/23 15:37 Dose: 100 mls/hr Documented By: Infusion: 06/09/23 09:22 Dose: Infused Documented By: Admin: 06/09/23 08:55 Dose: 120 mls/hr Documented By: Infusion: 06/09/23 02:27 Dose: Infused Documented By: Admin: 06/09/23 02:01 Dose: 120 mls/hr Documented By: Infusion: 06/08/23 20:21 Dose: Infused Documented By: Admin: 06/08/23 19:43 Dose: 120 mls/hr Documented By: MIGUELITO Metoprolol Succinate (Metoprolol Succ 50mg Ext Rel Tab) 50 mg PO DAILY [facility] Stop: 07/09/23 08:59 Last Admin: 06/09/23 08:54 Dose: 50 mg Documented By: MATTHEW Miscellaneous (Desvenlafaxine Succinate 100 Mg ~ Order Awaiting Action) 1 each N/A QS [facility] Stop: 07/09/23 00:00 Last Admin: 06/09/23 15:39 Dose: Not Given Documented By: Admin: 06/09/23 07:37 Dose: Not Given Documented By: Admin: 06/08/23 23:04 Dose: Not Given Documented By: MIGUELITO Montelukast Sodium (Montelukast Sodium 10 Mg Tablet) 10 mg PO HS [facility] Stop: 07/08/23 20:59 Last Admin: 06/08/23 19:43 Dose: 10 mg Documented By: MIGUELITO Oxycodone HCl (Oxycodone Hcl Ir 5 Mg Tab (Immediate Release)) 5 mg PO Q4H PRN PRN Reason: moderate and severe pain Stop: 06/22/23 17:57 Last Admin: 06/09/23 09:13 Dose: 5 mg Documented By: Admin: 06/09/23 00:20 Dose: 5 mg Documented By: MIGUELITO Pantoprazole Sodium (Pantoprazole 40 Mg Tab) 40 mg PO QAM [facility] Stop: 07/09/23 08:59 Last Admin: 06/09/23 08:55 Dose: 40 mg Documented By: MATTHEW Saccharomyces Boulardii (Saccharomyces Boulardii 250 Mg Cap) 250 mg PO DAILY [facility] Stop: 07/09/23 08:59 Last Admin: 06/09/23 08:54 Dose: 250 mg Documented By: MHN Tamsulosin HCl (Tamsulosin Hcl 0.4 Mg Cap) 0.4 mg PO HS RODDY Stop: 07/08/23 20:59 Last Admin: 06/08/23 19:43 Dose: 0.4 mg Documented By: TKB Discontinued Medications Diatrizoate Meglumine (Diatrizoate Meglumine 30% 100ml Vial) 30 ml INSTIL ONCE ONE Stop: 06/09/23 14:32 Last Admin: 06/09/23 14:25 Dose: 30 ml Documented By: [id number] Fentanyl Citrate (Fentanyl Citrate Pf 100 Mcg/2 Ml Vial) 50 mcg IV NOW STA Stop: 06/08/23 14:18 Last Admin: 06/08/23 14:40 Dose: 50 mcg Documented By: ML Sodium Chloride (Nss) 1,000 mls @ 999 mls/hr IV .Q1H1M ONE Stop: 06/08/23 14:37 Last Infusion: 06/08/23 15:24 Dose: Infused Documented By: Admin: 06/08/23 14:22 Dose: 999 mls/hr Documented By: DMH Ceftriaxone Sodium 2,000 mg/ (Dextrose) 50 mls @ 100 mls/hr IV Q24H RODDY Stop: 06/18/23 17:59 Last Infusion: 06/08/23 18:46 Dose: Infused Documented By: Admin: 06/08/23 18:13 Dose: 100 mls/hr Documented By: AV Sodium Chloride (Nss) 500 mls @ 500 mls/hr IV .Q1H RODDY Stop: 06/08/23 21:59 Last Infusion: 06/08/23 22:15 Dose: Infused Documented By: Admin: 06/08/23 21:12 Dose: 500 mls/hr Documented By: TKB Ondansetron HCl (Ondansetron Inj 2 Mg/Ml 2 Ml Vial) 4 mg IV NOW STA Stop: 06/08/23 14:18 Last Admin: 06/08/23 14:41 Dose: 4 mg Documented By: ML Oxycodone HCl (Oxycodone Hcl Ir 5 Mg Tab (Immediate Release)) 5 mg PO Q6H PRN PRN Reason: Moderate Pain (Scale 4, 5, 6) Stop: 06/22/23 17:57 Last Admin: 06/08/23 18:32 Dose: 5 mg Documented By: RANULFO Medical Decision Making Differential Diagnosis Appendicitis, ovarian cyst, ovarian torsion, TOA, PID, infections, diverticulitis, UTI, obstruction, mesenteric ischemia, aortic pathology, inflammatory bowel disease, renal colic, PUD, pancreatitis, biliary pathology, hernia, volvulus, constipation, as well as other pathologies. Home Medications was personally reviewed by me Laboratory Data Attestation: I reviewed the patient's lab results. 06/09/23 07:00 06/09/23 07:00 Lab Results 06/08/23 Range/Units 12:27 WBC 11.86 H (4.8-10.8) K/ul RBC 4.55 (4.20-5.40) M/uL Hgb 13.3 (12.0-16.0) g/dl Hct 41.9 (37.0-47.0) % MCV 92.1 (80.0-100.0) fL MCH 29.2 (25.0-34.0) pg MCHC 31.7 L (32.0-36.0) g/dL RDW Std Deviation 42.3 (36.4-46.3) fL RDW Coeff of Serenity 12.5 (11.5-14.5) % Plt Count 400 (130-400) K/uL MPV 10.1 (9.4-12.4) fL Immature Gran % (Auto) 0.4 % Neut % (Auto) 78.8 % Lymph % (Auto) 14.4 % [place] % (Auto) 4.8 % Eos % (Auto) 1.1 % Baso % (Auto) 0.5 % Neut # (Auto) 9.34 H (1.40-6.50) K/uL Lymph # (Auto) 1.71 (1.20-3.40) K/uL [place] # (Auto) 0.57 (0.11-0.59) K/uL Eos # (Auto) 0.13 (0.00-0.50) K/uL Baso # (Auto) 0.06 (0.00-0.20) K/uL Immature Gran # (Auto) 0.05 (0.01-0.20) K/uL Sodium 139 (136-145) mmol/L Potassium 3.9 (3.5-5.1) mmol/L Chloride 101 (98-107) mmol/L Carbon Dioxide 30 (21-32) mmol/L Anion Gap 8 (3-11) BUN 20 (6-23) mg/dl Creatinine 1.41 H (0.6-1.2) mg/dl Est Cr Clr Drug Dosing 67.9 ml/min Est GFR ( Amer) 49.5 ml/min Est GFR (Non-Af Amer) 42.7 ml/min BUN/Creatinine Ratio 14.2 (10-20) Glucose 93 (70-99(Fasting)) mg/dl Calcium 9.8 (8.6-10.3) mg/dl Total Bilirubin 0.7 (0.2-1.0) mg/dl AST 11 L (13-39) U/L ALT 15 (7-52) U/L Alkaline Phosphatase 72 (34-104) U/L Total Protein 7.7 (6.0-8.3) gm/dl Albumin 4.1 (3.4-5.0) gm/dl Globulin 3.6 (2.5-4.0) gm/dl Albumin/Globulin Ratio 1.1 (0.9-2) Lipase 17 (11-82) U/L HCG, Qual Negative (Negative) Urine Color Yellow Urine Appearance Cloudy A (Clear) Urine pH 6.0 (4.5-7.5) Ur Specific [place] 1.018 (1.000-1.030) Urine Protein Negative (Negative) Urine Glucose (UA) Negative (Negative) Urine Ketones Negative (Negative) Urine Blood 2+ H (Negative) Urine Nitrite Negative (Negative) Urine Bilirubin Negative (Negative) Urine Urobilinogen Negative (Negative) Ur Leukocyte Esterase 1+ H (Negative) Urine WBC (Auto) 5-10 H (0-5) /hpf Urine RBC (Auto) 10-30 H (0-4) /hpf U Hyaline Cast (Auto) 1-5 (0-5) /lpf U Epithel Cells (Auto) >30 H (0-5) /lpf Urine Bacteria (Auto) 1+ H (Negative) Imaging Data Attestation: I personally reviewed and interpreted this imaging study as follows: Radiologist's Impression: Abdomen/Pelvis CT 06/08/23 12:[address] WITHOUT CONTRAST CT DOSE: 1549.61 mGy.cm HISTORY: Acute left lower quadrant abdominal pain llq pain, hx diverticulitis TECHNIQUE: Multiaxial CT images of the abdomen and pelvis were performed without contrast. A dose lowering technique was utilized adhering to the principles of ALARA. COMPARISON STUDY: 04/24/2023 FINDINGS: The lung bases are clear. No pneumoperitoneum. No pneumatosis. Bilateral L5 spondylolysis with associated grade 1 anterolisthesis. Cholecystectomy. Mild hepatomegaly with probable hepatic steatosis. The spleen, right adrenal gland unremarkable. Stable 1.5 cm left adrenal gland nodule, likely a benign adenoma. No retroperitoneal lymphadenopathy. Normal caliber abdominal aorta. Bilateral nonobstructing renal calculi redemonstrated measuring up to approximately 4 mm on the right. A 1.3 center calcifications noted within the inferior pole left kidney. 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 There is mild/moderate left-sided hydroureteronephrosis secondary to an obstructing calculus of the distal left ureter measuring approximately 6 x 4 x 5 mm positioned 1.27 mm upstream to the ureterovesicular junction. Stable 9 mm hypodense lesion within the left side of the uterine fundus, possibly a small fibroid. Decompressed urinary bladder. No pelvic free fluid or pelvic lymphadenopathy. No evidence for a bowel obstruction. Colonic diverticulosis. There is an inflamed diverticulum within the distal sigmoid colon consistent with acute diverticulitis, similar to prior. No abscess identified. There is mild bowel wall thickening at this location. Normal appendix. IMPRESSION: 1. Iudi-de-lftirulg left-sided hydroureteronephrosis secondary to an obstructing distal left ureteral 6 mm calculus. 2. Mild acute diverticulitis of the distal descending colon which is similar to the 04/24/2023 study. 3. No pneumoperitoneum or abscess. 4. Nonobstructing bilateral nephrolithiasis. 5. Additional findings as above. ACT 112: Negative or not required by law. The above report was generated using voice recognition software. It may contain grammatical, syntax or spelling errors. Electronically signed by: Paras William M.D. 06/08/2023 1:38 PM MDM Narrative The patient is a 53-year-old female who presents today complaining of left-sided abdominal pain. Labs revealed a leukocytosis of 11.8, mild elevation of creatinine at 1.4. Urinalysis was not suggestive of infection. CT scan showed a 6 mm ureteral calculus in the left distal ureter. Patient treated with IV fluids, fentanyl, Zofran. She had continued pain and given the size of the stone I think it is unlikely this will pass without intervention. Patient agreeable to admission. [facility] was consulted. Impression Calculus of distal left ureter Discharge Plan Visit Data Chief Complaint: Referred by Doctor Stated Complaint: SENT FROM DOC ABD PAIN ED Provider: [facility] ED Midlevel Provider: Carmen Irizarry Discharge Problem: Calculus of distal left ureter Patient Disposition: Admitted As Inpatient Discharge Instructions Interventions: ED Discharge Assessment Last Done: 06/08/23 17:34
[2023-06-08] MEDS ORDERED: SODIUM CHLORIDE 0.9% 1,000 ML IV ONE (13:37)
--- NOTE | 2023-06-08 13:39 | CT Scan Report ---
ABDOMEN AND PELVIS CT WITHOUT CONTRAST CT DOSE: 1549.61 mGy.cm HISTORY: Acute left lower quadrant abdominal pain llq pain, hx diverticulitis TECHNIQUE: Multiaxial CT images of the abdomen and pelvis were performed without contrast. A dose lo wering technique was utilized adhering to the principles of ALARA. COMPARISON STUDY: 04/24/2023 FINDINGS: The lung bases are clear. No pneumoperitoneum. No pneumatosis. Bilateral L5 spondylolysis w ith associated grade 1 anterolisthesis. Cholecystectomy. Mild hepatomegaly with probable hepatic stea tosis. The spleen, right adrenal gland unremarkable. Stable 1.5 cm left adrenal gland nodule, likely a benign adenoma. No retroperitoneal lymphadenopathy. Normal caliber abdominal aorta. Bilateral nonobstructing renal calculi redemonstrated measuring up to approximately 4 mm on the right . A 1.3 center calcifications noted within the inferior pole left kidney. Developmental malrotation o f the left kidney with cortical thinning of the left greater than right kidneys. There is mild/modera te left-sided hydroureteronephrosis secondary to an obstructing calculus of the distal left ureter me asuring approximately 6 x 4 x 5 mm positioned 1.27 mm upstream to the ureterovesicular junction. Stab le 9 mm hypodense lesion within the left side of the uterine fundus, possibly a small fibroid. Decomp ressed urinary bladder. No pelvic free fluid or pelvic lymphadenopathy. No evidence for a bowel obstruction. Colonic divertic ulosis. There is an inflamed diverticulum within the distal sigmoid colon consistent with acute diver ticulitis, similar to prior. No abscess identified. There is mild bowel wall thickening at this locat ion. Normal appendix. IMPRESSION: 1. [id number] left-sided hydroureteronephrosis secondary to an obstructing distal left ureteral 6 mm calculus. 2. Mild acute diverticulitis of the distal descending colon which is similar to the 04/24/2023 study. 3. No pneumoperitoneum or abscess. 4. Nonobstructing bilateral nephrolithiasis. 5. Additional findings as above. ACT 112: Negative or not required by law. The above report was generated using voice recognition software. It may contain grammatical, syntax o r spelling errors. Electronically signed by: Paras William M.D. 06/08/2023 1:38 PM
[2023-06-08] MEDS ORDERED: ONDANSETRON INJ 2 MG/ML 2 ML VIAL IV STA (14:17)
[2023-06-08] MEDS ORDERED: fentaNYL citrate PF 100 MCG/2 ML VIAL IV STA (14:17)
--- NOTE | 2023-06-08 16:00 | History & Physical Report ---
Date of Service June 08, 2023 Assessment & Plan (1) Left ureteral stone: (2) Hydronephrosis, left: Plan: Patient presents with left lower quadrant abdominal pain associated with nausea and urinary urgency. Labs notable for WBC of 11.8, creatinine of 1.41 UA has 1+ leukocyte esterase 5-[address] abdomen and pelvis noted mild to moderate left-sided hydroureteronephrosis secondary to obstructing distal left ureteral 6 mm calculus, mild acute diverticulitis of distal descending colon which is similar to 04/24/2023 study, nonobstructing bilateral nephrolithiasis Patient has obstructing left ureteral stone with hydroureteronephrosis, mild OMAR. Continue IV fluids Strain urine. Start flomax Urology consult Will keep n.p.o. after midnight for possible possible Will hold patient's home Xarelto for now in view of possible surgery Ceftriaxone IV given Follow-up urine culture (3) Acute diverticulitis: Plan: Considering CT also noted mild acute diverticulitis, I discussed with Pharm about possible options for anerobic coverage as well considering patient's significant allergies to quinolones, flagyl as well as allergy to penicillin. I reviewed EPIC, patient has tolerated cephalosporins before Pharm recommends using Cefoxitin based on patients history. Clear liquid diet for now (4) Depression: Plan: Stable Continue home Wellbutrin and desvenlafaxine Continue (5) Hypertension: Plan: Hold home lisinopril for now history of mild OMAR. Plan to resume once appropriate Hold hydrochlorothiazide. Continue metoprolol succinate (6) Chronic anticoagulation: Plan: On Xarelto for history of PE. Currently on hold as noted above. Resume once appropriate Code status: FULL CODE Dispo: Med surg I spent a total of 75 minutes coordinating, documenting and providing care for this patient excluding time spent in performance of separately billed services History of Present Illness Chief Complaint: Abdominal pain Primary Care Provider: Ridge Ramos MD 54-year-old woman with history of depression, anxiety, morbid obesity, COPD, PE on Xarelto, hypertension who presents with abdominal pain that started 2 days ago. Reports she started having left lower abdominal pressure that worsened and became more pain, constant, severe, radiating to the lower back. This was associated with nausea but no vomiting. Denied any fevers, chills. Denies any dysuria or frequency but noted that she has been having urgency to urinate every dose sometimes she does not Denied diarrhea, melena, hematochezia. Denies chest pain, cough or shortness of breath. Reports occasional headache which is not new or changed Patient quit smoking cigarettes 3 to 5 months ago was smoking 1 pack every 2 to 3 days. Currently vapes Drinks alcohol rarely. Denies illicit drug use Reports family history of father having a cardiac bypass Reports previous history of kidney stone many years ago Allergies Allergy/AdvReac Type Severity Reaction Status Date / Time ciprofloxacin [From Cipro] Allergy Severe Anaphylaxis Verified 04/24/23 17:30 metronidazole [From Flagyl] Allergy Severe Anaphylaxis Verified 04/24/23 17:30 Penicillins Allergy Intermediate RASH Verified 11/25/22 18:34 Sulfa (Sulfonamide Allergy Intermediate RASH Verified 11/25/22 18:34 Antibiotics) Iodinated Contrast Media AdvReac Severe Vomiting Verified 06/08/23 12:19 morphine AdvReac Severe abd pain Verified 06/08/23 18:16 hydromorphone AdvReac Intermediate abd pain Verified 11/25/22 18:34 Home Medications Medication Instructions Recorded Confirmed Type alprazolam 0.5 mg tablet 0.5 mg PO TID PRN Anxiety 01/09/19 06/08/23 History lisinopril 40 mg tablet 40 mg PO QAM 01/09/19 06/08/23 History mometasone 50 mcg/actuation nasal 2 spray intranasal DAILY PRN Nasal 01/09/19 06/08/23 History spray Congestion montelukast 10 mg tablet 10 mg PO HS 01/09/19 06/08/23 History valacyclovir 1 gram tablet 2,000 mg PO Q12H PRN Cold Sores 01/09/19 06/08/23 History bupropion HCl 300 mg 24 hr tablet, 300 mg PO QAM 01/04/20 06/08/23 History extended release (Wellbutrin XL) pantoprazole 40 mg tablet,delayed 40 mg PO QAM 01/11/20 06/08/23 History release (Protonix) amlodipine 10 mg tablet 10 mg PO DAILY 05/26/21 06/08/23 History cetirizine 10 mg tablet (Zyrtec) 10 mg PO HS 05/26/21 06/08/23 History desvenlafaxine succinate 100 mg 100 mg PO QAM 05/26/21 06/08/23 History tablet,extended release 24 hr hydrochlorothiazide 12.5 mg capsule 12.5 mg PO DAILY 05/26/21 06/08/23 History metoprolol succinate 50 mg 50 mg PO DAILY 05/26/21 06/08/23 History tablet,extended release 24 hr bupropion HCl 150 mg 24 hr tablet, 150 mg PO QAM 11/25/22 06/08/23 History extended release cyanocobalamin (vitamin B-12) 1,000 mcg PO DAILY 11/25/22 06/08/23 History 1,000 mcg tablet (Vitamin B-12) desvenlafaxine succinate 50 mg 50 mg PO QAM 11/25/22 06/08/23 History tablet,extended release 24 hr rivaroxaban 20 mg tablet (Xarelto) 20 mg PO QAM 11/25/22 06/08/23 History Saccharomyces boulardii 250 mg 250 mg PO DAILY 06/08/23 06/08/23 History capsule (Florastor) albuterol sulfate 90 mcg/actuation 1 puff inhalation Q6H 06/08/23 06/08/23 History aerosol inhaler Past Med/Surg History Medical History (Updated 06/08/23 @ 19:06 by Melvin Walters PA-C) Acute diverticulitis Depression Fracture of toe of right foot Post-acute sequelae of COVID-19 ([facility]) Pulmonary embolism Morbid obesity with BMI of 45.0-49.9, adult History of anesthesia reaction difficulty waking Chronic back pain follows with chiropractor History of kidney stones Epigastric pain reason for EGD Diverticular disease Anxiety History of migraine headaches Hypertension Sleep apnea does not use CPAP as ordered UTI (urinary tract infection) Surgical History History of left breast biopsy benign History of endometrial ablation History of bilateral tubal ligation History of cystoscopy History of colonoscopy History of cholecystectomy History of wisdom tooth extraction Family History Father Diabetes Heart disease Hypertension Other Family history of diabetes mellitus No family history of adverse response to anesthesia Social History Smoking Status: Former smoker Tobacco Type: E-cigarettes / Vaping Cigarettes Per Day: less than 1 pack a day - started age 15-15, has quit multiple times; Second Hand Exposure: Yes; Do You Dip or Chew Tobacco: No; Tobacco Cessation Education Requested by Patient: No Hx Alcohol Use: Yes Alcohol type: hard liquor Hx Substance Use: No Preferred Language: [place] Communication Ability: Effective 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 Beliefs That Will Affect Care: None marital status: Current Living Situation: Spouse Current Living Situation Comment: home current occupational status: employed Other Information That Helps Us Care for You: No Feels Safe at Home: Yes Safety Concerns: Feels Safe At This Time Assistive Devices: None Physical Exam Constitutional: + well hydrated and + obese; no acute di stress Eyes: PERRL, conjunctivae normal, anicteric sclerae ENMT: external ear and nose normal, oropharynx normal Respiratory: normal respiratory effort, lungs clear to auscultation Cardiovascular: Rate/Rhythm: regular rate and regular rhythm S1 S2 Gastrointestinal (Abdomen): Soft, RLQ tenderness, no guarding or rebound, normal bowel sounds Musculoskeletal: no cyanosis or clubbing, extremities motor strength 5/5 Neurologic: PERRL, EOMI, accommodation nl, no face palsy, no dysarthria Psychiatric: A+Ox3, euthymic affect Results & Data Results & Data Vital Signs (Past 12 Hours) Vital Signs Temp Pulse Pulse Resp BP BP Pulse Ox 06/08/23 14:41 85 19 112/78 100 06/08/23 12:13 36.9 C 105 H 18 157/100 H 100 O2 Del Method 06/08/23 14:41 Room Air 06/08/23 12:13 Room Air Laboratory Results Abnormal lab results 06/08/23 Range/Units 12:27 WBC 11.86 H (4.8-10.8) K/ul MCHC 31.7 L (32.0-36.0) g/dL Neut # (Auto) 9.34 H (1.40-6.50) K/uL Creatinine 1.41 H (0.6-1.2) mg/dl AST 11 L (13-39) U/L Urine Appearance Cloudy A (Clear) Urine Blood 2+ H (Negative) Ur Leukocyte Esterase 1+ H (Negative) Urine WBC (Auto) 5-10 H (0-5) /hpf Urine RBC (Auto) 10-30 H (0-4) /hpf U Epithel Cells (Auto) >30 H (0-5) /lpf Urine Bacteria (Auto) 1+ H (Negative) Diagnostic Findings ABDOMEN AND PELVIS CT WITHOUT CONTRAST CT DOSE: 1549.61 mGy.cm HISTORY: Acute left lower quadrant abdominal pain llq pain, hx diverticulitis TECHNIQUE: Multiaxial CT images of the abdomen and pelvis were performed without contrast. A dose lowering technique was utilized adhering to the principles of ALARA. COMPARISON STUDY: 04/24/2023 FINDINGS: The lung bases are clear. No pneumoperitoneum. No pneumatosis. Bilat eral L5 spondylolysis with associated grade 1 anterolisthesis. Cholecystectomy. Mild hepatomegaly with probable hepatic steatosis. The spleen, right adrenal gland unremarkable. Stable 1.5 cm left adrenal gland nodule, likely a benign adenoma. No retroperitoneal lymphadenopathy. Normal caliber abdominal aorta. Bilateral nonobstructing renal calculi redemonstrated measuring up to approximately 4 mm on the right. A 1.3 center calcifications noted within the inferior pole left kidney. 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 There is mild/moderate left-sided hydroureteronephrosis secondary to an obstructing calculus of the distal left ureter measuring approximately 6 x 4 x 5 mm positioned 1.27 mm upstream to the ureterovesicular junction. Stable 9 mm hypodense lesion within the left side of the uterine fundus, possibly a small fibroid. Decompressed urinary bladder. No pelvic free fluid or pelvic lymphadenopathy. No evidence for a bowel obstruction. Colonic diverticulosis. There is an inflamed diverticulum within the distal sigmoid colon consistent with acute diverticulitis, similar to prior. No abscess identified. There is mild bowel wall thickening at this location. Normal appendix. IMPRESSION: 1. [id number] left-sided hydroureteronephrosis secondary to an obstructing distal left ureteral 6 mm calculus. 2. Mild acute diverticulitis of the distal descending colon which is similar to the 04/24/2023 study. 3. No pneumoperitoneum or abscess. 4. Nonobstructing bilateral nephrolithiasis. 5. Additional findings as above. Code Status & VTE Plan Code Status Full code (4) Depression Active/Remission status: remission status unspecified Depression Type: major depressive disorder Major depression recurrence: recurrent Qualified Code(s): F33.9 - Major depressive disorder, recurrent, unspecified (5) Hypertension Hypertension type: primary hypertension Qualified Code(s): I10 - Essential (primary) hypertension
[2023-06-08] MEDS ORDERED: cefTRIAXone SODIUM 1,000 MG in DEXTROSE 5 % MINI-B 50 ML IV SCH (17:30)
--- OUTSIDE RECORDS SUMMARY | 2023-06-08 17:53 | External Medical Summary | Summary of Care ---
Author Name Unknown Organization [facility] Address [address] [facility] [place] [address] Phone [phone] Care Team Providers Care Timber Watchman Name Role Phone Ankush Ribeiro MD Primary Care Provider [phone] Encounter Details Date Type Department Care Team (Late st Contact Info) Description 06/04/[address] [facility] [address] [place] [address] Ankush Ribeiro MD [address] [place] [address] Adjustment disorder with depressed mood Allergies Active Allergy Reactions Criticality Noted Date Comments Sulfamethoxazole-Trimethoprim Rash Low 2008 Itch, hives Ciprofloxacin Anaphylaxis High 04/21/2019 Hydromorphone Abdominal pain 01/09/2019 Metronidazole Anaphylaxis High 04/24/2023 Morphine Abdominal pain High 01/09/2019 Penicillins 12/19/1998 rash documented as of this encounter (statuses as of 06/04/2023) Medications Medication Sig Dispensed Refills Start Date [...] Wheezing. 18 g 3 08/08/19 23 Active Montelukast Sodium 10 MG Oral [...] daily. 30 Tablet 2 10/29/19 23 Active Neomycin-Polymyxin -HC [id number] Otic SolutionIndication s:Black head Administer 4 Drops into the left ear in the morning and 4 Drops at noon and 4 Drops before bedtime. To affected ear, for 10 days.. 10 mL 1 01/08/20 23 Active Additional Information Patient not taking.Reported on 05/03/2023 ALPRAZolam 0.5 MG Oral Tablet (xaNAX) Take [...] refill.. 30 Tablet 0 02/05/20 23 Active Additional Information Patient taking differently: 150 mgOral Daily(AM),Takes with 300 for a total of 450mg, Reported on 05/03/2023 hydroCHLOROthiazid e 12.5 MG Oral Capsule (Hydrodiuril)Indic ations:Hypertensiv e urgency,Essential (primary) hypertension TAKE 1 CAPSULE BY MOUTH EVERY DAY 90 Capsule 0 02/24/20 23 Active valACYclovir HCl 1 GM Oral Tablet (Valtrex) TAKE 2 TABLETS BY MOUTH EVERY 12 HOURS FOR 1 DAY FOR COLD SORES 4 Tablet 0 02/24/20 23 Active B-12 1000 MCG Oral Capsule TAKE 1 CAPSULE BY MOUTH EVERY DAY IN THE MORNING 90 Capsule 1 03/19/20 23 Active guaiFENesin-Codein e 100-10 MG/5ML Oral Syrup (Robitussin AC)Indications:Vir al URI with cough Take 5 mL by mouth every 4 hours as needed for Cough. 120 mL 0 05/12/20 23 Active amLODIPine Besylate 10 MG Oral Tablet (Norvasc) TAKE 1 TABLET BY MOUTH EVERY DAY 90 Tablet 3 05/26/19 24 Active Pantoprazole Sodium 40 MG Oral Tablet Delayed Release (Protonix) TAKE 1 TABLET BY MOUTH EVERY DAY 90 Tablet 3 05/26/19 24 Active Lisinopril 40 MG Oral TabletIndications: HTN, goal below 140/90 TAKE 1 TABLET BY MOUTH EVERY DAY IN THE MORNING 90 Tablet 3 05/26/19 24 Active Rivaroxaban 20 MG Oral Tablet (Xarelto) TAKE 1 TABLET BY MOUTH EVERY DAY 90 Tablet 1 05/27/19 24 Active Desvenlafaxine Succinate ER 50 MG Oral Tablet Extended Release 24 Hour (Pristiq)Indicatio ns:Adjustment disorder with depressed mood Take 1 tab by mouth daily with the 100 mg dose for a total of 150 mg daily 90 Tablet 3 06/04/19 24 Active Desvenlafaxine Succinate ER 50 MG Oral Tablet Extended Release 24 Hour (Pristiq)Indicatio ns:Adjustment disorder with depressed mood Take 1 tab by mouth daily with the 100 mg dose for a total of 150 mg daily 30 Tablet 5 05/03/20 23 024 Discontinued Hospital, Clinic, or Other Facility Administered Medication Ordered Dose Route Frequency Start Date End Date Status Albuterol Sulfate (Proventil) (2.5 MG/3ML) 0.083% inhalation solution 2.5 mgIndications:Chronic obstructive pulmonary disease, unspecified COPD type (HCC),History of tobacco abuse 2.5 mg NEBULIZER ONCE PRN 11/27/2022 11/27/2023 Active documented as of this encounter (statuses as of 06/04/2023) Active Problems Problem Noted Date Diagnosed Date COPD, group B, by GOLD 2017 classification 05/24 Overview: Per COPD GOLD Classification 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 LAI (generalized anxiety disorder) 08/06/2022 History of pulmonary embolism 03/20/2022 Chronic anticoagulation 03/20/2022 Moderate episode of recurrent major depressive d isorder 09/09/2021 Obesity, morbid (more than 1 00 lbs over ideal weight or BMI > 40) 12/17/2011 Overview: bmi= 47.02 12/17/11 HTN, goal below 140/90 01/08/1999 Allergic rhinitis ADJ DISORDER W/DEPRES MOOD documented as of this encounter (statuses as of 06/04/2023) Resolved Problems Problem Noted Date Diagnosed Date Resolved Date Chronic obstructive pulmonary disease 11/27/2022 05/27/2023 Overview: Per COPD GOLD Classification Open wound of finger 12/17/2011 017 Cat [...] as of this encounter (statuses as of 06/04/2023) Immunizations Name Administration Dates Next Due COVID-19 mRNA, LNP-s, No Pre serve, 2-Dose Series (Pfizer) 04/01/2021,09/03/2020,08/13/2020 Pneumococcal Conjugate Vacci ne, 20-valent ([id number]) 11/27/2022 Pneumococcal Polysaccharide PPV23 (Pneumovax) 09/09/2021,02/17/2016(Deferred: Patient Refused) Seasonal Influenza Virus Vac cine, Unspecified Formulation 03/11/2022 Seasonal Influenza, PF, 6 M & above, IM , (FluLaval or Fluzone) 05/03/2023,03/11/2022,02/07/2021,11/0 10/2019,04/20/2019,05/03/2018,05/06/20 17 Seasonal Influenza, Quadriva lent, No Preserve, IM [...] Telephone Encounter - Ankush Ribeiro MD - 06/04/2023 11:36 AM ESTSigned Prescriptions: Disp Refills Desvenlafaxine Succinate ER 50 MG Oral Tab*90 Tab*3 Sig: Take 1 tab by mouth daily with the 100 mg dose for a total of 150 mg dailyAuthorizing Provider: ANKUSH RIBEIRO documented in this encounter Plan of Treatment Upcoming Encounters Date Type Department Care Team (Late st Contact Info) Description 07/16/2023 8:00 AM EST Office Visit Allergy/Immunology [facility] [address] [facility] [place] [address] Paul Del Rio MD [address] [facility] [place] [address] 09/17/2023 9:30 AM EDT Procedure Only Endoscopy, [facility] [address] [place] [id number] Don Lee MD [address] [place] [address] Health Maintenance Due Date Last Done Comments DISCUSS TOBACCO CESSATION (REFER TO SMARTSET #[id number]) 1970 Hepatitis B (1 of 3 - [...] Vaccine ( season) 2023 04/01/2021, 09/03/2020, 08/13/2020 Depression Screening 11/20/2023 11/19/2022 O2 ASSESSMENT COMPLETED IN PAST YEAR FOR COPD 05/12/2024 05/12/2023 Diabetes Screening 09/09/2024 09/09/2021, 1 05/27/2019, 04/24/2019, Additional history exists Colonoscopy 10/29/2024 10/29/2014, 10/29/2014 Colorectal Cancer Screening 10/29/2024 Lipid Panel 03/27/2025 03/27/2020, 01/2019, 05/12/2018, Additional history exists DTaP,Tdap,and Td Vaccines (3 - Td or Tdap) 01/31/2032 01/30/2022, 12/17/2011 Pneumococcal Vaccine: Pediatrics (0 to 5 Years) and At-Risk Patients (6 to 64 Years) Completed 11/27/2022, 09/09/2021 Zoster Vaccines Completed 11/27/2022, 09/09/2021 Influenza Vaccine (FLU shot) Completed , 03/11/2022, 03/11/2022, Additional history exists GARDASIL-HPV IMMUNIZATION SERIES Aged Out No longer eligible based on patient's age to complete this topic MENINGOCOCCAL (MENACTRA/MENVEO) Aged Out No longer eligible based on patient's age to complete this topic documented as of this encounter Medical Devices Not on filedocumented as of this encounter Visit Diagnoses Diagnosis Adjustment disorder with depressed mood documented in this encounter Care Teams Timber Watchman Relationship Specialty Start Date End Date Ankush Ribeiro MD [address] [place] [address] PCP - General 05/26/00 documented as of this encounter
--- OUTSIDE RECORDS SUMMARY | 2023-06-08 17:54 | External Medical Summary | Summary of Care ---
Author Name Unknown Organization [facility] Address [address] [place] [facility] [place] [address] Phone [phone] Care Team Providers Care Grief Counsellor Name Role Phone Ankush Ribeiro MD Primary Care Provider [phone]- [phone] Reason for Visit * Reason Comments eRx-Medication Refill Encounter Details Date Type Department Care Team (Late st Contact Info) Description 02/09/2023 Refill [facility] [address] [place] [address] Ankush Ribeiro MD [address] [place] [address] HTN, goal below 140/90 Allergies Active Allergy Reactions Criticality Noted Date Comments Sulfamethoxazole-Trimethoprim Rash Low 2008 Itch, hives Ciprofloxacin Anaphylaxis High 04/21/2019 Hydromorphone Abdominal pain 01/09/2019 Metronidazole Anaphylaxis High 04/24/2023 Morphine Abdominal pain High 01/09/2019 Penicillins 12/19/1998 rash documented as of this encounter (statuses as of 05/06/2023) Medications Medication Sig Dispensed Refills Start Date [...] daily. 30 Tablet 2 10/29/19 23 Active Pantoprazole Sodium 40 MG Oral Tablet Delayed Release (Protonix) TAKE 1 TABLET BY MOUTH EVERY DAY 90 Tablet 1 12/04/19 23 Active amLODIPine Besylate 10 MG Oral Tablet (Norvasc) TAKE 1 TABLET BY MOUTH EVERY DAY 90 Tablet 1 12/04/19 23 Active Neomycin-Polymyxin -HC 3.5-43930-4 Otic SolutionIndication s:Black head Administer 4 Drops [...] a total of 450mg, Reported on 05/03/2023 Lisinopril 40 MG Oral TabletIndications: HTN, goal below 140/90 TAKE 1 TABLET BY MOUTH EVERY DAY IN THE MORNING 90 Tablet 0 02/10/20 23 Active valACYclovir HCl 1 GM Oral Tablet (Valtrex) TAKE 2 TABLETS BY MOUTH EVERY 12 HOURS FOR 1 DAY FOR COLD SORES 4 Tablet 5 12/13/19 22 023 Discontinued [facility] Vitamin B-12 1000 MCG Oral Tablet (vitamin b 12) TAKE 1 TABLET BY MOUTH EVERY DAY IN THE MORNING 90 Tablet 1 03/09/20 22 023 Discontinued Rivaroxaban 20 MG Oral Tablet (Xarelto) TAKE 1 TABLET BY MOUTH EVERY DAY 90 Tablet 1 05/07/20 22 023 Discontinued Anoro Ellipta 62.5-25 MCG/ACT Inhalation Aerosol Powder Breath Activated (umeclidinium-celine nterol) Inhale 1 Puff by mouth in the morning. 30 Each 11 08/08/19 23 023 Discontinued(Erick walden preference/disc ontinuation) hydroCHLOROthiazid e 12.5 MG Oral Capsule (Hydrodiuril)Indic ations:Hypertensiv e urgency,Essential (primary) hypertension TAKE 1 CAPSULE BY MOUTH EVERY DAY 90 Capsule 1 09/01/19 23 023 Discontinued Lisinopril 40 MG Oral TabletIndications: HTN, goal below 140/90 TAKE 1 TABLET BY MOUTH EVERY DAY IN THE MORNING 90 Tablet 0 09/22/19 23 023 Discontinued Desvenlafaxine Succinate ER 50 MG Oral Tablet Extended Release 24 Hour (Pristiq) Take 1 Tablet by mouth in the morning. 30 Tablet 2 10/29/19 023 Discontinued(Re fill) Hospital, Clinic, or Other Facility Administered Medication Ordered Dose Route Frequency Start Date End Date Status Albuterol Sulfate (Proventil) (2.5 MG/3ML) 0.083% inhalation solution 2.5 mgIndications:Chronic obstructive pulmonary disease, unspecified COPD type (HCC),History of tobacco abuse 2.5 mg NEBULIZER ONCE PRN 11/27/2022 11/27/2023 Active documented as of this encounter (statuses as of 05/06/2023) Active Problems Problem Noted Date Diagnosed Date [...] as of this encounter (statuses as of 05/06/2023) Resolved Problems Problem Noted Date Diagnosed Date [...] as of this encounter (statuses as of 05/06/2023) Immunizations Name Administration Dates Next Due COVID-19 mRNA, LNP-s, No Pre serve, 2-Dose Series (Vertro) 04/01/2021,09/03/2020,08/13/2020 Pneumococcal Conjugate Vacci ne, 20-valent (Eduldpp16) 11/27/2022 Pneumococcal Polysaccharide PPV23 (Pneumovax) 09/09/2021,02/17/2016(Deferred: Patient Refused) Seasonal Influenza Virus Vac cine, Unspecified Formulation 03/11/2022 Seasonal Influenza, PF, 6 M & above, IM , (FluLaval or Fluzone) 03/11/2022,02/07/2021,03/22/2020,1209/2018,05/03/2018,05/06/2017 Seasonal Influenza, Quadriva lent, No Preserve, [...] encounter Miscellaneous Notes * Telephone Encounter - Sarah Marie CPhT - 05/06/2023 1:24 PM EST Received message from [facility] regarding patient needing labs. Placed call to patient to advise. Unable to reach pt, as there was no answer and no VM available to leave message. Sent the patient a MyG message to advise. Thank you, Sarah Marie [facility] Crt[facility] III [facility] ([facility]) 05/06/2023,1:24 PM * Telephone Encounter - Khalida Ball [facility] - 02/09/2023 4:05 PM EDTSigned Prescriptions: Disp Refills Lisinopril 40 MG Oral Tablet 90 Tab*0 Sig: TAKE 1 TABLET BY MOUTH EVERY DAY IN THE MORNING Authorizing Provider: ANKUSH RIBEIRO Ordering User: KHALIDA BALL Electronically signed by Khalida Ball [facility] at 02/09/2023 4:05 PM EDT * Telephone Encounter - Khalida Ball [facility] - 02/09/2023 4:02 PM EDT 2nd Attempt Provided 90 days supply with 0 refill(s). Per refill protocol patient should have BMP on file within past year. Reviewed AMP report, Care Gaps/Health Maintenance, medications list, and for any routine labs typically ordered for this patient. Lab orders placed. Please contact patient to advise of labs ordered for blood draw. Recommend patient to fast if able for labs. Patient may still have water and regular medications. Advise to obtain labs before requesting the next refill. Thanks, Khalida Ball, PharmD Clinical Pharmacist [facility] ([facility] [employer]) [phone] 02/09/2023 4:03 PM Electronically signed by Khalida Ball [facility] at 02/09/2023 4:05 PM EDT documented in this encounter Plan of Treatment Upcoming Encounters Date Type Department Care Team (Late st Contact Info) Description 05/31/2023 10:20 AM EST Office Visit [facility] [address] [place] [address] Ankush Ribeiro MD [address] [place] [address] 07/16/2023 8:00 AM EST Office Visit Allergy/Immunology [facility] [place] [address] [facility] [place] [address] Paul Del Rio MD [address] [facility] [place] [address] 09/17/2023 9:30 AM EDT Procedure Only Endoscopy, [facility] [address] [place] [address] Don Lee MD [address] [place] [address] Health Maintenance Due Date Last Done Comments DISCUSS TOBACCO CESSATION (REFER TO SMARTSET #1004) 1970 Hepatitis B (1 of 3 - [...] encounter Visit Diagnoses Diagnosis HTN, goal below 140/90 Unspecified essential hypertension documented in this encounter Care Teams Grief Counsellor Relationship Specialty Start Date End Date Ankush Ribeiro MD [address] [facility] [place] [id number] PCP - General 05/26/00 documented as of this encounter
--- OUTSIDE RECORDS SUMMARY | 2023-06-08 17:54 | External Medical Summary | Summary of Care ---
Author Name Unknown Organization [facility] Address [address] [place] [address] Phone [phone] Care Team Providers Care Panel Lay Up Worker Name Role Phone Ridge Ramos MD Primary Care Provider +1- [phone] Reason for Referral * Ancillary Services (Within 30 days (routine)) - Authorized Specialty Diagnoses / Procedures Referred By Jalen cullen Referred To Contact Gastroenterology Diagnoses History of diverticulitis Ridge Ramos MD [address] [place] [address] Referral ID Status Reason Start Date Expiration Date Visits Requested Visits Authorized [id number] Authorized Ancillary Services Required 3 [phone] Question Answer Referral Priority Within 30 days (routine) Where should this appointment be scheduled? [facility] Comments ALERT: Do not order for pediatric patients (18 years or younger). Cancel off screen and order PEDS GASTROENTEROLOGY CONSULT (Type: 1 visit only-Evaluate and Treat) The following Pt. Instructions are available: - Gastro Colonoscopy Prep Instructions [[id number]] - Gastro Colonoscopy Prep Instructions (Mauritanian Version) [[id number]] Go to the Pt. Instructions section within the Visit Navigator to access. Colonoscopy ASGE Guidelines: Follow up multiple episodes of diverticulitis ADDITIONAL INFORMATION 1. Is the patient on Coumadin? No 2. Is the patient on Pradaxa? No * Evaluate & Treat - Unlimited Visits (Within 30 days (routine)) - Authorized Specialty Diagnoses / Procedures Referred By Jalen cullen Referred To Contact Allergy & Immunology Diagnoses Allergy to multiple antibiotics Ridge Ramos MD [address] [place] [address] Referral ID Status Reason Start Date Expiration Date Visits Requested Visits Authorized [id number] Authorized Specialty Services Required [phone] Question Answer Referral Priority Within 30 days (routine) Where should this appointment be scheduled? [facility] For what condition is the patient being referred? Other Condition NOTE: Allergy doesn t offer allergy testing for the following: arthritis, behavioral issues, headaches, autism, chronic fatigue or pain, food, environmental or toxic mold just to check for allergies if there are no clinical symptoms. ok Reason for Visit * Reason Onset Date Comments Hospital Follow-Up Medication Administration 05/03/2023 Flu an d/or Pneumo Inj Hospital Follow-Up 05/24/2023 Encounter Details Date Type Department Care Team (Late st Contact Info) Description 05/03/2023 2:20 PM EST Office Visit [facility] [address] [place] [id number] Ridge Ramos MD [address] [place] [address] Allergy to multiple antibiotics*; History of diverticulitis; Adjustment disorder with depressed mood; Need for prophylactic vaccination and inoculation against influenza; Hospital discharge follow-up Allergies Active Allergy Reactions Criticality Noted Date Comments Sulfamethoxazole-Trimethoprim Rash Low 2008 Itch, hives Ciprofloxacin Anaphylaxis High 04/21/2019 Hydromorphone Abdominal pain 01/09/2019 Metronidazole Anaphylaxis High 04/24/2023 Morphine Abdominal pain High 01/09/2019 Penicillins 12/19/1998 rash documented as of this encounter (statuses as of 05/24/2023) Medications Medication Sig Dispensed Refills Start Date [...] mg daily. 30 Tablet 2 3 Active Pantoprazole Sodium 40 MG Oral Tablet Delayed Release (Protonix) TAKE 1 TABLET BY MOUTH EVERY DAY 90 Tablet 1 3 Active amLODIPine Besylate 10 MG Oral Tablet (Norvasc) TAKE 1 TABLET BY MOUTH EVERY DAY 90 Tablet 1 3 Active Neomycin-Polymyxin- HC 3.5-49749-0 Otic SolutionIndications :Black head Administer 4 Drops into the left ear in the morning and 4 Drops at noon and 4 Drops before bedtime. To affected ear, for 10 days.. 10 mL 1 3 Active Additional Information Patient not taking.Reported [...] subsequent refill.. 30 Tablet 0 3 Active Additional Information Patient taking differently: 150 mgOral Daily(AM),Takes with 300 for a total of 450mg, Reported on 05/03/2023 Lisinopril 40 MG Oral TabletIndications:H TN, goal [...] THE MORNING 90 Capsule 1 3 Active Desvenlafaxine Succinate ER 50 MG Oral Tablet Extended Release 24 Hour (Pristiq)Indication s:Adjustment disorder with depressed mood Take 1 tab by mouth daily with the 100 mg dose for a total of 150 mg daily 30 Tablet 5 3 Active Desvenlafaxine Succinate ER 50 MG Oral Tablet Extended Release 24 Hour (Pristiq) Take 1 Tablet by mouth in the morning. 30 Tablet 2 3 05/03/20 23 Discontinu ed(Refill) Hospital, Clinic, or Other Facility Administered Medication Ordered Dose Route Frequency Start Date End Date Status Albuterol Sulfate (Proventil) (2.5 MG/3ML) 0.083% inhalation solution 2.5 mgIndications:Chronic obstructive pulmonary disease, unspecified COPD type (HCC),History of tobacco abuse 2.5 mg NEBULIZER ONCE PRN 11/27/2022 11/27/2023 Active documented as of this encounter (statuses as of 05/24/2023) Active Problems Problem Noted Date Diagnosed Date [...] as of this encounter (statuses as of 05/24/2023) Resolved Problems Problem Noted Date Diagnosed Date [...] as of this encounter (statuses as of 05/24/2023) Immunizations Name Administration Dates Next Due COVID-19 mRNA, LNP-s, No Pre serve, 2-Dose Series (Solvoyo) 04/01/2021,09/03/2020,08/13/2020 Pneumococcal Conjugate Vacci ne, 20-valent ([id number]) 11/27/2022 Pneumococcal Polysaccharide PPV23 (Pneumovax) 09/09/2021,02/17/2016(Deferred: Patient [...] Sign Reading Time Taken Comments Blood Pressure 162/98 05/03/2023 2:29 PM EST Pulse 102 05/03/2023 2:29 PM EST Temperature 36.7 C (98 F) 05/03/2023 2:29 PM EST Respiratory Rate 16 05/03/2023 2:29 PM EST Oxygen Saturation - - Inhaled Oxygen Concentration - - Weight 142.9 kg (315 lb) 05/03/2023 2:29 PM EST Height - - Body Mass Index 47.9 02/03/2023 8:56 AM EDT documented in this encounter Progress Notes * Ridge Ramos MD - 05/24/2023 8:55 PM EST Subjective: Loreto Rojas is a 53 year old female here today for Chief Complaint Patient presents with Hospital Follow-Up Medication Administration Flu and/or Pneumo Inj Hospital Follow-Up Pt presents for hospital follow up. Admitted to [facility] 04/24/23 - 04/27/23. Presented to the ED with 2days of left lower abd pain. Decker similar to diverticulitis. Had a CT scan and felt warm and nauseated with the IV contrast. This sensation passed relatively quickly. Shortly after taking cipro and flagyl, she became flushed, pruritic, hypotensive and hypoxic. She was treated with methylprednisolone, diphenhydramine, famotidine but did not require epinephrine. Symptoms started to improve but was still hypoxic, so admitted for further observation and treatment. Treated with IV ertapenem. She is feeling better. Agreeable to allergy referral for further eval of reaction. Agreeable to repeat colonoscopy given recurrent diverticulitis. Past Medical History: Diagnosis Date Adjustment disorder with depressed mood Allergic rhinitis HTN, goal to be determined 2001 on lisinopril Obesity, BMI not known Sleep apnea, obstructive Past Surgical History: Procedure Laterality Date BREAST BIOPSY Right 10/27/2016 Benign COLONOSCOPY, DIAGNOSTIC (RECTUM) 10/29/2014 diverticulosis/[facility] EGD, FLEXIBLE, DIAGNOSTIC 01/17/2020 gastritis / [facility] HYSTEROSCOPY;ENDOMETRIAL ABLAT 03/13/2016 LAP;FULGURATION OVIDUCTS Tubal Ligation,Laparoscopic REMOVE GALLBLADDER 10/2002 Review of patient's allergies indicates: Allergen Reactions Ciprofloxacin Anaphylaxis Metronidazole Anaphylaxis Morphine Abdominal pain Hydromorphone Abdominal pain Penicillins [...] of 150 mg daily. 30 Tablet 2 Pantoprazole Sodium 40 MG Oral Tablet Delayed Release (Protonix) TAKE 1 TABLET BY MOUTH EVERY DAY 90 Tablet 1 amLODIPine Besylate 10 MG Oral Tablet (Norvasc) TAKE 1 TABLET BY MOUTH EVERY DAY 90 Tablet 1 ALPRAZolam 0.5 MG Oral Tablet (xaNAX) [...] be seen in orderto get subsequent refill.. (Patient taking differently: Take 1 Tablet by mouth in the morning. Takes with 300 for a total of 450mg.) 30 Tablet 0 Lisinopril 40 MG Oral [...] DAY IN THE MORNING 90 Capsule 1 Desvenlafaxine Succinate ER 50 MG Oral Tablet Extended Release 24 Hour (Pristiq) Take 1 tab by mouth daily with the 100 mg dose for a total of 150 mg daily 30 Tablet 5 Kyraekjs-Rethgrhfk-BK 3.5-21647-0 Otic Solution Administer 4 Drops into the left ear in the morningand 4 Drops at noon and 4 Drops before bedtime. To affected ear, for 10 days.. (Patient not taking:Reported on 05/03/2023) 10 mL 1 guaiFENesin-Codeine 100-10 MG/5ML Oral Syrup (Robitussin AC) Take 5 mL by mouth every 4 hours as needed for Cough. 120 mL 0 Current Facility-Administered Medications Medication Dose Route Frequency Provider Last Rate Last Admin Albuterol Sulfate (Proventil) (2.5 MG/3ML) 0.083% inhalation solution 2.5 mg 2.5 mg Nebulizer Once PRN Claudia Rivas PA-C Objective: BP 162/98 | Pulse 102 | Temp 36.7 C (98 F) | Resp 16 | Wt (!) 142.9 kg (315 lb) | BMI 47.90 kg/m | BSA 2.62 m GEN: NAD HEENT: Benign NECK: Supple with no LAD, TM, JVD CHEST: CTA B CV: RRR ABD: Soft, NT/ND, No HSM, NABS EXT: No c,c,e Assessment and Plan: Allergy to multiple antibiotics (Primary) - ALLERGY REFERRAL OP - RETURN TO WORK OR SCHOOL History of diverticulitis - COLONOSCOPY, GI REFERRAL OP - RETURN TO WORK OR SCHOOL Adjustment disorder with depressed mood - Desvenlafaxine Succinate ER 50 MG Oral Tablet Extended Release 24 Hour (Pristiq); Take 1 tab by mouth daily with the 100 mg dose for a total of 150 mg daily Need for prophylactic vaccination and inoculation against influenza - INFLUENZA VACC, QUAD, PF, 6 MONTHS & UP, 0.5 ML, IM Hospital discharge follow-up - DISCH MED RECON CUR MED LIS Check-out note: Allergy referral Colonoscopy - should be at least 6-8 weeks out 40 min with pt and chart review Ridge Ramos MD documented in this encounter Nursing Notes * Tana Kirk LPN - 05/03/2023 2:29 PM EST Pt in today for a hospital follow up States she is feeling good documented in this encounter Plan of Treatment Upcoming Encounters Date Type Department Care Team (Late st Contact Info) Description 07/16/2023 8:00 AM EST Office Visit Allergy/Immunology [facility] [place] [address] [place] [address] Paul Del Rio MD [address] [place] [address] 09/17/2023 9:30 AM EDT Procedure Only Endoscopy, [facility] [address] [place] [address] Don Lee MD [address] [place] [address] Scheduled Referrals Name Type Priority Associated Diagnoses Orde r Schedule ALLERGY REFERRAL OP Referral Within 30 days (routine) Allergy to multiple antibiotics Ordered: 05/03/2023 COLONOSCOPY, GI REFERRAL OP Referral Within 30 days (routine) History of diverticulitis Ordered: 05/03/2023 Health Maintenance Due Date Last Done Comments DISCUSS TOBACCO CESSATION (REFER TO SMARTSET #1011) 1970 Hepatitis B (1 of 3 - [...] as of this encounter Visit Diagnoses Diagnosis Allergy to multiple antibiotics- Primary Other drug allergy History of diverticulitis Adjustment disorder with depressed mood Need for prophylactic vaccination and inoculation against influenza Hospital discharge follow-up Other follow-up examination documented in this encounter Care Teams Panel Lay Up Worker Relationship Specialty Start Date End Date Ridge Ramos MD [address] [facility] [place] [id number] PCP - General 05/26/00 documented as of this encounter"
--- OUTSIDE RECORDS SUMMARY | 2023-06-08 17:54 | External Medical Summary | Summary of Care ---
Author Name Unknown Organization [facility] Address [address] [facility] [place] [address] Phone [phone] Care Team Providers Care Clerk Cashier Name Role Phone Ridge Ramos MD Primary Care Provider +1- [phone] Reason for Visit * Reason Comments Acute Sick for a week, jose inage and cough are unbearable at times; woke up with a sore throat again thinks its from drainage and some SOB this morning Encounter Details Date Type Department Care Team (Late st Contact Info) Description 05/12/2023 4:00 PM EST Office Visit [facility] [address] [place] [address] September, Rashi Calderón MD [address] [place] [address] Viral URI with cough* Allergies Active Allergy Reactions Criticality Noted Date Comments Sulfamethoxazole-Trimethoprim Rash Low 2008 Itch, hives Ciprofloxacin Anaphylaxis High 04/21/2019 Hydromorphone Abdominal pain 01/09/2019 Metronidazole Anaphylaxis High 04/24/2023 Morphine Abdominal pain High 01/09/2019 Penicillins 12/19/1998 rash documented as of this encounter (statuses as of 05/12/2023) Medications Medication Sig Dispensed Refills Start Date [...] mg daily. 30 Tablet 2 10/28/2022 Active Pantoprazole Sodium 40 MG Oral Tablet Delayed Release (Protonix) TAKE 1 TABLET BY MOUTH EVERY DAY 90 Tablet 1 12/03/2022 Active amLODIPine Besylate 10 MG Oral Tablet (Norvasc) TAKE 1 TABLET BY MOUTH EVERY DAY 90 Tablet 1 12/03/2022 Active Neomycin-Polymyxin- HC 3.5-87446-5 Otic SolutionIndications :Black head Administer 4 Drops into the left ear in the morning and 4 Drops at noon and 4 Drops before bedtime. To affected ear, for 10 days.. 10 mL 1 01/07/2023 Active Additional Information Patient not taking.Reported on [...] subsequent refill.. 30 Tablet 0 02/04/2023 Active Additional Information Patient taking differently: 150 [...] THE MORNING 90 Capsule 1 03/19/2023 Active Desvenlafaxine Succinate ER 50 MG Oral Tablet Extended Release 24 Hour (Pristiq)Indication s:Adjustment disorder with depressed mood Take 1 tab by mouth daily with the 100 mg dose for a total of 150 mg daily 30 Tablet 5 05/03/2023 Active guaiFENesin-Codeine 100-10 MG/5ML Oral Syrup (Robitussin AC)Indications:Estela l URI with cough Take 5 mL by mouth every 4 hours as needed for Cough. 120 mL 0 05/12/2023 Active Hospital, Clinic, or Other Facility Administered Medication Ordered Dose Route Frequency Start Date End Date Status Albuterol Sulfate (Proventil) (2.5 MG/3ML) 0.083% inhalation solution 2.5 mgIndications:Chronic obstructive pulmonary disease, unspecified COPD type (HCC),History of tobacco abuse 2.5 mg NEBULIZER ONCE PRN 11/27/2022 11/27/2023 Active documented as of this encounter (statuses as of 05/12/2023) Active Problems Problem Noted Date Diagnosed Date [...] as of this encounter (statuses as of 05/12/2023) Resolved Problems Problem Noted Date Diagnosed Date [...] as of this encounter (statuses as of 05/12/2023) Immunizations Name Administration Dates Next Due COVID-19 mRNA, LNP-s, No Pre serve, 2-Dose Series (Cellerix) 04/01/2021,09/03/2020,08/13/2020 Pneumococcal Conjugate Vacci ne, 20-valent ([id number]) 11/27/2022 Pneumococcal Polysaccharide PPV23 (Pneumovax) 09/09/2021,02/17/2016(Deferred: Patient [...] Sign Reading Time Taken Comments Blood Pressure 124/76 05/12/2023 3:45 PM EST Pulse 82 05/12/2023 3:45 PM EST Temperature 36.2 C (97.1 F) 05/12/2023 3:45 PM ES T Respiratory Rate 18 05/12/2023 3:45 PM EST Oxygen Saturation 98% 05/12/2023 3:45 PM EST Inhaled Oxygen Concentration - - Weight 143 kg (315 lb 3.2 oz) 05/12/2023 3:45 PM EST Height - - Body Mass Index 47.93 02/03/2023 8:56 AM EDT documented in this encounter Progress Notes * Rashi Greene MD - 05/12/2023 3:53 PM EST Images from the original note were not included. Assessment and Plan 1. Viral URI with cough Suspect viral cough and congestion. Cough syrup as below. Continue OTC medications and hydration. - guaiFENesin-Codeine 100-10 MG/5ML Oral Syrup (Robitussin AC); Take 5 mL by mouth every 4 hours asneeded for Cough. Dispense: 120 mL; Refill: 0 Wrap-Up Follow up as needed. History of Present Illness The patient is a 52 year old female with past medical history of allergic rhinitis, HTN, obesity, depression, history of PE who presents for sick visit. One week of symptoms. Cough and drainage bother the most. Started with sore throat and PND that hassomewhat resolved. No fevers. No nausea/vomiting/diarrhea. Physical Exam Vitals: 05/12/23 1545 Temp: 36.2 C (97.1 F) Pulse: 82 Resp: 18 SpO2: 98% BP: 124/76 Physical Exam Physical Exam Vitals reviewed. Constitutional: General: She is not in acute distress. HENT: Right Ear: Tympanic membrane normal. There is no impacted cerumen. Left Ear: Tympanic membrane normal. There is no impacted cerumen. Mouth/Throat: Mouth: Mucous membranes are moist. Pharynx: Posterior oropharyngeal erythema present. No oropharyngeal exudate. Cardiovascular: Rate and Rhythm: Normal rate and regular rhythm. Heart sounds: No murmur heard. Pulmonary: Effort: Pulmonary effort is normal. No respiratory distress. Breath sounds: Normal breath sounds. No wheezing. Comments: Intermittent dry cough. Musculoskeletal: Cervical back: Neck supple. Lymphadenopathy: Cervical: No cervical adenopathy. Skin: General: Skin is warm and dry. Neurological: General: No focal deficit present. Mental Status: She is alert. documented in this encounter Nursing Notes * Rosario Escobar LPN - 05/12/2023 3:49 PM EST The patient has been properly identified by confirmation of name and date of . Chief Complaint Patient presents with Acute Sick for a week, drainage and cough are unbearable at times; woke up with a sore throat again thinks its from drainage and some SOB this morning documented in this encounter Plan of Treatment Upcoming Encounters Date Type Department Care Team (Late st Contact Info) Description 05/31/2023 10:20 AM EST Office Visit [facility] [address] [place] [address] Ridge Ramos MD [address] [place] [address] 07/16/2023 8:00 AM EST Office Visit Allergy/Immunology [facility] [address] [place] [address] Paul Del Rio MD [address] [place] [address] 09/17/2023 9:30 AM EDT Procedure Only Endoscopy, [facility] [address] [place] [address] Don Lee MD [address] [place] [address] Health Maintenance Due Date Last Done Comments DISCUSS TOBACCO CESSATION (REFER TO SMARTSET #[id number]) 1970 Hepatitis B (1 of 3 - [...] COMPLETED IN PAST YEAR FOR COPD 04/09/2024 05/12/2023 Diabetes Screening 09/09/2024 09/09/2021, 1 05/27/2019, [...] site documented in this encounter Care Teams Clerk Cashier Relationship Specialty Start Date End Date Ridge Ramos MD [address] [place] [address] PCP - General 05/26/00 documented as of this encounter
--- OUTSIDE RECORDS SUMMARY | 2023-06-08 17:54 | External Medical Summary | Summary of Care ---
Author Name Unknown Organization [facility] Address [address] [facility] [place] [address] Phone [phone] Care Team Providers Care Metal Casket Maker Name Role Phone Ridge Ramos MD Primary Care Provider +1- [phone] Reason for Visit * Reason Onset Date Comments FYI 05/29/2023 Encounter Details Date Type Department Care Team (Late st Contact Info) Description 05/29/2023 Telephone General Internal Medicine [facility] [place] [address] [facility] [place] [address] Raegan Neves MD [address] [facility] [place] [address] FY Allergies Active Allergy Reactions Criticality Noted Date Comments Sulfamethoxazole-Trimethoprim Rash Low 2008 Itch, hives Ciprofloxacin Anaphylaxis High 04/21/2019 Hydromorphone Abdominal pain 01/09/2019 Metronidazole Anaphylaxis High 04/24/2023 Morphine Abdominal pain High 01/09/2019 Penicillins 12/19/1998 rash documented as of this encounter (statuses as of 05/31/2023) Medications Medication Sig Dispensed Refills Start Date [...] mg daily. 30 Tablet 2 10/28/2022 Active Neomycin-Polymyxin- HC 3.5-69772-3 Otic SolutionIndications :Black head Administer 4 Drops [...] a total of 450mg, Reported on 05/03/2023 hydroCHLOROthiazide 12.5 MG Oral Capsule (Hydrodiuril)Indica tions:Hypertensive urgency,Essential (primary) hypertension TAKE 1 CAPSULE BY MOUTH EVERY DAY 90 Capsule 0 02/23/2023 Active valACYclovir HCl 1 GM [...] for Cough. 120 mL 0 05/12/2023 Active amLODIPine Besylate 10 MG Oral Tablet (Norvasc) TAKE 1 TABLET BY MOUTH EVERY DAY 90 Tablet 3 05/26/2023 Active Pantoprazole Sodium 40 MG Oral Tablet Delayed Release (Protonix) TAKE 1 TABLET BY MOUTH EVERY DAY 90 Tablet 3 05/26/2023 Active Lisinopril 40 MG Oral TabletIndications:H TN, goal below 140/90 TAKE 1 TABLET BY MOUTH EVERY DAY IN THE MORNING 90 Tablet 3 05/26/2023 Active Rivaroxaban 20 MG Oral Tablet (Xarelto) TAKE 1 TABLET BY MOUTH EVERY DAY 90 Tablet 1 05/27/2023 Active Nitrofurantoin Monohyd Macro 100 MG Oral Capsule (Macrobid) Take 1 Capsule by mouth in the morning and 1 Capsule before bedtime. Do all this for 5 days. With food until gone. 10 Capsule 0 05/29/2023 Active Hospital, Clinic, or Other Facility Administered Medication Ordered Dose Route Frequency Start Date End Date Status Albuterol Sulfate (Proventil) (2.5 MG/3ML) 0.083% inhalation solution 2.5 mgIndications:Chronic obstructive pulmonary disease, unspecified COPD type (HCC),History of tobacco abuse 2.5 mg NEBULIZER ONCE PRN 11/27/2022 11/27/2023 Active documented as of this encounter (statuses as of 05/31/2023) Active Problems Problem Noted Date Diagnosed Date [...] as of this encounter (statuses as of 05/31/2023) Resolved Problems Problem Noted Date Diagnosed Date [...] as of this encounter (statuses as of 05/31/2023) Immunizations Name Administration Dates Next Due COVID-19 mRNA, LNP-s, No Pre serve, 2-Dose Series (Pfizer) 04/01/2021,09/03/2020,08/13/2020 Pneumococcal Conjugate Vacci ne, 20-valent ([id number]) 11/27/2022 Pneumococcal Polysaccharide PPV23 (Pneumovax) 09/09/2021,02/17/2016(Deferred: Patient [...] encounter Miscellaneous Notes * Telephone Encounter - Raegan Neves MD - 05/29/2023 7:12 PM EST Pt has dysuria, minimal blood, no fever. No nausea, vomitting. Hx of UTI in past. Script sent. Advised hydration. If no improvement, needs office visit next week and UA with culture. documented in this encounter Plan of Treatment Upcoming Encounters Date Type Department Care Team (Late st Contact Info) Description 07/16/2023 8:00 AM EST Office Visit Allergy/Immunology [facility] [place] [address] [place] [address] Paul Del Rio MD [address] [place] [address] 09/17/2023 9:30 AM EDT Procedure Only Endoscopy, [facility] [address] [place] [address] Don Lee MD [address] [place] [address] Health Maintenance Due Date Last Done Comments DISCUSS TOBACCO CESSATION (REFER TO SMARTSET #0259) 1970 Hepatitis B (1 of 3 - [...] filedocumented as of this encounter Care Teams Metal Casket Maker Relationship Specialty Start Date End Date Ridge Ramos MD [address] [place] [address] PCP - General 05/26/00 documented as of this encounter
--- OUTSIDE RECORDS SUMMARY | 2023-06-08 17:54 | External Medical Summary | Summary of Care ---
Author Name Unknown Organization [facility] Address [address] [facility] [place] [address] Phone [phone] Care Team Providers Care Pressroom Foreman Name Role Phone Ridge Ramos MD Primary Care Provider +1- [phone] Reason for Visit * Reason Onset Date Comments Appointment 05/03/2023 colonoscopy Encounter Details Date Type Department Care Team ([facility] st Contact Info) Description 05/03/[address] [facility] [address] [place] [address] Ridge Ramos MD [address] [place] [address] Appointment (colonoscopy) Allergies Active Allergy Reactions Criticality Noted Date Comments Sulfamethoxazole-Trimethoprim Rash Low 2008 Itch, hives Ciprofloxacin Anaphylaxis High 04/21/2019 Hydromorphone Abdominal pain 01/09/2019 Metronidazole Anaphylaxis High 04/24/2023 Morphine Abdominal pain High 01/09/2019 Penicillins 12/19/1998 rash documented as of this encounter (statuses as of 05/04/2023) Medications Medication Sig Dispensed Refills Start Date [...] 90 Tablet 1 12/03/2022 Active Neomycin-Polymyxin- HC 3.5-40826-9 Otic SolutionIndications :Black head Administer 4 Drops [...] mg daily 30 Tablet 5 05/03/2023 Active Hospital, Clinic, or Other Facility Administered Medication Ordered Dose Route Frequency Start Date End Date Status Albuterol Sulfate (Proventil) (2.5 MG/3ML) 0.083% inhalation solution 2.5 mgIndications:Chronic obstructive pulmonary disease, unspecified COPD type (HCC),History of tobacco abuse 2.5 mg NEBULIZER ONCE PRN 11/27/2022 11/27/2023 Active documented as of this encounter (statuses as of 05/04/2023) Active Problems Problem Noted Date Diagnosed Date [...] as of this encounter (statuses as of 05/04/2023) Resolved Problems Problem Noted Date Diagnosed Date [...] as of this encounter (statuses as of 05/04/2023) Immunizations Name Administration Dates Next Due COVID-19 mRNA, LNP-s, No Pre serve, 2-Dose Series (Pfizer) 04/01/2021,09/03/2020,08/13/2020 Pneumococcal Conjugate Vacci ne, 20-valent ([id number]) 11/27/2022 Pneumococcal Polysaccharide PPV23 (Pneumovax) 09/09/2021,02/17/2016(Deferred: Patient [...] encounter Miscellaneous Notes * Telephone Encounter - Odalys Neal OSA - 05/04/2023 12:41 PM EST Pt called back and said that her appointment for 09/16/22 is ok to keep. * Telephone Encounter - Naty Noel OSA - 05/04/2023 11:35 AM EST Lmm for pt, does she need to reschedule? * Telephone Encounter - Ying Mccauley OSA - 05/04/2023 9:04 AM EST Patient calling back to schedule Colonoscopy. Due to BMI (47.90) patient was scheduled @ [facility] for 09/17/23 w/ Dr. Lee. * Telephone Encounter - Rell Ku RMA - 05/03/2023 4:57 PM EST Left voicemail to call back to schedule colon. * Telephone Encounter - Najma Delaney OSA - 05/03/2023 3:32 PM EST Please call patient with an appointment for a colonoscopy. Would like [facility]. All answers were no, except, takes Xeralto. Needs to be 2 months out. Please call [phone] documented in this encounter Plan of Treatment Upcoming Encounters Date Type Department Care Team (Late st Contact Info) Description 05/31/2023 10:20 AM EST Office Visit [facility] [address] [place] [address] Ridge Ramos MD [address] [place] [address] 07/16/2023 8:00 AM EST Office Visit [facility] [address] [place] [place] [address] Paul Del Rio MD [address] [place] [address] 09/17/2023 9:30 AM EDT Procedure Only Endoscopy, [facility] [address] [place] [address] Don Lee MD [address] [place] [address] Health Maintenance Due Date Last Done Comments DISCUSS TOBACCO CESSATION (REFER TO SMARTSET #[id number]) 1970 Hepatitis B (1 of 3 - [...] filedocumented as of this encounter Care Teams Pressroom Foreman Relationship Specialty Start Date End Date Ridge Ramos MD [address] [place] [address] PCP - General 05/26/00 documented as of this encounter
--- OUTSIDE RECORDS SUMMARY | 2023-06-08 17:54 | External Medical Summary | Summary of Care ---
Author Name Unknown Organization [facility] Address [address] [facility] [place] [address] Phone [phone] Care Team Providers Care Operations Recruiter Name Role Phone Ridge Ramos MD Primary Care Provider +1- [phone] Encounter Details Date Type Department Care Team (Late st Contact Info) Description 06/01/2023 Orders Only PATIENT PORTAL DO NOT DELETE THIS DEPT USED BY [place] [id number] Allergies Active Allergy Reactions Criticality Noted Date Comments Sulfamethoxazole-Trimethoprim Rash Low 2008 Itch, hives Ciprofloxacin Anaphylaxis High 04/21/2019 Hydromorphone Abdominal pain 01/09/2019 Metronidazole Anaphylaxis High 04/24/2023 Morphine Abdominal pain High 01/09/2019 Penicillins 12/19/1998 rash documented as of this encounter (statuses as of 06/01/2023) Medications Medication Sig Dispensed Refills Start Date [...] 30 Tablet 2 10/28/2022 Active Neomycin-Polymyxin- HC 3.5-78925-4 Otic SolutionIndications :Black head Administer 4 Drops [...] as of this encounter (statuses as of 06/01/2023) Active Problems Problem Noted Date Diagnosed Date [...] as of this encounter (statuses as of 06/01/2023) Resolved Problems Problem Noted Date Diagnosed Date [...] as of this encounter (statuses as of 06/01/2023) Immunizations Name Administration Dates Next Due COVID-19 mRNA, LNP-s, No Pre serve, 2-Dose Series ([employer]) 04/01/2021,09/03/2020,08/13/2020 Pneumococcal Conjugate Vacci ne, 20-valent ([id number]) 11/27/2022 Pneumococcal Polysaccharide PPV23 (Pneumovax) 09/09/2021,02/17/2016(Deferred: Patient [...] on file documented as of this encounter Plan of Treatment Upcoming Encounters Date Type Department Care Team (Late st Contact Info) Description 07/16/2023 8:00 AM EST Office Visit Allergy/Immunology [place] [place] [address] [place] [address] Paul Del Rio MD [address] [facility] [place], [place] [address] 09/17/2023 9:30 AM EDT Procedure Only Endoscopy, [facility] [address] [place] [address] Don Lee MD [address] [place] [address] Health Maintenance Due Date Last Done Comments DISCUSS TOBACCO CESSATION (REFER TO SMARTSET #5173) 1970 Hepatitis B (1 of 3 - [...] filedocumented as of this encounter Care Teams Operations Recruiter Relationship Specialty Start Date End Date Ridge Ramos MD [address] [facility] [place] [address] PCP - General 05/26/00 documented as of this encounter
--- OUTSIDE RECORDS SUMMARY | 2023-06-08 17:54 | External Medical Summary | Summary of Care ---
Author Name Unknown Organization [facility] Address [address] [place] [place] [facility] [place] [address] Phone [phone] Care Team Providers Care Senior Architect/Design Manager Name Role Phone Ankush Ribeiro MD Primary Care Provider +1- [phone] Reason for Visit * Reason Comments eRx-Medication Refill Encounter Details Date Type Department Care Team (Late st Contact Info) Description 05/26/2023 Refill [facility] [address] [place] [address] Ankush Ribeiro MD [address] [place] [address] HTN, goal below 140/90* Allergies Active Allergy Reactions Criticality Noted Date Comments Sulfamethoxazole-Trimethoprim Rash Low 2008 Itch, hives Ciprofloxacin Anaphylaxis High 04/21/2019 Hydromorphone Abdominal pain 01/09/2019 Metronidazole Anaphylaxis High 04/24/2023 Morphine Abdominal pain High 01/09/2019 Penicillins 12/19/1998 rash documented as of this encounter (statuses as of 05/27/2023) Medications Medication Sig Dispensed Refills Start Date [...] Tablet 2 10/29/19 23 Active Neomycin-Polymyxin -HC 3.5-09558-6 Otic SolutionIndication s:Black head Administer 4 Drops [...] MORNING 90 Capsule 1 03/19/20 23 Active Desvenlafaxine Succinate ER 50 MG Oral Tablet Extended Release 24 Hour (Pristiq)Indicatio ns:Adjustment disorder with depressed mood Take 1 tab by mouth daily with the 100 mg dose for a total of 150 mg daily 30 Tablet 5 05/03/20 23 Active guaiFENesin-Codein e 100-10 MG/5ML Oral [...] DAY 90 Tablet 1 05/27/19 24 Active Rivaroxaban 20 MG Oral Tablet (Xarelto) TAKE 1 TABLET BY MOUTH EVERY DAY 90 Tablet 0 02/24/20 23 024 Discontinued Hospital, Clinic, or Other Facility Administered Medication Ordered Dose Route Frequency Start Date End Date Status Albuterol Sulfate (Proventil) (2.5 MG/3ML) 0.083% inhalation solution 2.5 mgIndications:Chronic obstructive pulmonary disease, unspecified COPD type (HCC),History of tobacco abuse 2.5 mg NEBULIZER ONCE PRN 11/27/2022 11/27/2023 Active documented as of this encounter (statuses as of 05/27/2023) Active Problems Problem Noted Date Diagnosed Date [...] as of this encounter (statuses as of 05/27/2023) Resolved Problems Problem Noted Date Diagnosed Date [...] as of this encounter (statuses as of 05/27/2023) Immunizations Name Administration Dates Next Due COVID-19 mRNA, LNP-s, No Pre serve, 2-Dose Series (Trendr) 04/01/2021,09/03/2020,08/13/2020 Pneumococcal Conjugate Vacci ne, 20-valent ([id number]) 11/27/2022 Pneumococcal Polysaccharide PPV23 (Pneumovax) 09/09/2021,02/17/2016(Deferred: Patient Refused) Seasonal Influenza Virus Vac cine, Unspecified Formulation 03/11/2022 Seasonal Influenza, PF, 6 M & above, IM , (FluLaval or Fluzone) 05/03/2023,03/11/2022,02/07/2021,11/10/2019,04/20/2019,05/03/2018,05/06/20 17 Seasonal Influenza, Quadriva lent, No Preserve, [...] encounter Miscellaneous Notes * Telephone Encounter - Wilner Sevilla [facility] - 05/27/2023 1:24 PM EST Signed Prescriptions: Disp Refills Rivaroxaban 20 MG Oral Tablet (Xarelto) 90 Tab*1 Sig: TAKE 1 TABLET BY MOUTH EVERY DAYAuthorizing Provider: ANKUSH RIBEIRO User: WILNER SEVILLA- documented in this encounter Plan of Treatment Upcoming Encounters Date Type Department Care Team (Late st Contact Info) Description 07/16/2023 8:00 AM EST Office Visit Allergy/Immunology [facility] [address] [place] [address] Paul Del Rio MD [address] [place] [address] 09/17/2023 9:30 AM EDT Procedure Only Endoscopy, [facility] [address] [place] [address] Don Lee MD [address] [facility] [place] [address] Scheduled Orders Name Type Priority Associated Diagnoses Orde r Schedule CBC Lab Routine HTN, goal below 140/90 Expected: 06/03/2023 (Approximate), Expires: 06/02/2024 COMPREHENSIVE METABOLIC PANEL Lab Routine HTN, goal below 140/90 Expected: 06/10/2023 (Approximate), Expires: 05/27/2024 Health Maintenance Due Date Last Done Comments DISCUSS TOBACCO CESSATION (REFER TO SMARTSET #0837) 1970 Hepatitis B (1 of 3 - [...] goal below 140/90- Primary Unspecified essential hypertension documented in this encounter Care Teams Senior Architect/Design Manager Relationship Specialty Start Date End Date Ankush Ribeiro MD [address] [place] [address] PCP - General 05/26/00 documented as of this encounter
--- OUTSIDE RECORDS SUMMARY | 2023-06-08 17:54 | External Medical Summary | Summary of Care ---
Author Name Unknown Organization [facility] Address [address] [place] [facility] [place] [place] [address] Phone [phone] Care Team Providers Care Document Imaging Manager Name Role Phone Ankush Ribeiro MD Primary Care Provider +1- [phone] Reason for Visit * Reason Comments eRx-Medication Refill Encounter Details Date Type Department Care Team (Late st Contact Info) Description 05/25/[address] [facility] [address] [place] [address] Ankush Ribeiro MD [address] [place] [address] HTN, goal below 140/90 Allergies Active Allergy Reactions Criticality Noted Date Comments Sulfamethoxazole-Trimethoprim Rash Low 2008 Itch, hives Ciprofloxacin Anaphylaxis High 04/21/2019 Hydromorphone Abdominal pain 01/09/2019 Metronidazole Anaphylaxis High 04/24/2023 Morphine Abdominal pain High 01/09/2019 Penicillins 12/19/1998 rash documented as of this encounter (statuses as of 05/26/2023) Medications Medication Sig Dispensed Refills Start Date [...] Tablet 2 10/29/19 23 Active Neomycin-Polymyxin -HC 3.5-48799-5 Otic SolutionIndication s:Black head Administer 4 Drops [...] MORNING 90 Tablet 3 05/26/19 24 Active Pantoprazole Sodium 40 MG Oral Tablet Delayed Release (Protonix) TAKE 1 TABLET BY MOUTH EVERY DAY 90 Tablet 1 12/04/19 23 024 Discontinued amLODIPine Besylate 10 MG Oral Tablet (Norvasc) TAKE 1 TABLET BY MOUTH EVERY DAY 90 Tablet 1 12/04/19 23 024 Discontinued Lisinopril 40 MG Oral TabletIndications: HTN, goal below 140/90 TAKE 1 TABLET BY MOUTH EVERY DAY IN THE MORNING 90 Tablet 0 02/10/20 024 Discontinued Hospital, Clinic, or Other Facility Administered Medication Ordered Dose Route Frequency Start Date End Date Status Albuterol Sulfate (Proventil) (2.5 MG/3ML) 0.083% inhalation solution 2.5 mgIndications:Chronic obstructive pulmonary disease, unspecified COPD type (HCC),History of tobacco abuse 2.5 mg NEBULIZER ONCE PRN 11/27/2022 11/27/2023 Active documented as of this encounter (statuses as of 05/26/2023) Active Problems Problem Noted Date Diagnosed Date [...] as of this encounter (statuses as of 05/26/2023) Resolved Problems Problem Noted Date Diagnosed Date [...] as of this encounter (statuses as of 05/26/2023) Immunizations Name Administration Dates Next Due COVID-19 mRNA, LNP-s, No Pre serve, 2-Dose Series (Pfizer) 04/01/2021,09/03/2020,08/13/2020 Pneumococcal Conjugate Vacci ne, 20-valent ([id number]) 11/27/2022 Pneumococcal Polysaccharide PPV23 (Pneumovax) 09/09/2021,02/17/2016(Deferred: Patient [...] Telephone Encounter - Ankush Ribeiro MD - 05/26/2023 11:13 AM ESTSigned Prescriptions: Disp Refills amLODIPine Besylate 10 MG Oral Tablet (Nor*90 Tab*3 Sig: TAKE 1 TABLET BY MOUTH EVERY DAYAuthorizing Provider: ANKUSH RIBEIRO Pantoprazole Sodium 40 MG Oral Tablet Shea*90 Tab*3 Sig: TAKE 1 TABLET BY MOUTH EVERY DAYAuthorizing Provider: ANKUSH RIBEIRO Lisinopril 40 MG Oral Tablet 90 Tab*3 Sig: TAKE 1 TABLET BY MOUTH EVERY DAY [facility]KUSH [facility]IBEIRO * Telephone Encounter - Radha Dalton, commercial property administrator - 05/26/2023 9:15 AM EST Pending Prescriptions: Disp Refills amLODIPine Besylate 10 MG Oral Tablet (Nor*90 Tab*0 Sig: TAKE 1 TABLET BY MOUTH EVERY DAY Pantoprazole Sodium 40 MG Oral Tablet Shea*90 Tab*0 Sig: TAKE 1 TABLET BY MOUTH EVERY DAY Lisinopril 40 MG Oral Tablet 90 Tab*0 Sig: TAKE 1 TABLET BY MOUTH EVERY DAY IN THE MORNING * Telephone Encounter - Radha Dalton commercial property administrator - 05/26/2023 9:13 AM EST Received message from [facility] regarding patient needing labs. Placed call to patient to advise. Left message on voicemail advising of required labs Thank you for your assistance Rahda Dalton President [employer] [facility] (Formerly [employer]) 05/26/2023,9:13 AM * Telephone Encounter - Shannan Ellis [facility] - 05/25/2023 2:00 PM ESTPending Prescriptions: Disp Refills amLODIPine Besylate 10 MG Oral Tablet (Nor*90 Tab*0 Sig: TAKE 1 TABLET BY MOUTH EVERY DAY Pantoprazole Sodium 40 MG Oral Tablet Shea*90 Tab*0 Sig: TAKE 1 TABLET BY MOUTH EVERY DAY Lisinopril 40 MG Oral Tablet 90 Tab*0 Sig: TAKE 1 TABLET BY MOUTH EVERY DAY IN THE MORNING * Telephone Encounter - Shannan Ellis [facility] - 05/25/2023 1:59 PM EST 3rd attempt Unable to authorize medication refills for pended medication(s) at this time. Per refill protocol patient should have routine labs on file within past year. Reviewed AMP report, Care Gaps/Health Maintenance, medications list, and for any routine labs typically ordered for this patient. Lab orders placed. Please contact patient to advise of labs ordered for blood draw AND URINE specimen (patient will have to be able to void to provide sample). Recommend patient to fast if able for labs. Patient may still have water and regular medications. Advise to obtain labs before requesting the next refill. After contacting patient, please forward request to Ankush Ribeiro MD. Thanks, Shannan Ellis PharmD Clinical Pharmacist [facility]) [phone] 05/25/2023, 1:59 PM documented in this encounter Plan of Treatment Upcoming Encounters Date Type Department Care Team (Late st Contact Info) Description 07/16/2023 8:00 AM EST [facility] [address] [place], [place] [address] Paul Del Rio MD [address] [facility] [place] [address] 09/17/2023 9:30 AM EDT Procedure Only Endoscopy, [place] [address] [place] [address] Don Lee MD [address] [place] [address] Health Maintenance Due Date Last Done Comments DISCUSS TOBACCO CESSATION (REFER TO SMARTSET #7538) 1970 Hepatitis B (1 of 3 - [...] hypertension documented in this encounter Care Teams Document Imaging Manager Relationship Specialty Start Date End Date Ankush Ribeiro MD [address] [place] [address] PCP - General 05/26/00 documented as of this encounter
--- OUTSIDE RECORDS SUMMARY | 2023-06-08 17:54 | External Medical Summary | Summary of Care ---
Author Name Unknown Organization [facility] Address [address] [place] [place] [place] [address] Phone [phone] Care Team Providers Care Rail Signal Mechanic Name Role Phone Ridge Ramos MD Primary Care Provider +1- [phone] Reason for Visit * Reason Onset Date Comments Appointment 05/03/2023 colonoscopy Encounter Details Date Type Department Care Team ([facility] st Contact Info) Description 05/03/2023 Telephone [facility] [address] [place] [address] Ridge Ramos MD [address] [place] [address] Appointment (colonoscopy) Allergies Active Allergy [...] 90 Tablet 1 12/03/2022 Active Neomycin-Polymyxin- HC 3.5-25928-3 Otic SolutionIndications :Black head Administer 4 Drops [...] (Pfizer) 04/01/2021,09/03/2020,08/13/2020 Pneumococcal Conjugate Vacci ne, 20-valent ([id number]) 11/27/2022 Pneumococcal Polysaccharide PPV23 (Pneumovax) 09/09/2021,02/17/2016(Deferred: Patient [...] encounter Miscellaneous Notes * Telephone Encounter - Naty Noel OSA - 05/04/2023 11:35 AM EST Lmm for pt, does she need to reschedule? * Telephone Encounter - Ying Mccauley OSA - 05/04/2023 9:04 AM EST Patient calling back to schedule Colonoscopy. Due to BMI (47.90) patient was scheduled @ [facility] for 09/17/23 w/ Dr. Lee. * Telephone [...] to be 2 months out. Please call [phone] documented in this encounter Plan of Treatment Upcoming Encounters Date Type Department Care Team (Late st Contact Info) Description 05/31/2023 10:20 AM EST Office Visit [facility] [address] [place] [id number] Ridge Ramos MD [address] [place] [address] 07/16/2023 8:00 AM EST Office Visit Allergy/Immunology [facility] [place] [address] [facility] [place] [place] [address] Paul Del Rio MD [address] [facility] [place] [address] 09/17/2023 9:30 AM EDT Procedure Only Endoscopy, [place] [address] [place] [address] Don Lee MD [address] [place] [address] Health Maintenance Due Date Last Done Comments DISCUSS TOBACCO CESSATION (REFER TO SMARTSET #[id number]) 1970 Hepatitis B (1 of 3 - [...] filedocumented as of this encounter Care Teams Rail Signal Mechanic Relationship Specialty Start Date End Date Ridge Ramos MD [address] [place] [address] PCP - General 05/26/00 documented as of this encounter
--- OUTSIDE RECORDS SUMMARY | 2023-06-08 17:54 | External Medical Summary | Summary of Care ---
Author Name Unknown Organization [facility] Address [address] [place] [address] Phone [phone] Care Team Providers Care Optical Instruments Supervisor Name Role Phone Ridge Ramos MD Primary Care Provider [phone]- [phone] Reason for Visit * Reason Onset Date Comments Appointment 05/03/2023 colonoscopy Encounter Details Date Type Department Care Team ([facility] st Contact Info) Description 05/03/2023 Telephone [facility] [address] [place] [address] Ridge Ramos MD [address] [place] [address] Appointment (colonoscopy) Allergies Active Allergy [...] 90 Tablet 1 12/03/2022 Active Neomycin-Polymyxin- HC 3.5-03868-6 Otic SolutionIndications :Black head Administer 4 Drops [...] (Pfizer) 04/01/2021,09/03/2020,08/13/2020 Pneumococcal Conjugate Vacci ne, 20-valent ([id number]) 11/27/2022 Pneumococcal Polysaccharide PPV23 (Pneumovax) 09/09/2021,02/17/2016(Deferred: Patient [...] encounter Miscellaneous Notes * Telephone Encounter - Ying Mccauley OSA - 05/04/2023 9:04 AM EST Patient calling back to schedule Colonoscopy. Due to BMI (47.90) patient was scheduled @ [facility] for 09/17/23 w/ Dr. [...] to be 2 months out. Please call [phone] documented in this encounter Plan of Treatment Upcoming Encounters Date Type Department Care Team (Late st Contact Info) Description 05/31/2023 10:20 AM EST Office Visit [facility] [address] [place] [phone] Ridge Ramos MD [address] [place] [address] 07/16/2023 8:00 AM EST Office Visit Allergy/Immunology [facility] [address] [facility] [place] [address] Paul Del Rio MD [address] [facility] [place] [address] 09/17/2023 9:30 AM EDT Procedure Only Endoscopy, [facility] [address] [place] [address] Don Lee MD [address] [place] [address] Health Maintenance Due Date Last Done Comments DISCUSS TOBACCO CESSATION (REFER TO SMARTSET #7698) 1970 Hepatitis B (1 of 3 - [...] filedocumented as of this encounter Care Teams Optical Instruments Supervisor Relationship Specialty Start Date End Date Ridge Ramos MD [address] [place] [address] PCP - General 05/26/00 documented as of this encounter
[2023-06-08] MEDS ORDERED: MoRPHine SULFATE 2 MG/ML CARP IV PRN (17:58)
[2023-06-08] MEDS ORDERED: ALPRAZolam 0.5 MG TABLET PO PRN (17:58)
[2023-06-08] MEDS ORDERED: ALBUTEROL HFA 8 GM INHALER INH PRN (17:58)
[2023-06-08] MEDS ORDERED: oxyCODONE HCL IR 5 MG TAB (IMMEDIATE RELEASE) PO PRN (17:58)
[2023-06-08] MEDS ORDERED: cefTRIAXone SODIUM 2,000 MG in DEXTROSE 5 % MINI-B 50 ML IV SCH (18:00)
[2023-06-08] MEDS: ACETAMINOPHEN 325 MG TAB PO SCH ×2 (18:13→23:04)
[2023-06-08] MEDS: SODIUM CHLORIDE 0.9% 1,000 ML IV SCH ×2 (18:14→23:04)
[2023-06-08] MEDS ORDERED: POLYETHYLENE (MIRALAX) 17 GM PACK PO PRN (18:42)
--- NOTE | 2023-06-08 19:09 | Urology Consultation ---
Date of Consultation June 08, 2023 Assessment & Plan (1) Left ureteral stone: The patient has been admitted on the hospitalist service. From a urologic perspective we recommend the following: Provide analgesics Provide antiemetics Provide IV fluid for hydration Patient is currently receiving antibiotics in the form of Rocephin. Urine culture has been sent and the results of this should be followed for. Flomax has been initiated for expulsive therapy and should continue Serial labs to be followed At the present time the patient is afebrile without tachycardia and is noted to be normotensive. She Only has a slight leukocytosis and she does have a slight bump in her creatinine. As the patient is noted to be stable I feel conservative management is warranted at the present time but we will make her n.p.o. after midnight in the event that she requires cystoscopy upon reevaluati on on 06/09/2023 The patient does have left lower quadrant pain in her abdomen. This could be radiating pain from her left-sided nephrolithiasis but could also be secondary to the diverticulitis noted on CT scan. Due to this issue I have backed the patient's diet down to clear liquids for today making her n.p.o. after midnight. I have discussed with the admitting hospitalist that antibiotics may need to be adjusted to also cover diverticulitis as well as a possible urinary tract infection and they have indicated that they will contact pharmacy for antibiotic recommendations in light of her numerous antibiotic intolerances. (2) Acute diverticulitis: History of Present Illness Reason for Consultation: Nephrolithiasis Attending Physician: Lavonne Barajas MD History of Present Illness This is a 53-year-old female who presented to the emergency department secondary to left-sided abdominal pain. The patient notes that she does have some pain in the left flank but also pain in the left lower quadrant. She notes that the pain began approximately 2 days ago. She denies any nausea or vomiting. She denies any fevers, shakes, or chills. She does not note any palliative or provocative factors to her pain. She does note urinary frequency without dysuria. She also denies hematuria. Patient notes that she does have a history of kidney stones in the past for which at one point she did require cystoscopy with a stent placement. In addition the patient was recently hospitalized in April 2023 secondary to sigmoid diverticulitis. She notes that during this admission she received 3 days of intravenous antibiotics and was discharged home on oral Cipro and Flagyl but was unable to complete these antibiotics due to intolerance to them. She therefore notes that she only received 3 days of intravenous antibiotics for her diverticulitis. Patient's previous imaging was reviewed and she did have a CT scan of the abdomen pelvis on 04/24/2023. This study showed the patient had acute diverticulitis involving the distal descending colon with no perforation or abscess noted at that time. Since arrival to hospital the patient has had labs and imaging which independent reviewed. A CT scan of the abdomen pelvis showed the patient had mild to moderate left-sided hydro nephrosis secondary to a 6 mm kidney stone causing distal left ureteral obstruction. She was noted to have mild acute diverticu litis of the descending colon which appeared similar to a CT scan performed on 04/24/2023. There is no pneumoperitoneum or abscess. Labs include a CBC her white blood cell count had a slight elevation at 11.8. Hemoglobin and hematocrit as well as the platelet count were in the normal range. Chemistry profile showed sodium and potassium along with the BUN were normal. Patient did have a slight elevation of her creatinine at 1.4. Lipase was nonelevated and a test was negative. Urinalysis showed cloudy urine with 2+ blood. The specimen was negative for nitrites but was noted to have 1+ leukocyte Estrace and 5-10 white blood cells per high-power field. There is 1+ bacteria on the study. At the time my interview the patient was resting comfortably in bed and she was no distress. Allergies Allergy/AdvReac Type Severity Reaction Status Date / Time ciprofloxacin [From Cipro] Allergy Severe Anaphylaxis Verified 04/24/23 17:30 metronidazole [From Flagyl] Allergy Severe Anaphylaxis Verified 04/24/23 17:30 Penicillins Allergy Intermediate RASH Verified 11/25/22 18:34 Sulfa (Sulfonamide Allergy Intermediate RASH Verified 11/25/22 18:34 Antibiotics) Iodinated Contrast Media AdvReac Severe Vomiting Verified 06/08/23 12:19 morphine AdvReac Severe abd pain Verified 06/08/23 18:16 hydromorphone AdvReac Intermediate abd pain Verified 11/25/22 18:34 Home Medications Medication Instructions Recorded Confirmed Type alprazolam 0.5 mg tablet 0.5 mg PO TID PRN Anxiety 01/09/19 06/08/23 History lisinopril 40 mg tablet 40 mg PO QAM 01/09/19 06/08/23 History mometasone 50 mcg/actuation nasal 2 spray intranasal DAILY PRN Nasal 01/09/19 06/08/23 History spray Congestion montelukast 10 mg tablet 10 mg PO HS 01/09/19 06/08/23 History valacyclovir 1 gram tablet 2,000 mg PO Q12H PRN Cold Sores 01/09/19 06/08/23 History bupropion HCl 300 mg 24 hr tablet, 300 mg PO QAM 01/04/20 06/08/23 History extended release (Wellbutrin XL) pantoprazole 40 mg tablet,delayed 40 mg PO QAM 01/11/20 06/08/23 History release (Protonix) amlodipine 10 mg tablet 10 mg PO DAILY 05/26/21 06/08/23 History cetirizine 10 mg tablet (Zyrtec) 10 mg PO HS 05/26/21 06/08/23 History desvenlafaxine succinate 100 mg 100 mg PO QAM 05/26/21 06/08/23 History tablet,extended release 24 hr hydrochlorothiazide 12.5 mg capsule 12.5 mg PO DAILY 05/26/21 06/08/23 History metoprolol succinate 50 mg 50 mg PO DAILY 05/26/21 06/08/23 History tablet,extended release 24 hr bupropion HCl 150 mg 24 hr tablet, 150 mg PO QAM 11/25/22 06/08/23 History extended release cyanocobalamin (vitamin B-12) 1,000 mcg PO DAILY 11/25/22 06/08/23 History 1,000 mcg tablet (Vitamin B-12) desvenlafaxine succinate 50 mg 50 mg PO QAM 11/25/22 06/08/23 History tablet,extended release 24 hr rivaroxaban 20 mg tablet (Xarelto) 20 mg PO QAM 11/25/22 06/08/23 History Saccharomyces boulardii 250 mg 250 mg PO DAILY 06/08/23 06/08/23 History capsule (Florastor) albuterol sulfate 90 mcg/actuation 1 puff inhalation Q6H 06/08/23 06/08/23 History aerosol inhaler Patient History Medical History (Updated 06/08/23 @ 19:06 by Melvin Walters PA-C) Acute diverticulitis Depression Fracture of toe of right foot Post-acute sequelae of COVID-19 (PASC) Pulmonary embolism Morbid obesity with BMI of 45.0-49.9, adult History of anesthesia reaction difficulty waking Chronic back pain follows with chiropractor History of kidney stones Epigastric pain reason for EGD Diverticular disease Anxiety History of migraine headaches Hypertension Sleep apnea does not use CPAP as ordered UTI (urinary tract infection) Surgical History History of left breast biopsy benign History of endometrial ablation History of bilateral tubal ligation History of cystoscopy History of colonoscopy History of cholecystectomy History of wisdom tooth extraction Family History Father Diabetes Heart disease Hypertension Other Family history of diabetes mellitus No family history of adverse response to anesthesia Social History Smoking Status: Former smoker Tobacco Type: E-cigarettes / Vaping Cigarettes Per Day: less than 1 pack a day - started age 15-15, has quit multiple times; Second Hand Exposure: Yes; Do You Dip or Chew Tobacco: No; Tobacco Cessation Education Requested by Patient: No Hx Alcohol Use: Yes Alcohol type: hard liquor Hx Substance Use: No Preferred Language: Lithuanian Communication Ability: Effective School Commissioner Required: No Beliefs That Will Affect Care: None marital status: Current Living Situation: Spouse Current Living Situation Comment: home current occupational status: employed Other Information That Helps Us Care for You: No Feels Safe at Home: Yes Safety Concerns: Feels Safe At This Time Assistive Devices: None Review of Systems Constitutional: no fever and no chills Ear, Nose, Mouth, Throat: no hearing loss Respiratory: no cough and no dyspnea Cardiovascular: no chest pain Gastrointestinal: + abdominal pain; no nausea and no vomit ing Genitourinary: as per Subjective / HPI Musculoskeletal: + back pain (Left flank) Integumentary: no rash Neurologic: no localized weakness Physical Exam Constitutional: WD/WN, vitals as above Eyes: no conjunctival abnormality ENMT: Ears: no hearing impairment and no external ear abnormality Mouth: no oropharynx abnormality Neck: trachea midline Respiratory: normal respiratory effort; no respiratory distress and no labored breathing Cardiovascular: Rate/Rhythm: regular rate and regular rhythm Gastrointestinal (Abdomen): Abdomen is rotund but soft. It is nondistended. Bowel sounds are present. There is no rebound tenderness or guarding. Patient did exhibit pain with palpation in the left lower quadrant Musculoskeletal: No calf tenderness Skin: no rashes Neurologic: moves all extremities Psychiatric: A+Ox3, euthymic affect Genitourinary: No CVA tenderness with percussion on the right. Patient had slight CVA tenderness with percussion on the left Results & Data Vital Signs (Past 12 Hours) Vital Signs Temp Pulse Pulse Pulse Resp BP BP 06/08/23 18:00 36.5 C 86 16 127/67 06/08/23 16:57 88 12 116/77 06/08/23 16:01 85 12 112/78 06/08/23 14:41 85 19 112/78 06/08/23 12:13 36.9 C 105 H 18 157/100 H Pulse Ox O2 Del Method 06/08/23 18:00 97 Room Air 06/08/23 16:57 98 06/08/23 16:01 96 06/08/23 14:41 100 Room Air 06/08/23 12:13 100 Room Air PG Care Time/CCT Total # of Minutes Spent Total Time Spent with Patient: Total time spent is greater than 50% in coordination of care (as documented) at patient's floor/unit and/or counseling patient: Coding Level of Care Code 93149 IN/OBS CONSULT LVL 5,80M Diagnoses Left ureteral stone N20.1 Acute diverticulitis K57.92
[2023-06-08] MEDS: TAMSULOSIN HCL 0.4 MG CAP PO SCH (19:43)
[2023-06-08] MEDS: cefOXitin 2,000 MG in DEXTROSE 5 % MINI-B 50 ML IV SCH (19:43)
[2023-06-08] MEDS: MONTELUKAST SODIUM 10 MG TABLET PO SCH (19:43)
[2023-06-08] MEDS: CETIRIZINE HCL 10 MG TABLET PO SCH (19:43)
[2023-06-08] MEDS ORDERED: SODIUM CHLORIDE 0.9% 500 ML IV SCH (21:00)
[2023-06-09] MEDS: oxyCODONE HCL IR 5 MG TAB (IMMEDIATE RELEASE) PO PRN ×2 (00:20→09:13)
[2023-06-09] MEDS: cefOXitin 2,000 MG in DEXTROSE 5 % MINI-B 50 ML IV SCH ×4 (02:01→20:16)
[2023-06-09] MEDS: SODIUM CHLORIDE 0.9% 1,000 ML IV SCH ×3 (05:07→20:16)
[2023-06-09] MEDS: ACETAMINOPHEN 325 MG TAB PO SCH ×4 (05:07→23:59)
[2023-06-09 07:43] LABS: Hematocrit (blood only) 36.4 % (37.0-47.0); Hemoglobin 11.4 g/dl (12.0-16.0); Mean Corpuscular Hemoglobin 29.5 pg (25.0-34.0); Mean Corpuscular Hgb Conc 31.3 g/dL (32.0-36.0); Mean Corpuscular Volume 94.1 fL (80.0-100.0); Platelet Count 319 K/uL (130-400); RDW Coefficient of Variation 12.8 % (11.5-14.5); RDW Standard Deviation 44.1 fL (36.4-46.3); Red Blood Count 3.87 M/uL (4.20-5.40); White Blood Count 9.78 K/ul (4.8-10.8)
[2023-06-09 08:12] LABS: Magnesium 1.9 mg/dl (1.7-2.4); Potassium 4.2 mmol/L (3.5-5.1)
[2023-06-09 08:18] LABS: BUN Creatinine Ratio 12.4 (10-20); Creatinine Clr Calc Pharmacy 51.9 ml/min; Est GFR (African American) 35.7 ml/min; Est GFR (Non-African American) 30.8 ml/min; Phosphorus 4.8 mg/dl (2.5-4.9)
--- NOTE | 2023-06-09 08:25 | Urology Progress Note ---
Date of Service June 09, 2023 Assessment & Plan (1) Hydronephrosis, left: (2) Left ureteral stone: (3) OMAR (acute kidney injury): (4) Flank Pain: (5) UTI (urinary tract infection): Plan 53yo F admitted with severe left sided abdominal and flank pain and concern for infection. CT scan of the abdomen pelvis showed the patient had mild to moderate left-sided hydronephrosis secondary to a 6 mm distal left ureteral stone. She was also noted to have mild acute diverticulitis of the descending colon which appeared similar to a CT scan performed on 04/24/2023. Afebrile and hemodynamically stable Labs WBCs 9.78, creatinine 1.41- 1.85 today. Continue to trend. Urinalysis with 2+ blood, 1+ LE, 1+ bacteria. Urine culture pending. IV Ceftriaxone given in ED. We discussed acute stone management with cystoscopy and stent placement. Ureteral stents were discussed as well as postoperative issues and pain management. She is aware a second procedure will be needed for stone treatment. Risks and benefits were discussed. All questions were answered. Given her left sided pain, OMAR, and concern for infection, will plan to proceed to OR today for cystoscopy and left ureteral stent placement. Risks and benefits discussed as per consent. Continue supportive care and pain management as needed. Covered with scheduled Cefoxitin. Keep NPO. Urology will follow. Admission and Anticipated Discharge Date Admission Date: June 08, 2023 Supervising Physician Co-Signing Physician Notes Discussed patient with SYLVIE. Agree with plan. Proceed to OR for ureteral stent placement. Subjective Pt examined at bedside this AM. Awake, resting in bed on arrival. No acute distress. Has been NPO. Reports left flank and LLQ pain, managing with medication. Denies f/c/n/v. Voiding without issue. Afebrile, VSS. Urine culture pending. On Cefoxitin. On Xarelto for history of PE - Currently on hold per primary team. Review of Systems Constitutional: as per Subjective / HPI Genitourinary: as per Subjective / HPI Physical Exam Constitutional: no acute distress Respiratory: no respiratory distress and no labored breathing Neurologic: moves all extremities and awake Psychiatric: A+Ox3, euthymic affect Results & Data Vital Signs (Past 12 Hours) Vital Signs Temp Pulse Resp BP Pulse Ox O2 Del Method O2 Flow Rate 06/09/23 07:21 36.5 C 75 17 110/71 95 Room Air 06/08/23 22:18 36.6 C 77 16 121/70 96 Nasal Cannula 2 06/08/23 20:47 91/60 L 06/08/23 20:46 36.5 C 76 18 84/56 L 90 Room Air PG Care Time/CCT Total # of Minutes Spent Total Time Spent with Patient: Total time spent is greater than 50% in coordination of care (as documented) at patient's floor/unit and/or counseling patient: Coding Level of Care Code 27638 SUB INP/OBS CARE 2/35MIN Diagnoses Hydronephrosis, left N13.30 Left ureteral stone N20.1 OMAR (acute kidney injury) N17.9 Flank Pain R10.9 UTI (urinary tract infection) N39.0
[2023-06-09] MEDS: SACCHAROMYCES BOULARDII 250 MG CAP PO SCH (08:54)
[2023-06-09] MEDS: CYANOCOBALAMIN (B-12) 500 MCG TABLET PO SCH (08:54)
[2023-06-09] MEDS: METOPROLOL SUCC 50MG EXT REL TAB PO SCH (08:54)
[2023-06-09] MEDS: amLODIPine BESYLATE 5 MG TAB PO SCH (08:54)
[2023-06-09] MEDS: PANTOprazole 40 MG TAB PO SCH (08:55)
[2023-06-09] MEDS: buPROPion XL 150 MG TABCR PO SCH (08:56)
[2023-06-09] MEDS ORDERED: ATROPINE SULFATE 0.1 MG/ML 10ML SYR IV PRN (13:26)
[2023-06-09] MEDS ORDERED: fentaNYL citrate PF 100 MCG/2 ML VIAL IV PRN (13:26)
[2023-06-09] MEDS ORDERED: ePHEDrine sulfate 50 MG/ML AMP IV PRN (13:26)
[2023-06-09] MEDS ORDERED: ONDANSETRON INJ 2 MG/ML 2 ML VIAL IV PRN (13:26)
--- NOTE | 2023-06-09 13:26 | Anesthesiology Consultation ---
Date of Service June 09, 2023 Assessment & Plan (1) Encounter for pre-operative examination: Chart Review Chart Review: Acceptable Risk for Surgery and Patient NOT seen in Pre Admission Testing Consults Requested none History Surgery Operation Date: 06/09/23 11:30 Proposed Procedures p Cystoscopy Retrograde Pyelogram and Stent Left - Bandar Rivera MD Height/Weight Height: 5 ft 7 in Weight: 138.7 kg Allergies Allergy/AdvReac Type Severity Reaction Status Date / Time ciprofloxacin [From Cipro] Allergy Severe Anaphylaxis Verified 04/24/23 17:30 metronidazole [From Flagyl] Allergy Severe Anaphylaxis Verified 04/24/23 17:30 Penicillins Allergy Intermediate RASH Verified 11/25/22 18:34 Sulfa (Sulfonamide Allergy Intermediate RASH Verified 11/25/22 18:34 Antibiotics) Iodinated Contrast Media AdvReac Severe Vomiting Verified 06/08/23 12:19 morphine AdvReac Severe abd pain Verified 06/08/23 18:16 hydromorphone AdvReac Intermediate abd pain Verified 11/25/22 18:34 Medications Home Medications Medication Instructions Recorded Confirmed Last Taken alprazolam 0.5 mg tablet 0.5 mg PO TID PRN Anxiety 01/09/19 06/08/23 05/26/21 09:00 lisinopril 40 mg tablet 40 mg PO QAM 01/09/19 06/08/23 11/25/22 mometasone 50 mcg/actuation nasal 2 spray intranasal DAILY PRN Nasal 01/09/19 06/08/23 Unknown spray Congestion montelukast 10 mg tablet 10 mg PO HS 01/09/19 06/08/23 11/24/22 valacyclovir 1 gram tablet 2,000 mg PO Q12H PRN Cold Sores 01/09/19 06/08/23 Unknown bupropion HCl 300 mg 24 hr tablet, 300 mg PO QAM 01/04/20 06/08/23 11/25/22 extended release (Wellbutrin XL) pantoprazole 40 mg tablet,delayed 40 mg PO QAM 01/11/20 06/08/23 11/25/22 release (Protonix) amlodipine 10 mg tablet 10 mg PO DAILY 05/26/21 06/08/23 11/25/22 cetirizine 10 mg tablet (Zyrtec) 10 mg PO HS 05/26/21 06/08/2311/24/23 desvenlafaxine succinate 100 mg 100 mg PO QAM 05/26/21 06/08/23 11/25/22 tablet,extended release 24 hr hydrochlorothiazide 12.5 mg capsule 12.5 mg PO DAILY 05/26/21 06/08/23 11/25/22 metoprolol succinate 50 mg 50 mg PO DAILY 05/26/21 06/08/23 11/25/22 tablet,extended release 24 hr bupropion HCl 150 mg 24 hr tablet, 150 mg PO QAM 11/25/22 06/08/23 11/25/22 extended release cyanocobalamin (vitamin B-12) 1,000 mcg PO DAILY 11/25/22 06/08/23 11/25/22 1,000 mcg tablet (Vitamin B-12) desvenlafaxine succinate 50 mg 50 mg PO QAM 11/25/22 06/08/23 11/25/22 tablet,extended release 24 hr rivaroxaban 20 mg tablet (Xarelto) 20 mg PO QAM 11/25/22 06/08/23 11/25/22 Saccharomyces boulardii 250 mg 250 mg PO DAILY 06/08/23 06/08/23 Unknown capsule (Florastor) albuterol sulfate 90 mcg/actuation 1 puff inhalation Q6H 06/08/23 06/08/23 Unknown aerosol inhaler Active Medications Generic Name Dose Route Start Last Admin Trade Name Freq PRN Reason Stop Dose Admin Acetaminophen 650 mg 06/08/23 18:30 06/09/23 05:07 Acetaminophen 325 Mg Tab PO 07/08/23 18:29 650 mg Q6H RODDY Administration Amlodipine Besylate 10 mg 06/09/23 09:00 06/09/23 08:54 Amlodipine Besylate 5 Mg Tab PO 07/09/23 08:59 10 mg DAILY RODDY Administration Bupropion HCl 450 mg 06/09/23 09:00 06/09/23 08:56 Bupropion Xl 150 Mg Tabcr PO 07/09/23 08:59 450 mg QAM RODDY Administration Cetirizine HCl 10 mg 06/08/23 21:00 06/08/23 19:43 Cetirizine Hcl 10 Mg Tablet PO 07/08/23 20:59 10 mg HS RODDY Administration Cyanocobalamin 1,000 mcg 06/09/23 09:00 06/09/23 08:54 Cyanocobalamin (B-12) 500 Mcg Tablet PO 07/09/23 08:59 1,000 mcg DAILY RODDY Administration Sodium Chloride 1,000 mls @ 150 mls/hr 06/08/23 17:58 06/09/23 12:22 Nss IV 07/08/23 17:57 150 mls/hr .Q6H40M RODDY Administration Cefoxitin Sodium 2,000 mg/ 50 mls @ 120 mls/hr 06/08/23 21:00 06/09/23 09:22 Dextrose IV 06/18/23 20:59 Infused Q6H RODDY Infusion Metoprolol Succinate 50 mg 06/09/23 09:00 06/09/23 08:54 Metoprolol Succ 50mg Ext Rel Tab PO 07/09/23 08:59 50 mg DAILY RODDY Administration Miscellaneous 1 each 06/09/23 00:00 06/09/23 07:37 Desvenlafaxine Succinate 100 Mg ~ Order Awaiting Action N/A 07/09/23 00:00 Not Given QS RODDY Montelukast Sodium 10 mg 06/08/23 21:00 06/08/23 19:43 Montelukast Sodium 10 Mg Tablet PO 07/08/23 20:59 10 mg HS RODDY Administration Oxycodone HCl 5 mg 06/08/23 18:43 06/09/23 09:13 Oxycodone Hcl Ir 5 Mg Tab (Immediate Release) PO 06/22/23 17:57 5 mg Q4H PRN Administration moderate and severe pain Pantoprazole Sodium 40 mg 06/09/23 09:00 06/09/23 08:55 Pantoprazole 40 Mg Tab PO 07/09/23 08:59 40 mg QAM RODDY Administration Saccharomyces Boulardii 250 mg 06/09/23 09:00 06/09/23 08:54 Saccharomyces Boulardii 250 Mg Cap PO 07/09/23 08:59 250 mg DAILY RODDY Administration Tamsulosin HCl 0.4 mg 06/08/23 21:00 06/08/23 19:43 Tamsulosin Hcl 0.4 Mg Cap PO 07/08/23 20:59 0.4 mg HS RODDY Administration NPO Date Last Intake of Fluids: 06/08/23 Time Last Intake of Fluids: 23:30 Last Intake of Fluids Comment: sip [id number] w/med Date Last Intake of Solids: 06/08/23 Time Last Intake of Solids: 17:30 Past Medical History Medical History Acute diverticulitis Depression Fracture of toe of right foot Post-acute sequelae of COVID-19 (PASC) Pulmonary embolism Morbid obesity with BMI of 45.0-49.9, adult History of anesthesia reaction difficulty waking Chronic back pain follows with chiropractor History of kidney stones Epigastric pain reason for EGD Diverticular disease Anxiety History of migraine headaches Hypertension Sleep apnea does not use CPAP as ordered UTI (urinary tract infection) Past Family History Family History Father Diabetes Heart disease Hypertension Other Family history of diabetes mellitus No family history of adverse response to anesthesia Past Surgical History Surgical History History of left breast biopsy benign History of endometrial ablation History of bilateral tubal ligation History of cystoscopy History of colonoscopy History of cholecystectomy History of wisdom tooth extraction Social History Smoking Status: Former smoker tobacco type: cigarettes Smoking cigarettes per day: less than 1 pack a day - started age 15-15, has quit multiple times Do You Dip or Chew Tobacco: No Hx Alcohol Use: Yes Alcohol type: hard liquor alcohol intake frequency: holidays/special occasions only Hx Substance Use: No substance use type: does not use Physical Exam Vital Signs Last Vital Signs Temp 98.4 F 06/09/23 13:12 Pulse 98 H 06/09/23 13:12 Resp 18 06/09/23 13:12 BP 128/74 06/09/23 13:12 Pulse Ox 100 06/09/23 13:12 O2 Del Method Room Air 06/09/23 13:12 O2 Flow Rate 2 06/08/23 22:18 Testing Laboratory Results 06/09/23 07:00 06/09/23 07:00 Urine Color Yellow 06/08/23 12:27 Urine Appearance Cloudy (Clear) A 06/08/23 12:27 Urine pH 6.0 (4.5-7.5) 06/08/23 12:27 Ur Specific [place] 1.018 (1.000-1.030) 06/08/23 12:27 Urine Protein Negative (Negative) 06/08/23 12:27 Urine Glucose (UA) Negative (Negative) 06/08/23 12:27 Urine Ketones Negative (Negative) 06/08/23 12:27 Urine Nitrite Negative (Negative) 06/08/23 12:27 Ur Leukocyte Esterase 1+ (Negative) H 06/08/23 12:27 Urine WBC (Auto) 5-10 /hpf (0-5) H 06/08/23 12:27 Urine RBC (Auto) 10-30 /hpf (0-4) H 06/08/23 12:27 U Hyaline Cast (Auto) 1-5 /lpf (0-5) 06/08/23 12:27 U Epithel Cells (Auto) >30 /lpf (0-5) H 06/08/23 12:27 Urine Bacteria (Auto) 1+ (Negative) H 06/08/23 12:27 06/08/23 12:27 Urine Culture - Preliminary Urine,Clean Catch Pin-point growth present, reincubating.
--- NOTE | 2023-06-09 14:26 | Operative Report ---
PG Post Operative Report Pre & Post Diagnosis Operation Date: 06/09/23 11:30 Pre-Op Diagnosis: Hydronephrosis, left, Left ureteral stone, acute kidney injury, Flank Pain, urinary tract infection Post-Op Diagnosis: Hydronephrosis, left, Left ureteral stone, acute kidney injury, Flank Pain, urinary tract infection I identified the patient and participated in the time-out.: Yes Procedure Operation Date: 06/09/23 11:30 Actual Procedures p Cystoscopy Retrograde Pyelogram with radiographic interpretation and Stent Left(Left) - Bandar Rivera MD Surgeon Bandar Rivera MD Supervisor Shuttle Veneering None Estimated Blood Loss 0 Findings See Below Malrotated kidney with moderate hydronephrosis. Stent in appropriate position. 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 Description of Procedure After informed consent was obtained, the patient was transported operative suite. MAC anesthesia was induced. The patient was placed in dorsal lithotomy position prepped and draped in a sterile fashion. They received preoperative cefoxitin for antibiotic prophylaxis. An appropriate surgical timeout was performed. A 21 Swazi rigid scope was inserted per urethra into the bladder. Marin cystosc opy revealed no stones or lesions. I turned my attention the left ureteral orifice and intubated this with a 5 Swazi open-ended catheter. A left retrograde pyelogram was shot which showed a malrotated left kidney lower than normal with moderate hydronephrosis. A sensor wire was advanced into the kidney and confirmed fluoroscopically. A 6 Swazi by 24 cm left ureteral stent was deployed with a good proximal coil in the renal pelvis and a good distal coil noted in the bladder. These were confirmed fluoroscopically and under direct visualization, respectively. The bladder was emptied and the scope was removed. This concluded the end of the case. All counts were correct at the end of the case. I was present, scrubbed, and actively participated for the entirety of the procedure. I attest to the content of the Intraoperative Record and any orders documented therein. Any exceptions are noted below.
[2023-06-09] MEDS ORDERED: DIATRIZOATE MEGLUMINE 30% 100ML VIAL INSTIL ONE (14:31)
--- NOTE | 2023-06-09 14:45 | Hospitalist Progress Note ---
Date of Service June 09, 2023 Assessment & Plan (1) Left ureteral stone: (2) Hydronephrosis, left: (3) Acute diverticulitis: (4) Depression: (5) Hypertension: (6) Chronic anticoagulation: Plan 54-year-old woman with history of depression, anxiety, morbid obesity, COPD, PE on Xarelto, hypertension who presents with abdominal pain that started 2 days ago. Left ureteral stone Left hydronephrosis Patient currently [facility] --CT a/p: [id number] left-sided hydroureteronephrosis secondary to an obstructing distal left ureteral 6 mm calculus.2. Mild acute diverticulitis of the distal descending colon which is similar to the 04/24/2023 study.3. No pneumoperitoneum or abscess.4. Nonobstructing bilateral nephrolithiasis. 5. Additional findings as above. She is status post a cystoscopy with left stent placement by Dr. Rivera urine culture: Pinpoint growth, re incubating Continue empiric antibiotic cefoxitin for now, Day #2 Please continue appreciate urology management Continue IVF repeat cbc, bmp in a.m. will place on clears this evening Acute diverticulitis Patient continues to have left lower quadrant pain Will reevaluate pain postoperatively to see if symptoms resolved with stent placed Currently patient is being covered with IV antibiotics Place on clears this evening, if abd pain completely resolved will upgrade diet in a.m. OMAR Baseline creatinine, 1 Creatinine up to 1.85 today Likely secondary to ureteral stone with hydronephrosis Continue IV fluid Repeat labs in a.m. HTN Chronic, stable Continue to hold lisinopril, HCTZ given OMAR Continue metoprolol, amlodipine Hx of PE Chronic anticoagulation xarelto was on hold for upcoming procedure will confirm with urology if we can resume DVT ppx: Xarelto on hold, will resume when able via urology FULL CODE Dispo: med/surg, not yet medically ready for d/c Pt was seen and examined in collaboration with Dr. Robertson, please see addendum A total of 50 minutes was spent coordinating, documenting, and providing care for this patient excluding time spent in the performance of separately billed services. This included personally viewing all current laboratories and imaging studies, medication reconciliation, outpatient chart review, and discussion with specialists. Admission and Anticipated Discharge Date Admission Date: June 08, 2023 Supervising Physician Co-Signing Physician Notes Patient is seen and examined at bedside. States having left lower quadrant pain radiating to groin this morning. Patient had ureteral stent placement earlier today. Patient denies any chest pain, dyspnea, dizziness, nausea, vomiting. Personally reviewed the chart including blood work, imaging studies. On exam patient is obese, no apparent distress, normocephalic atraumatic, EOMI, decreased breath sounds, clear to auscultation, S1-S2, no murmur, no pedal edema, abdomen soft, left groin, left lower quadrant tender, normal bowel sounds, alert, awake, oriented, grossly no focal deficits. Patient is admitted for management of left renal colic secondary to left ureteral stone, obstructive uropathy, OMAR. Appreciate urology input. Possible UTI. Continue empiric IV antibiotics. Follow-up cultures. Advance diet as tolerated. Needs follow-up with urology for definitive treatment. Monitor renal function and avoid nephrotoxic agents as able. Agree with nocturnal oximetry study. Advised to use CPAP regularly as previously recommended. I personally reviewed the record. Patient is interviewed and examined at bedside. Patient's care is coordinated with Mikki Bell PA-C. Please refer to the documentation above for details of patient's presentation and for discussion of other issues. Subjective Pt seen and examined in room 384-2. Follow up kidney stone, mild diverticulitis. She continues to complain of LLQ pain. She feels oxy is just making her tired, but not helping. She cannot tolerate IV pain meds. She denies f/c/s, chest pain, sob, n/v/d. She has been NPO for procedure today. Review of Systems Review of Systems: All systems reviewed & are unremarkable except as noted in HPI & below Physical Exam Physical Exam: Gen: WD/WN, NAD, A&O x3 HEENT: Normocephalic, atraumatic, conjunctivae moist, sclerae anicteric, mucous membranes moist. Lung: Clear to Auscultation bilaterally, no wheezes/rales/rhonchi Heart: Regular rate, regular rhythm, no murmurs, rubs, or gallops Abdomen: Soft, obese, striae, NT, ND +BS x 4 Extremities: No edema Skin: Warm, no rash, negative turgor. Results & Data Results & Data Vital Signs (Past 12 Hours) Vital Signs Temp Pulse Resp BP Pulse Ox O2 Del Method 06/09/23 13:12 36.9 C 98 H 18 128/74 100 Room Air 06/09/23 07:21 36.5 C 75 17 110/71 95 Room Air Laboratory Results Short CBC 06/09/23 Range/Units 07:00 WBC 9.78 (4.8-10.8) K/ul Hgb 11.4 L (12.0-16.0) g/dl Hct 36.4 L (37.0-47.0) % Plt Count 319 (130-400) K/uL BMP 06/09/23 07:00 Sodium 139 Potassium 4.2 Chloride 106 Carbon Dioxide 27 BUN 23 Creatinine 1.85 H D Glucose 96 Calcium 9.0 I independently and personally reviewed patient's a.m. labs including CBC and BMP, mag and phos Medications Administered Current Inpatient Medications Acetaminophen (Acetaminophen 325 Mg Tab) 650 mg PO Q6H RODDY Stop: 07/08/23 18:29 Last Admin: 06/09/23 05:07 Dose: 650 mg Albuterol (Albuterol Hfa 8 Gm Inhaler) 1 puffs INH Q6H PRN PRN Reason: wheezing Stop: 07/08/23 17:57 Alprazolam (Alprazolam 0.5 Mg Tablet) 0.5 mg PO BID PRN PRN Reason: Anxiety Stop: 07/08/23 17:57 Amlodipine Besylate (Amlodipine Besylate 5 Mg Tab) 10 mg PO DAILY RODDY Stop: 07/09/23 08:59 Last Admin: 06/09/23 08:54 Dose: 10 mg Atropine Sulfate (Atropine Sulfate 0.1 Mg/Ml 10ml Syr) 0.5 mg IV Q1M PRN PRN Reason: PACU Use-HR<40 &/or Bradycardi Stop: 06/09/23 21:26 Bupropion HCl (Bupropion Xl 150 Mg Tabcr) 450 mg PO QAM RODDY Stop: 07/09/23 08:59 Last Admin: 06/09/23 08:56 Dose: 450 mg Cetirizine HCl (Cetirizine Hcl 10 Mg Tablet) 10 mg PO HS RODDY Stop: 07/08/23 20:59 Last Admin: 06/08/23 19:43 Dose: 10 mg Cyanocobalamin (Cyanocobalamin (B-12) 500 Mcg Tablet) 1,000 mcg PO DAILY [facility] Stop: 07/09/23 08:59 Last Admin: 06/09/23 08:54 Dose: 1,000 mcg Ephedrine Sulfate (Ephedrine Sulfate 50 Mg/Ml Amp) 5 mg IV Q5M PRN PRN Reason: PACU Use Only-SBP<90 mmHg Stop: 06/09/23 21:26 Fentanyl Citrate (Fentanyl Citrate Pf 100 Mcg/2 Ml Vial) 25 mcg IV Q5M PRN PRN Reason: PACU Use Only-Pain Stop: 06/09/23 21:26 Sodium Chloride (Nss) 1,000 mls @ 150 mls/hr IV .Q6H40M [facility] Stop: 07/08/23 17:57 Last Admin: 06/09/23 12:22 Dose: 150 mls/hr Cefoxitin Sodium 2,000 mg/ (Dextrose) 50 mls @ 120 mls/hr IV Q6H [facility] Stop: 06/18/23 20:59 Last Infusion: 06/09/23 09:22 Dose: Infused Metoprolol Succinate (Metoprolol Succ 50mg Ext Rel Tab) 50 mg PO DAILY [facility] Stop: 07/09/23 08:59 Last Admin: 06/09/23 08:54 Dose: 50 mg Miscellaneous (Desvenlafaxine Succinate 100 Mg ~ Order Awaiting Action) 1 each N/A QS [facility] Stop: 07/09/23 00:00 Last Admin: 06/09/23 07:37 Dose: Not Given Montelukast Sodium (Montelukast Sodium 10 Mg Tablet) 10 mg PO HS [facility] Stop: 07/08/23 20:59 Last Admin: 06/08/23 19:43 Dose: 10 mg Ondansetron HCl (Ondansetron Inj 2 Mg/Ml 2 Ml Vial) 4 mg IV ONCE PRN PRN Reason: PACU Use Only-Nausea/Vomiting Stop: 06/09/23 21:26 Oxycodone HCl (Oxycodone Hcl Ir 5 Mg Tab (Immediate Release)) 5 mg PO Q4H PRN PRN Reason: moderate and severe pain Stop: 06/22/23 17:57 Last Admin: 06/09/23 09:13 Dose: 5 mg Pantoprazole Sodium (Pantoprazole 40 Mg Tab) 40 mg PO QAM [facility] Stop: 07/09/23 08:59 Last Admin: 06/09/23 08:55 Dose: 40 mg Polyethylene Glycol (Polyethylene (Miralax) 17 Gm Pack) 17 gm PO DAILY PRN PRN Reason: Constipation Stop: 07/08/23 18:41 Saccharomyces Boulardii (Saccharomyces Boulardii 250 Mg Cap) 250 mg PO DAILY [facility] Stop: 07/09/23 08:59 Last Admin: 06/09/23 08:54 Dose: 250 mg Tamsulosin HCl (Tamsulosin Hcl 0.4 Mg Cap) 0.4 mg PO HS [facility] Stop: 07/08/23 20:59 Last Admin: 06/08/23 19:43 Dose: 0.4 mg (4) Depression Active/Remission status: remission status unspecified Depression Type: major depressive disorder Major depression recurrence: recurrent Qualified Code(s): F33.9 - Major depressive disorder, recurrent, unspecified (5) Hypertension Hypertension type: primary hypertension Qualified Code(s): I10 - Essential (primary) hypertension
--- NOTE | 2023-06-09 15:08 | Fluoroscopy Report ---
FL retrograde includes kub CLINICAL HISTORY: LEFT STENT PLACEMENT TECHNIQUE: 2 views were obtained with the C-arm in the OR with the above procedure. Total fluoroscopy time was 12.3 seconds. Radiation dose was 7.53 mGy. Comparison: Comparison is made to CT abdomen pelvis 06/08/2023 FINDINGS/IMPRESSION: Intraoperative images were obtained of left retrograde pyelogram and stent place ment. In the final images, the stent is in satisfactory position. Hydronephrosis is noted. Please correlate with intraoperative fluoroscopy and operative report. ACT 112: Negative or not required by law. Electronically signed by: Moe De Leon M.D. 06/09/2023 3:06 PM
--- NOTE | 2023-06-09 15:14 | Anesthesiology Progress Note ---
Date of Service June 09, 2023 Anesthesia Post Procedure Vital Signs Vital Signs: Temp Pulse Pulse Resp BP Pulse Ox O2 Del Method 06/09/23 15:00 90 16 100/71 98 Room Air 06/09/23 14:50 97.9 F 92 H 12 118/71 97 Room Air 06/09/23 14:40 86 14 107/74 98 Oxymask 06/09/23 14:30 97.9 F 92 H 12 98/65 L 94 Oxymask 06/09/23 13:12 98.4 F 98 H 18 128/74 100 Room Air 06/09/23 07:21 97.7 F 75 17 110/71 95 Room Air 06/08/23 22:18 97.9 F 77 16 121/70 96 Nasal Cannula 06/08/23 20:47 91/60 L 06/08/23 20:46 97.7 F 76 18 84/56 L 90 Room Air 06/08/23 18:00 97.7 F 86 16 127/67 97 Room Air 06/08/23 16:57 88 12 116/77 98 06/08/23 16:01 85 12 112/78 96 O2 Flow Rate 06/09/23 15:00 06/09/23 14:50 06/09/23 14:40 4 06/09/23 14:30 6 06/09/23 13:12 06/09/23 07:21 06/08/23 22:18 2 06/08/23 20:47 06/08/23 20:46 06/08/23 18:00 06/08/23 16:57 06/08/23 16:01 Pain Intensity Left Flank: Pain Intensity: 3 Transfer of Care Handoff Completed per policy Notes Mental Status: alert / awake / arousable and participated in evaluation Patient Amnestic to Procedure: Yes Nausea / Vomiting: adequately controlled Pain: adequately controlled Airway Patency, RR, SpO2: stable & adequate BP & HR: stable & adequate Hydration State: stable & adequate Anesthetic Complications: no major complications apparent and Pt Satisfied with anesthetic care
[2023-06-09] MEDS: TAMSULOSIN HCL 0.4 MG CAP PO SCH (20:21)
[2023-06-09] MEDS: CETIRIZINE HCL 10 MG TABLET PO SCH (20:21)
[2023-06-09] MEDS: MONTELUKAST SODIUM 10 MG TABLET PO SCH (20:21)
[2023-06-10] MEDS: SODIUM CHLORIDE 0.9% 1,000 ML IV SCH ×2 (02:12→09:54)
[2023-06-10] MEDS: cefOXitin 2,000 MG in DEXTROSE 5 % MINI-B 50 ML IV SCH ×2 (02:12→08:49)
[2023-06-10] MEDS: ACETAMINOPHEN 325 MG TAB PO SCH ×2 (05:19→12:14)
--- NOTE | 2023-06-10 07:47 | Urology Progress Note ---
Date of Service June 10, 2023 Assessment & Plan (1) Hydronephrosis, left: (2) Left ureteral stone: (3) OMAR (acute kidney injury): (4) Flank Pain: (5) UTI (urinary tract infection): Plan 53yo F admitted with severe left sided abdominal and flank pain and concern for infection. CT scan of the abdomen pelvis showed the patient had mild to moderate left-sided hydronephrosis secondary to a 6 mm distal left ureteral stone. She was also noted to have mild acute diverticulitis of the descending colon which appeared similar to a CT scan performed on 04/24/2023. POD #1 s/p cystoscopy and left ureteral stent placement Afebrile and hemodynamically stable. Labsno leukocytosis, creatinine improved to 1.29 today. Continue to trend. Urine culture preliminary pin-point growth, reincubating. Follow culture. Continues on Cefoxitin. Plan to D/C when medically stable per primary team with course of appropriate antibiotics per final culture, tamsulosin, and prn pain medication for stent management. Will arrange outpatient follow-up with our service to discuss definitive stone treatment. Expected clinical course reviewed, all questions were answered. Urology will sign off. Please call with any further questions or concerns. Admission and Anticipated Discharge Date Admission Date: June 08, 2023 Subjective Pt examined at bedside this AM. Awake, resting in bed on arrival. No acute distress. Tolerating the ureteral stent with minimal bother. Still with left sided abdominal pain, managing with medication. Denies fever, chills, nausea, vomiting. Voiding without issue. Some mild hematuria and dysuria. Tolerating diet. Review of Systems Constitutional: as per Subjective / HPI Genitourinary: as per Subjective / HPI Physical Exam Constitutional: no acute distress Respiratory: no respiratory distress and no labored breathing Neurologic: moves all extremities and awake Psychiatric: A+Ox3, euthymic affect Results & Data Vital Signs (Past 12 Hours) Vital Signs Temp Pulse Pulse Resp BP BP Pulse Ox 06/10/23 07:34 37.1 C 91 H 18 97/64 L 96 06/10/23 05:15 84 06/10/23 02:51 91 H 06/10/23 02:27 36.6 C 85 18 110/60 95 06/10/23 01:37 99 H 06/10/23 00:55 92 H 06/09/23 23:26 37.1 C 92 H 16 108/69 94 06/09/23 23:03 82 Pulse Ox O2 Del Method O2 Del Method O2 Flow Rate O2 Flow Rate 06/10/23 07:34 Nasal Cannula 2 06/10/23 05:15 92 Nasal Cannula 2 06/10/23 02:51 94 Nasal Cannula 2 06/10/23 02:27 Nasal Cannula 2 06/10/23 01:37 84 L Room Air 06/10/23 00:55 92 Room Air 06/09/23 23:26 Room Air 06/09/23 23:03 97 Room Air PG Care Time/CCT Total # of Minutes Spent Total Time Spent with Patient: Total time spent is greater than 50% in coordination of care (as documented) at patient's floor/unit and/or counseling patient: Coding Level of Care Code 81101 SUB INP/OBS CARE 2/35MIN Diagnoses Hydronephrosis, left N13.30 Left ureteral stone N20.1 OMAR (acute kidney injury) N17.9 Flank Pain R10.9 UTI (urinary tract infection) N39.0
[2023-06-10] MEDS: PANTOprazole 40 MG TAB PO SCH (08:18)
[2023-06-10] MEDS: CYANOCOBALAMIN (B-12) 500 MCG TABLET PO SCH (08:18)
[2023-06-10] MEDS: SACCHAROMYCES BOULARDII 250 MG CAP PO SCH (08:18)
[2023-06-10] MEDS: buPROPion XL 150 MG TABCR PO SCH (08:18)
[2023-06-10] MEDS: METOPROLOL SUCC 50MG EXT REL TAB PO SCH (08:20)
[2023-06-10 08:22] LABS: Hematocrit (blood only) 31.9 % (37.0-47.0); Hemoglobin 10.4 g/dl (12.0-16.0); Mean Corpuscular Hemoglobin 29.6 pg (25.0-34.0); Mean Corpuscular Hgb Conc 32.6 g/dL (32.0-36.0); Mean Corpuscular Volume 90.9 fL (80.0-100.0); Mean Platelet Volume 10.2 fL (9.4-12.4); Platelet Count 321 K/uL (130-400); RDW Coefficient of Variation 12.7 % (11.5-14.5); RDW Standard Deviation 42.3 fL (36.4-46.3); Red Blood Count 3.51 M/uL (4.20-5.40); White Blood Count 8.11 K/ul (4.8-10.8)
[2023-06-10 08:45] LABS: BUN Creatinine Ratio 10.9 (10-20); Calcium 8.9 mg/dl (8.6-10.3); Creatinine Clr Calc Pharmacy 74.4 ml/min; Est GFR (African American) 55.1 ml/min; Est GFR (Non-African American) 47.6 ml/min; Potassium 4.1 mmol/L (3.5-5.1)
[2023-06-10] MEDS ORDERED: RIVAROXABAN 20 MG TAB PO SCH (09:00)
[2023-06-10] MEDS: amLODIPine BESYLATE 5 MG TAB PO SCH (10:07)
[2023-06-10] MEDS ORDERED: LOPERAMIDE HCL 2 MG CAP PO PRN (14:54)
--- NOTE | 2023-06-10 14:58 | Hospitalist Progress Note ---
Date of Service June 10, 2023 Assessment & Plan (1) Left ureteral stone: (2) Hydronephrosis, left: (3) Acute diverticulitis: (4) Depression: (5) Hypertension: (6) Chronic anticoagulation: Plan 54-year-old woman with history of depression, anxiety, morbid obesity, COPD, PE on Xarelto, hypertension who presents with abdominal pain that started 2 days ago. Left ureteral stone Left hydronephrosis --CT a/p: [id number] left-sided hydroureteronephrosis secondary to an obstructing distal left ureteral 6 mm calculus.2. Mild acute diverticulitis of the distal descending colon which is similar to the 04/24/2023 study.3. No pneumoperitoneum or abscess.4. Nonobstructing bilateral nephrolithiasis. --S/P Cystoscopy Retrograde Pyelogram with radiographic interpretation and Stent Left(Left) by on 06/09/23 No concern for UTI Urine culture grew Gardnerella like bacilli Empirically received cefoxitin for 3 days Received IV fluids Appreciate urology input Needs follow-up with urology for definitive stone therapy Diarrhea Likely due to antibiotics Stool for C. difficile negative Imodium as needed Suspected Acute diverticulitis Similar to prior study on CT Less likely contributing to abdominal pain OMAR Baseline creatinine, 1 Creatinine up to 1.85 >>1.2 today Likely secondary to ureteral stone with hydronephrosis Received IV fluids Encouraged to increase oral fluid intake HTN Chronic, stable Continue to hold lisinopril, HCTZ given OMAR Continue metoprolol, amlodipine Hx of PE Chronic anticoagulation xarelto was on hold for upcoming procedure will confirm with urology if we can resume Nocturnal hypoxia BENITA noncompliant with CPAP Oximetry study: qualifies for Oxygen at bedtime Advised to use CPAP regularly Morbid obesity BMI 47 DVT Px: Xarelto on hold CODE STATUS Full code Disposition Home Admission and Anticipated Discharge Date Admission Date: June 08, 2023 Subjective Patient is seen and examined at bedside Reports having some left ureteral stent discomfort Also reports minimal hematuria Has diarrhea which she attributes to antibiotics Denies any nausea, vomiting, chest pain, dyspnea No other complaints Review of Systems Review of Systems: All systems reviewed & are unremarkable except as noted in Subjective Physical Exam Physical Exam: Physical Exam: Vitals signs as noted above General Appearance:Obese, no apparent distress Head: normocephalic, Atraumatic Eyes: normal inspection, EOMI Neck: supple, Trachea midline Respiratory/Chest: Decreased breath sounds, CTA, No accessory muscle use Cardiovascular: S1, S2, No murmur Abdomen/GI:Soft, Mild LLQ tender, Bowel sounds present Extremities/Musculoskeletal:normal inspection, no edema Neurologic/Psych:AAOX3, grossly no focal neurological deficits Skin: normal color, warm Results & Data Results & Data Vital Signs (Past 12 Hours) Vital Signs Temp Pulse Pulse Resp BP Pulse Ox Pulse Ox 06/10/23 11:11 37.1 C 88 16 114/73 94 06/10/23 07:34 37.1 C 91 H 18 97/64 L 96 06/10/23 05:15 84 92 O2 Del Method O2 Del Method O2 Flow Rate O2 Flow Rate 06/10/23 11:11 Nasal Cannula 2 06/10/23 07:34 Nasal Cannula 2 06/10/23 05:15 Nasal Cannula 2 Laboratory Results Short CBC 06/10/23 Range/Units 07:34 WBC 8.11 (4.8-10.8) K/ul Hgb 10.4 L (12.0-16.0) g/dl Hct 31.9 L (37.0-47.0) % Plt Count 321 (130-400) K/uL BMP 06/10/23 07:34 Sodium 140 Potassium 4.1 Chloride 109 H Carbon Dioxide 26 BUN 14 Creatinine 1.29 H D Glucose 88 Calcium 8.9 (4) Depression Depression Type: major depressive disorder Major depression recurrence: recurrent Active/Remission status: remission status unspecified Qualified Code(s): F33.9 - Major depressive disorder, recurrent, unspecified (5) Hypertension Hypertension type: primary hypertension Qualified Code(s): I10 - Essential (primary) hypertension
--- NOTE | 2023-06-10 15:20 | Discharge Summary ---
Date of Service June 10, 2023 Admission HPI Per Admitting Provider 54-year-old woman with history of depression, anxiety, morbid obesity, COPD, PE on Xarelto, hypertension who presents with abdominal pain that started 2 days ago. Reports she started having left lower abdominal pressure that worsened and became more pain, constant, severe, radiating to the lower back. This was associated with nausea but no vomiting. Denied any fevers, chills. Denies any dysuria or frequency but noted that she has been having urgency to urinate every dose sometimes she does not Denied diarrhea, melena, hematochezia. Denies chest pain, cough or shortness of breath. Reports occasional headache which is not new or changed Patient quit smoking cigarettes 3 to 5 months ago was smoking 1 pack every 2 to 3 days. Currently vapes Drinks alcohol rarely. Denies illicit drug use Reports family history of father having a cardiac bypass Reports previous history of kidney stone many years ago Admission Exam Per Admitting Provider Constitutional: + well hydrated and + obese; no acute di stress Eyes: PERRL, conjunctivae normal, anicteric sclerae ENMT: external ear and nose normal, oropharynx normal Respiratory: normal respiratory effort, lungs clear to auscultation Cardiovascular: Rate/Rhythm: regular rate and regular rhythm S1 S2 Gastrointestinal (Abdomen): Soft, RLQ tenderness, no guarding or rebound, normal bowel sounds Musculoskeletal: no cyanosis or clubbing, extremities motor strength 5/5 Neurologic: PERRL, EOMI, accommodation nl, no face palsy, no dysarthria Psychiatric: A+Ox3, euthymic affect Principal Diagnosis Left ureteral stone Left hydronephrosis Acute kidney injury Nocturnal hypoxia Discharge Data Allergies Allergy/AdvReac Type Severity Reaction Status Date / Time ciprofloxacin [From Cipro] Allergy Severe Anaphylaxis Verified 04/24/23 17:30 metronidazole [From Flagyl] Allergy Severe Anaphylaxis Verified 04/24/23 17:30 Penicillins Allergy Intermediate RASH Verified 11/25/22 18:34 Sulfa (Sulfonamide Allergy Intermediate RASH Verified 11/25/22 18:34 Antibiotics) Iodinated Contrast Media AdvReac Severe Vomiting Verified 06/08/23 12:19 morphine AdvReac Severe abd pain Verified 06/08/23 18:16 hydromorphone AdvReac Intermediate abd pain Verified 11/25/22 18:34 Consultations 06/08/23 19:04 Consult Urology Routine Procedures Performed Operation Date: 06/09/23 11:30 Actual Procedures p Cystoscopy Retrograde Pyelogram and Stent Left(Left) - Bandar Rivera MD Ordered Studies 06/08/23 12:52 CT abd pelvis wo con Stat 06/09/23 13:00 FL retrograde includes kub Routine Laboratory Results WBC 8.11 K/ul (4.8-10.8) 06/10/23 07:34 RBC 3.51 M/uL (4.20-5.40) L 06/10/23 07:34 Hgb 10.4 g/dl (12.0-16.0) L 06/10/23 07:34 Hct 31.9 % (37.0-47.0) L 06/10/23 07:34 MCV 90.9 fL (80.0-100.0) 06/10/23 07:34 MCH 29.6 pg (25.0-34.0) 06/10/23 07:34 MCHC 32.6 g/dL (32.0-36.0) 06/10/23 07:34 RDW Std Deviation 42.3 fL (36.4-46.3) 06/10/23 07:34 RDW Coeff of Serenity 12.7 % (11.5-14.5) 06/10/23 07:34 Plt Count 321 K/uL (130-400) 06/10/23 07:34 MPV 10.2 fL (9.4-12.4) 06/10/23 07:34 Immature Gran % (Auto) 0.4 % 06/08/23 12:27 Neut % (Auto) 78.8 % 06/08/23 12:27 Lymph % (Auto) 14.4 % 06/08/23 12:27 [place] % (Auto) 4.8 % 06/08/23 12:27 Eos % (Auto) 1.1 % 06/08/23 12:27 Baso % (Auto) 0.5 % 06/08/23 12:27 Neut # (Auto) 9.34 K/uL (1.40-6.50) H 06/08/23 12:27 Lymph # (Auto) 1.71 K/uL (1.20-3.40) 06/08/23 12:27 [place] # (Auto) 0.57 K/uL (0.11-0.59) 06/08/23 12:27 Eos # (Auto) 0.13 K/uL (0.00-0.50) 06/08/23 12:27 Baso # (Auto) 0.06 K/uL (0.00-0.20) 06/08/23 12:27 Immature Gran # (Auto) 0.05 K/uL (0.01-0.20) 06/08/23 12:27 Sodium 140 mmol/L (136-145) 06/10/23 07:34 Potassium 4.1 mmol/L (3.5-5.1) 06/10/23 07:34 Chloride 109 mmol/L (98-107) H 06/10/23 07:34 Carbon Dioxide 26 mmol/L (21-32) 06/10/23 07:34 Anion Gap 5 (3-11) 06/10/23 07:34 BUN 14 mg/dl (6-23) 06/10/23 07:34 Creatinine 1.29 mg/dl (0.6-1.2) H D 06/10/23 07:34 Est Cr Clr Drug Dosing 74.4 ml/min 06/10/23 07:34 Est GFR ( Amer) 55.1 ml/min 06/10/23 07:34 Est GFR (Non-Af Amer) 47.6 ml/min 06/10/23 07:34 BUN/Creatinine Ratio 10.9 (10-20) 06/10/23 07:34 Glucose 88 mg/dl (70-99(Fasting)) 06/10/23 07:34 Calcium 8.9 mg/dl (8.6-10.3) 06/10/23 07:34 Phosphorus 4.8 mg/dl (2.5-4.9) 06/09/23 07:00 Magnesium 1.9 mg/dl (1.7-2.4) 06/09/23 07:00 Total Bilirubin 0.7 mg/dl (0.2-1.0) 06/08/23 12:27 AST 11 U/L (13-39) L 06/08/23 12:27 ALT 15 U/L (7-52) 06/08/23 12:27 Alkaline Phosphatase 72 U/L (34-104) 06/08/23 12:27 Total Protein 7.7 gm/dl (6.0-8.3) 06/08/23 12:27 Albumin 4.1 gm/dl (3.4-5.0) 06/08/23 12:27 Globulin 3.6 gm/dl (2.5-4.0) 06/08/23 12:27 Albumin/Globulin Ratio 1.1 (0.9-2) 06/08/23 12:27 Lipase 17 U/L (11-82) 06/08/23 12:27 HCG, Qual Negative (Negative) 06/08/23 12:27 Urine Color Yellow 06/08/23 12:27 Urine Appearance Cloudy (Clear) A 06/08/23 12:27 Urine pH 6.0 (4.5-7.5) 06/08/23 12:27 Ur Specific [place] 1.018 (1.000-1.030) 06/08/23 12:27 Urine Protein Negative (Negative) 06/08/23 12:27 Urine Glucose (UA) Negative (Negative) 06/08/23 12:27 Urine Ketones Negative (Negative) 06/08/23 12:27 Urine Blood 2+ (Negative) H 06/08/23 12:27 Urine Nitrite Negative (Negative) 06/08/23 12:27 Urine Bilirubin Negative (Negative) 06/08/23 12:27 Urine Urobilinogen Negative (Negative) 06/08/23 12:27 Ur Leukocyte Esterase 1+ (Negative) H 06/08/23 12:27 Urine WBC (Auto) 5-10 /hpf (0-5) H 06/08/23 12:27 Urine RBC (Auto) 10-30 /hpf (0-4) H 06/08/23 12:27 U Hyaline Cast (Auto) 1-5 /lpf (0-5) 06/08/23 12:27 U Epithel Cells (Auto) >30 /lpf (0-5) H 06/08/23 12:27 Urine Bacteria (Auto) 1+ (Negative) H 06/08/23 12:27 Stl C. diff Tox B Gene Negative Cdiff Gene (Neg) 06/10/23 Unknown Impressions Abdomen/Pelvis CT 06/08/23 12:[address] WITHOUT CONTRAST CT DOSE: 1549.61 mGy.cm HISTORY: Acute left lower quadrant abdominal pain llq pain, hx diverticulitis TECHNIQUE: Multiaxial CT images of the abdomen and pelvis were performed without contrast. A dose lowering technique was utilized adhering to the principles of ALARA. COMPARISON STUDY: 04/24/2023 FINDINGS: The lung bases are clear. No pneumoperitoneum. No pneumatosis. Bilateral L5 spondylolysis with associated grade 1 anterolisthesis. Cholecystectomy. Mild hepatomegaly with probable hepatic steatosis. The spleen, right adrenal gland unremarkable. Stable 1.5 cm left adrenal gland nodule, likely a benign adenoma. No retroperitoneal lymphadenopathy. Normal caliber abdominal aorta. Bilateral nonobstructing renal calculi redemonstrated measuring up to approximately 4 mm on the right. A 1.3 center calcifications noted within the inferior pole left kidney. 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 There is mild/moderate left-sided hydroureteronephrosis secondary to an obstructing calculus of the distal left ureter measuring approximately 6 x 4 x 5 mm positioned 1.27 mm upstream to the ureterovesicular junction. Stable 9 mm hypodense lesion within the left side of the uterine fundus, possibly a small fibroid. Decompressed urinary bladder. No pelvic free fluid or pelvic lymphadenopathy. No evidence for a bowel obstruction. Colonic diverticulosis. There is an inflamed diverticulum within the distal sigmoid colon consistent with acute diverticulitis, similar to prior. No abscess identified. There is mild bowel wall thickening at this location. Normal appendix. IMPRESSION: 1. [id number] left-sided hydroureteronephrosis secondary to an obstructing distal left ureteral 6 mm calculus. 2. Mild acute diverticulitis of the distal descending colon which is similar to the 04/24/2023 study. 3. No pneumoperitoneum or abscess. 4. Nonobstructing bilateral nephrolithiasis. 5. Additional findings as above. ACT 112: Negative or not required by law. The above report was generated using voice recognition software. It may contain grammatical, syntax or spelling errors. Electronically signed by: Paras William M.D. 06/08/2023 1:38 PM Retrograde Pyelogram 06/09/23 13:00 FL retrograde includes kub CLINICAL HISTORY: LEFT STENT PLACEMENT TECHNIQUE: 2 views were obtained with the C-arm in the OR with the above procedure. Total fluoroscopy time was 12.3 seconds. Radiation dose was 7.53 mGy. Comparison: Comparison is made to CT abdomen pelvis 06/08/2023 FINDINGS/IMPRESSION: Intraoperative images were obtained of left retrograde pyelogram and stent placement. In the final images, the stent is in satisfactory position. Hydronephrosis is noted. Please correlate with intraoperative fluoroscopy and operative report. ACT 112: Negative or not required by law. Electronically signed by: Moe De Leon M.D. 06/09/2023 3:06 PM Hospital Course (1) Left ureteral stone: (2) Hydronephrosis, left: (3) Acute diverticulitis: (4) Depression: (5) Hypertension: (6) Chronic anticoagulation: Plan 54-year-old woman with history of depression, anxiety, morbid obesity, COPD, PE on Xarelto, hypertension who presents with abdominal pain that started 2 days ago. Left ureteral stone Left hydronephrosis --CT a/p: Nfcz-eq-auwcanew left-sided hydroureteronephrosis secondary to an obstructing distal left ureteral 6 mm calculus.2. Mild acute diverticulitis of the distal descending colon which is similar to the 04/24/2023 study.3. No pneumoperitoneum or abscess.4. Nonobstructing bilateral nephrolithiasis. --S/P Cystoscopy Retrograde Pyelogram with radiographic interpretation and Stent Left(Left) by on 06/09/23 No concern for UTI Urine culture grew Gardnerella like bacilli Empirically received cefoxitin for 3 days Received IV fluids Appreciate urology input Needs follow-up with urology for definitive stone therapy Diarrhea Likely due to antibiotics Stool for C. difficile negative Imodium as needed Suspected Acute diverticulitis Similar to prior study on CT Less likely contributing to abdominal pain OMAR Baseline creatinine, 1 Creatinine up to 1.85 >>1.2 today Likely secondary to ureteral stone with hydronephrosis Received IV fluids Encouraged to increase oral fluid intake HTN Chronic, stable Continue to hold lisinopril, HCTZ given OMAR Continue metoprolol, amlodipine Hx of PE Chronic anticoagulation xarelto was on hold for upcoming procedure will confirm with urology if we can resume Nocturnal hypoxia BENITA noncompliant with CPAP Oximetry study: qualifies for Oxygen at bedtime Advised to use CPAP regularly Morbid obesity BMI 47 DVT Px: Xarelto on hold CODE STATUS Full code Disposition Home Total Time Total Time Spent Total Time Spent (In Minutes): 65 minutes Discharge Plan Discharge Items Patient Disposition: Home - Self-Care Reason For Visit: ABD PAIN Discharge Diagnosis: Left ureteral stone Left hydronephrosis Acute kidney injury Nocturnal hypoxia Activity: Per Instructions section Exercise/Sports: Gradually increase as tolerated Non-emergency contact: Primary Care Provider and Urologist Call non-emergency contact if: you have any medication questions, your symptoms worsen, your pain is concerning for you and you have a fever Follow-up/Referrals: Jonelle Porras CRNP [Nurse Practitioner] - 06/14/23 3:00 pm Ridge Ramos MD [Primary Care Provider] - (Date & Time 06/16/2023 11:20 AM Provider Ridge Ramos MD [facility] ) Diet: Heart Healthy Fidelina Attending Provider Instructions: Follow-up with your primary care physician on 06/16/2023 11:20 AM Follow-up with your urologist OLGA Terry on 06/14/2023 at 3 PM -- Use supplemental oxygen at bedtime as advised. Continue to use CPAP regularly as advised. -- Monitor your blood pressure regularly at home. If blood pressure remains low, discuss with your primary physician for further adjustment of medications as needed. Seek immediate medical attention if your symptoms reoccur or worsen Please take all medications as instructed on discharge list below. Please call if you have any questions or problems. You can reach a [facility] hospitalist on duty at [facility] 24 hours a day by calling [phone] Fidelina Personalized Living Manager Nurse Provider Instructions: Please call the urology office at [phone] with any questions, concerns or need to reschedule appointments for any reason. We are happy to assist you. While you have a ureteral stent in place: Some discomfort is normal. Certain movements may trigger pain or a feeling that you need to urinate. You may also feel mild soreness or pressure before or during urination. Your urine may be slightly pink or red. This is due to bleeding caused by minor irritation from the stent. This may happen on and off while you have the stent, it is not harmful and is to be expected. Medication to help minimize discomfort or bladder spasms, or to prevent infection may be prescribed. Take this as directed. Drink plenty of fluids to help flush out your urinary tract. When to call [facility] at [phone]: Your urine contains heavy blood clots or you are unable to urinate You are constantly leaking urine Fever of 101F or higher, chills, nausea, or vomiting Your pain is not relieved with medication The end of the stent comes out of your urethra Pending Studies at Discharge: No Stand-Alone Forms: My [facility], Work/School Release, Smoking Cessation Medications and DC Order Prescriptions: New tamsulosin 0.4 mg Capsule 0.4 mg PO HS Qty: 30 0RF loperamide 2 mg Capsule 2 mg PO Q6H PRN (Reason: loose stool) Qty: 15 0RF Continued valacyclovir 1 gram tablet 2,000 mg PO Q12H PRN (Reason: Cold Sores) mometasone 50 mcg/actuation spray,non-aerosol 2 spray intranasal DAILY PRN (Reason: Nasal Congestion) montelukast 10 mg tablet 10 mg PO HS alprazolam 0.5 mg tablet 0.5 mg PO TID PRN (Reason: Anxiety) pantoprazole [Protonix] 40 mg Tablet,Delayed Release (Dr/Ec) 40 mg PO QAM bupropion HCl [Wellbutrin XL] 300 mg Tablet Extended Release 24 Hr 300 mg PO QAM Rx Instructions: TOTAL DOSE 450 MG--TAKES WITH 1-150 MG TAB. cetirizine [Zyrtec] 10 mg Tablet 10 mg PO HS metoprolol succinate 50 mg tablet extended release 24 hr 50 mg PO DAILY amlodipine 10 mg tablet 10 mg PO DAILY desvenlafaxine succinate 100 mg tablet extended release 24 hr 100 mg PO QAM Rx Instructions: TOTAL DOSE 150 MG--TAKES WITH 50 MG TAB. cyanocobalamin (vitamin B-12) [Vitamin B-12] 1,000 mcg Tablet 1,000 mcg PO DAILY bupropion HCl 150 mg tablet extended release 24 hr 150 mg PO QAM Rx Instructions: TOTAL DOSE 450 MG--TAKES WITH 300 MG TAB. desvenlafaxine succinate 50 mg tablet extended release 24 hr 50 mg PO QAM Rx Instructions: TOTAL DOSE 150 MG--TAKES WITH 100 MG TAB. albuterol sulfate 90 mcg/actuation HFA aerosol inhaler 1 puff INHALATION Q6H Saccharomyces boulardii [Florastor] 250 mg Capsule 250 mg PO DAILY Held lisinopril 40 mg tablet 40 mg PO QAM Hold Instructions: Resume on 06/13/23. hydrochlorothiazide 12.5 mg capsule 12.5 mg PO DAILY Hold Instructions: Resume on 06/13/23. Xarelto 20 mg tablet 20 mg PO QAM Hold Instructions: Can resume in 2 days if blood in urine resolves. Discharge Orders: Discharge Order (Routine); Ordered 06/10/23 Ordered By: Dwayne Robertson Admission Data Admit Date/Time: 06/08/23 16:52 Attending Provider: Dwayne Robertson Admit Provider: Lavonne Barajas I. Primary Care Provider: Ridge Ramos Other Providers: Doroteo Chavez
--- NOTE | 2023-06-14 16:04 | Coding Query ---
To promote full compliance with coding requirements relating to patient care, provider participation is requested in all cases of associate theatre professor uncertainty. Please assist us with the question(s) below: Coding Question(s): The diagnosis(es) below was documented in the hospitalist progress note on 06/10: No concern for UTI Urine culture grew Gardnerella like bacilli Empirically received cefoxitin for 3 days Please clarify if the UTI was: ( ) Diagnosed and POA ( ) Diagnosed and not POA ( x ) Ruled out ( ) Other (please specify) Physician's Response(s): Thank you for your time, LEANDRO Polanco, [employer]ELD
== END 2023-06-10 18:26 | disposition home or self-care (01) | DRG 660 ==
LOC: ED 12:10 → 3N 16:52 → SUATTDRO 16:52 → 3N 17:34

== ENCOUNTER 2023-12-22 18:05 | Inpatient (IN) ==
[2023-12-22 18:43] LABS: Basophils # (auto) 0.08 K/uL (0.00-0.20); Basophils % (auto) 0.5 %; Eosinophils # (auto) 0.14 K/uL (0.00-0.50); Immature Granulocytes # (auto) 0.07 K/uL (0.01-0.20); Immature Granulocytes % (auto) 0.5 %; Lymphocytes # (auto) 2.77 K/uL (1.20-3.40); Mean Corpuscular Hemoglobin 29.8 pg (25.0-34.0); Mean Corpuscular Hgb Conc 33.3 g/dL (32.0-36.0); Mean Corpuscular Volume 89.4 fL (80.0-100.0); Monocytes # (auto) 0.79 K/uL (0.11-0.59); Monocytes % (auto) 5.4 %; Neutrophils # (auto) 10.75 K/uL (1.40-6.50); Neutrophils % (auto) 73.6 %; Platelet Count 481 K/uL (130-400); RDW Coefficient of Variation 12.5 % (11.5-14.5); RDW Standard Deviation 41.3 fL (36.4-46.3); Red Blood Count 4.36 M/uL (4.20-5.40)
[2023-12-22 18:54] LABS: Appearance Urine Cloudy (Clear); Bacteria Urine Automated 4+ (None Seen); Bilirubin Urine Negative (Negative); Blood Urine Negative (Negative); Color Urine Yellow; Glucose Urine UA Negative (Negative); Ketones Urine Trace (Negative); Leukocyte Esterase Urine 1+ (Negative); Nitrite Urine Negative (Negative); Protein Urine 1+ (Negative); Urobilinogen Urine Negative (Negative); pH Urine 5.5 (4.5-7.5)
[2023-12-22] MEDS: SODIUM CHLORIDE 0.9% 1,000 ML IV STA (18:54)
[2023-12-22] MEDS: ONDANSETRON INJ 2 MG/ML 2 ML VIAL IV STA (18:55)
[2023-12-22] MEDS: KETOROLAC TROMETHAMINE 15 MG/ML VIAL IV STA (18:55)
[2023-12-22 18:58] LABS: Pregnancy Test, Serum Negative (Negative)
[2023-12-22 19:01] LABS: Albumin Globulin Ratio 1.2 (0.9-2); Albumin Level 4.5 gm/dl (3.4-5.0); BUN Creatinine Ratio 14.4 (10-20); Bilirubin,Total 0.6 mg/dl (0.2-1.0); Calcium 9.9 mg/dl (8.6-10.3); Creatinine Clr Calc Pharmacy 65.6 ml/min; Est GFR (African American) 47.5 ml/min; Globulin 3.7 gm/dl (2.5-4.0); Total Protein 8.2 gm/dl (6.0-8.3)
--- NOTE | 2023-12-22 19:05 | Emergency Department Note ---
Impression & Plan Left sided abdominal pain, Acute diverticulitis, Leukocytosis ED Provider Note NAME: MARY LOU RIVERA AGE: 53 SEX: F : 1970 ARRIVES VIA: Walk-In INFORMANT: [Patient] ED PROVIDER(S): [Frank Nolen MD] CHIEF COMPLAINT: Abdominal pain HISTORY OF PRESENT ILLNESS: The patient is a 53-year-old female whose had 5 days of left-sided abdominal pain. She has noticed some nausea, no vomiting. She has had a fever. No urinary complaints, no respiratory complaints, no flank pain. The patient feels a bit bloated. She states the pain is constant and does not come in waves. She is concerned for the possibility of diverticulitis. She had a bout of diverticulitis about 6 months ago. PMHx/PSHx/Social Hx: See Below PHYSICAL EXAM: GENERAL: Patient is in no acute distress. HEENT: No acute trauma, normocephalic atraumatic, mucous membranes moist, no nasal congestion. NECK: No stridor, no adenopathy, no meningismus, trachea is midline. LUNGS: Clear to auscultation bilaterally, no wheeze, no rhonchi, breath sounds equal. HEART: Without murmurs gallops or rubs, regular rate and rhythm. ABDOMEN: Soft, tender along the entire left side of the abdomen, no peritonitis. EXTREMITIES: No cyanosis, full range of motion of all the joints without pain or difficulty. NEUROLOGIC: Oriented x 3, no acute motor or sensory deficits, no focal weakness. SKIN: No jaundice, no diaphoresis. Back: No flank discomfort with percussion. DIFFERENTIAL DIAGNOSIS: Diverticulitis, pyelonephritis, renal colic, UTI, bowel perforation, colitis, among others. EMERGENCY DEPARTMENT PROCEDURES: MEDICAL DECISION MAKING: There is a mild to moderate leukocytosis, this would be consistent with infection. There is a normal hemoglobin. Platelet count somewhat elevated at 481. There was some renal insufficiency noted but this has been documented before. No electrolyte abnormality in need of emergent correction. No concerning liver enzyme elevation. No evidence for pancreatitis. testing was negative. Urinalysis showed potential infection versus contamination. Abdominal and pelvis CT scan shows diverticulitis without abscess or perforation. On exam, patient was not toxic or febrile. She was tender on the left side of the abdomen. Patient was given IV saline 1 L. She was given IV Zofran, IV Toradol and IV clindamycin. Clindamycin was chosen with all of her antibiotic allergies. I spoke with the patient, at this point, hospitalization appears warranted. This is her second case of diverticulitis in just a very short timeframe, she has a leukocytosis, she has multiple allergies that limit use of oral antibiotics. I spoke with case management, the on-call hospitalist was consulted. I do believe the diverticulitis finding explains her presentation and complaints. Prior/Outside records/notes reviewed: None ECG per my interpretation: Indication was abdominal pain. The ECG shows a normal sinus rhythm with a rate of 89. LVH is present. There is no acute ST elevation, no PVCs. There is some nonspecific ST change. The QTc is 430. Continuous Cardiac Monitoring per my interpretation: An order was placed for continuous cardiac monitoring. The monitor shows a rate of 82 with normal sinus rhythm. Imaging/x-ray results per my interpretation: Chest x-ray does not show free air, pneumonia or pneumothorax. Chronic Medical/Social conditions affecting care: Care/Management discussed with: Case management, the on-call hospitalist. 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 Chronic anticoagulation Acute diverticulitis 06/08/23 Sleep apnea does not use CPAP as ordered; uses O2 at @2L HS Depression Hypertension Medical History History of COVID-19 ilsa 2020, pcp test, not hosp; moderate symptoms>developed pulmonary emboli thanks2022, home test, not hosp; moderate symptoms>resolved On home oxygen therapy 2L @HS Slow to wake up after anesthesia Pulmonary embolism /2 to covid 04/2021; currently on xarelto Morbid obesity with BMI of 45.0-49.9, adult Chronic back pain follows with chiropractor History of kidney stones Diverticular disease hx Anxiety History of migraine headaches Surgical History History of left breast biopsy benign History of endometrial ablation History of bilateral tubal ligation History of cystoscopy w/ stent placement and removal History of colonoscopy History of cholecystectomy History of wisdom tooth extraction Family History Father Diabetes Heart disease Hypertension Other Family history of diabetes mellitus No family history of adverse response to anesthesia Social History Smoking Status: Current every day smoker Tobacco Type: E-cigarettes / Vaping Cigarettes Per Day: vaping daily; Second Hand Exposure: No; Do You Dip or Chew Tobacco: No; Hx Alcohol Use: Yes Alcohol type: hard liquor Hx Substance Use: No Preferred Language: Slovenian Communication Ability: Effective Help Desk Operator Required: No Beliefs That Will Affect Care: None marital status: Current Living Situation: Spouse Current Living Situation Comment: home current occupational status: employed Feels Safe at Home: Yes Assistive Devices: Oxygen - at Night Allergies Allergies Allergy/AdvReac Type Severity Reaction Status Date / Time ciprofloxacin [From Cipro] Allergy Severe Anaphylaxis Verified 12/22/23 19:30 metronidazole [From Flagyl] Allergy Severe Anaphylaxis Verified 12/22/23 19:30 Penicillins Allergy Intermediate RASH Verified 12/22/23 19:30 Sulfa (Sulfonamide Allergy Intermediate RASH Verified 12/22/23 19:30 Antibiotics) Iodinated Contrast Media AdvReac Severe Vomiting Verified 12/22/23 19:30 morphine AdvReac Severe abd pain Verified 12/22/23 19:30 hydromorphone AdvReac Intermediate abd pain Verified 12/22/23 19:30 Home Meds Home Medications Medication Instructions Recorded Confirmed alprazolam 0.5 mg tablet 0.5 mg PO TID PRN Anxiety 01/09/19 12/22/23 lisinopril 40 mg tablet 40 mg PO QAM 01/09/19 12/22/23 mometasone 50 mcg/actuation nasal 2 spray intranasal DAILY PRN Nasal 01/09/19 12/22/23 spray Congestion montelukast 10 mg tablet 10 mg PO HS 01/09/19 12/22/23 valacyclovir 1 gram tablet 2,000 mg PO Q12H PRN Cold Sores 01/09/19 12/22/23 bupropion HCl 300 mg 24 hr tablet, 300 mg PO QAM 01/04/20 12/22/23 extended release (Wellbutrin XL) pantoprazole 40 mg tablet,delayed 40 mg PO QAM 01/11/20 12/22/23 release (Protonix) amlodipine 10 mg tablet 10 mg PO QAM 05/26/21 12/22/23 cetirizine 10 mg tablet (Zyrtec) 10 mg PO HS 05/26/21 12/22/23 desvenlafaxine succinate 100 mg 100 mg PO QAM 05/26/21 12/22/23 tablet,extended release 24 hr (Pristiq) hydrochlorothiazide 12.5 mg capsule 12.5 mg PO QAM 05/26/21 12/22/23 metoprolol succinate 50 mg 50 mg PO QAM 05/26/21 12/22/23 tablet,extended release 24 hr bupropion HCl 150 mg 24 hr tablet, 150 mg PO QAM 11/25/22 12/22/23 extended release cyanocobalamin (vitamin B-12) 1,000 mcg PO DAILY 11/25/22 12/22/23 1,000 mcg tablet (Vitamin B-12) desvenlafaxine succinate 50 mg 50 mg PO QAM 11/25/22 12/22/23 tablet,extended release 24 hr rivaroxaban 20 mg tablet (Xarelto) 20 mg PO QAM 11/25/22 12/22/23 Saccharomyces boulardii 250 mg 250 mg PO QAM 06/08/23 12/22/23 capsule (Florastor) albuterol sulfate 90 mcg/actuation 2 puff inhalation Q6H PRN 06/08/23 12/22/23 aerosol inhaler Shortness Of Breath cyclobenzaprine 10 mg tablet 10 mg PO HS PRN MUSCLE SPASMS 12/22/23 12/22/23 ondansetron 8 mg disintegrating 8 mg PO Q8H PRN NAUSEA/VOMITING 12/22/23 12/22/23 tablet Results & Data (ED) Vital Signs Vital Signs - 24 hr 12/22/23 18:10 12/22/23 18:22 12/22/23 19:00 Temperature 36.8 C Temperature Source Temporal Artery Scan Pulse Rate 93 H 100 H 82 Pulse Rate from SpO2 Sensor Pulse Rhythm Regular Regular Pulse Strength Normal Respiratory Rate 20 16 Respiratory Effort / Characteristics Non-Labored Spontaneous Respiratory Depth Normal Blood Pressure 127/82 Blood Pressure [Left Arm] Blood Pressure Mean 97 Blood Pressure Mean [Left Arm] Blood Pressure Position Sitting Pulse Oximetry 94 97 Oxygen Delivery Method Room Air Room Air Oxygen Flow Rate Sepsis Recent Fever Within 48 Hours No Sepsis New/Unexplained Change in Mental Status N/A Sepsis Action Taken by Nursing No Action Required 12/22/23 19:00 12/22/23 20:03 12/22/23 20:09 Temperature Temperature Source Pulse Rate 90 86 86 Pulse Rate from SpO2 Sensor 89 87 88 Pulse Rhythm Pulse Strength Respiratory Rate 16 18 Respiratory Effort / Characteristics Respiratory Depth Blood Pressure 112/61 114/71 Blood Pressure [Left Arm] Blood Pressure Mean 69 85 Blood Pressure Mean [Left Arm] Blood Pressure Position Pulse Oximetry 96 95 94 Oxygen Delivery Method Room Air Room Air Room Air Oxygen Flow Rate Sepsis Recent Fever Within 48 Hours Sepsis New/Unexplained Change in Mental Status Sepsis Action Taken by Nursing 12/22/23 20:30 12/22/23 21:00 12/22/23 21:36 Temperature Temperature Source Pulse Rate 84 81 83 Pulse Rate from SpO2 Sensor 83 81 83 Pulse Rhythm Pulse Strength Respiratory Rate 16 16 13 Respiratory Effort / Characteristics Respiratory Depth Blood Pressure 117/67 149/117 H Blood Pressure [Left Arm] Blood Pressure Mean 78 133 Blood Pressure Mean [Left Arm] Blood Pressure Position Pulse Oximetry 96 96 98 Oxygen Delivery Method Room Air Room Air Room Air Oxygen Flow Rate Sepsis Recent Fever Within 48 Hours Sepsis New/Unexplained Change in Mental Status Sepsis Action Taken by Nursing 12/22/23 21:57 12/22/23 22:00 12/22/23 22:30 Temperature Temperature Source Pulse Rate 81 Pulse Rate from SpO2 Sensor 81 Pulse Rhythm Pulse Strength Respiratory Rate 18 Respiratory Effort / Characteristics Respiratory Depth Blood Pressure 124/65 128/75 Blood Pressure [Left Arm] 112/70 Blood Pressure Mean 79 82 Blood Pressure Mean [Left Arm] 84 Blood Pressure Position Pulse Oximetry 96 Oxygen Delivery Method Nasal Cannula Oxygen Flow Rate 2 Sepsis Recent Fever Within 48 Hours Sepsis New/Unexplained Change in Mental Status Sepsis Action Taken by Nursing 12/22/23 22:33 12/22/23 23:00 12/22/23 23:30 Temperature Temperature Source Pulse Rate 83 78 78 Pulse Rate from SpO2 Sensor 78 78 Pulse Rhythm Pulse Strength Respiratory Rate 19 17 Respiratory Effort / Characteristics Respiratory Depth Blood Pressure 130/71 122/76 Blood Pressure [Left Arm] Blood Pressure Mean 90 91 Blood Pressure Mean [Left Arm] Blood Pressure Position Pulse Oximetry 95 95 Oxygen Delivery Method Nasal Cannula Nasal Cannula Oxygen Flow Rate 2 2 Sepsis Recent Fever Within 48 Hours Sepsis New/Unexplained Change in Mental Status Sepsis Action Taken by [facility] Medications Current Medication List: was personally reviewed by me Laboratory Data Attestation: I reviewed the patient's lab results. 12/22/23 18:20 12/22/23 18:20 Lab Results 12/22/23 Range/Units 18:20 WBC 14.60 H (4.8-10.8) K/ul RBC 4.36 (4.20-5.40) M/uL Hgb 13.0 (12.0-16.0) g/dl Hct 39.0 (37.0-47.0) % MCV 89.4 (80.0-100.0) fL MCH 29.8 (25.0-34.0) pg MCHC 33.3 (32.0-36.0) g/dL RDW Std Deviation 41.3 (36.4-46.3) fL RDW Coeff of [place]ren[place] 12.5 (11.5-14.5) % Plt Count 481 H (130-400) K/uL MPV 10.0 (9.4-12.4) fL Immature Gran % (Auto) 0.5 % Neut % (Auto) 73.6 % Lymph % (Auto) 19.0 % [place] % (Auto) 5.4 % Eos % (Auto) 1.0 % Baso % (Auto) 0.5 % Neut # (Auto) 10.75 H (1.40-6.50) K/uL Lymph # (Auto) 2.77 (1.20-3.40) K/uL [place] # (Auto) 0.79 H (0.11-0.59) K/uL Eos # (Auto) 0.14 (0.00-0.50) K/uL Baso # (Auto) 0.08 (0.00-0.20) K/uL Immature Gran # (Auto) 0.07 (0.01-0.20) K/uL Sodium 139 (136-145) mmol/L Potassium 4.0 (3.5-5.1) mmol/L Chloride 103 (98-107) mmol/L Carbon Dioxide 25 (21-32) mmol/L Anion Gap 11 (3-11) BUN 21 (6-23) mg/dl Creatinine 1.46 H (0.6-1.2) mg/dl Est Cr Clr Drug Dosing 65.6 ml/min Est GFR ( Amer) 47.5 ml/min Est GFR (Non-Af Amer) 41.0 ml/min BUN/Creatinine Ratio 14.4 (10-20) Glucose 94 (70-99(Fasting)) mg/dl Calcium 9.9 (8.6-10.3) mg/dl Total Bilirubin 0.6 (0.2-1.0) mg/dl AST 18 (13-39) U/L ALT 28 (7-52) U/L Alkaline Phosphatase 80 (34-104) U/L Total Protein 8.2 (6.0-8.3) gm/dl Albumin 4.5 (3.4-5.0) gm/dl Globulin 3.7 (2.5-4.0) gm/dl Albumin/Globulin Ratio 1.2 (0.9-2) Lipase 18 (11-82) U/L HCG, Qual Negative (Negative) Urine Color Yellow Urine Appearance Cloudy A (Clear) Urine pH 5.5 (4.5-7.5) Ur Specific [place] 1.020 (1.000-1.030) Urine Protein 1+ H (Negative) Urine Glucose (UA) Negative (Negative) Urine Ketones Trace H (Negative) Urine Blood Negative (Negative) Urine Nitrite Negative (Negative) Urine Bilirubin Negative (Negative) Urine Urobilinogen Negative (Negative) Ur Leukocyte Esterase 1+ H (Negative) Urine WBC (Auto) 11-20 H (0-5) /hpf Urine RBC (Auto) 6-10 H (0-2) /hpf U Hyaline Cast (Auto) 11-20 H (0-2) /lpf U Epithel Cells (Auto) 11-20 H (0-2) /hpf Urine Bacteria (Auto) 4+ H (None Seen) Administered Medications Discontinued Medications Sodium Chloride (Nss) 1,000 mls @ 999 mls/hr IV .Q1H1M STA Stop: 12/22/23 19:21 Last Infusion: 12/22/23 20:09 Dose: Infused Documented By: Admin: 12/22/23 18:54 Dose: 999 mls/hr Documented By: RYAN Clindamycin Phosphate (Cleocin/D5w) 900 mg in 50 mls @ 100 mls/hr IV NOW ONE Stop: 12/22/23 21:25 Last Infusion: 12/22/23 21:55 Dose: Infused Documented By: Admin: 12/22/23 21:19 Dose: 100 mls/hr Documented By: RYAN Ketorolac Tromethamine (Ketorolac Tromethamine 15 Mg/Ml Vial) 15 mg IV NOW STA Stop: 12/22/23 18:22 Last Admin: 12/22/23 18:55 Dose: 15 mg Documented By: RYAN Ondansetron HCl (Ondansetron Inj 2 Mg/Ml 2 Ml Vial) 4 mg IV NOW STA Stop: 12/22/23 18:22 Last Admin: 12/22/23 18:55 Dose: 4 mg Documented By: RYAN Imaging Data Radiologist's Impression: Abdomen/Pelvis CT 12/22/23 18:21 Exam(s): CT ABDOMEN + PELVIS Without Contrast EXAM: CT Abdomen and Pelvis Without Intravenous Contrast CLINICAL HISTORY: Reason for exam: left flank pain. TECHNIQUE: Axial computed tomography images of the abdomen and pelvis without intravenous contrast. CTDI is 28.14 mGy and DLP is 1408.89 mGy-cm. Automated exposure control was utilized for the study. A dose lowering technique was utilized adhering to the principles of ALARA. COMPARISON: CT abdomen/pelvis: 06/08/2023 FINDINGS: Lung bases: No mass. No consolidation. No pleural effusion. ABDOMEN: Analysis of abdominal/pelvic viscera and vascular structures is limited in absence of IV contrast. Liver: Diffuse steatosis. Mild hepatomegaly. Gallbladder and bile ducts: Prior cholecystectomy. No ductal dilation. Pancreas: Fatty infiltration.. No ductal dilation. Spleen: Unremarkable. No splenomegaly. Adrenals: Left adrenal 1.9 cm versus previously 1.2 cm nodule (series 3 image 88). Morphologically normal right adrenal gland. 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 Multiple nonobstructing bilateral renal stones, largest is a coalescent 18 x 10 mm calculus in the lower pole left kidney. No obstructive calculus or hydronephrosis. Stomach and bowel: Descending colonic/proximal sigmoid diverticulosis. In the left lower quadrant distal colonic/proximal sigmoid abnormal wall thickening and pericolonic inflammatory fat stranding, consistent with acute diverticulitis (series 3 image 275, series 300 image 36). Moderately large colonic stool volume. No obstruction. PELVIS: Appendix: No findings to suggest acute appendicitis. Bladder: A nearly empty bladder. No stones. Reproductive: Unremarkable as visualized. ABDOMEN and PELVIS: Intraperitoneal space: Unremarkable. No free air. No significant fluid collection. Bones/joints: No acute fracture. No dislocation. Multilevel degenerative thoracolumbar spondylosis. Grade 1 L5 spondylolisthesis with L5-S1 moderately severe disc disease. Lower lumbosacral facet arthropathy. Soft tissues: Unremarkable. Vasculature: Unremarkable. No abdominal aortic aneurysm. Lymph nodes: Unremarkable. No enlarged lymph nodes. IMPRESSION: Bilateral nonobstructive nephrolithiasis. No hydronephrosis. Malrotated left kidney. Distal colonic/sigmoid diverticulosis coli. In the left lower quadrant abnormal wall thickening of the distal colon/ proximal sigmoid and pericolonic inflammatory fat stranding, consistent with acute diverticulitis. No abscess or focal fluid collection. Left adrenal gland 1.9 cm versus previously 1.2 cm nodule. Correlation with MRI adrenal exam is recommended. Electronically signed by: Soha Villarreal MD, JOSE A 12/22/23 20:24 PM Discharge Plan Visit Data Chief Complaint: Abdominal Pain Stated Complaint: LT FLANK PAIN, ABD PAIN ED Provider: Frank Nolen Discharge Problem: Left sided abdominal pain, Acute diverticulitis, Leukocytosis Patient Disposition: Admitted As Inpatient Condition: Fair Forms Stand Alone Forms: [facility] Prescriptions Prescriptions: No Action valacyclovir 1 gram tablet 2,000 mg PO Q12H PRN (Reason: Cold Sores) mometasone 50 mcg/actuation spray,non-aerosol 2 spray intranasal DAILY PRN (Reason: Nasal Congestion) montelukast 10 mg tablet 10 mg PO HS lisinopril 40 mg tablet 40 mg PO QAM Hold Instructions: Resume on 06/13/23. alprazolam 0.5 mg tablet 0.5 mg PO TID PRN (Reason: Anxiety) pantoprazole [Protonix] 40 mg Tablet,Delayed Release (Dr/Ec) 40 mg PO QAM bupropion HCl [Wellbutrin XL] 300 mg Tablet Extended Release 24 Hr 300 mg PO QAM Rx Instructions: TOTAL DOSE 450 MG--TAKES WITH 1-150 MG TAB. cetirizine [Zyrtec] 10 mg Tablet 10 mg PO HS metoprolol succinate 50 mg tablet extended release 24 hr 50 mg PO QAM amlodipine 10 mg tablet 10 mg PO QAM hydrochlorothiazide 12.5 mg capsule 12.5 mg PO QAM Hold Instructions: Resume on 06/13/23. desvenlafaxine succinate [Pristiq] 100 mg tablet extended release 24 hr 100 mg PO QAM Rx Instructions: TOTAL DOSE 150 MG--TAKES WITH 50 MG TAB. cyanocobalamin (vitamin B-12) [Vitamin B-12] 1,000 mcg Tablet 1,000 mcg PO DAILY bupropion HCl 150 mg tablet extended release 24 hr 150 mg PO QAM Rx Instructions: TOTAL DOSE 450 MG--TAKES WITH 300 MG TAB. desvenlafaxine succinate 50 mg tablet extended release 24 hr 50 mg PO QAM Rx Instructions: TOTAL DOSE 150 MG--TAKES WITH 100 MG TAB. Xarelto 20 mg tablet 20 mg PO QAM Hold Instructions: Can resume in 2 days if blood in urine resolves. albuterol sulfate 90 mcg/actuation HFA aerosol inhaler 2 puff INHALATION Q6H PRN (Reason: Shortness Of Breath) Saccharomyces boulardii [Florastor] 250 mg Capsule 250 mg PO QAM cyclobenzaprine [Flexeril] 10 mg Tablet 10 mg PO HS PRN (Reason: MUSCLE SPASMS) ondansetron [Zofran ODT] 8 mg Tablet,Disintegrating 8 mg PO Q8H PRN (Reason: NAUSEA/VOMITING) Referrals Referrals: Ridge Ramos MD [Primary Care Provider] - Discharge Problem: Leukocytosis Qualifiers: Leukocytosis type: unspecified Qualified Code(s): D72.829 - Elevated white blood cell count, unspecified
--- NOTE | 2023-12-22 20:25 | CT Scan Report ---
Exam(s): CT ABDOMEN + PELVIS Without Contrast EXAM: CT Abdomen and Pelvis Without Intravenous Contrast CLINICAL HISTORY: Reason for exam: left flank pain. TECHNIQUE: Axial computed tomography images of the abdomen and pelvis without intravenous contrast. CTDI is 28.14 mGy and DLP is 1408.89 mGy-cm. Automated exposure control was utilized for the study. A dose lowering technique was utilized adhering to the principles of ALARA. COMPARISON: CT abdomen/pelvis: 06/08/2023 FINDINGS: Lung bases: No mass. No consolidation. No pleural effusion. ABDOMEN: Analysis of abdominal/pelvic viscera and vascular structures is limited in absence of IV contrast. Liver: Diffuse steatosis. Mild hepatomegaly. Gallbladder and bile ducts: Prior cholecystectomy. No ductal dilation. Pancreas: Fatty infiltration.. No ductal dilation. Spleen: Unremarkable. No splenomegaly. Adrenals: Left adrenal 1.9 cm versus previously 1.2 cm nodule (series 3 image 88). Morphologically normal right adrenal gland. 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 Multiple nonobstructing bilateral renal stones, largest is a coalescent 18 x 10 mm calculus in the lower pole left kidney. No obstructive calculus or hydronephrosis. Stomach and bowel: Descending colonic/proximal sigmoid diverticulosis. In the left lower quadrant distal colonic/proximal sigmoid abnormal wall thickening and pericolonic inflammatory fat stranding, consistent with acute diverticulitis (series 3 image 275, series 300 image 36). Moderately large colonic stool volume. No obstruction. PELVIS: Appendix: No findings to suggest acute appendicitis. Bladder: A nearly empty bladder. No stones. Reproductive: Unremarkable as visualized. ABDOMEN and PELVIS: Intraperitoneal space: Unremarkable. No free air. No significant fluid collection. Bones/joints: No acute fracture. No dislocation. Multilevel degenerative thoracolumbar spondylosis. Grade 1 L5 spondylolisthesis with L5-S1 moderately severe disc disease. Lower lumbosacral facet arthropathy. Soft tissues: Unremarkable. Vasculature: Unremarkable. No abdominal aortic aneurysm. Lymph nodes: Unremarkable. No enlarged lymph nodes. IMPRESSION: Bilateral nonobstructive nephrolithiasis. No hydronephrosis. Malrotated left kidney. Distal colonic/sigmoid diverticulosis coli. In the left lower quadrant abnormal wall thickening of the distal colon/ proximal sigmoid and pericolonic inflammatory fat stranding, consistent with acute diverticulitis. No abscess or focal fluid collection. Left adrenal gland 1.9 cm versus previously 1.2 cm nodule. Correlation with MRI adrenal exam is recommended. Electronically signed by: Soha Villarreal MD, JOSE A 12/22/23 20:24 PM
[2023-12-22] MEDS: CLINDAMYCIN/D5W 900 MG/50 ML BAG IV ONE (21:19)
--- OUTSIDE RECORDS SUMMARY | 2023-12-23 01:33 | External Medical Summary | Summary of Care ---
Author Name Unknown Organization [facility] Address [address] [place] [address] Phone [phone] Care Team Providers Care Assembler Motor Vehicle Name Role Phone Ridge Ramos MD Primary Care Provider [phone]- [phone] Reason for Visit * Reason Onset Date Comments Appointment 10/26/2023 Encounter Details Date Type Department Care Team (Late st Contact Info) Description 10/26/2023 Telephone Orthopaedics [facility] [address] [place] [address] Chriss Barksdale MD [address] [facility] [place] [id number] Appointment Allergies Active Allergy Reactions Criticality Noted Date Comments Sulfamethoxazole-Trimethoprim Rash Low 2008 Itch, hives Ciprofloxacin Anaphylaxis High 04/21/2019 Hydromorphone Abdominal pain 01/09/2019 Metronidazole Anaphylaxis High 04/24/2023 Morphine Abdominal pain High 01/09/2019 Penicillins 12/19/1998 rash documented as of this encounter (statuses as of 10/26/2023) Medications Medication Sig Dispensed Refills Start Date End Date Status cetirizine (ZYRTEC) 10 MG TabletIndications:C hronic rhinitis TAKE 1 TABLET BY MOUTH EVERY DAY 30 Tab 11 01/24/2018 Active Cyclobenzaprine HCl 10 MG Oral Tablet (Flexeril)Indicatio ns:Flank pain Take by mouth 1 Tablet as needed before bedtime for Muscle spasms. 10 Tablet 10/17/2021 Active Saccharomyces boulardii 250 MG Oral Capsule (Florastor)Indicati ons:Diverticulitis of colon,Diarrhea, unspecified type Take 1 Capsule by mouth in the morning and 1 Capsule before bedtime. 60 Capsule 1 08/04/2022 Active Montelukast Sodium 10 MG Oral Tablet (Singulair) Take 1 Tablet by mouth daily. 90 Tablet 3 08/31/2022 Active Desvenlafaxine Succinate ER 100 MG Oral Tablet Extended Release 24 Hour (Pristiq) Take 1 Tablet by mouth in the morning. Note- take it with the desvenlafaxine 50 mg tablet for a total of 150 mg daily. 30 Tablet 2 10/28/2022 Active Neomycin-Polymyxin- HC [id number] Otic SolutionIndications :Black head Administer 4 Drops into the left ear in the morning and 4 Drops at noon and 4 Drops before bedtime. To affected ear, for 10 days.. 10 mL 1 01/07/2023 Active Additional Information Patient not taking.Reported on 05/03/2023 ALPRAZolam 0.5 MG Oral Tablet (xaNAX) Take 1 Tablet by mouth 3 times a day as needed for Anxiety. 90 Tablet 01/08/2023 Active buPROPion HCl ER (XL) 150 MG Oral Tablet Extended Release 24 Hour (Wellbutrin XL) Take 3 Tablets by mouth in the morning. Note to pharmacy- please tell patient to make appointment to be seen in order to get subsequent refill.. 30 Tablet 02/04/2023 Active Additional Information Patient taking differently: 150 mgOral Daily(AM),Takes with 300 for a total of 450mg, Reported on 05/03/2023 B-12 1000 MCG Oral Capsule TAKE 1 CAPSULE BY MOUTH EVERY DAY IN THE MORNING 90 Capsule 1 03/19/2023 Active guaiFENesin-Codeine 100-10 MG/5ML Oral Syrup (Robitussin AC)Indications:Estela l URI with cough Take 5 mL by mouth every 4 hours as needed for Cough. 120 mL 05/12/2023 Active Additional Information Patient not taking.Reported on 06/08/2023 amLODIPine Besylate 10 MG Oral Tablet (Norvasc) [...] THE MORNING 90 Tablet 3 05/26/2023 Active Desvenlafaxine Succinate ER 50 MG Oral Tablet Extended Release 24 Hour (Pristiq)Indication s:Adjustment disorder with depressed mood Take 1 tab by mouth daily with the 100 mg dose for a total of 150 mg daily 90 Tablet 3 06/04/2023 Active Ondansetron 8 MG Oral Tablet Disintegrating (Zofran)Indications :Nausea and vomiting, unspecified vomiting type Place 1 Tablet on tongue every 8 hours as needed for Nausea. dissolve on tongue. 20 Tablet 1 06/21/2023 Active Proventil HFA 108 (90 Base) MCG/ACT Inhalation Aerosol SolutionIndications :Bronchitis,Shortne ss of breath Inhale 2 Puffs by mouth every 4 hours as needed for Wheezing. 18 g 3 06/24/2023 Active valACYclovir HCl 1 GM Oral Tablet (Valtrex) TAKE 2 TABLETS BY MOUTH EVERY 12 HOURS FOR 1 DAY FOR COLD SORES 4 Tablet 06/26/2023 Active Doxycycline Hyclate 100 MG Oral CapsuleIndications: Acute maxillary sinusitis, recurrence not specified,Closed fracture of tooth, initial encounter Take 1 Capsule by mouth in the morning and 1 Capsule before bedtime. 60 Capsule 11 07/15/2023 Active Additional Information Patient not taking.Reported on 10/15/2023 Ketorolac Tromethamine 10 MG Oral Tablet (Toradol)Indication s:Acute maxillary sinusitis, recurrence not specified,Closed fracture of tooth, initial encounter Take 1 Tablet by mouth 4 times a day as needed for Pain, Moderate. Do not take for longer than 5 days 20 Tablet 07/15/2023 Active Additional Information Patient not taking.Reported on 10/15/2023 Mometasone Furoate 50 MCG/ACT Nasal SuspensionIndicatio ns:Chronic rhinitis Administer 2 Sprays into each nostril in the morning. 51 g 3 07/20/2023 Active hydroCHLOROthiazide 12.5 MG Oral CapsuleIndications: Hypertensive urgency,Essential (primary) hypertension TAKE 1 CAPSULE BY MOUTH EVERY DAY 90 Capsule 3 08/26/2023 Active buPROPion HCl ER (XL) 300 MG Oral Tablet Extended Release 24 Hour (Wellbutrin XL) TAKE 1 TABLET BY MOUTH EVERY DAY IN THE MORNING 90 Tablet 3 08/26/2023 Active Meloxicam 15 MG Oral TabletIndications:P rimary osteoarthritis of one knee, left Take 1 Tablet by mouth in the morning. for pain.. 30 Tablet 09/20/2023 Active Additional Information Patient not taking.Reported on 10/15/2023 Metoprolol Succinate ER 50 MG Oral Tablet Extended Release 24 Hour (toPROL XL)Indications:Hype rtensive urgency,Essential (primary) hypertension TAKE 1 TABLET BY MOUTH EVERY DAY 90 Tablet 3 10/12/2023 Active Rivaroxaban 20 MG Oral Tablet (Xarelto) TAKE 1 TABLET BY MOUTH EVERY DAY 10/25/2023 Active Hospital, Clinic, or Other Facility Administered Medication Ordered Dose Route Frequency Start Date End Date Status Albuterol Sulfate (Proventil) (2.5 MG/3ML) 0.083% inhalation solution 2.5 mgIndications:Chronic obstructive pulmonary disease, unspecified COPD type (HCC),History of tobacco abuse 2.5 mg NEBULIZER ONCE PRN 11/27/2022 11/27/2023 Active documented as of this encounter (statuses as of 10/26/2023) Active Problems Problem Noted Date Diagnosed Date Chronic obstructive pulmonary disease 06/21/2023 Body mass index (BMI) 45.0-49.9, adult COPD, group B, by GOLD 2017 classification 05/24 Overview: Per COPD GOLD Classification 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 LAI (generalized anxiety disorder) 08/06/2022 History of pulmonary embolism 03/20/2022 Chronic anticoagulation 03/20/2022 Moderate episode of recurrent major depressive d isorder 09/09/2021 HTN, goal below 140/90 01/08/1999 Allergic rhinitis ADJ DISORDER W/DEPRES MOOD documented as of this encounter (statuses as of 10/26/2023) Resolved Problems Problem Noted Date Diagnosed Date Resolved Date Chronic obstructive pulmonary disease 11/27/2022 05/27/2023 Overview: Per COPD GOLD Classification Obesity, morbid (more than 1 00 lbs over ideal weight or BMI > 40) 12/17/2011 07/01/2023 Overview: bmi= 47.02 12/17/11 Open wound of finger 12/17/2011 017 Cat [...] as of this encounter (statuses as of 10/26/2023) Immunizations Name Administration Dates Next Due COVID-19 mRNA, LNP-s, No Pre serve, 2-Dose Series (Pfizer) 04/01/2021,09/03/2020,08/13/2020 Pneumococcal Conjugate Vacci ne, 20-valent ([id number]) 11/27/2022 Pneumococcal Polysaccharide PPV23 (Pneumovax) 09/09/2021,02/17/2016(Deferred: Patient [...] Date Smoking Tobacco: Former Cigarettes 1 15 Passive Smoke Exposure: Current [...] didn't have money to get more. Patient declined 10/2022 Sex and Gender Information Value Date Recorded Sex Assigned at Female 08/07/2022 11:05 AM EDT Gender Identity Female 08/07/2022 11:05 AM EDT Sexual Orientation Straight 08/07/2022 11 :05 AM EDT Job Start Date Occupation Industry Not on file Not on file Not on file documented as of this encounter Miscellaneous Notes * Telephone Encounter - Diann Philip OSA - 10/26/2023 11:36 AM EDT Called pt to re-schedule her appt on 10/27. Now with Dr. Barksdale on 10/28. Left her a voicemail and said if this will not work she can call back. If she calls back and someone other than us here at the [facility] clinic should have to see this, she can be scheduled with Dr. Ha Kumar, Dr. Erin Saenz, or Dr. Chriss Barksdale. Thank you! documented in this encounter Plan of Treatment Upcoming Encounters Date Type Department Care Team (Late st Contact Info) Description 10/29/2023 1:30 PM EDT Office Visit Orthopaedics [facility] [address] [id number] Chriss Barksdale MD [address] [place] [address] Health Maintenance Due Date Last Done Comments Albumin/Creatinine Ratio 1989 Alpha-1 Antitrypsin 1989 HPV/Co-Test 2001 Cologuard 2016 Fecal Occult Blood Test 2016 Sigmoidoscopy 2016 Cervical Cancer Screening 11/18/2018 Pap Smear 11/18/2018 11/19/2015, 01/2008 (Done elsewhere), 01/05/2003, Additional history exists Mammogram 07/16/2022 07/16/2021, 06/2021, 10/23/2016, Additional history exists GFR 09/09/2022 09/09/2021, 03/17, 04/24/2019, Additional history exists *COPD SEVERITY VERIFIED BY PFT 11/29/2022 COVID-19 Vaccine ( season) 2023 04/01/2021, 09/03/2020, 08/13/2020 Depression Monitoring 11/20/2023 11/19/2022 Diabetes Screening 09/09/2024 09/09/2021, 1 05/27/2019, 04/24/2019, Additional history exists O2 ASSESSMENT COMPLETED IN PAST YEAR FOR COPD 10/07/2024 10/08/2023 Lipid Panel 03/27/2025 03/27/2020, 01/2019, 05/12/2018, Additional history exists DTaP,Tdap,and Td Vaccines (3 - Td or Tdap) 01/31/2032 01/30/2022, 12/17/2011 Colonoscopy 10/07/2033 10/08/2023, 09/15, 10/29/2014, Additional history exists Colorectal Cancer Screening 10/07/2033 Pneumococcal Vaccine: Pediatrics (0 to 5 Years) and At-Risk Patients (6 to 64 Years) Completed 11/27/2022, 09/09/2021 Zoster Vaccines Completed 11/27/2022, 09/09/2021 Influenza Vaccine (FLU shot) Completed 05/03/2023, 03/11/2022, 03/11/2022, Additional history exists GARDASIL-HPV IMMUNIZATION SERIES Aged Out No longer eligible based on patient's age to complete this topic HIV Screening Discontinued Hepatitis B Discontinued Hepatitis C Screening Discontinued MENINGOCOCCAL (MENACTRA/MENVEO) Aged Out No longer eligible based on patient's age to complete this topic documented as of this encounter Medical Devices Not on filedocumented as of this encounter Care Teams Assembler Motor Vehicle Relationship Specialty Start Date End Date Ridge Ramos MD [address] [place] [id number] PCP - General 05/26/00 documented as of this encounter
--- OUTSIDE RECORDS SUMMARY | 2023-12-23 01:33 | External Medical Summary | Summary of Care ---
Author Name Unknown Organization [facility] Address [address] [facility] [place] [place] [address] Phone [phone] Care Team Providers Care Solid Center Winder Name Role Phone Ankush Ribeiro MD Primary Care Provider +1- [phone] Reason for Visit * Reason Comments eRx-Medication Refill Encounter Details Date Type Department Care Team (Late st Contact Info) Description 10/06/2023 Refill [facility] [address] [place] [address] Ankush Ribeiro MD [address] [place] [address] Allergies Active Allergy Reactions Criticality Noted Date Comments Sulfamethoxazole-Trimethoprim Rash Low 2008 Itch, hives Ciprofloxacin Anaphylaxis High 04/21/2019 Hydromorphone Abdominal pain 01/09/2019 Metronidazole Anaphylaxis High 04/24/2023 Morphine Abdominal pain High 01/09/2019 Penicillins 12/19/1998 rash documented as of this encounter (statuses as of 11/09/2023) Medications Medication Sig Dispensed Refills Start Date End Date Status cetirizine (ZYRTEC) 10 MG TabletIndications: Chronic rhinitis TAKE 1 TABLET BY MOUTH EVERY DAY 30 Tab 11 01/25/20 18 Active Cyclobenzaprine HCl 10 MG Oral Tablet (Flexeril)Indicati ons:Flank pain Take by mouth 1 Tablet as needed before bedtime for Muscle spasms. 10 Tablet 10/18/19 22 Active Saccharomyces boulardii 250 MG Oral Capsule (Florastor)Indicat ions:Diverticuliti s of colon,Diarrhea, unspecified type Take 1 Capsule by mouth in the morning and 1 Capsule before bedtime. 60 Capsule 1 08/05/19 Active Montelukast Sodium 10 MG Oral Tablet (Singulair) Take 1 Tablet by mouth daily. 90 Tablet 3 09/01/19 Active Desvenlafaxine Succinate ER 100 MG Oral Tablet Extended Release 24 Hour (Pristiq) Take 1 Tablet by mouth in the morning. Note- take it with the desvenlafaxine 50 mg tablet for a total of 150 mg daily. 30 Tablet 2 10/29/19 Active Neomycin-Polymyxin -HC 3.5-57562-9 Otic SolutionIndication s:Black head Administer 4 Drops into the left ear in the morning and 4 Drops at noon and 4 Drops before bedtime. To affected ear, for 10 days.. 10 mL 1 01/08/20 Active Additional Information Patient not taking.Reported on 05/03/2023 ALPRAZolam 0.5 MG Oral Tablet (xaNAX) Take 1 Tablet by mouth 3 times a day as needed for Anxiety. 90 Tablet 01/09/20 Active buPROPion HCl ER (XL) 150 MG Oral Tablet Extended Release 24 Hour (Wellbutrin XL) Take 3 Tablets by mouth in the morning. Note to pharmacy- please tell patient to make appointment to be seen in order to get subsequent refill.. 30 Tablet 02/05/20 Active Additional Information Patient taking differently: 150 mgOral Daily(AM),Takes with 300 for a total of 450mg, Reported on 05/03/2023 B-12 1000 MCG Oral Capsule TAKE 1 CAPSULE BY MOUTH EVERY DAY IN THE MORNING 90 Capsule 1 03/19/20 Active guaiFENesin-Codein e 100-10 MG/5ML Oral Syrup (Robitussin AC)Indications:Vir al URI with cough Take 5 mL by mouth every 4 hours as needed for Cough. 120 mL 05/12/20 Active Additional Information Patient not taking.Reported on 06/08/2023 amLODIPine Besylate 10 MG Oral Tablet (Norvasc) TAKE 1 TABLET BY MOUTH EVERY DAY 90 Tablet 3 05/26/19 Active Pantoprazole Sodium 40 MG Oral Tablet Delayed Release (Protonix) TAKE 1 TABLET BY MOUTH EVERY DAY 90 Tablet 3 05/26/19 Active Lisinopril 40 MG Oral TabletIndications: HTN, goal below 140/90 TAKE 1 TABLET BY MOUTH EVERY DAY IN THE MORNING 90 Tablet 3 05/26/19 24 Active Desvenlafaxine Succinate ER 50 MG Oral Tablet Extended Release 24 Hour (Pristiq)Indicatio ns:Adjustment disorder with depressed mood Take 1 tab by mouth daily with the 100 mg dose for a total of 150 mg daily 90 Tablet 3 06/04/19 24 Active Ondansetron 8 MG Oral Tablet Disintegrating (Zofran)Indication s:Nausea and vomiting, unspecified vomiting type Place 1 Tablet on tongue every 8 hours as needed for Nausea. dissolve on tongue. 20 Tablet 1 06/21/19 24 Active valACYclovir HCl 1 GM Oral Tablet (Valtrex) TAKE 2 TABLETS BY MOUTH EVERY 12 HOURS FOR 1 DAY FOR COLD SORES 4 Tablet 06/26/19 24 Active Doxycycline Hyclate 100 MG Oral CapsuleIndications :Acute maxillary sinusitis, recurrence not specified,Closed fracture of tooth, initial encounter Take 1 Capsule by mouth in the morning and 1 Capsule before bedtime. 60 Capsule 11 07/15/19 24 Active Additional Information Patient not taking.Reported on 10/15/2023 Ketorolac Tromethamine 10 MG Oral Tablet (Toradol)Indicatio ns:Acute maxillary sinusitis, recurrence not specified,Closed fracture of tooth, initial encounter Take 1 Tablet by mouth 4 times a day as needed for Pain, Moderate. Do not take for longer than 5 days 20 Tablet 07/15/19 24 Active Additional Information Patient not taking.Reported on 10/15/2023 Mometasone Furoate 50 MCG/ACT Nasal SuspensionIndicati ons:Chronic rhinitis Administer 2 Sprays into each nostril in the morning. 51 g 3 07/20/19 24 Active hydroCHLOROthiazid e 12.5 MG Oral CapsuleIndications :Hypertensive urgency,Essential (primary) hypertension TAKE 1 CAPSULE BY MOUTH EVERY DAY 90 Capsule 3 08/26/19 24 Active buPROPion HCl ER (XL) 300 MG Oral Tablet Extended Release 24 Hour (Wellbutrin XL) TAKE 1 TABLET BY MOUTH EVERY DAY IN THE MORNING 90 Tablet 3 08/26/19 24 Active Meloxicam 15 MG Oral TabletIndications: Primary osteoarthritis of one knee, left Take 1 Tablet by mouth in the morning. for pain.. 30 Tablet 09/20/19 24 Active Additional Information Patient not taking.Reported on 10/15/2023 Metoprolol Succinate ER 50 MG Oral Tablet Extended Release 24 Hour (toPROL XL)Indications:Hyp ertensive urgency,Essential (primary) hypertension TAKE 1 TABLET BY MOUTH EVERY DAY 90 Tablet 3 10/08/19 23 024 Discontinued Rivaroxaban 20 MG Oral Tablet (Xarelto) TAKE 1 TABLET BY MOUTH EVERY DAY 90 Tablet 1 05/27/19 24 024 Discontinued Cephalexin 500 MG Oral Capsule (Keflex) Take 1 Capsule by mouth in the morning and 1 Capsule before bedtime. 06/14/19 24 024 Discontinued(Pa tient preference/disc ontinuation) oxyCODONE HCl 5 MG Oral Tablet (Oxy IR) Take 1 Tablet by mouth every 4 hours as needed for Pain, Mild. 06/16/19 24 024 Discontinued(Pa tient preference/disc ontinuation) Tamsulosin HCl 0.4 MG Oral Capsule (Flomax) Take 1 Capsule by mouth in the morning. 06/10/19 24 024 Discontinued(Pa tient preference/disc ontinuation) Proventil HFA 108 (90 Base) MCG/ACT Inhalation Aerosol SolutionIndication s:Bronchitis,Short ness of breath Inhale 2 Puffs by mouth every 4 hours as needed for Wheezing. 18 g 3 06/24/19 24 024 Discontinued Rivaroxaban 20 MG Oral Tablet (Xarelto) TAKE 1 TABLET BY MOUTH EVERY DAY 90 Tablet 10/07/19 24 024 Discontinued(Re fill) Hospital, Clinic, or Other Facility Administered Medication Ordered Dose Route Frequency Start Date End Date Status Albuterol Sulfate (Proventil) (2.5 MG/3ML) 0.083% inhalation solution 2.5 mgIndications:Chronic obstructive pulmonary disease, unspecified COPD type (HCC),History of tobacco abuse 2.5 mg NEBULIZER ONCE PRN 11/27/2022 11/27/2023 Active documented as of this encounter (statuses as of 11/09/2023) Active Problems Problem Noted Date Diagnosed Date Chronic obstructive pulmonary disease 06/21/2023 Body mass index (BMI) 45.0-49.9, adult 4 COPD, group B, by GOLD 2017 classification 05/24 Overview: Per COPD GOLD Classification 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 LAI (generalized anxiety disorder) 08/06/2022 History of pulmonary embolism 03/20/2022 Chronic anticoagulation 03/20/2022 Moderate episode of recurrent major depressive d isorder 09/09/2021 HTN, goal below 140/90 01/08/1999 Allergic rhinitis ADJ DISORDER W/DEPRES MOOD documented as of this encounter (statuses as of 11/09/2023) Resolved Problems Problem Noted Date Diagnosed Date [...] as of this encounter (statuses as of 11/09/2023) Immunizations Name Administration Dates Next Due COVID-19 mRNA, LNP-s, No Pre serve, 2-Dose Series (Microland) 04/01/2021,09/03/2020,08/13/2020 Pneumococcal Conjugate Vacci ne, 20-valent ([id number]) 11/27/2022 Pneumococcal Polysaccharide PPV23 (Pneumovax) 09/09/2021,02/17/2016(Deferred: Patient [...] money to get more. Patient declined 10/2022 Childcare Answer Date Recorded Do you feel overwhelmed with taking care of a child, family member or friend? No 11/19/2022 Does your family need help f inding childcare? (Household - for ages 0-17 years) Not on file 11/19/2022 Clothing Answer Date Recorded Have you been unable to get clothing when it was really needed? No 11/19/2022 Is your family able to get c lothes or diapers when needed? (Household - for ages 0-17 years) Not on file 11/19/2022 Personal Safety Answer Date Recorded Do you feel unsafe or have concerns for your saf ety? No 11/19/2022 Do you have concerns for you r family's safety? (Household - for ages 0-17 years) Not on file 11/19/2022 Utilities Answer Date Recorded Do you have trouble paying y our heating, water, or electric bill? No 11/19/2022 Is your family able to pay t he heat, water, or electric bill? (Household - for ages 0-17 years) Not on file 11/19/2022 Does your family have access to good internet? (Household - for ages 0-17 years) Not on file 11/19/2022 Employment Status Answer Date Recorded Are you unemployed or without regular income? No 11/19/2022 Does the household have a re lar source of income? (Household - for ages 0-17 years) Not on file 11/19/2022 Social Connections Answer Date Recorded How often do you feel lonely or isolated from th ose around you? Never 11/19/2022 Financial Resource Strain Answer Date R ecorded Do you have any trouble payi ng for your medications, or do you think you might in the future? No 11/19/2022 Does your family have troubl e paying for medicine? (Household - for ages 0-17 years) Not on file 11/19/2022 Transportation Needs Answer Date Record ed READ ONLY Do you have troubl e getting a ride to medical visits or work? Never True 11/19/2022 Does your family have a hard time getting a ride to doctors visits? (Household - for ages 0-17 years) Not on file 11/19/2022 Has lack of transportation k ept you from medical appointments, meetings, work, or from getting things needed for daily living? Check all that apply. (Adult - for ages 18 years and over) Not on file 11/19/2022 Do you (or your family) have trouble finding or paying for a ride (transportation)? (Household - for ages 0-17 years) Not on file 11/19/2022 Housing Stability Answer Date Recorded Do you currently live in a s helter or have no steady place to sleep at night? No 11/19/2022 READ ONLY Do you think you a re at risk of becoming homeless? No 11/19/2022 Does your family worry about paying for your home or becoming homeless? (Household - for ages 0-17 years) Not on file 0 11/19/2022 Are you homeless or worried that you might be in the future? (Adult - for ages 18 years and over) Not on file 3 Are you (or your family) ruby eless or worried that you might be in the future? (Household - for ages 0-17 years) Not on file Food Insecurity Answer Date Recorded Do you need food for this week? No 11/19/2022 Are you able to get enough f ood for your family? (Household - for ages 0-17 years) Not on file 11/19/2022 Does your family need food t his week? (Household - for ages 0-17 years) Not on file 11/19/2022 Do you always have enough fo od for your family? (Household - for ages 0-17 years) Not on file 11/19/2022 Sex and Gender Information Value Date Recorded Sex Assigned at Female 08/07/2022 11:05 AM EDT Gender Identity Female 08/07/2022 11:05 AM EDT Sexual Orientation Straight 08/07/2022 11 :05 AM EDT Job Start Date Occupation Industry Not on file Not on file Not on file documented as of this encounter Miscellaneous Notes * Telephone Encounter - Sarah Marie CPhT - 11/09/2023 1:41 PM EDT Received message from [facility] regarding patient needing labs. Call Placed, Pt was agreeable to set up lab appointment. Patient scheduled for 11/12/23. Thank you, Sarah Marie CphT Marketing Finance Specialist III [facility] 11/09/23 * Telephone Encounter - Rob Smith [facility] - 10/07/2023 10:29 AM EDTSigned Prescriptions: Disp Refills Rivaroxaban 20 MG Oral Tablet (Xarelto) 90 Tab*0 Sig: TAKE 1 TABLET BY MOUTH EVERY DAYAuthorizing Provider: ANKUSH RIBEIRO User: ROB HYMAN------ * Telephone Encounter - Rob Smith [facility] - 10/07/2023 10:28 AM EDT Provided 90 days supply with 0 refill(s). Per refill protocol patient should have CBC and CMP on file within past year. Reviewed AMP report, Care Gaps/Health Maintenance, medications list, and for any routine labs typically ordered for this patient. Lab orders placed. Please contact patient to advise of labs ordered for blood draw. Fasting is not required. Advise toobtain labs before requesting the next refill. Thank You, Rob Hyman [facility] Clinical Pharmacist [facility] ([facility] (formerly [facility]) 10/07/2023, 10:28 AM * Telephone Encounter - Rob Smith [facility] - 10/07/2023 10:27 AM EDT Pending Prescriptions: Disp Refills Rivaroxaban 20 MG Oral Tablet (Xarelto) [*90 Tab*1 Sig: TAKE 1 TABLET BY MOUTH EVERY DAY Last Visit: 09/01/2023 (in office), 11/11/2021 (telemedicine) Next Visit: Visit date not found If no future appointments scheduled, and last appointment is greater than a year ago, please schedule patient for a follow-up appointment Last date the medication was ordered: 05/27/23 Pharmacy: [id number] [id number] [facility] Is this request for a controlled substance? No Urine Drug Screen:No results found for this or any previous visit. Patient Phone Numbers Labs: Lab Results Component Value Date/Time CREAT 1.3 (H) 09/09/2021 12:51 PM CREAT 0.9 03/27/2020 08:45 AM POTASSIUM 4.7 09/09/2021 12:51 PM POTASSIUM 4.7 03/27/2020 08:45 AM TSH 1.75 05/12/2018 08:43 AM LDLCALC 99 03/27/2020 08:45 AM LDLDIRECT NOT APPLICABLE 03/27/2020 08:45 AM ALT 26 09/09/2021 12:51 PM ALT 25 03/27/2020 08:45 AM ALT 28 04/25/1996 12:30 PM HGBA1C 5.5 04/24/2019 08:04 AM documented in this encounter Plan of Treatment Upcoming Encounters Date Type Department Care Team (Late st Contact Info) Description 11/12/2023 3:30 PM EDT Laboratory Laboratory, [place] [address] [place] [facility] [place] [id number] [place], Laboratory [address] [facility] [place] [id number] Health Maintenance Due Date Last Done Comments [...] COPD 10/07/2024 10/08/2023 Lipid Panel 03/27/2025 03/27/2020, 12/0 01/2019, 05/12/2018, [...] filedocumented as of this encounter Care Teams [facility] Relationship Specialty Start Date End Date Ankush Ribeiro MD [address] [place] [address] PCP - General 05/26/00 documented as of this encounter
--- OUTSIDE RECORDS SUMMARY | 2023-12-23 01:33 | External Medical Summary | Summary of Care ---
Author Name Unknown Organization [facility] Address [address] [facility] [place] [address] Phone [phone] Care Team Providers Care Steward/Stewardess Bath Name Role Phone Ridge Ramos MD Primary Care Provider +1- [phone] Encounter Details Date Type Department Care Team (Late st Contact Info) Description 10/15/2023 Orders Only Unspecified Department Alphonso Davis MD [address] [address] Allergies Active Allergy Reactions Criticality Noted Date Comments Sulfamethoxazole-Trimethoprim Rash Low 2008 Itch, hives Ciprofloxacin Anaphylaxis High 04/21/2019 Hydromorphone Abdominal pain 01/09/2019 Metronidazole Anaphylaxis High 04/24/2023 Morphine Abdominal pain High 01/09/2019 Penicillins 12/19/1998 rash documented as of this encounter (statuses as of 11/01/2023) Medications Medication Sig Dispensed Refills Start Date [...] 30 Tablet 2 10/28/2022 Active Neomycin-Polymyxin- HC 3.5-89742-2 Otic SolutionIndications :Black head Administer 4 Drops [...] EVERY DAY 90 Tablet 3 10/12/2023 Active Hospital, Clinic, or Other Facility Administered Medication Ordered Dose Route Frequency Start Date End Date Status Albuterol Sulfate (Proventil) (2.5 MG/3ML) 0.083% inhalation solution 2.5 mgIndications:Chronic obstructive pulmonary disease, unspecified COPD type (HCC),History of tobacco abuse 2.5 mg NEBULIZER ONCE PRN 11/27/2022 11/27/2023 Active documented as of this encounter (statuses as of 11/01/2023) Active Problems Problem Noted Date Diagnosed Date [...] as of this encounter (statuses as of 11/01/2023) Resolved Problems Problem Noted Date Diagnosed Date [...] as of this encounter (statuses as of 11/01/2023) Immunizations Name Administration Dates Next Due COVID-19 mRNA, LNP-s, No Pre serve, 2-Dose Series (Pfizer) 04/01/2021,09/03/2020,08/13/2020 Pneumococcal Conjugate Vacci ne, 20-valent ([id number]) 11/27/2022 Pneumococcal Polysaccharide PPV23 (Pneumovax) 09/09/2021,02/17/2016(Deferred: Patient [...] as of this encounter Plan of Treatment Health Maintenance Due Date Last Done Comments [...] Tdap) 01/31/2032 01/30/2022, 12/17/2011 Colonoscopy 10/07/2033 10/08/2023, 0508/2023, 10/29/2014, Additional history exists Colorectal Cancer Screening [...] Procedure Name Priority Date/Time Associated Diagnosis Comments RADIOLOGY EXAM - US (IMAGES ONLY, NO REPORT) Routine 10/15/2023 5:05 PM EDT documented in this encounter Results * RADIOLOGY EXAM - US (IMAGES ONLY, NO REPORT) (10/15/2023 5:05 PM EDT) 10/15/2023 5:05 PM EDT Narrative Scheduling, Silent - 11/01/2023 1:50 PM EDT This is an imaging study not interpreted or resulted by a [facility] or [facility] contracted radiologist. Alphonso Dvais MD RAD ULTRASOUND documented in this encounter Care Teams Steward/Stewardess Bath Relationship Specialty Start Date End Date Ridge Ramos MD [address] [place] [address] PCP - General 05/26/00 documented as of this encounter
--- OUTSIDE RECORDS SUMMARY | 2023-12-23 01:33 | External Medical Summary | Summary of Care ---
Author Name Unknown Organization [facility] Address [address] [facility] [place] [address] Phone [phone] Care Team Providers Care Hydraulic Plumber Name Role Phone Ridge Ramos MD Primary Care Provider +1- [phone] Reason for Visit * Reason Onset Date Comments Ultrasound 10/29/2023 Encounter Details Date Type Department Care Team (Late st Contact Info) Description 10/29/2023 Telephone Orthopaedics [facility] [address] [facility] [place] [address] Chriss Barksdale MD [address] [facility] [place] [address] Ultrasound Allergies Active Allergy Reactions Criticality Noted Date Comments Sulfamethoxazole-Trimethoprim Rash Low 2008 Itch, hives Ciprofloxacin Anaphylaxis High 04/21/2019 Hydromorphone Abdominal pain 01/09/2019 Metronidazole Anaphylaxis High 04/24/2023 Morphine Abdominal pain High 01/09/2019 Penicillins 12/19/1998 rash documented as of this encounter (statuses as of 10/29/2023) Medications Medication Sig Dispensed Refills Start Date [...] 30 Tablet 2 10/28/2022 Active Neomycin-Polymyxin- HC 3.5-53028-6 Otic SolutionIndications :Black head Administer 4 Drops [...] as of this encounter (statuses as of 10/29/2023) Active Problems Problem Noted Date Diagnosed Date [...] as of this encounter (statuses as of 10/29/2023) Resolved Problems Problem Noted Date Diagnosed Date [...] as of this encounter (statuses as of 10/29/2023) Immunizations Name Administration Dates Next Due COVID-19 mRNA, LNP-s, No Pre serve, 2-Dose Series (Pfizer) 04/01/2021,09/03/2020,08/13/2020 Pneumococcal Conjugate Vacci ne, 20-valent ([id number]) 11/27/2022 Pneumococcal Polysaccharide PPV23 (Pneumovax) 09/09/2021,02/17/2016(Deferred: Patient [...] Telephone Encounter - Diann Philip OSA - 10/29/2023 1:58 PM EDT Pt needs US Extremity, Non-Vascular LT scheduled. The questionnaire came up and when I schedule after that usually it was to be scheduled by someone from radiology. If someone could assist with the pt getting scheduled for this US, and then send me a tel enc, I can set her up with her appt afterwards with Dr. Barksdale. Pt said Dr. Barksdale told her she is to get this US January 14 or after. documented in this encounter Plan of Treatment Health Maintenance [...] filedocumented as of this encounter Care Teams Hydraulic Plumber Relationship Specialty Start Date End Date Ridge Ramos MD [address] [place] [address] PCP - General 05/26/00 documented as of this encounter
--- OUTSIDE RECORDS SUMMARY | 2023-12-23 01:33 | External Medical Summary | Summary of Care ---
Author Name Unknown Organization [facility] Address [address] [facility] [place] [address] Phone [phone] Care Team Providers Care Corporate Tax Preparer Name Role Phone Ankush Ribeiro MD Primary Care Provider [phone]- [phone] Reason for Visit * Reason Comments eRx-Medication Refill Encounter Details Date Type Department Care Team (Late st Contact Info) Description 11/23/[address] [facility] [address] [place] [address] Ankush Ribeiro MD [address] [place] [address] Allergies Active Allergy Reactions Criticality Noted Date Comments Sulfamethoxazole-Trimethoprim Rash Low 2008 Itch, hives Ciprofloxacin Anaphylaxis High 04/21/2019 Hydromorphone Abdominal pain 01/09/2019 Metronidazole Anaphylaxis High 04/24/2023 Morphine Abdominal pain High 01/09/2019 Penicillins 12/19/1998 rash documented as of this encounter (statuses as of 11/24/2023) Medications Medication Sig Dispensed Refills Start Date [...] before bedtime. 60 Capsule 1 08/05/19 Active Desvenlafaxine Succinate ER 100 MG Oral Tablet Extended Release 24 Hour (Pristiq) Take 1 Tablet by mouth in the morning. Note- take it with the desvenlafaxine 50 mg tablet for a total of 150 mg daily. 30 Tablet 2 10/29/19 Active Neomycin-Polymyxin -HC 3.5-65306-6 Otic SolutionIndication s:Black head Administer 4 Drops [...] BY MOUTH EVERY DAY 90 Tablet 3 10/12/19 24 Active Rivaroxaban 20 MG Oral Tablet (Xarelto) TAKE 1 TABLET BY MOUTH EVERY DAY 10/25/19 24 Active Proventil HFA 108 (90 Base) MCG/ACT Inhalation Aerosol SolutionIndication s:Viral upper respiratory tract infection,Shortnes s of breath,COPD, group B, by GOLD 2017 classification ([facility]) Inhale 2 Puffs by mouth in the morning and 2 Puffs at noon and 2 Puffs in the evening and 2 Puffs before bedtime. 8 g 1 11/02/19 24 Active guaiFENesin ER 600 MG Oral Tablet Extended Release 12 Hour (Mucinex)Indicatio ns:Viral upper respiratory tract infection,Shortnes s of breath,COPD, group B, by GOLD 2017 classification ([facility]) Take 1 Tablet by mouth 2 times a day as needed for Congestion. Take with plenty of water. Do not cut, crush or chew 40 Tablet 2 11/02/19 24 Active Montelukast Sodium 10 MG Oral Tablet (Singulair) TAKE 1 TABLET BY MOUTH EVERY DAY 90 Tablet 3 11/24/19 24 Active Montelukast Sodium 10 MG Oral Tablet (Singulair) Take 1 Tablet by mouth daily. 90 Tablet 3 09/01/19 23 024 Discontinued Hospital, Clinic, or Other Facility Administered Medication Ordered Dose Route Frequency Start Date End Date Status Albuterol Sulfate (Proventil) (2.5 MG/3ML) 0.083% inhalation solution 2.5 mgIndications:Chronic obstructive pulmonary disease, unspecified COPD type ([facility]),History of tobacco abuse 2.5 mg NEBULIZER ONCE PRN 11/27/2022 11/27/2023 Active documented as of this encounter (statuses as of 11/24/2023) Active Problems Problem Noted Date Diagnosed Date [...] as of this encounter (statuses as of 11/24/2023) Resolved Problems Problem Noted Date Diagnosed Date [...] as of this encounter (statuses as of 11/24/2023) Immunizations Name Administration Dates Next Due COVID-19 mRNA, LNP-s, No Pre serve, 2-Dose Series (Pfizer) 04/01/2021,09/03/2020,08/13/2020 Pneumococcal Conjugate Vacci ne, 20-valent ([id number]) 11/27/2022 Pneumococcal Polysaccharide PPV23 (Pneumovax) 09/09/2021,02/17/2016(Deferred: Patient [...] y our heating, water, or electric bill? (Adult - for ages 18 years and over) Not on file 11/20/2023 Is your family able to pay t he heat, water, or electric bill? (Household - for ages 0-17 years) Not on file 11/20/2023 Does your family have access to good internet? (Household - for ages 0-17 years) Not on file 11/20/2023 Employment Status Answer Date Recorded Are you unemployed or without regular income? No 11/19/2022 Does the household have a re gular source of income? (Household - for ages 0-17 years) Not on file 11/19/2022 Social Connections Answer Date Recorded How often do you feel lonely or isolated from those around you? (Adult - for ages 18 years and over) Not on file 11/20/2023 Financial Resource Strain Answer Date R ecorded [...] 18 years and over) Not on file Are you (or your family) ruby eless [...] encounter Miscellaneous Notes * Telephone Encounter - Greer Rivera RPh - 11/24/2023 6:39 AM EDTSigned Prescriptions: Disp Refills Montelukast Sodium 10 MG Oral Tablet (Sing*90 Tab*3 Sig: TAKE 1 TABLET BY MOUTH EVERY DAYAuthorizing Provider: ANKUSH RIBEIRO User: GREER RIVERA------ documented in this encounter Plan of Treatment [...] 04/01/2021, 09/03/2020, 08/13/2020 Depression Monitoring 11/20/2023 11/19/2022 Influenza Vaccine (FLU shot) (#1) 2024 05/03/2023, 03/11/2022, 03/11/2022, Additional history exists Diabetes Screening 09/09/2024 09/09/2021, [...] 11/27/2022, 09/09/2021 Zoster Vaccines Completed 11/27/2022, 09/09/2021 HIV Screening Discontinued HPV (Gardasil) Vaccine Aged Out No lo nger eligible based on patient's age to complete this topic Hepatitis B Vaccine Discontinued Hepatitis C Screening Discontinued MENINGOCOCCAL (MENACTRA/MENVEO) Aged Out No longer eligible based on patient's age to complete this topic documented as of this encounter Medical Devices Not on filedocumented as of this encounter Care Teams Corporate Tax Preparer Relationship Specialty Start Date End Date Ankush Ribeiro MD [address] [place] [address] PCP - General 05/26/00 documented as of this encounter
--- OUTSIDE RECORDS SUMMARY | 2023-12-23 01:33 | External Medical Summary | Summary of Care ---
Author Name Unknown Organization [facility] Address [address] [facility] [place] [address] Phone [phone] Care Team Providers Care Sort Supervisor Name Role Phone Ridge Ramos MD Primary Care Provider [phone]- [phone] Reason for Referral * Evaluate & Treat - Unlimited Visits (Within 30 days (routine)) - Authorized Specialty Diagnoses / Procedures Referred By Contlatanya t Referred To Contact Orthopaedic Surgery / Orthopedics Diagnoses Synovial cyst of left popliteal space Ridge Ramos MD [address] [place] [address] Referral ID Status Reason Start Date Expiration Date Visits Requested Visits Authorized [id number] Authorized Specialty Services Required 10/25/[phone] Question Answer Referral Priority Within 30 days (routine) Where should this appointment be scheduled? [facility] What body part is the patient being seen for? Thigh/Knee What condition is the patient being seen for? Arthritis including related infection Comments Oa knee - but also popliteal cyst Reason for Visit * Reason Comments Follow Up Pt here for follow u p visit Encounter Details Date Type Department Care Team (Latest Contact Info) Description 10/25/2023 10:40 AM EDT Office Visit [facility] [address] [place] [facility] [place] [id number] Ridge Ramos MD [address] [place] [facility] [place] [facility] [place] [address] Synovial cyst of left popliteal space*; Screening for cervical cancer; History of pulmonary embolism; Chronic anticoagulation Allergies Active Allergy Reactions Criticality Noted Date Comments Sulfamethoxazole-Trimethoprim Rash Low 2008 Itch, hives Ciprofloxacin Anaphylaxis High 04/21/2019 Hydromorphone Abdominal pain 01/09/2019 Metronidazole Anaphylaxis High 04/24/2023 Morphine Abdominal pain High 01/09/2019 Penicillins 12/19/1998 rash documented as of this encounter (statuses as of 10/25/2023) Medications Medication Sig Dispensed Refills Start Date End Date Status cetirizine (ZYRTEC) 10 MG TabletIndications:C hronic rhinitis TAKE 1 TABLET BY MOUTH EVERY DAY 30 Tab 11 8 Active Cyclobenzaprine HCl 10 MG Oral Tablet (Flexeril)Indicatio ns:Flank pain Take by mouth 1 Tablet as needed before bedtime for Muscle spasms. 10 Tablet 2 Active Saccharomyces boulardii 250 MG Oral Capsule (Florastor)Indicati ons:Diverticulitis of colon,Diarrhea, unspecified type Take 1 Capsule by mouth in the morning and 1 Capsule before bedtime. 60 Capsule 1 3 Active Montelukast Sodium 10 MG Oral Tablet (Singulair) Take 1 Tablet by mouth daily. 90 Tablet 3 3 Active Desvenlafaxine Succinate ER 100 MG Oral Tablet Extended Release 24 Hour (Pristiq) Take 1 Tablet by mouth in the morning. Note- take it with the desvenlafaxine 50 mg tablet for a total of 150 mg daily. 30 Tablet 2 3 Active Neomycin-Polymyxin- HC 3.5-95184-5 Otic SolutionIndications :Black head Administer 4 Drops into the left ear in the morning and 4 Drops at noon and 4 Drops before bedtime. To affected ear, for 10 days.. 10 mL 1 3 Active Additional Information Patient not taking.Reported on 05/03/2023 ALPRAZolam 0.5 MG Oral Tablet (xaNAX) Take 1 Tablet by mouth 3 times a day as needed for Anxiety. 90 Tablet 3 Active buPROPion HCl ER (XL) 150 MG Oral Tablet Extended Release 24 Hour (Wellbutrin XL) Take 3 Tablets by mouth in the morning. Note to pharmacy- please tell patient to make appointment to be seen in order to get subsequent refill.. 30 Tablet 3 Active Additional Information Patient taking differently: 150 mgOral Daily(AM),Takes with 300 for a total of 450mg, Reported on 05/03/2023 B-12 1000 MCG Oral Capsule TAKE 1 CAPSULE BY MOUTH EVERY DAY IN THE MORNING 90 Capsule 1 3 Active guaiFENesin-Codeine 100-10 MG/5ML Oral Syrup (Robitussin AC)Indications:Estela l URI with cough Take 5 mL by mouth every 4 hours as needed for Cough. 120 mL 3 Active Additional Information Patient not taking.Reported on 06/08/2023 amLODIPine Besylate 10 MG Oral Tablet (Norvasc) TAKE 1 TABLET BY MOUTH EVERY DAY 90 Tablet 3 4 Active Pantoprazole Sodium 40 MG Oral Tablet Delayed Release (Protonix) TAKE 1 TABLET BY MOUTH EVERY DAY 90 Tablet 3 4 Active Lisinopril 40 MG Oral TabletIndications:H TN, goal below 140/90 TAKE 1 TABLET BY MOUTH EVERY DAY IN THE MORNING 90 Tablet 3 4 Active Desvenlafaxine Succinate ER 50 MG Oral Tablet Extended Release 24 Hour (Pristiq)Indication s:Adjustment disorder with depressed mood Take 1 tab by mouth daily with the 100 mg dose for a total of 150 mg daily 90 Tablet 3 4 Active Ondansetron 8 MG Oral Tablet Disintegrating (Zofran)Indications :Nausea and vomiting, unspecified vomiting type Place 1 Tablet on tongue every 8 hours as needed for Nausea. dissolve on tongue. 20 Tablet 1 4 Active Proventil HFA 108 (90 Base) MCG/ACT Inhalation Aerosol SolutionIndications :Bronchitis,Shortne ss of breath Inhale 2 Puffs by mouth every 4 hours as needed for Wheezing. 18 g 3 4 Active valACYclovir HCl 1 GM Oral Tablet (Valtrex) TAKE 2 TABLETS BY MOUTH EVERY 12 HOURS FOR 1 DAY FOR COLD SORES 4 Tablet 4 Active Doxycycline Hyclate 100 MG Oral CapsuleIndications: Acute maxillary sinusitis, recurrence not specified,Closed fracture of tooth, initial encounter Take 1 Capsule by mouth in the morning and 1 Capsule before bedtime. 60 Capsule 11 4 Active Additional Information Patient not taking.Reported on 10/15/2023 Ketorolac Tromethamine 10 MG Oral Tablet (Toradol)Indication s:Acute maxillary sinusitis, recurrence not specified,Closed fracture of tooth, initial encounter Take 1 Tablet by mouth 4 times a day as needed for Pain, Moderate. Do not take for longer than 5 days 20 Tablet 4 Active Additional Information Patient not taking.Reported on 10/15/2023 Mometasone Furoate 50 MCG/ACT Nasal SuspensionIndicatio ns:Chronic rhinitis Administer 2 Sprays into each nostril in the morning. 51 g 3 4 Active hydroCHLOROthiazide 12.5 MG Oral CapsuleIndications: Hypertensive urgency,Essential (primary) hypertension TAKE 1 CAPSULE BY MOUTH EVERY DAY 90 Capsule 3 4 Active buPROPion HCl ER (XL) 300 MG Oral Tablet Extended Release 24 Hour (Wellbutrin XL) TAKE 1 TABLET BY MOUTH EVERY DAY IN THE MORNING 90 Tablet 3 4 Active Meloxicam 15 MG Oral TabletIndications:P rimary osteoarthritis of one knee, left Take 1 Tablet by mouth in the morning. for pain.. 30 Tablet 4 Active Additional Information Patient not taking.Reported on 10/15/2023 Metoprolol Succinate ER 50 MG Oral Tablet Extended Release 24 Hour (toPROL XL)Indications:Hype rtensive urgency,Essential (primary) hypertension TAKE 1 TABLET BY MOUTH EVERY DAY 90 Tablet 3 4 Active Rivaroxaban 20 MG Oral Tablet (Xarelto) TAKE 1 TABLET BY MOUTH EVERY DAY 4 Active Cephalexin 500 MG Oral Capsule (Keflex) Take 1 Capsule by mouth in the morning and 1 Capsule before bedtime. 4 10/25/19 24 Discontinu ed(Patient preference /discontin uation) oxyCODONE HCl 5 MG Oral Tablet (Oxy IR) Take 1 Tablet by mouth every 4 hours as needed for Pain, Mild. 4 10/25/19 24 Discontinu ed(Patient preference /discontin uation) Tamsulosin HCl 0.4 MG Oral Capsule (Flomax) Take 1 Capsule by mouth in the morning. 4 10/25/19 24 Discontinu ed(Patient preference /discontin uation) Rivaroxaban 20 MG Oral Tablet (Xarelto) TAKE 1 TABLET BY MOUTH EVERY DAY 90 Tablet 4 10/25/19 24 Discontinu ed(Refill) Hospital, Clinic, or Other Facility Administered Medication Ordered Dose Route Frequency Start Date End Date Status Albuterol Sulfate (Proventil) (2.5 MG/3ML) 0.083% inhalation solution 2.5 mgIndications:Chronic obstructive pulmonary disease, unspecified COPD type (HCC),History of tobacco abuse 2.5 mg NEBULIZER ONCE PRN 11/27/2022 11/27/2023 Active documented as of this encounter (statuses as of 10/25/2023) Active Problems Problem Noted Date Diagnosed Date [...] as of this encounter (statuses as of 10/25/2023) Resolved Problems Problem Noted Date Diagnosed Date [...] as of this encounter (statuses as of 10/25/2023) Immunizations Name Administration Dates Next Due COVID-19 mRNA, LNP-s, No Pre serve, 2-Dose Series (Pfizer) 04/01/2021,09/03/2020,08/13/2020 Pneumococcal Conjugate Vacci ne, 20-valent ([id number]) 11/27/2022 Pneumococcal Polysaccharide PPV23 (Pneumovax) 09/09/2021,02/17/2016(Deferred: Patient [...] Sign Reading Time Taken Comments Blood Pressure 122/80 10/25/2023 10:36 AM EDT Pulse 91 10/25/2023 10:36 AM EDT Temperature 36.4 C (97.5 F) 10/25/2023 10:36 AM E DT Respiratory Rate 16 10/25/2023 10:36 AM EDT Oxygen Saturation 94% 10/25/2023 10:36 AM EDT Inhaled Oxygen Concentration - - Weight 140.6 kg (310 lb) 10/25/2023 10:36 AM EDT Height - - Body Mass Index 48.55 10/15/2023 3:59 PM EDT documented in this encounter Progress Notes * Ridge Ramos MD - 10/25/2023 6:02 PM EDT Subjective: Loreto Rojas is a 53 year old female here today for Chief Complaint Patient presents with Follow Up Pt here for follow up visit Patient presents for planned follow-up. Please see last note for details. She does have a history of DVT and is on chronic anticoagulation with Xarelto. She held the Xarelto due to colonoscopy and shortly after that started to have swelling and pain in the left calf. It is noted that she was also doing physical therapy for osteoarthritis of the left knee. She had a venous Doppler which showed no evidence for DVT. However, there was evidence for fluid in the calf muscle felt to be hematoma versus ruptured Vargas's cyst. There was a Vargas's cyst present on the ultrasound as well. Due to the possibility of it being a hematoma, she was advised to hold her Xarelto. She is also stopped physical the rapy for now. She states the swelling and pain are improving. Past Medical History: Diagnosis Date Adjustment disorder with depressed mood Allergic rhinitis HTN, goal to be determined 2001 on lisinopril Obesity, BMI not known Sleep apnea, obstructive Past Surgical History: Procedure Laterality Date BREAST BIOPSY Right 10/27/2016 Benign COLONOSCOPY, DIAGNOSTIC (RECTUM) 10/29/2014 diverticulosis/[facility] COLONOSCOPY, DIAGNOSTIC (RECTUM) N/A 10/08/2023 COLONOSCOPY FLEXIBLE PROXIMAL DIAGNOSTIC performed by Don Lee MD at OR [facility] EGD, FLEXIBLE, DIAGNOSTIC 01/17/2020 gastritis / [facility] HYSTEROSCOPY;ENDOMETRIAL ABLAT 03/13/2016 LAP;FULGURATION OVIDUCTS [...] 1 Capsule before bedtime. 60 Capsule 1 Montelukast Sodium 10 MG Oral Tablet (Singulair) Take 1 Tablet by mouth daily. 90 Tablet 3 Desvenlafaxine Succinate ER 100 MG Oral Tablet Extended Release 24 Hour (Pristiq) Take 1 Tablet by mouth in the morning. Note- take it with the desvenlafaxine 50 mg tablet for a total of 150 mg daily. 30 Tablet 2 ALPRAZolam 0.5 MG Oral Tablet (xaNAX) Take 1 Tablet by mouth 3 times a day as needed for Anxiety. 90 Tablet 0 buPROPion HCl ER (XL) 150 MG Oral Tablet Extended Release 24 Hour (Wellbutrin XL) Take 3 Tablets bymouth in the morning. Note to pharmacy- please tell patient to make appointment to be seen in orderto get subsequent refill.. (Patient taking differently: Take 1 Tablet by mouth in the morning. Takes with 300 for a total of 450mg.) 30 Tablet 0 B-12 1000 MCG Oral Capsule TAKE 1 CAPSULE BY MOUTH EVERY DAY IN THE MORNING 90 Capsule 1 amLODIPine Besylate 10 MG Oral Tablet (Norvasc) TAKE 1 TABLET BY MOUTH EVERY DAY 90 Tablet 3 Pantoprazole Sodium 40 MG Oral Tablet Delayed Release (Protonix) TAKE 1 TABLET BY MOUTH EVERY DAY 90 Tablet 3 Lisinopril 40 MG Oral Tablet TAKE 1 TABLET BY MOUTH EVERY DAY IN THE MORNING 90 Tablet 3 Desvenlafaxine Succinate ER 50 MG Oral Tablet Extended Release 24 Hour (Pristiq) Take 1 tab by mouth daily with the 100 mg dose for a total of 150 mg daily 90 Tablet 3 Ondansetron 8 MG Oral Tablet Disintegrating (Zofran) Place 1 Tablet on tongue every 8 hours as needed for Nausea. dissolve on tongue. 20 Tablet 1 Proventil HFA 108 (90 Base) MCG/ACT Inhalation Aerosol Solution Inhale 2 Puffs by mouth every 4 hours as needed for Wheezing. 18 g 3 valACYclovir HCl 1 GM Oral Tablet (Valtrex) TAKE 2 TABLETS BY MOUTH EVERY 12 HOURS FOR 1 DAY FOR COLD SORES 4 Tablet 0 Mometasone Furoate 50 MCG/ACT Nasal Suspension Administer 2 Sprays into each nostril in the morning. 51 g 3 hydroCHLOROthiazide 12.5 MG Oral Capsule TAKE 1 CAPSULE BY MOUTH EVERY DAY 90 Capsule 3 buPROPion HCl ER (XL) 300 MG Oral Tablet Extended Release 24 Hour (Wellbutrin XL) TAKE 1 TABLET BY MOUTH EVERY DAY IN THE MORNING 90 Tablet 3 Metoprolol Succinate ER 50 MG Oral Tablet Extended Release 24 Hour (toPROL XL) TAKE 1 TABLET BY MOUTH EVERY DAY 90 Tablet 3 Lztrnjia-Niheeeanf-ND 3.5-18102-4 Otic Solution Administer 4 Drops into the left ear in the morningand 4 Drops at noon and 4 Drops before bedtime. To affected ear, for 10 days.. (Patient not taking:Reported on 05/03/2023) 10 mL 1 guaiFENesin-Codeine 100-10 MG/5ML Oral Syrup (Robitussin AC) Take 5 mL by mouth every 4 hours as needed for Cough. (Patient not taking: Reported on 06/08/2023) 120 mL 0 Doxycycline Hyclate 100 MG Oral Capsule Take 1 Capsule by mouth in the morning and 1 Capsule beforebedtime. (Patient not taking: Reported on 10/15/2023) 60 Capsule 11 Ketorolac Tromethamine 10 MG Oral Tablet (Toradol) Take 1 Tablet by mouth 4 times a day as needed for Pain, Moderate. Do not take for longer than 5 days (Patient not taking: Reported on 10/15/2023) 20Tablet 0 Meloxicam 15 MG Oral Tablet Take 1 Tablet by mouth in the morning. for pain.. (Patient not taking: Reported on 10/15/2023) 30 Tablet 0 Rivaroxaban 20 MG Oral Tablet (Xarelto) TAKE 1 TABLET BY MOUTH EVERY DAY (Patient not taking: Reported on 10/25/2023) 90 Tablet 0 Current Facility-Administered Medications Medication Dose Route Frequency Provider Last Rate Last Admin Albuterol Sulfate (Proventil) (2.5 MG/3ML) 0.083% inhalation solution 2.5 mg 2.5 mg Nebulizer Once PRN Claudia Rivas PA-C Objective: BP 122/80 | Pulse 91 | Temp 36.4 C (97.5 F) (Infrared ) | Resp 16 | Wt (!) 140.6 kg (310 lb) | SpO2 94% | BMI 48.55 kg/m | BSA 2.58 m GEN: NAD Chest clear to auscultation bilaterally, cardiovascular regular rate Extremities so some slight swelling in the left calf compared to the right and there is a fullness in the popliteal fossa. No significant erythema or warmth. Assessment and Plan: Synovial cyst of left popliteal space (Primary) - ORTHOPAEDICS REFERRAL OP -I suspect the patient's symptoms relate to a ruptured popliteal cyst. I think she can restart her Xarelto. I think she can restart physical therapy. Due to the complex nature of the cyst on ultrasound and her symptoms, will request orthopedic evaluation. Call for new or worsening symptoms History of pulmonary embolism Chronic anticoagulation -may restart Xarelto but should notify the office if she has worsening calf pain or swelling after restarting the medication. Follow-up: Return if symptoms worsen or fail to improve. | Check-out note: Ortho - Liv Finn 32 min with pt and documentation Ridge Ramos MD * Malini Iverson LPN - 10/25/2023 10:40 AM EDT Patient has been verbally educated on the need or importance of Cervical Cancer Screening. Patient does not want PAP today. Patient will schedule a future appointment in our office with wardsperson. Follow up/Check out notes completed for front office to schedule PAP during check out. documented in this encounter Nursing Notes * Malini Iverson LPN - 10/25/2023 10:31 AM EDT Chief Complaint Patient presents with Follow Up Pt here for follow up visit documented in this encounter Plan of Treatment Upcoming Encounters Date Type Department Care Team (Late st Contact Info) Description 10/28/2023 1:30 PM EDT Office Visit Orthopaedics [facility] [address] [place] [id number] Chip Peck MD [address] [place] [phone] Scheduled Referrals Name Type Priority Associated Diagnoses Order Schedule ORTHOPAEDICS REFERRAL OP Referral Within 30 days (routine) Synovial cyst of left popliteal space Ordered: 10/25/2023 Health Maintenance Due Date Last Done Comments [...] as of this encounter Visit Diagnoses Diagnosis Synovial cyst of left popliteal space- Primary Synovial cyst of popliteal space Screening for cervical cancer Screening for malignant neoplasm of the cervix History of pulmonary embolism Personal history of pulmonary embolism Chronic anticoagulation Long-term (current) use of anticoagulants documented in this encounter Care Teams Sort Supervisor Relationship Specialty Start Date End Date Ridge Ramos MD [address] [place] [address] PCP - General 05/26/00 documented as of this encounter"
--- OUTSIDE RECORDS SUMMARY | 2023-12-23 01:33 | External Medical Summary | Summary of Care ---
Author Name Unknown Organization [facility] Address [address] [facility] [place] [address] Phone [phone] Care Team Providers Care [employer] Buffer Name Role Phone Ridge Ramos MD Primary Care Provider +1- [phone] Encounter Details Date Type Department Care Team (Latest Contact Info) Description 10/15/2023 5:05 PM EDT - 10/15/2023 11:59 PM EDT Hospital Encounter Radiology Film [facility] [address] [place] [address] Discharge Disposition: Home - Self Care Allergies Active Allergy Reactions Criticality Noted Date Comments Sulfamethoxazole-Trimethoprim Rash Low 2008 Itch, hives Ciprofloxacin Anaphylaxis High 04/21/2019 Hydromorphone Abdominal pain 01/09/2019 Metronidazole Anaphylaxis High 04/24/2023 Morphine Abdominal pain High 01/09/2019 Penicillins 12/19/1998 rash documented as of this encounter (statuses as of 11/02/2023) Medications Medication Sig Dispensed Refills Start Date [...] 30 Tablet 2 10/28/2022 Active Neomycin-Polymyxin- HC 3.5-88207-9 Otic SolutionIndications :Black head Administer 4 Drops [...] as of this encounter (statuses as of 11/02/2023) Active Problems Problem Noted Date Diagnosed Date [...] as of this encounter (statuses as of 11/02/2023) Resolved Problems Problem Noted Date Diagnosed Date [...] as of this encounter (statuses as of 11/02/2023) Immunizations Name Administration Dates Next Due COVID-19 mRNA, LNP-s, No Pre serve, 2-Dose Series (Pfizer) 04/01/2021,09/03/2020,08/13/2020 Pneumococcal Conjugate Vacci ne, 20-valent ([id number]) 11/27/2022 Pneumococcal Polysaccharide PPV23 (Pneumovax) 09/09/2021,02/17/2016(Deferred: Patient [...] Care Team (Late st Contact Info) Description 11/02/2023 1:20 PM EDT Office Visit Family Practice [facility] [address] [place] [address] Ada Maynard CRNP [address] [place] [address] Arrived Health Maintenance Due Date Last Done Comments [...] interpreted or resulted by a [facility] or [facility] contracted radiologist. Alphonso Davis MD RAD ULTRASOUND documented in this encounter Care Teams [employer] Buffer Relationship Specialty Start Date End Date Ridge Ramos MD [address] [place] [address] PCP - General 05/26/00 documented as of this encounter
--- OUTSIDE RECORDS SUMMARY | 2023-12-23 01:33 | External Medical Summary | Summary of Care ---
Author Name Unknown Organization [facility] Address [address] [facility] [place] [address] Phone [phone] Care Team Providers Care Care Taker Name Role Phone Ridge Ramos MD Primary Care Provider +1- [phone] Reason for Visit * Reason Onset Date Comments Ultrasound 10/29/2023 Encounter Details Date Type Department Care Team (Late st Contact Info) Description 10/29/2023 Telephone Orthopaedics [facility] [address] [email or web address] [place] [address] Chriss Barksdale MD [address] [facility] [place] [address] Ultrasound Allergies Active Allergy Reactions Criticality Noted [...] 30 Tablet 2 10/28/2022 Active Neomycin-Polymyxin- HC 3.5-51803-8 Otic SolutionIndications :Black head Administer 4 Drops [...] (Pfizer) 04/01/2021,09/03/2020,08/13/2020 Pneumococcal Conjugate Vacci ne, 20-valent ([id number]) 11/27/2022 Pneumococcal Polysaccharide PPV23 (Pneumovax) 09/09/2021,02/17/2016(Deferred: Patient [...] filedocumented as of this encounter Care Teams Care Taker Relationship Specialty Start Date End Date Ridge Ramos MD [address] [place] [address] PCP - General 05/26/00 documented as of this encounter
--- OUTSIDE RECORDS SUMMARY | 2023-12-23 01:33 | External Medical Summary | Summary of Care ---
Author Name Unknown Organization [facility] Address [address] [place] [place] [place] [address] Phone [phone] Care Team Providers Care Commercial Cleaner Name Role Phone Ankush Ribeiro MD Primary Care Provider +1- [phone] Reason for Visit * Reason Comments eRx-Medication Refill Encounter Details Date Type Department Care Team (Late st Contact Info) Description 10/06/[address] [facility] [address] [place] [address] Ankush Ribeiro MD [address] [place] [address] Allergies Active Allergy Reactions Criticality [...] 30 Tablet 2 10/29/19 Active Neomycin-Polymyxin -HC 3.5-74525-5 Otic SolutionIndication s:Black head Administer 4 Drops [...] mRNA, LNP-s, No Pre serve, 2-Dose Series ([employer]) 04/01/2021,09/03/2020,08/13/2020 Pneumococcal Conjugate Vacci ne, 20-valent ([id number]) 11/27/2022 Pneumococcal Polysaccharide PPV23 (Pneumovax) 09/09/2021,02/17/2016(Deferred: Patient [...] encounter Miscellaneous Notes * Telephone Encounter - Mercy Vogel - 11/09/2023 6:14 PM EDT Received message from [facility] regarding patient needing labs. Patient was notified. Successfully contacted patient and provided [facility] message. * Telephone Encounter - Sarah Marie CPhT - 11/09/2023 1:41 PM EDT Received message from [facility] regarding patient needing labs. Call Placed, Pt was agreeable to set up lab appointment. Patient scheduled for 11/12/23. Thank you, Sarah Marie CphT Workers Compensation Legal Secretary III [facility] 11/09/23 * Telephone Encounter - Rob Smith [facility] - 10/07/2023 10:29 AM EDTSigned Prescriptions: Disp Refills Rivaroxaban 20 MG Oral Tablet (Xarelto) 90 Tab*0 Sig: TAKE 1 TABLET BY MOUTH EVERY DAYAuthorizing Provider: ANKUSH RIBEIRO User: ROB HYMAN------ * Telephone Encounter - Rob Smith [facility] - 10/07/2023 10:28 AM EDT Provided 90 [...] the next refill. Thank You, Rob Hyman [facility] Clinical Pharmacist [facility] ([facility] (formerly Telepharmacy) 10/07/2023, 10:28 AM * Telephone Encounter - Rob Smith [facility] - 10/07/2023 10:27 AM EDT Pending Prescriptions: [...] the medication was ordered: 05/27/23 Pharmacy: [id number] [address] [facility] Is this request for a controlled [...] Description 11/12/2023 3:30 PM EDT Laboratory Laboratory, [facility] [address] [place] [address] [facility] [address] [place] [address] Health Maintenance Due Date Last Done Comments [...] filedocumented as of this encounter Care Teams Commercial Cleaner Relationship Specialty Start Date End Date Ankush Ribeiro MD [address] [place] [address] PCP - General 05/26/00 documented as of this encounter
--- OUTSIDE RECORDS SUMMARY | 2023-12-23 01:33 | External Medical Summary | Summary of Care ---
Author Name Unknown Organization [facility] Address [address] [place] [facility] [place] [place] [place] [address] Phone [phone] Care Team Providers Care Supervisor Green End Department Name Role Phone Ridge Ramos MD Primary Care Provider +1- [phone] Reason for Visit * Reason Comments NEW PATIENT L knee Knee Pain * Evaluate & Treat - Unlimited Visits (Within 30 days (routine)) - Authorized Specialty Diagnoses / Procedures Referred By Jalen t Referred To Contact Orthopaedic Surgery / Orthopedics Diagnoses Synovial cyst of left popliteal space Ridge Ramos MD [address] [place] [address] Referral ID Status Reason Start Date Expiration Date Visits Requested Visits Authorized [id number] Authorized Specialty Services Required 10/25/2023 999 [id number] Encounter Details Date Type Department Care Team (Latest Contact Info) Description 10/29/2023 1:30 PM EDT Office Visit Orthopaedics [facility] [address] [facility] [place] [address] Chriss Barksdale MD [address] [facility] [place] [address] Primary osteoarthritis of left knee*; Mass of knee, left Allergies Active Allergy Reactions Criticality Noted Date [...] 30 Tablet 2 10/28/2022 Active Neomycin-Polymyxin- HC 3.5-35196-0 Otic SolutionIndications :Black head Administer 4 Drops [...] mRNA, LNP-s, No Pre serve, 2-Dose Series ([employer]) 04/01/2021,09/03/2020,08/13/2020 Pneumococcal Conjugate Vacci ne, 20-valent ([id number]) 11/27/2022 Pneumococcal Polysaccharide PPV23 (Pneumovax) 09/09/2021,02/17/2016(Deferred: Patient [...] as of this encounter Progress Notes * Chriss Barksdale MD - 10/29/2023 1:35 PM EDT Loreto Rojas [id number] Loreto Rojas is a 53 year old female who presents for consultation to [facility]opa[facility] for left knee injury/pain. Consult requested by Ridge Ramos MD. Loreto Rojas is here unaccompanied Quality: reviewed and agree with Nursing Notes for HPI elements History: History - NEW Pt Possible Bakers cyst of Knee PT: L Knee Xray L knee: 08/18/23 Pt is currently attending PT at [facility]; Pt attended 6 sessions Pt denies sx for L knee Pt stated she had a steroid injection on 09/01/[address] Greene; Pt stated she had 2 days of pain relief ROS: ROS per HPI otherwise non-contributory Past Medical History: Diagnosis Date Adjustment disorder with depressed mood Allergic rhinitis HTN, goal to be determined 2001 on lisinopril Obesity, BMI not known Sleep apnea, obstructive Family History Problem Relation Name Age of Onset Diabetes Father Hypertension Father Other (Sepsis) Father in his 80s No Known Problems Sister No Known Problems Sister Cancer Grandfather (Paternal) lung Social History Socioeconomic History Marital status: Spouse name: Samson Number of children: 2 Years of education: 15 Highest education level: Not on file Occupational History Occupation: work from home Tobacco Use Smoking status: Former Current packs/day: 1.00 Average packs/day: 1 pack/day for 15.0 years (15.0 ttl pk-yrs) Types: Cigarettes Passive exposure: Current Smokeless tobacco: Never Tobacco comments: 09/17/20 currently smoking 10 cig/day; has smoked on and off-quit several times Vaping Use Vaping status: Every Day Substances: Nicotine Devices: Disposable Substance and Sexual Activity Alcohol use: Yes Comment: occ Drug use: No Sexual activity: Yes Partners: Male control/protection: Surgical Comment: BTL ablation Other Topics Concern Service Not Asked Blood Transfusions Not Asked Caffeine Concern Not Asked Occupational Exposure Not Asked Hobby Hazards Not Asked Sleep Concern Not Asked Stress Concern Not Asked Weight Concern Yes Special Diet Yes Comment: milk - none, OJ with Ca less than 1 day. Back Care Not Asked Exercise No Bike Helmet Not Asked Seat Belt Not Asked Self-Exams Yes Social History Narrative Not on file Social Determinants of Health Financial Resource Strain: Not on file Food Insecurity: Unknown (11/19/2022) Hunger Vital Sign Worried About Running Out of Food in the Last Year: Never true Ran Out of Food in the Last Year: Patient declined Transportation Needs: Not on file Physical Activity: Not on file Stress: Not on file Social Connections: Not on file Intimate Partner Violence: Not on file Housing Stability: Not on file Physical Exam Constitutional: Generally well-nourished and in no acute distress Psychiatric: Mood and Affect normal Eyes: EOMI Respiratory: Normal respiratory effort with regular rate and rhythm Cardiovascular: No edema in the affected extremity(s) Knee Exam, Bilateral Inspection: Unremarkable Alignment: Normal Bilateral Effusion: Negative Bilateral Palpation: Tender palpate greatest along the medial joint but also in the medial popliteal region where there is a palpable mass ROM: Flexion/Neutral/Extension: L - 120/0/0, R - 120/0/0 Strength: SLR: Extension: L - 5/5, R - 5/5 Flexion: L - 5/5, R - 5/5 Quadriceps Tone: Good and Equal Bilateral Special Tests: Crepitus - positive crepitus Hip exam, bilateral: passive internal and external rotation reproduces no pain. Full ROM B/L Radiology: 10/15/2023: Venous duplex left lower extremity (outside images at [facility]) No evidence of DVT in the left lower extremity 6.9 x 1.6 x 5.4 cm elongated fluid collection within the left calf. This favors a hematoma. A ruptured popliteal cyst could appear similar. Follow-up ultrasound in 3 months to ensure resolution is recommended. 5.9 x 3.7 x 1.2 cm suspected complex left popliteal cyst 08/18/2023: Four view x-ray of the left knee IMPRESSION: Early patellofemoral degenerative changes. Note: Patient also has marginal osteophytes within the medial compartment Assessment and Plan: 1) chronic left knee pain Suspect her pain is related to knee arthritis She has both patellofemoral and medial knee DJD and is noting some improvement with several therapyvisits She will continue physical therapy and follow up with me in approximately 2-3 months to follow up on the knee as well as the masses as described below and 2. 2) popliteal and calf masses Working diagnosis is the patient has a Vargas cyst as well as a 2nd fluid collection. Outside imaging suspected possible hematoma. Could also be additional fluid from a leaking Vargas cyst Discussed options of repeating ultrasound in 3 months versus obtaining MRI now but recommended the ultrasound unless the patient notes worsening. Patient agreeable to repeat ultrasound. Nonvascular ultrasound ordered to be performed in 3 months from 10/15/2023. Patient will then be seen by me in follow-up to discuss that study as well as her knee pain Chriss Barksdale MD Primary Care Sports Medicine Orthopaedics [address] [address] documented in this encounter Nursing Notes * Brittany Valero LPN - 10/29/2023 1:29 PM EDT NEW Pt Possible Bakers cyst of Knee PT: L Knee Xray L knee: 08/18/23 Pt is currently attending PT at [facility]; Pt attended 6 sessions Pt denies sx for L knee Pt stated she had a steroid injection on 09/01/[address] Greene; Pt stated she had 2 days of pain relief Jessica Araiza LPN documented in this encounter Plan of Treatment Scheduled Orders Name Type Priority Associated Diagnoses Orde r Schedule US EXTREMITY, NON-VASCULAR LIMITED Medical Imaging Routine Primary osteoarthritis of left knee Mass of knee, left Expected: 01/15/2024, Expires: 04/29/2024 Health Maintenance Due Date Last Done Comments [...] as of this encounter Visit Diagnoses Diagnosis Primary osteoarthritis of left knee- Primary Primary localized osteoarthrosis, lower leg Mass of knee, left documented in this encounter Care Teams Supervisor Green End Department Relationship Specialty Start Date End Date Ridge Ramos MD [address] [place] [address] PCP - General 05/26/00 documented as of this encounter
--- OUTSIDE RECORDS SUMMARY | 2023-12-23 01:33 | External Medical Summary | Summary of Care ---
Author Name Unknown Organization [facility] Address [address] [facility] [place] [address] Phone [phone] Care Team Providers Care Backfiller Name Role Phone Ridge Ramos MD Primary Care Provider +1- [phone] Reason for Visit * Reason Onset Date Comments Ultrasound 10/29/2023 Encounter Details Date Type Department Care Team (Late st Contact Info) Description 10/29/2023 Telephone Orthopaedics [facility] [address] [facility] [place] [address] Chriss Barksdale MD [address] [facility] [place] [address] Ultrasound Allergies Active Allergy Reactions Criticality Noted [...] 30 Tablet 2 10/28/2022 Active Neomycin-Polymyxin- HC 3.5-93259-0 Otic SolutionIndications :Black head Administer 4 Drops [...] (Pfizer) 04/01/2021,09/03/2020,08/13/2020 Pneumococcal Conjugate Vacci ne, 20-valent ([id number]) 11/27/2022 Pneumococcal Polysaccharide PPV23 (Pneumovax) 09/09/2021,02/17/2016(Deferred: Patient [...] encounter Miscellaneous Notes * Telephone Encounter - Citlalli Worrell RDMS - 10/29/2023 2:35 PM EDT Scheduling can you please assist? Thank you! * Telephone Encounter - Diann Philip OSA [...] filedocumented as of this encounter Care Teams Backfiller Relationship Specialty Start Date End Date Oesterling, Ridge R, MD [address] [place], [place] [id number] PCP - General 05/26/00 documented as of this encounter
--- OUTSIDE RECORDS SUMMARY | 2023-12-23 01:33 | External Medical Summary | Summary of Care ---
Author Name Unknown Organization [facility] Address [address] [facility] [place] [address] Phone [phone] Care Team Providers Care Cultural Centre Manager Name Role Phone Ridge Ramos MD Primary Care Provider [phone]- [phone] Reason for Visit * Reason Comments Acute X 3 days--- congesti on (sinus & chest), sneezing, fever (yesterday), h/a, sore throat. Encounter Details Date Type Department Care Team (Latest Contact Info) Description 11/02/2023 1:20 PM EDT Office Visit [facility] [address] [place] [address] Ada Maynard CRNP [address] [facility] [place] [address] Viral upper respiratory tract infection*; Shortness of breath; COPD, group B, by GOLD 2017 classification ([facility]) Allergies Active Allergy Reactions Criticality Noted Date [...] bedtime. 60 Capsule 1 08/05/19 23 Active Montelukast Sodium 10 MG Oral Tablet (Singulair) Take 1 Tablet by mouth daily. 90 Tablet 3 09/01/19 23 Active Desvenlafaxine Succinate ER 100 MG Oral Tablet Extended Release 24 Hour (Pristiq) Take 1 Tablet by mouth in the morning. Note- take it with the desvenlafaxine 50 mg tablet for a total of 150 mg daily. 30 Tablet 2 10/29/19 23 Active Neomycin-Polymyxin -HC 3.5-68612-0 Otic SolutionIndication s:Black head Administer 4 Drops [...] as needed for Anxiety. 90 Tablet 01/09/20 23 Active buPROPion HCl ER (XL) 150 MG Oral Tablet Extended Release 24 Hour (Wellbutrin XL) Take 3 Tablets by mouth in the morning. Note to pharmacy- please tell patient to make appointment to be seen in order to get subsequent refill.. 30 Tablet 02/05/20 23 Active Additional Information Patient taking [...] group B, by GOLD 2017 classification ([facility]) Inhale 2 Puffs by mouth in the morning and 2 Puffs at noon and 2 Puffs in the evening and 2 Puffs before bedtime. 8 g 1 11/02/19 24 Active guaiFENesin ER 600 MG Oral Tablet Extended Release 12 Hour (Mucinex)Indicatio ns:Viral upper respiratory tract infection,Shortnes s of breath,COPD, group B, by GOLD 2017 classification ([facility]) Take 1 Tablet by mouth 2 times a day as needed for Congestion. Take with plenty of water. Do not cut, crush or chew 40 Tablet 2 11/02/19 24 Active Proventil HFA 108 (90 Base) MCG/ACT Inhalation Aerosol SolutionIndication s:Bronchitis,Short ness of breath Inhale 2 Puffs by mouth every 4 hours as needed for Wheezing. 18 g 3 06/24/19 24 024 Discontinued Hospital, Clinic, or Other Facility Administered Medication Ordered Dose Route Frequency Start Date End Date Status Albuterol Sulfate (Proventil) (2.5 MG/3ML) 0.083% inhalation solution 2.5 mgIndications:Chronic obstructive pulmonary disease, unspecified COPD type ([facility]),History of tobacco abuse 2.5 mg NEBULIZER ONCE [...] mRNA, LNP-s, No Pre serve, 2-Dose Series ([employer]) 04/01/2021,09/03/2020,08/13/2020 Pneumococcal Conjugate Vacci ne, 20-valent ([id number]) 11/27/2022 Pneumococcal Polysaccharide PPV23 (Pneumovax) 09/09/2021,02/17/2016(Deferred: Patient Refused) Seasonal Influenza Virus Vac cine, Unspecified Formulation 03/11/2022 Seasonal Influenza, PF, 6 M & above, IM , (FluLaval or Fluzone) 05/03/2023,03/11/2022,02/07/2021,10/2019,04/20/2019,05/03/2018,05/06/20 17 Seasonal Influenza, Quadriva lent, No Preserve, [...] Sign Reading Time Taken Comments Blood Pressure 122/82 11/02/2023 1:17 PM EDT Pulse 83 11/02/2023 1:17 PM EDT Temperature 37.4 C (99.3 F) 11/02/2023 1:17 PM ED T Respiratory Rate - - Oxygen Saturation 96% 11/02/2023 1:17 PM EDT Inhaled Oxygen Concentration - - Weight - - Height - - Body Mass Index - - documented in this encounter Progress Notes * Ada Maynard CRNP - 11/02/2023 1:22 PM EDT Images from the original note were not included. History of Present Illness Loreto Rojas is a 53 year old female that presents for Acute (X 3 days--- congestion (sinus & chest), sneezing, fever (yesterday), h/a, sore throat. ) HPI URI symptoms as above for 3 days Took alkaseltzer and "sinus" medication once yesterday Eating and drinking ok No n/v/d Chest feels a little "heavy" and tight - has an inhaler but hasn't used it "lately" or at all sincethese symptoms started "Fever" of 99.5F at home yesterday, normal this morning Current Outpatient Medications Medication Sig Dispense Refill guaiFENesin ER 600 MG Oral Tablet Extended Release 12 Hour (Mucinex) Take 1 Tablet by mouth 2 timesa day as needed for Congestion. Take with plenty of water. Do not cut, crush or chew 40 Tablet 2 Proventil HFA 108 (90 Base) MCG/ACT Inhalation Aerosol Solution Inhale 2 Puffs by mouth in the morning and 2 Puffs at noon and 2 Puffs in the evening and 2 Puffs before bedtime. 8 g 1 Rivaroxaban 20 MG Oral Tablet (Xarelto) TAKE 1 TABLET BY MOUTH EVERY DAY Metoprolol Succinate ER 50 MG Oral Tablet Extended Release 24 Hour (toPROL XL) TAKE 1 TABLET BY MOUTH EVERY DAY 90 Tablet 3 buPROPion HCl ER (XL) 300 MG Oral Tablet Extended Release 24 Hour (Wellbutrin XL) TAKE 1 TABLET BY MOUTH EVERY DAY IN THE MORNING 90 Tablet 3 hydroCHLOROthiazide 12.5 MG Oral Capsule TAKE 1 CAPSULE BY MOUTH EVERY DAY 90 Capsule 3 Mometasone Furoate 50 MCG/ACT Nasal Suspension Administer 2 Sprays into each nostril in the morning. 51 g 3 valACYclovir HCl 1 GM Oral Tablet (Valtrex) TAKE 2 TABLETS BY MOUTH EVERY 12 HOURS FOR 1 DAY FOR COLD SORES 4 Tablet 0 Ondansetron 8 MG Oral Tablet Disintegrating (Zofran) Place 1 Tablet on tongue every 8 hours as needed for Nausea. dissolve on tongue. 20 Tablet 1 Desvenlafaxine Succinate ER 50 MG Oral Tablet Extended Release 24 Hour (Pristiq) Take 1 tab by mouth daily with the 100 mg dose for a total of 150 mg daily 90 Tablet 3 amLODIPine Besylate 10 MG Oral Tablet (Norvasc) TAKE 1 TABLET BY MOUTH EVERY DAY 90 Tablet 3 Lisinopril 40 MG Oral Tablet TAKE 1 TABLET BY MOUTH EVERY DAY IN THE MORNING 90 Tablet 3 Pantoprazole Sodium 40 MG Oral Tablet Delayed Release (Protonix) TAKE 1 TABLET BY MOUTH EVERY DAY 90 Tablet 3 B-12 1000 MCG Oral Capsule TAKE 1 CAPSULE BY MOUTH EVERY DAY IN THE MORNING 90 Capsule 1 buPROPion HCl ER (XL) 150 MG Oral Tablet Extended Release 24 Hour (Wellbutrin XL) Take 3 Tablets bymouth in the morning. Note to pharmacy- please tell patient to make appointment to be seen in orderto get subsequent refill.. (Patient taking differently: Take 1 Tablet by mouth in the morning. Takes with 300 for a total of 450mg.) 30 Tablet 0 ALPRAZolam 0.5 MG Oral Tablet (xaNAX) Take 1 Tablet by mouth 3 times a day as needed for Anxiety. 90 Tablet 0 Desvenlafaxine Succinate ER 100 MG Oral Tablet Extended Release 24 Hour (Pristiq) Take 1 Tablet by mouth in the morning. Note- take it with the desvenlafaxine 50 mg tablet for a total of 150 mg daily. 30 Tablet 2 Montelukast Sodium 10 MG Oral Tablet (Singulair) Take 1 Tablet by mouth daily. 90 Tablet 3 Saccharomyces boulardii 250 MG Oral Capsule (Florastor) Take 1 Capsule by mouth in the morning and 1 Capsule before bedtime. 60 Capsule 1 Cyclobenzaprine HCl 10 MG Oral Tablet (Flexeril) Take by mouth 1 Tablet as needed before bedtime for Muscle spasms. 10 Tablet 0 cetirizine (ZYRTEC) 10 MG Tablet TAKE 1 TABLET BY MOUTH EVERY DAY 30 Tab 11 Meloxicam 15 MG Oral Tablet Take 1 Tablet by mouth in the morning. for pain.. (Patient not taking: Reported on 10/15/2023) 30 Tablet 0 Doxycycline Hyclate 100 MG Oral Capsule [...] not taking: Reported on 10/15/2023) 20Tablet 0 guaiFENesin-Codeine 100-10 MG/5ML Oral Syrup (Robitussin AC) Take 5 mL by mouth every 4 hours as needed for Cough. (Patient not taking: Reported on 06/08/2023) 120 mL 0 Itzgbsfw-Ghmyzskjk-HA 3.5-30288-0 Otic Solution Administer 4 Drops into the left ear in the morningand 4 Drops at noon and 4 Drops before bedtime. To affected ear, for 10 days.. (Patient not taking:Reported on 05/03/2023) 10 mL 1 Current Facility-Administered Medications Medication Dose Route Frequency Provider Last Rate Last Admin Albuterol Sulfate (Proventil) (2.5 MG/3ML) 0.083% inhalation solution 2.5 mg 2.5 mg Nebulizer Once PRN Claudia Riavs PA-C Physical Exam Vitals: 11/02/23 1317 Temp: 37.4 C (99.3 F) Pulse: 83 SpO2: 96% BP: 122/82 Physical Exam Vitals reviewed. Constitutional: General: She is not in acute distress. HENT: Head: Normocephalic and atraumatic. Right Ear: Tympanic membrane, ear canal and external ear normal. Left Ear: Tympanic membrane, ear canal and external ear normal. Nose: Congestion and rhinorrhea present. Mouth/Throat: Mouth: Mucous membranes are moist. Pharynx: No oropharyngeal exudate or posterior oropharyngeal erythema. Eyes: Extraocular Movements: Extraocular movements intact. Conjunctiva/sclera: Conjunctivae normal. Pupils: Pupils are equal, round, and reactive to light. Cardiovascular: Rate and Rhythm: Normal rate and regular rhythm. Heart sounds: Normal heart sounds. Pulmonary: Effort: No respiratory distress. Breath sounds: No wheezing, rhonchi or rales. Musculoskeletal: Cervical back: Neck supple. Lymphadenopathy: Cervical: No cervical adenopathy. Skin: General: Skin is warm and dry. Capillary Refill: Capillary refill takes less than 2 seconds. Findings: No rash. Neurological: Mental Status: She is alert and oriented to person, place, and time. Psychiatric: Behavior: Behavior normal. Thought Content: Thought content normal. Assessment and Plan Viral upper respiratory tract infection Discussed supportive care, indications for follow up or ER - Proventil HFA 108 (90 Base) MCG/ACT Inhalation Aerosol Solution; Inhale 2 Puffs by mouth in the morning and 2 Puffs at noon and 2 Puffs in the evening and 2 Puffs before bedtime. - guaiFENesin ER 600 MG Oral Tablet Extended Release 12 Hour (Mucinex); Take 1 Tablet by mouth 2 times a day as needed for Congestion. Take with plenty of water. Do not cut, crush or chew - RETURN TO WORK OR SCHOOL Shortness of breath VSS ER if no improvement with inhaler - Proventil HFA 108 (90 Base) MCG/ACT Inhalation Aerosol Solution; Inhale 2 Puffs by mouth in the morning and 2 Puffs at noon and 2 Puffs in the evening and 2 Puffs before bedtime. - guaiFENesin ER 600 MG Oral Tablet Extended Release 12 Hour (Mucinex); Take 1 Tablet by mouth 2 times a day as needed for Congestion. Take with plenty of water. Do not cut, crush or chew - RETURN TO WORK OR SCHOOL COPD, group B, by GOLD 2017 classification ([facility]) - Proventil HFA 108 (90 Base) MCG/ACT Inhalation Aerosol Solution; Inhale 2 Puffs by mouth in the morning and 2 Puffs at noon and 2 Puffs in the evening and 2 Puffs before bedtime. - guaiFENesin ER 600 MG Oral Tablet Extended Release 12 Hour (Mucinex); Take 1 Tablet by mouth 2 times a day as needed for Congestion. Take with plenty of water. Do not cut, crush or chew - RETURN TO WORK OR SCHOOL Wrap-Up Follow Up: Return if symptoms worsen or fail to improve. Time: I spent a total of 20-29 minutes (exact time 20 mins) on the date of service in preparation, delivery, and documentation of the care provided to Loreto Rojas excluding any time spent in the performance of separately billed services. documented in this encounter Nursing Notes * Jacqui Chaidez LPN - 11/02/2023 1:16 PM EDT The patient has been properly identified by confirmation of name and date of . Chief Complaint Patient presents with Acute X 3 days--- congestion (sinus & chest), sneezing, fever (yesterday), h/a, sore throat. No relief with OTC meds. documented in this encounter Plan of Treatment [...] of this encounter Visit Diagnoses Diagnosis Viral upper respiratory tract infection- Primary Acute upper respiratory infections of unspecified site Shortness of breath COPD, group B, by GOLD 2017 classification (HCC) documented in this encounter Care Teams Cultural Centre Manager Relationship Specialty Start Date End Date Ridge Ramos MD [address] [place] [address] PCP - General 05/26/00 documented as of this encounter
--- OUTSIDE RECORDS SUMMARY | 2023-12-23 01:34 | External Medical Summary | Summary of Care ---
Author Name Unknown Organization [facility] Address [address] [place] [facility] [facility] [place] [address] Phone [phone] Care Team Providers Care Manager Process Excellence Name Role Phone Ridge Ramos MD Primary Care Provider [phone]- [phone] Reason for Visit * Reason Onset Date Comments After Hours Call 10/15/2023 Encounter Details Date Type Department Care Team (Late st Contact Info) Description 10/16/2023 Telephone [facility] [address] [place] [address] Imelda Mejias MD [address] [place] [address] After Hours Call Allergies Active Allergy Reactions Criticality Noted Date Comments Sulfamethoxazole-Trimethoprim Rash Low 2008 Itch, hives Ciprofloxacin Anaphylaxis High 04/21/2019 Hydromorphone Abdominal pain 01/09/2019 Metronidazole Anaphylaxis High 04/24/2023 Morphine Abdominal pain High 01/09/2019 Penicillins 12/19/1998 rash documented as of this encounter (statuses as of 10/18/2023) Medications Medication Sig Dispensed Refills Start Date [...] 30 Tablet 2 10/28/2022 Active Neomycin-Polymyxin- HC 3.5-57194-1 Otic SolutionIndications :Black head Administer 4 Drops [...] mg daily 90 Tablet 3 06/04/2023 Active Cephalexin 500 MG Oral Capsule (Keflex) Take 1 Capsule by mouth in the morning and 1 Capsule before bedtime. 06/14/2023 Active oxyCODONE HCl 5 MG Oral Tablet (Oxy IR) Take 1 Tablet by mouth every 4 hours as needed for Pain, Mild. 06/16/2023 Active Tamsulosin HCl 0.4 MG Oral Capsule (Flomax) Take 1 Capsule by mouth in the morning. 06/10/2023 Active Ondansetron 8 MG Oral Tablet Disintegrating [...] Additional Information Patient not taking.Reported on 10/15/2023 Rivaroxaban 20 MG Oral Tablet (Xarelto) TAKE 1 TABLET BY MOUTH EVERY DAY 90 Tablet 10/07/2023 Active Metoprolol Succinate ER 50 MG Oral [...] as of this encounter (statuses as of 10/18/2023) Active Problems Problem Noted Date Diagnosed Date [...] as of this encounter (statuses as of 10/18/2023) Resolved Problems Problem Noted Date Diagnosed Date [...] as of this encounter (statuses as of 10/18/2023) Immunizations Name Administration Dates Next Due COVID-19 mRNA, LNP-s, No Pre serve, 2-Dose Series ([employer]) 04/01/2021,09/03/2020,08/13/2020 Pneumococcal Conjugate Vacci ne, 20-valent ([id number]) 11/27/2022 Pneumococcal Polysaccharide PPV23 (Pneumovax) 09/09/2021,02/17/2016(Deferred: Patient Refused) Seasonal Influenza Virus Vac cine, Unspecified Formulation 03/11/2022 Seasonal Influenza, PF, 6 M & above, IM , (FluLaval or Fluzone) 05/03/2023,03/11/2022,02/07/2021,1110/2019,04/20/2019,05/03/2018,05/06/20 17 Seasonal Influenza, Quadriva lent, No Preserve, [...] encounter Miscellaneous Notes * Telephone Encounter - Jonelle Ryan OSA - 10/18/2023 11:21 AM EDT Done. 10/18/2023 * Addendum Note - Kristi Mas MD - 10/18/2023 8:10 AM EDTAddended by: KRISTI MAS on: 10/18/2023 08:10 AM Modules accepted: Orders * Telephone Encounter - Kristi Mas MD - 10/18/2023 7:57 AM EDT Can we please assist patient in scheduling with me in about a week to 10 days for follow up. Kristi Mas MD * Telephone Encounter - Imelda Mejias MD - 10/16/2023 11:57 AM EDT Pt had venous doppler at [facility] Result - negative for DVT But showed hematoma on calf and popliteal cyst behind knee Talked to pt and pt has pain swelling On xarelto currently , more than 2 yrs for known hx of PE Advised to hold on xarelto for now And will need to f/ with Dr Mas or PCP in 1-2 wks And will need f/u US too And please get test result from [facility] Sent out two days work excuse note through [employer] documented in this encounter Plan of Treatment Upcoming Encounters Date Type Department Care Team (Late st Contact Info) Description 10/25/2023 10:40 AM EDT Office Visit [facility] [address] [place] [address] Ridge Ramos MD [address] [place] [address] Scheduled Orders Name Type Priority Associated Diagnoses Orde r Schedule US EXTREMITY, NON-VASCULAR LIMITED Medical Imaging Routine Hematoma of leg, left, initial encounter Expected: 10/25/2023, Expires: 11/16/2024 Health Maintenance Due Date Last Done Comments HIV Screening 1986 Albumin/Creatinine Ratio 1989 Alpha-1 Antitrypsin 1989 Hepatitis C Screening 1989 Hepatitis B (1 of 3 - 19+ 3-dose series) 1990 HPV/Co-Test 2001 Cologuard 2016 Fecal Occult Blood Test 2016 Sigmoidoscopy 2016 Cervical Cancer Screening 11/18/2018 Pap Smear 11/18/2018 11/19/2015, 01/2008 (Done elsewhere), 01/05/2003, Additional history exists Mammogram 07/16/2022 07/16/2021, 06/2021, 10/23/2016, Additional history exists GFR 09/09/2022 09/09/2021, 03/17, 04/24/2019, Additional history exists *COPD SEVERITY VERIFIED BY PFT 11/29/2022 COVID-19 Vaccine ( season) 2023 04/01/2021, 09/03/2020, 08/13/2020 Diabetes Screening 09/09/2024 09/09/2021, 1 05/27/2019, 04/24/2019, [...] as of this encounter Visit Diagnoses Diagnosis Hematoma of leg, left, initial encounter- Primary documented in this encounter Care Teams Manager Process Excellence Relationship Specialty Start Date End Date Ridge Ramos MD [address] [place] [address] PCP - General 05/26/00 documented as of this encounter
--- OUTSIDE RECORDS SUMMARY | 2023-12-23 01:34 | External Medical Summary | Summary of Care ---
Author Name Unknown Organization [facility] Address [address] [place] [facility] [place] [address] Phone [phone] Care Team Providers Care Used Equipment Sales Representative Name Role Phone Ridge Ramos MD Primary Care Provider +1- [phone] Reason for Visit * Reason Onset Date Comments After Hours Call 10/15/2023 Encounter Details Date Type Department Care Team (Late st Contact Info) Description 10/16/2023 Telephone [facility] [address] [place] [address] Imelda Mejias MD [address] [place] [address] After Hours Call Allergies Active [...] 30 Tablet 2 10/28/2022 Active Neomycin-Polymyxin- HC 3.5-60887-8 Otic SolutionIndications :Black head Administer 4 Drops [...] mRNA, LNP-s, No Pre serve, 2-Dose Series ([employer]) 04/01/2021,09/03/2020,08/13/2020 Pneumococcal Conjugate Vacci ne, 20-valent ([id number]) 11/27/2022 Pneumococcal Polysaccharide PPV23 (Pneumovax) 09/09/2021,02/17/2016(Deferred: Patient [...] as of this encounter Miscellaneous Notes * Addendum Note - Kristi Mas MD [...] AM EDT Pt had venous doppler at [facility] Result - negative for DVT But showed [...] too And please get test result from [facility] Sent out two days work excuse note [...] COPD 10/07/2024 10/08/2023 Lipid Panel 03/27/2025 03/27/2020, 1201/2019, 05/12/2018, Additional [...] Primary documented in this encounter Care Teams Used Equipment Sales Representative Relationship Specialty Start Date End Date Ridge Ramos MD [address] [place] [address] PCP - General 05/26/00 documented as of this encounter
--- OUTSIDE RECORDS SUMMARY | 2023-12-23 01:34 | External Medical Summary | Summary of Care ---
Author Name Unknown Organization [facility] Address [address] [facility] [place] [address] Phone [phone] Care Team Providers Care Exhibit Specialist Name Role Phone Ridge Ramos MD Primary Care Provider [phone]- [phone] Reason for Visit * Reason Comments Acute Left lower leg swell ing from knee to foot x 4 days Encounter Details Date Type Department Care Team (Latest Contact Info) Description 10/15/2023 4:00 PM EDT Office Visit [facility] [address] [place] [address] Rashi Greene MD [address], [place] [id number] Swelling of left lower extremity*; Primary osteoarthritis of one knee, left Allergies Active Allergy Reactions Criticality Noted Date Comments Sulfamethoxazole-Trimethoprim Rash Low 2008 Itch, hives Ciprofloxacin Anaphylaxis High 04/21/2019 Hydromorphone Abdominal pain 01/09/2019 Metronidazole Anaphylaxis High 04/24/2023 Morphine Abdominal pain High 01/09/2019 Penicillins 12/19/1998 rash documented as of this encounter (statuses as of 10/15/2023) Medications Medication Sig Dispensed Refills Start Date [...] 30 Tablet 2 10/28/2022 Active Neomycin-Polymyxin- HC 3.5-77798-9 Otic SolutionIndications :Black head Administer 4 Drops [...] as of this encounter (statuses as of 10/15/2023) Active Problems Problem Noted Date Diagnosed Date [...] as of this encounter (statuses as of 10/15/2023) Resolved Problems Problem Noted Date Diagnosed Date [...] as of this encounter (statuses as of 10/15/2023) Immunizations Name Administration Dates Next Due COVID-19 mRNA, LNP-s, No Pre serve, 2-Dose Series ([employer]) 04/01/2021,09/03/2020,08/13/2020 Pneumococcal Conjugate Vacci ne, 20-valent ([id number]) 11/27/2022 Pneumococcal Polysaccharide PPV23 (Pneumovax) 09/09/2021,02/17/2016(Deferred: Patient [...] Sign Reading Time Taken Comments Blood Pressure 108/72 10/15/2023 3:59 PM EDT Pulse 98 10/15/2023 3:59 PM EDT Temperature 36.7 C (98 F) 10/15/2023 3:59 PM EDT Respiratory Rate 18 10/15/2023 3:59 PM EDT Oxygen Saturation - - Inhaled Oxygen Concentration - - Weight 142.9 kg (315 lb) 10/15/2023 3:59 PM EDT Height 170.2 cm (5' 7") 10/15/2023 3:59 PM EDT Body Mass Index 49.34 10/15/2023 3:59 PM EDT documented in this encounter Progress Notes * Rashi Greene MD - 10/15/2023 4:03 PM EDT Images from the original note were not included. Assessment and Plan I suspect this is related to dependent edema, however, must rule out DVT given patient was off of anticoagulation for 72 hours 48 hours prior to swelling starting. If DVT would recommend increasing Xarelto dosing to 15 mg twice daily times 21 days then decreasing back to chronic dose. We will also get an ultrasound to rule out Vargas's cyst. Continue physical therapy for left knee pain. Recommend compression stockings and icing of the left knee. 1. Swelling of left lower extremity - US EXTREMITY, NON-VASCULAR LIMITED; Future - [facility] DUPLEX VENOUS LE UNILAT 2. Primary osteoarthritis of one knee, left - US EXTREMITY, NON-VASCULAR LIMITED; Future Wrap-Up Follow up as needed. History of Present Illness The patient is a 53 year old female with past medical history of COPD, HTN, obesity, depression/LAI, history of PE who presents for acute. 53-year-old female with known history of left knee arthritis currently undergoing physical therapy with improvement in symptoms presents due to 4 days of left lower extremity swelling from the foot to the knee. No significant erythema or warmth. Mild pain to palpation especially in the popliteal fossa. Of note she has a history of pulmonary embolism and discontinued her Xarelto for 3 days from 10/06/2023 through 10/08/2023. Swelling started 48 hours later. She denies chest pain or shortness of breath. Physical Exam Vitals: 10/15/23 1559 Temp: 36.7 C (98 F) Pulse: 98 Resp: 18 BP: 108/72 BMI: 49.32 Physical Exam Physical Exam Vitals reviewed. Constitutional: General: She is not in acute distress. Comments: Using cane for ambulation. Musculoskeletal: Comments: Left calf 1.5 cm larger than the right calf. Mild pain to palpation in the popliteal fossa in the posterior calf. No significant erythema. No warmth of the left calf. Skin: General: Skin is warm and dry. Neurological: General: No focal deficit present. Mental Status: She is alert. This note has been completed in part utilizing [employer] Speech Voice Recognition Software. Due to technical limitations of the software, grammatical errors, random word insertions, prounoun errors, and incomplete sentences may occur. Any formal questions or concerns about the content, text, or information contained within the body of this dictation should be directly addressed to the provider for clarification. documented in this encounter Nursing Notes * Roselyn Alex LPN - 10/15/2023 4:01 PM EDT The patient has been properly identified by confirmation of name and date of . Chief Complaint Patient presents with Acute Left lower leg swelling from knee to foot x 4 days documented in this encounter Plan of Treatment Scheduled Orders Name Type Priority Associated Diagnoses Orde r Schedule US EXTREMITY, NON-VASCULAR LIMITED Medical Imaging Routine Swelling of left lower extremity Primary osteoarthritis of one knee, left Expected: 10/15/2023, Expires: 11/13/2024 [facility] DUPLEX VENOUS LE UNILAT Medical Imaging STAT Swelling of left lower extremity Ordered: 10/15/2023 Health Maintenance Due Date Last Done Comments [...] as of this encounter Visit Diagnoses Diagnosis Swelling of left lower extremity- Primary Swelling of limb Primary osteoarthritis of one knee, left documented in this encounter Care Teams Exhibit Specialist Relationship Specialty Start Date End Date Ridge Ramos MD [address] [place] [address] PCP - General 05/26/00 documented as of this encounter
--- OUTSIDE RECORDS SUMMARY | 2023-12-23 01:34 | External Medical Summary | Summary of Care ---
Author Name Unknown Organization [facility] Address [address] [place] [address] Phone [phone] Care Team Providers Care Fighting Vehicle Infantryman Name Role Phone Ridge Ramos MD Primary Care Provider [phone]- [phone] Reason for Visit * Reason Onset Date Comments After Hours Call 10/15/2023 Encounter Details Date Type Department Care Team (Late st Contact Info) Description 10/16/2023 Telephone [facility] [address] [place] [address] Imelda Mejias MD [address] [place] [address] After Hours Call Allergies Active Allergy Reactions Criticality Noted Date Comments Sulfamethoxazole-Trimethoprim Rash Low 2008 Itch, hives Ciprofloxacin Anaphylaxis High 04/21/2019 Hydromorphone Abdominal pain 01/09/2019 Metronidazole Anaphylaxis High 04/24/2023 Morphine Abdominal pain High 01/09/2019 Penicillins 12/19/1998 rash documented as of this encounter (statuses as of 10/16/2023) Medications Medication Sig Dispensed Refills Start Date [...] 30 Tablet 2 10/28/2022 Active Neomycin-Polymyxin- HC 3.5-11694-4 Otic SolutionIndications :Black head Administer 4 Drops [...] as of this encounter (statuses as of 10/16/2023) Active Problems Problem Noted Date Diagnosed Date [...] as of this encounter (statuses as of 10/16/2023) Resolved Problems Problem Noted Date Diagnosed Date [...] as of this encounter (statuses as of 10/16/2023) Immunizations Name Administration Dates Next Due COVID-19 mRNA, LNP-s, No Pre serve, 2-Dose Series ([employer]) 04/01/2021,09/03/2020,08/13/2020 Pneumococcal Conjugate Vacci ne, 20-valent ([id number]) 11/27/2022 Pneumococcal Polysaccharide PPV23 (Pneumovax) 09/09/2021,02/17/2016(Deferred: Patient [...] encounter Miscellaneous Notes * Telephone Encounter - Imelda Mejias MD - 10/16/2023 11:57 AM EDT Pt had venous doppler at [facility] Result - negative for DVT But showed hematoma on calf and popliteal cyst behind knee Talked to pt and pt has pain swelling On xarelto currently , more than 2 yrs for known hx of PE Advised to hold on xarelto for now And will need to f/ with Dr Greene or PCP in 1-2 wks And will need f/u US too And please get test result from [facility] Sent out two days work excuse [...] filedocumented as of this encounter Care Teams Fighting Vehicle Infantryman Relationship Specialty Start Date End Date Ridge Ramos MD [address] [place] [address] PCP - General 05/26/00 documented as of this encounter
--- OUTSIDE RECORDS SUMMARY | 2023-12-23 01:34 | External Medical Summary | Summary of Care ---
Author Name Unknown Organization [facility] Address [address] [place] [address] Phone [phone] Care Team Providers Care Cook Pie Name Role Phone Ridge Ramos MD Primary Care Provider [phone]- [phone] Reason for Visit * Reason Onset Date Comments After Hours Call 10/15/2023 Encounter Details Date Type Department Care Team (Late st Contact Info) Description 10/16/2023 Telephone [facility] [address] [place] [address] Imelda Mejias MD [address] [place] [address] After Hours Call Allergies Active [...] 30 Tablet 2 10/28/2022 Active Neomycin-Polymyxin- HC 3.5-50216-7 Otic SolutionIndications :Black head Administer 4 Drops [...] mRNA, LNP-s, No Pre serve, 2-Dose Series ([employer]) 04/01/2021,09/03/2020,08/13/2020 Pneumococcal Conjugate Vacci ne, 20-valent ([id number]) 11/27/2022 Pneumococcal Polysaccharide PPV23 (Pneumovax) 09/09/2021,02/17/2016(Deferred: Patient [...] encounter Miscellaneous Notes * Telephone Encounter - Rashi Greene MD - 10/18/2023 7:57 AM EDT Can we please assist patient in scheduling with me in about a week to 10 days for follow up. Rashi Greene MD * Telephone Encounter - Imelda Mejias MD - 10/16/2023 11:57 AM EDT Pt had venous doppler at [facility] Result - negative for DVT But showed [...] too And please get test result from [facility] Sent out two days work excuse note [...] filedocumented as of this encounter Care Teams Cook Pie Relationship Specialty Start Date End Date Ridge Ramos MD [address] [place] [address] PCP - General 05/26/00 documented as of this encounter
--- NOTE | 2023-12-23 01:37 | History & Physical Report ---
Date of Service December 23, 2023 Assessment & Plan (1) Acute diverticulitis: Plan: 53-year-old female with past medical history significant for COPD, allergic rhinitis, hypertension, morbid obesity, depression, history of pulmonary embolism on Xarelto,Anxiety disorder, treatment resistant depression, Sleep apnea could not tolerate CPAP use oxygen while sleeping 2 L, comes because of left lower quadrant abdominal pain since last Wednesday. She was having low-grade fevers. Symptoms seems to subside but again today symptoms came back when she decided come to the hospital. She has constipation and and also diarrhea. No blood in the stools. Micturating okay. Appetite is down. No chest pain or shortness of breath. No cough. Had headache earlier but that got resolved now. No runny nose or sore throat. Hemodynamics are okay. In May 2023 she was admitted for acute diverticulitis and also left ureteral stone. Acute diverticulitis Recurrent Has multiple drug allergies ER gave a dose of clindamycin Will continue clindamycin and Rocephin Surgery consult N.p.o., IV fluids and pain control Monitor the medical floor UTI Started on Rocephin Will follow cultures History of COPD Continue home inhalers Morbid obesity Sleep apnea noncompliant on CPAP Use oxygen while sleeping Hypertension On amlodipine hydrochlorothiazide and lisinopril metoprolol succinate Will monitor History of PE On Xarelto GERD on Protonix Depression Anxiety Continue home medications DVT prophylaxis On Xarelto Disposition Medical floor Full code. History of Present Illness Chief Complaint: Acute diverticulitis Primary Care Provider: Ridge Ramos MD 53-year-old female with past medical history significant for COPD, allergic rhinitis, hypertension, morbid obesity, depression, history of pulmonary embolism on Xarelto,Anxiety disorder, treatment resistant depression, Sleep apnea could not tolerate CPAP use oxygen while sleeping 2 L, comes because of left lower quadrant abdominal pain since last Wednesday. She was having low-grade fevers. Symptoms seems to subside but again today symptoms came back when she decided come to the hospital. She has constipation and and also diarrhea. No blood in the stools. Micturating okay. Appetite is down. No chest pain or shortness of breath. No cough. Had headache earlier but that got resolved now. No runny nose or sore throat. Hemodynamics are okay. In May 2023 she was admitted for acute diverticulitis and also left ureteral stone. Past medical history. As mentioned above Past surgical history. Right breast biopsy. Colonoscopy and EGD. Hysteroscopy and endometrial ablation. Laparoscopic tubal ligation. Cholecystectomy. Social history. Smoked 1 pack a day for 15 years. Alcohol occasionally. No drug use. Family history. Paternal grandfather had lung cancer. Father had diabetes hypertension sepsis and in his 80s. Allergies Allergy/AdvReac Type Severity Reaction Status Date / Time ciprofloxacin [From Cipro] Allergy Severe Anaphylaxis Verified 12/22/23 19:30 metronidazole [From Flagyl] Allergy Severe Anaphylaxis Verified 12/22/23 19:30 Penicillins Allergy Intermediate RASH Verified 12/22/23 19:30 Sulfa (Sulfonamide Allergy Intermediate RASH Verified 12/22/23 19:30 Antibiotics) Iodinated Contrast Media AdvReac Severe Vomiting Verified 12/22/23 19:30 morphine AdvReac Severe abd pain Verified 12/22/23 19:30 hydromorphone AdvReac Intermediate abd pain Verified 12/22/23 19:30 Home Medications Medication Instructions Recorded Confirmed Type alprazolam 0.5 mg tablet 0.5 mg PO TID PRN Anxiety 01/09/19 12/22/23 History lisinopril 40 mg tablet 40 mg PO QAM 01/09/19 12/22/23 History mometasone 50 mcg/actuation nasal 2 spray intranasal DAILY PRN Nasal 01/09/19 12/22/23 History spray Congestion montelukast 10 mg tablet 10 mg PO HS 01/09/19 12/22/23 History valacyclovir 1 gram tablet 2,000 mg PO Q12H PRN Cold Sores 01/09/19 12/22/23 History bupropion HCl 300 mg 24 hr tablet, 300 mg PO QAM 01/04/20 12/22/23 History extended release (Wellbutrin XL) pantoprazole 40 mg tablet,delayed 40 mg PO QAM 01/11/20 12/22/23 History release (Protonix) amlodipine 10 mg tablet 10 mg PO QAM 05/26/21 12/22/23 History cetirizine 10 mg tablet (Zyrtec) 10 mg PO HS 05/26/21 12/22/23 History desvenlafaxine succinate 100 mg 100 mg PO QAM 05/26/21 12/22/23 History tablet,extended release 24 hr (Pristiq) hydrochlorothiazide 12.5 mg capsule 12.5 mg PO QAM 05/26/21 12/22/23 History metoprolol succinate 50 mg 50 mg PO QAM 05/26/21 12/22/23 History tablet,extended release 24 hr bupropion HCl 150 mg 24 hr tablet, 150 mg PO QAM 11/25/22 12/22/23 History extended release cyanocobalamin (vitamin B-12) 1,000 mcg PO DAILY 11/25/22 12/22/23 History 1,000 mcg tablet (Vitamin B-12) desvenlafaxine succinate 50 mg 50 mg PO QAM 11/25/22 12/22/23 History tablet,extended release 24 hr rivaroxaban 20 mg tablet (Xarelto) 20 mg PO QAM 11/25/22 12/22/23 History Saccharomyces boulardii 250 mg 250 mg PO QAM 06/08/23 12/22/23 History capsule (Florastor) albuterol sulfate 90 mcg/actuation 2 puff inhalation Q6H PRN 06/08/23 12/22/23 History aerosol inhaler Shortness Of Breath cyclobenzaprine 10 mg tablet 10 mg PO HS PRN MUSCLE SPASMS 12/22/23 12/22/23 History ondansetron 8 mg disintegrating 8 mg PO Q8H PRN NAUSEA/VOMITING 12/22/23 12/22/23 History tablet Past Med/Surg History Problem List (Updated 12/23/23 @ 00:02 by Frank Nolen MD) Leukocytosis (Acute) Acute diverticulitis (Acute) Left sided abdominal pain (Acute) S/P ureteral stent placement OMAR (acute kidney injury) Calculus of distal left ureter (Acute) Hydronephrosis, left Left ureteral stone Allergic reaction caused by a drug Chronic anticoagulation Acute diverticulitis 06/08/23 Sleep apnea does not use CPAP as ordered; uses O2 at @2L HS Depression Hypertension Medical History History of COVID-19 2020, pcp test, not hosp; moderate symptoms>developed pulmonary emboli 2022, home test, not hosp; moderate symptoms>resolved On home oxygen therapy 2L @HS Slow to wake up after anesthesia Pulmonary embolism 2/2 to covid 04/2021; currently on xarelto Morbid obesity with BMI of 45.0-49.9, adult Chronic back pain follows with chiropractor History of kidney stones Diverticular disease hx Anxiety History of migraine headaches Surgical History History of left breast biopsy benign History of endometrial ablation History of bilateral tubal ligation History of cystoscopy w/ stent placement and removal History of colonoscopy History of cholecystectomy History of wisdom tooth extraction Family History Father Diabetes Heart disease Hypertension Other Family history of diabetes mellitus No family history of adverse response to anesthesia Social History Smoking Status: Former smoker Tobacco Type: E-cigarettes / Vaping Cigarettes Per Day: vaping daily; Second Hand Exposure: No; Do You Dip or Chew Tobacco: No; Tobacco Cessation Education Requested by Patient: No Hx Alcohol Use: Yes Alcohol type: hard liquor Hx Substance Use: No Preferred Language: Zambian Communication Ability: Effective Hub Bander Required: No Beliefs That Will Affect Care: None marital status: Current Living Situation: Spouse Current Living Situation Comment: home current occupational status: employed Other Information That Helps Us Care for You: No Feels Safe at Home: Yes Safety Concerns: Feels Safe At This Time Assistive Devices: Cane, Glasses and Oxygen - at Night Assistive Devices Comment: uses 02 instead of CPAP Review of Systems Review of Systems: All systems reviewed & are unremarkable except as noted in HPI & below Physical Exam Physical Exam: General- Not in distress Head- atraumatic Eyes- PERRL, EOMI, anicteric ENT- oropharynx clear Neck- supple, no JVD. Lungs- clear to auscultation no wheezing or crackles Heart- regular rhythm; no murmur, no gallop. Abdomen- normal bowel sounds, soft, tenderness in LLQ, No distension. Extremities- no pretibial edema, no erythema seen. Neuro- alert, oriented PERRL, no facial palsy; no dysarthria; moves extremit ies. Results & Data Results & Data Vital Signs (Past 12 Hours) Vital Signs Temp Pulse Resp BP BP Pulse Ox O2 Del Method 12/23/23 01:27 70 16 90/66 L 96 Nasal Cannula 12/23/23 01:03 70 14 95 Room Air 12/23/23 00:39 83 16 96 Room Air 12/23/23 00:00 80 19 129/70 96 Nasal Cannula 12/22/23 23:30 78 17 122/76 95 Nasal Cannula 12/22/23 23:00 78 19 130/71 95 Nasal Cannula 12/22/23 22:33 83 12/22/23 22:30 81 18 128/75 96 Nasal Cannula 12/22/23 22:00 124/65 12/22/23 21:57 112/70 12/22/23 21:36 83 13 98 Room Air 12/22/23 21:00 81 16 149/117 H 96 Room Air 12/22/23 20:30 84 16 117/67 96 Room Air 12/22/23 20:09 86 18 114/71 94 Room Air 12/22/23 20:03 86 95 Room Air 12/22/23 19:00 90 16 112/61 96 Room Air 12/22/23 19:00 82 16 97 Room Air 12/22/23 18:22 100 H 12/22/23 18:10 36.8 C 93 H 20 127/82 94 Room Air O2 Flow Rate 12/23/23 01:27 2 12/23/23 01:03 12/23/23 00:39 12/23/23 00:00 2 12/22/23 23:30 2 12/22/23 23:00 2 12/22/23 22:33 12/22/23 22:30 2 12/22/23 22:00 12/22/23 21:57 12/22/23 21:36 12/22/23 21:00 12/22/23 20:30 12/22/23 20:09 12/22/23 20:03 12/22/23 19:00 12/22/23 19:00 12/22/23 18:22 12/22/23 18:10 Diagnostic Findings Laboratory Results WBC 14.60 K/ul (4.8-10.8) H 12/22/23 18:20 RBC 4.36 M/uL (4.20-5.40) 12/22/23 18:20 Hgb 13.0 g/dl (12.0-16.0) 12/22/23 18:20 Hct 39.0 % (37.0-47.0) 12/22/23 18:20 MCV 89.4 fL (80.0-100.0) 12/22/23 18:20 MCH 29.8 pg (25.0-34.0) 12/22/23 18:20 MCHC 33.3 g/dL (32.0-36.0) 12/22/23 18:20 RDW Std Deviation 41.3 fL (36.4-46.3) 12/22/23 18:20 RDW Coeff of Serenity 12.5 % (11.5-14.5) 12/22/23 18:20 Plt Count 481 K/uL (130-400) H 12/22/23 18:20 MPV 10.0 fL (9.4-12.4) 12/22/23 18:20 Immature Gran % (Auto) 0.5 % 12/22/23 18:20 Neut % (Auto) 73.6 % 12/22/23 18:20 Lymph % (Auto) 19.0 % 12/22/23 18:20 [place] % (Auto) 5.4 % 12/22/23 18:20 Eos % (Auto) 1.0 % 12/22/23 18:20 Baso % (Auto) 0.5 % 12/22/23 18:20 Neut # (Auto) 10.75 K/uL (1.40-6.50) H 12/22/23 18:20 Lymph # (Auto) 2.77 K/uL (1.20-3.40) 12/22/23 18:20 [place] # (Auto) 0.79 K/uL (0.11-0.59) H 12/22/23 18:20 Eos # (Auto) 0.14 K/uL (0.00-0.50) 12/22/23 18:20 Baso # (Auto) 0.08 K/uL (0.00-0.20) 12/22/23 18:20 Immature Gran # (Auto) 0.07 K/uL (0.01-0.20) 12/22/23 18:20 Sodium 139 mmol/L (136-145) 12/22/23 18:20 Potassium 4.0 mmol/L (3.5-5.1) 12/22/23 18:20 Chloride 103 mmol/L (98-107) 12/22/23 18:20 Carbon Dioxide 25 mmol/L (21-32) 12/22/23 18:20 Anion Gap 11 (3-11) 12/22/23 18:20 BUN 21 mg/dl (6-23) 12/22/23 18:20 Creatinine 1.46 mg/dl (0.6-1.2) H 12/22/23 18:20 Est Cr Clr Drug Dosing 65.6 ml/min 12/22/23 18:20 Est GFR ( Amer) 47.5 ml/min 12/22/23 18:20 Est GFR (Non-Af Amer) 41.0 ml/min 12/22/23 18:20 BUN/Creatinine Ratio 14.4 (10-20) 12/22/23 18:20 Glucose 94 mg/dl (70-99(Fasting)) 12/22/23 18:20 Calcium 9.9 mg/dl (8.6-10.3) 12/22/23 18:20 Total Bilirubin 0.6 mg/dl (0.2-1.0) 12/22/23 18:20 AST 18 U/L (13-39) 12/22/23 18:20 ALT 28 U/L (7-52) 12/22/23 18:20 Alkaline Phosphatase 80 U/L (34-104) 12/22/23 18:20 Total Protein 8.2 gm/dl (6.0-8.3) 12/22/23 18:20 Albumin 4.5 gm/dl (3.4-5.0) 12/22/23 18:20 Globulin 3.7 gm/dl (2.5-4.0) 12/22/23 18:20 Albumin/Globulin Ratio 1.2 (0.9-2) 12/22/23 18:20 Lipase 18 U/L (11-82) 12/22/23 18:20 HCG, Qual Negative (Negative) 12/22/23 18:20 Urine Color Yellow 12/22/23 18:20 Urine Appearance Cloudy (Clear) A 12/22/23 18:20 Urine pH 5.5 (4.5-7.5) 12/22/23 18:20 Ur Specific [place] 1.020 (1.000-1.030) 12/22/23 18:20 Urine Protein 1+ (Negative) H 12/22/23 18:20 Urine Glucose (UA) Negative (Negative) 12/22/23 18:20 Urine Ketones Trace (Negative) H 12/22/23 18:20 Urine Blood Negative (Negative) 12/22/23 18:20 Urine Nitrite Negative (Negative) 12/22/23 18:20 Urine Bilirubin Negative (Negative) 12/22/23 18:20 Urine Urobilinogen Negative (Negative) 12/22/23 18:20 Ur Leukocyte Esterase 1+ (Negative) H 12/22/23 18:20 Urine WBC (Auto) 11-20 /hpf (0-5) H 12/22/23 18:20 Urine RBC (Auto) 6-10 /hpf (0-2) H 12/22/23 18:20 U Hyaline Cast (Auto) 11-20 /lpf (0-2) H 12/22/23 18:20 U Epithel Cells (Auto) 11-20 /hpf (0-2) H 12/22/23 18:20 Urine Bacteria (Auto) 4+ (None Seen) H 12/22/23 18:20 Impressions Abdomen/Pelvis CT 12/22/23 18:21 Exam(s): CT ABDOMEN + PELVIS Without Contrast EXAM: CT Abdomen and Pelvis Without Intravenous Contrast CLINICAL HISTORY: Reason for exam: left flank pain. TECHNIQUE: Axial computed tomography images of the abdomen and pelvis without intravenous contrast. CTDI is 28.14 mGy and DLP is 1408.89 mGy-cm. Automated exposure control was utilized for the study. A dose lowering technique was utilized adhering to the principles of ALARA. COMPARISON: CT abdomen/pelvis: 06/08/2023 FINDINGS: Lung bases: No mass. No consolidation. No pleural effusion. ABDOMEN: Analysis of abdominal/pelvic viscera and vascular structures is limited in absence of IV contrast. Liver: Diffuse steatosis. Mild hepatomegaly. Gallbladder and bile ducts: Prior cholecystectomy. No ductal dilation. Pancreas: Fatty infiltration.. No ductal dilation. Spleen: Unremarkable. No splenomegaly. Adrenals: Left adrenal 1.9 cm versus previously 1.2 cm nodule (series 3 image 88). Morphologically normal right adrenal gland. 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 Multiple nonobstructing bilateral renal stones, largest is a coalescent 18 x 10 mm calculus in the lower pole left kidney. No obstructive calculus or hydronephrosis. Stomach and bowel: Descending colonic/proximal sigmoid diverticulosis. In the left lower quadrant distal colonic/proximal sigmoid abnormal wall thickening and pericolonic inflammatory fat stranding, consistent with acute diverticulitis (series 3 image 275, series 300 image 36). Moderately large colonic stool volume. No obstruction. PELVIS: Appendix: No findings to suggest acute appendicitis. Bladder: A nearly empty bladder. No stones. Reproductive: Unremarkable as visualized. ABDOMEN and PELVIS: Intraperitoneal space: Unremarkable. No free air. No significant fluid collection. Bones/joints: No acute fracture. No dislocation. Multilevel degenerative thoracolumbar spondylosis. Grade 1 L5 spondylolisthesis with L5-S1 moderately severe disc disease. Lower lumbosacral facet arthropathy. Soft tissues: Unremarkable. Vasculature: Unremarkable. No abdominal aortic aneurysm. Lymph nodes: Unremarkable. No enlarged lymph nodes. IMPRESSION: Bilateral nonobstructive nephrolithiasis. No hydronephrosis. Malrotated left kidney. Distal colonic/sigmoid diverticulosis coli. In the left lower quadrant abnormal wall thickening of the distal colon/ proximal sigmoid and pericolonic inflammatory fat stranding, consistent with acute diverticulitis. No abscess or focal fluid collection. Left adrenal gland 1.9 cm versus previously 1.2 cm nodule. Correlation with MRI adrenal exam is recommended. Electronically signed by: Soha Villarreal MD, JOSE A 12/22/23 20:24 PM ECG Additional Comments: ECG. Normal sinus rhythm with rate of 89. Left axis deviation. Nonspecific T wave abnormalities. Code Status & VTE Plan VTE Prophylaxis Plan VTE Prophylaxis will be ordered: Yes
[2023-12-23] MEDS ORDERED: ALPRAZolam 0.5 MG TABLET PO PRN (02:44)
[2023-12-23] MEDS ORDERED: CYCLOBENZAPRINE HCL 10 MG TAB PO PRN (02:44)
[2023-12-23] MEDS ORDERED: ONDANSETRON INJ 2 MG/ML 2 ML VIAL IV PRN (02:44)
[2023-12-23] MEDS ORDERED: ALBUTEROL HFA 8 GM INHALER INH PRN (02:44)
[2023-12-23] MEDS ORDERED: valACYclovir HCL 500 MG TABLET PO PRN (02:44)
[2023-12-23] MEDS ORDERED: FLUTICASONE PROPIONATE NA SPR 16 GM BTL PRN (02:55)
[2023-12-23] MEDS: ACETAMINOPHEN 1,000 MG/100 ML VIAL IV PRN (02:56)
[2023-12-23 03:12] VITALS: RESP 16
[2023-12-23] MEDS: D5W AND NSS 1,000 ML IV SCH (03:19)
[2023-12-23] MEDS: cefTRIAXone SODIUM 2,000 MG/50 ML BAG IV SCH (03:20)
[2023-12-23] MEDS: KETOROLAC TROMETHAMINE 15 MG/ML VIAL IV ONE (03:59)
[2023-12-23] MEDS: CLINDAMYCIN/D5W 600 MG/50 ML BAG IV SCH (05:56)
--- NOTE | 2023-12-23 07:08 | XRay Report ---
XR chest 1V portable CLINICAL HISTORY: abd pain TECHNIQUE: Single frontal radiograph of the chest was obtained. Comparison: Comparison is made to chest radiograph 11/25/2022 FINDINGS: No lines and tubes are seen. The cardiomediastinal silhouette is normal. The lungs are clear. No evid ence of pleural effusion or pneumothorax. IMPRESSION: No acute chest disease. ACT 112: Negative or not required by law. Electronically signed by: Moe De Leon M.D. 12/23/2023 7:07 AM
[2023-12-23 07:56] LABS: Basophils # (auto) 0.05 K/uL (0.00-0.20); Basophils % (auto) 0.5 %; Eosinophils # (auto) 0.12 K/uL (0.00-0.50); Eosinophils % (auto) 1.2 %; Hematocrit (blood only) 32.9 % (37.0-47.0); Hemoglobin 10.6 g/dl (12.0-16.0); Immature Granulocytes # (auto) 0.04 K/uL (0.01-0.20); Immature Granulocytes % (auto) 0.4 %; Lymphocytes # (auto) 2.16 K/uL (1.20-3.40); Lymphocytes % (auto) 20.8 %; Mean Corpuscular Hemoglobin 29.5 pg (25.0-34.0); Mean Corpuscular Hgb Conc 32.2 g/dL (32.0-36.0); Mean Corpuscular Volume 91.6 fL (80.0-100.0); Mean Platelet Volume 9.9 fL (9.4-12.4); Monocytes # (auto) 0.64 K/uL (0.11-0.59); Monocytes % (auto) 6.2 %; Neutrophils # (auto) 7.36 K/uL (1.40-6.50); Neutrophils % (auto) 70.9 %; Platelet Count 378 K/uL (130-400); RDW Coefficient of Variation 12.9 % (11.5-14.5); RDW Standard Deviation 43.5 fL (36.4-46.3); Red Blood Count 3.59 M/uL (4.20-5.40); White Blood Count 10.37 K/ul (4.8-10.8)
[2023-12-23 08:11] LABS: BUN Creatinine Ratio 16.3 (10-20); Calcium 8.9 mg/dl (8.6-10.3); Creatinine Clr Calc Pharmacy 63.1 ml/min; Est GFR (African American) 44.9 ml/min; Est GFR (Non-African American) 38.7 ml/min; Magnesium 1.9 mg/dl (1.7-2.4); Potassium 3.9 mmol/L (3.5-5.1)
[2023-12-23] MEDS: CYANOCOBALAMIN (B-12) 500 MCG TABLET PO SCH (08:19)
[2023-12-23] MEDS: hydroCHLOROthiazide 25 MG TAB PO SCH (08:19)
[2023-12-23] MEDS: amLODIPine BESYLATE 5 MG TAB PO SCH (08:19)
[2023-12-23] MEDS: buPROPion XL 300 MG TABCR PO SCH (08:20)
[2023-12-23] MEDS: METOPROLOL SUCC 50MG EXT REL TAB PO SCH (08:20)
[2023-12-23] MEDS: buPROPion XL 150 MG TABCR PO SCH (08:20)
[2023-12-23] MEDS: SACCHAROMYCES BOULARDII 250 MG CAP PO SCH (08:20)
[2023-12-23] MEDS: lisinopril 40 MG TAB PO SCH (08:20)
[2023-12-23] MEDS: PANTOprazole 40 MG TAB PO SCH (08:20)
--- NOTE | 2023-12-23 08:21 | Hospitalist Progress Note ---
<Statement entered by Junaid Schwartz DO - 12/23/23 14:45> I have seen and examined the patient and have discussed the case with the provider above. I have reviewed the advanced practitioner's documentation, and I agree with, and take responsibility for that plan of care. 14 minutes spent at bedside. Reviewed patient's history of diverticulitis. Reviewed possible elective surgery for her recurrent diverticulitis. Patient or stands no plan for surgical intervention this hospitalization. Plan of care as outlined below Date of Service December 23, 2023 Assessment & Plan (1) Acute diverticulitis: (2) Hypertension: (3) Depression: (4) Sleep apnea: (5) UTI (urinary tract infection): (6) On home oxygen therapy: (7) Pulmonary embolism: (8) Morbid obesity with BMI of 45.0-49.9, adult: Plan 53-year-old female with past medical history significant for COPD, allergic rhinitis, hypertension, morbid obesity, depression, history of pulmonary embolism on Xarelto,Anxiety disorder, treatment resistant depression, Sleep apnea could not tolerate CPAP use oxygen while sleeping 2 L, comes because of left lower quadrant abdominal pain since last Wednesday. She was having low-grade fevers. Symptoms seems to subside but again today symptoms came back when she decided come to the hospital. She has constipation and and also diarrhea. No blood in the stools. Micturating okay. Appetite is down. No chest pain or shortness of breath. No cough. Had headache earlier but that got resolved now. No runny nose or sore throat. Hemodynamics are okay. In May 2023 she was admitted for acute diverticulitis and also left ureteral stone. Acute diverticulitis: Recurrent; last admission 06/09 for similar symptoms admit to medical CTAP: Bilateral nonobstructive nephrolithiasis. No hydronephrosis. Malrotated left kidney. Distal colonic/sigmoid diverticulosis coli. In the left lower quadrant abnormal wall thickening of the distal colon/ proximal sigmoid and pericolonic inflammatory fat stranding, consistent with acute diverticulitis. No abscess or focal fluid collection. -multiple drug allergies for pain control challenges; has not seen an forging dies final finisher -ER gave a dose of clindamycin; continue clindamycin and Rocephin; adjust as needed -Surgery consult placed; conservative approach for now -advance diet as tolerated given earlier nausea; start clear liquids at dinner time -IV fluids -pain control with scheduled Tylenol and will add PO Oxycodone -Add Colace while on opioids UTI: acute Started on Rocephin; continue and adjust based on cultures; culture still pending on 12/22 History of COPD: chronic stable Continue home inhalers Morbid obesity: chronic Sleep apnea noncompliant on CPAP Uses 2LNC oxygen HS Hypertension chronic On amlodipine, hydrochlorothiazide, lisinopril, and metoprolol succinate; continue all but hold Lisinopril given kidney function Monitor renal function 1.46--> 1.53; has been up to 1.8 historically, could be baseline normotensive History of PE chronic On Xarelto; continue GERD: chronic Takes Protonix; continue Depression and anxiety: chronic Takes alprazolam and wellbutrin; continue Disposition: PCP: Dr. Ramos Code status: Full code VTE Prophylaxis: On Xarelto I spent a total of 62 minutes coordinating, documenting, and providing care for this patient excluding time spent in the performance of separately billed services. All of the aforementioned completed while collaborating with the assigned attending physician for a full treatment plan. Please see their addendum for further details. Admission and Anticipated Discharge Date Admission Date: December 23, 2023 Subjective Pt is sitting in her hospital bed in no apparent distress; smiling She is AAOx4; complaining of 4/10 LLQ abdominal pain without radiation Pt denies LOZA, dizziness, Chest pain, SOB, N/V/D. She is passing flatulence, has not had a BM yet. Review of Systems Review of Systems: Neuro: (-) Falls, trauma, slurred speech HEENT: (-) LOZA, dizziness, dysphagia, visual or auditory changes CV: (-) CP, palpitations, swelling Resp: (-) SOB GI: (-) appetite changes, N/V/D, bowel changes (+) LLQ abdominal pain : (-) urinary changes Skin: (-) rashes Psych: (-) anxiety, depression Physical Exam Physical Exam: Neuro: AAOx4, PERRLA, no aphagia, memory changes, CNII-XII grossly intact HEENT: head normocephalic, moist mucus membranes CV: S1/S2, (-) M/G/R, (-) edema, cap refill < 3 seconds Resp: Lungs CTA in all null. On RA GI: Abdomen S/ND, Ax4 bowel sounds, (-) CVA tenderness (+) LLQ tenderness with palpation Musculoskeletal: 5/5 B/L UE strength, 5/5 B/L LE strength. No gait disturbance Skin: (-) rashes , (-) erythema. Psych: euthymic mood Results & Data Results & Data Vital Signs (Past 12 Hours) Vital Signs Temp Pulse Pulse Resp BP BP Pulse Ox 12/23/23 07:57 36.6 C 71 16 126/70 95 12/23/23 02:20 12/23/23 02:15 36.6 C 69 16 106/73 100 12/23/23 02:00 73 15 123/68 94 12/23/23 01:33 72 18 108/80 95 12/23/23 01:27 70 16 90/66 L 96 12/23/23 01:03 70 14 95 12/23/23 00:39 83 16 96 12/23/23 00:00 80 19 129/70 96 12/22/23 23:30 78 17 122/76 95 12/22/23 23:00 78 19 130/71 95 12/22/23 22:33 83 12/22/23 22:30 81 18 128/75 96 12/22/23 22:00 124/65 12/22/23 21:57 112/70 12/22/23 21:36 83 13 98 12/22/23 21:00 81 16 149/117 H 96 12/22/23 20:30 84 16 117/67 96 O2 Del Method O2 Flow Rate 12/23/23 07:57 Room Air 12/23/23 02:20 Nasal Cannula 2 12/23/23 02:15 Nasal Cannula 2 12/23/23 02:00 Nasal Cannula 2 12/23/23 01:33 Nasal Cannula 2 12/23/23 01:27 Nasal Cannula 2 12/23/23 01:03 Room Air 12/23/23 00:39 Room Air 12/23/23 00:00 Nasal Cannula 2 12/22/23 23:30 Nasal Cannula 2 12/22/23 23:00 Nasal Cannula 2 12/22/23 22:33 12/22/23 22:30 Nasal Cannula 2 12/22/23 22:00 12/22/23 21:57 12/22/23 21:36 Room Air 12/22/23 21:00 Room Air 12/22/23 20:30 Room Air Laboratory Results Short CBC 12/22/23 12/23/23 Range/Units 18:20 07:37 WBC 14.60 H 10.37 (4.8-10.8) K/ul Hgb 13.0 10.6 L (12.0-16.0) g/dl Hct 39.0 32.9 L (37.0-47.0) % Plt Count 481 H 378 (130-400) K/uL BMP 12/22/23 12/23/23 18:20 07:37 Sodium 139 140 Potassium 4.0 3.9 Chloride 103 105 Carbon Dioxide 25 28 BUN 21 25 H Creatinine 1.46 H 1.53 H Glucose 94 96 Calcium 9.9 8.9 Liver Function 12/22/23 Range/Units 18:20 Total Bilirubin 0.6 (0.2-1.0) mg/dl AST 18 (13-39) U/L ALT 28 (7-52) U/L Alkaline Phosphatase 80 (34-104) U/L Albumin 4.5 (3.4-5.0) gm/dl Urine 12/22/23 Range/Units 18:20 Urine Color Yellow Urine Appearance Cloudy A (Clear) Urine pH 5.5 (4.5-7.5) Ur Specific [place] 1.020 (1.000-1.030) Urine Protein 1+ H (Negative) Urine Glucose (UA) Negative (Negative) Diagnostic Findings Chest X-Ray 12/22/23 18:20 XR chest 1V portable CLINICAL HISTORY: abd pain TECHNIQUE: Single frontal radiograph of the chest was obtained. Comparison: Comparison is made to chest radiograph 11/25/2022 FINDINGS: No lines and tubes are seen. The cardiomediastinal silhouette is normal. The lungs are clear. No evidence of pleural effusion or pneumothorax. IMPRESSION: No acute chest disease. ACT 112: Negative or not required by law. Electronically signed by: Moe De Leon M.D. 12/23/2023 7:07 AM Abdomen/Pelvis CT 12/22/23 18:21 Exam(s): CT ABDOMEN + PELVIS Without Contrast EXAM: CT Abdomen and Pelvis Without Intravenous Contrast CLINICAL HISTORY: Reason for exam: left flank pain. TECHNIQUE: Axial computed tomography images of the abdomen and pelvis without intravenous contrast. CTDI is 28.14 mGy and DLP is 1408.89 mGy-cm. Automated exposure control was utilized for the study. A dose lowering technique was utilized adhering to the principles of ALARA. COMPARISON: CT abdomen/pelvis: 06/08/2023 FINDINGS: Lung bases: No mass. No consolidation. No pleural effusion. ABDOMEN: Analysis of abdominal/pelvic viscera and vascular structures is limited in absence of IV contrast. Liver: Diffuse steatosis. Mild hepatomegaly. Gallbladder and bile ducts: Prior cholecystectomy. No ductal dilation. Pancreas: Fatty infiltration.. No ductal dilation. Spleen: Unremarkable. No splenomegaly. Adrenals: Left adrenal 1.9 cm versus previously 1.2 cm nodule (series 3 image 88). Morphologically normal right adrenal gland. 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 Multiple nonobstructing bilateral renal stones, largest is a coalescent 18 x 10 mm calculus in the lower pole left kidney. No obstructive calculus or hydronephrosis. Stomach and bowel: Descending colonic/proximal sigmoid diverticulosis. In the left lower quadrant distal colonic/proximal sigmoid abnormal wall thickening and pericolonic inflammatory fat stranding, consistent with acute diverticulitis (series 3 image 275, series 300 image 36). Moderately large colonic stool volume. No obstruction. PELVIS: Appendix: No findings to suggest acute appendicitis. Bladder: A nearly empty bladder. No stones. Reproductive: Unremarkable as visualized. ABDOMEN and PELVIS: Intraperitoneal space: Unremarkable. No free air. No significant fluid collection. Bones/joints: No acute fracture. No dislocation. Multilevel degenerative thoracolumbar spondylosis. Grade 1 L5 spondylolisthesis with L5-S1 moderately severe disc disease. Lower lumbosacral facet arthropathy. Soft tissues: Unremarkable. Vasculature: Unremarkable. No abdominal aortic aneurysm. Lymph nodes: Unremarkable. No enlarged lymph nodes. IMPRESSION: Bilateral nonobstructive nephrolithiasis. No hydronephrosis. Malrotated left kidney. Distal colonic/sigmoid diverticulosis coli. In the left lower quadrant abnormal wall thickening of the distal colon/ proximal sigmoid and pericolonic inflammatory fat stranding, consistent with acute diverticulitis. No abscess or focal fluid collection. Left adrenal gland 1.9 cm versus previously 1.2 cm nodule. Correlation with MRI adrenal exam is recommended. Electronically signed by: Soha Villarreal MD, JOSE A 12/22/23 20:24 PM (2) Hypertension Hypertension type: primary hypertension Qualified Code(s): I10 - Essential (primary) hypertension (3) Depression Active/Remission status: remission status unspecified Depression Type: major depressive disorder Major depression recurrence: recurrent Qualified Code(s): F33.9 - Major depressive disorder, recurrent, unspecified
[2023-12-23 08:43] LABS: Phosphorus 4.7 mg/dl (2.5-4.9)
[2023-12-23] MEDS: DESVENLAFAXINE SUCCINATE ER TABLET PO SCH (09:00)
[2023-12-23] MEDS: ACETAMINOPHEN 1,000 MG/100 ML VIAL IV SCH (09:03)
--- NOTE | 2023-12-23 10:28 | Surgery Consultation ---
<Statement entered by Prudence Culver DO - 12/23/23 19:44> I have seen and examined this patient this evening. She states pain is improved. She is tolerating clear liquids. Date of Consultation December 23, 2023 Assessment & Plan (1) Acute diverticulitis: Everette 53 yo female with c/o abdominal pain , CT imaging reading Distal colonic/sigmoid diverticulosis coli. In the left lower quadrant abnormal wall thickening of the distal colon/ proximal sigmoid and pericolonic inflammatory fat stranding, consistent with acute diverticulitis. No abscess or focal fluid collection. On exam she is in NAD, VSS , WBC downtrending. She is NPO without vomiting, some mild nausea. Keep NPO with ice chips IV Fluids for hydration IV antiemetic PRN IV antibiotics IV analgesic PRN No acute surgical intervention indicated. Would be hesitant to start a diet with her still having nausea. Treat conservatively Will discuss case with on-call surgeon Dr. Culver and further recommendations will be forthcoming. History of Present Illness Reason for Consultation: diverticulitis Requesting Physician: Dr. Urias Attending Physician: Junaid Schwartz DO History of Present Illness Patient is a everette 53 yo female with PMH significant for COPD, allergic rhinitis, hypertension, morbid obesity, depression, history of pulmonary embolism on Xarelto, Anxiety disorder, treatment resistant depression, BENITA, that presented to the [facility] ER with C/O left lower quadrant abdominal pain since last Wednesday12/17/23 . She reports she was having pain and then it subsided. The pain then returned on Wednesday and got worse Wednesday which prompted her to come the ER 12/22/23. A CT scan is reading diverticulitis. Currently she is reporting no fever/chills, SOB, CP. Last BM was Wednesday without blood. She is having LLQ discomfort/pain with bloating. Last colonoscopy was this year a few months ago and reports no issue, abdominal surgical history is positive for a Laparoscopic Cholecystectomy by Dr. Suggs . She reports three prior episodes of acute diverticulitis, and due to her antibiotic allergies she has had to be admitted for IV antibiotic treatment. Allergies Allergy/AdvReac Type Severity Reaction Status Date / Time ciprofloxacin [From Cipro] Allergy Severe Anaphylaxis Verified 12/22/23 19:30 metronidazole [From Flagyl] Allergy Severe Anaphylaxis Verified 12/22/23 19:30 Penicillins Allergy Intermediate RASH Verified 12/22/23 19:30 Sulfa (Sulfonamide Allergy Intermediate RASH Verified 12/22/23 19:30 Antibiotics) Iodinated Contrast Media AdvReac Severe Vomiting Verified 12/22/23 19:30 morphine AdvReac Severe abd pain Verified 12/22/23 19:30 hydromorphone AdvReac Intermediate abd pain Verified 12/22/23 19:30 Home Medications Medication Instructions Recorded Confirmed Type alprazolam 0.5 mg tablet 0.5 mg PO TID PRN Anxiety 01/09/19 12/22/23 History lisinopril 40 mg tablet 40 mg PO QAM 01/09/19 12/22/23 History mometasone 50 mcg/actuation nasal 2 spray intranasal DAILY PRN Nasal 01/09/19 12/22/23 History spray Congestion montelukast 10 mg tablet 10 mg PO HS 01/09/19 12/22/23 History valacyclovir 1 gram tablet 2,000 mg PO Q12H PRN Cold Sores 01/09/19 12/22/23 History bupropion HCl 300 mg 24 hr tablet, 300 mg PO QAM 01/04/20 12/22/23 History extended release (Wellbutrin XL) pantoprazole 40 mg tablet,delayed 40 mg PO QAM 01/11/20 12/22/23 History release (Protonix) amlodipine 10 mg tablet 10 mg PO QAM 05/26/21 12/22/23 History cetirizine 10 mg tablet (Zyrtec) 10 mg PO HS 05/26/21 12/22/23 History desvenlafaxine succinate 100 mg 100 mg PO QAM 05/26/21 12/22/23 History tablet,extended release 24 hr (Pristiq) hydrochlorothiazide 12.5 mg capsule 12.5 mg PO QAM 05/26/21 12/22/23 History metoprolol succinate 50 mg 50 mg PO QAM 05/26/21 12/22/23 History tablet,extended release 24 hr bupropion HCl 150 mg 24 hr tablet, 150 mg PO QAM 11/25/22 12/22/23 History extended release cyanocobalamin (vitamin B-12) 1,000 mcg PO DAILY 11/25/22 12/22/23 History 1,000 mcg tablet (Vitamin B-12) desvenlafaxine succinate 50 mg 50 mg PO QAM 11/25/22 12/22/23 History tablet,extended release 24 hr rivaroxaban 20 mg tablet (Xarelto) 20 mg PO QAM 11/25/22 12/22/23 History Saccharomyces boulardii 250 mg 250 mg PO QAM 06/08/23 12/22/23 History capsule (Florastor) albuterol sulfate 90 mcg/actuation 2 puff inhalation Q6H PRN 06/08/23 12/22/23 History aerosol inhaler Shortness Of Breath cyclobenzaprine 10 mg tablet 10 mg PO HS PRN MUSCLE SPASMS 12/22/23 12/22/23 History ondansetron 8 mg disintegrating 8 mg PO Q8H PRN NAUSEA/VOMITING 12/22/23 12/22/23 History tablet Patient History Medical History History of COVID-19 [facility] 2020, pcp test, not hosp; moderate symptoms>developed pulmonary emboli [facility] 2022, home test, not hosp; moderate symptoms>resolved On home oxygen therapy 2L @[facility] Slow to wake up after anesthesia Pulmonary embolism 2/2 to covid 04/2021; currently on xarelto Morbid obesity with BMI of 45.0-49.9, adult Chronic back pain follows with chiropractor History of kidney stones Diverticular disease hx Anxiety History of migraine headaches Surgical History History of left breast biopsy benign History of endometrial ablation History of bilateral tubal ligation History of cystoscopy w/ stent placement and removal History of colonoscopy History of cholecystectomy History of wisdom tooth extraction Family History Father Diabetes Heart disease Hypertension Other Family history of diabetes mellitus No family history of adverse response to anesthesia Social History Smoking Status: Former smoker Tobacco Type: E-cigarettes / Vaping Cigarettes Per Day: vaping daily; Second Hand Exposure: No; Do You Dip or Chew Tobacco: No; Tobacco Cessation Education Requested by Patient: No Hx Alcohol Use: Yes Alcohol type: hard liquor Hx Substance Use: No Preferred Language: Nepali Communication Ability: Effective Mission Analyst Required: No Beliefs That Will Affect Care: None marital status: Current Living Situation: Spouse Current Living Situation Comment: home current occupational status: employed Other Information That Helps Us Care for You: No Feels Safe at Home: Yes Safety Concerns: Feels Safe At This Time Assistive Devices: Cane, Glasses and Oxygen - at Night Assistive Devices Comment: uses 02 instead of CPAP Review of Systems Constitutional: no fever and no chills Respiratory: no dyspnea Cardiovascular: no chest pain Gastrointestinal: + abdominal pain and + bloating; no naus ea and no vomiting Musculoskeletal: no muscle weakness Integumentary: no rash Physical Exam Constitutional: cooperative and comfortable; no acute distress Respiratory: normal respiratory effort and + respiratory distress; + not able to speak in complete sentence Cardiovascular: Rate/Rhythm: regular rate Gastrointestinal (Abdomen): Inspection/Auscultation: + abdominal surgical scar Percussion/Palpation: + abdomen tender and abdomen soft Musculoskeletal: no cyanosis or clubbing, extremities motor strength 5/5 Results & Data Vital Signs (Past 12 Hours) Vital Signs Temp Pulse Pulse Resp BP BP Pulse Ox 12/23/23 09:31 12/23/23 07:57 97.9 F 71 16 126/70 95 12/23/23 02:20 12/23/23 02:15 97.8 F 69 16 106/73 100 12/23/23 02:00 73 15 123/68 94 12/23/23 01:33 72 18 108/80 95 12/23/23 01:27 70 16 90/66 L 96 12/23/23 01:03 70 14 95 12/23/23 00:39 83 16 96 12/23/23 00:00 80 19 129/70 96 12/22/23 23:30 78 17 122/76 95 12/22/23 23:00 78 19 130/71 95 12/22/23 22:33 83 12/22/23 22:30 81 18 128/75 96 O2 Del Method O2 Flow Rate 12/23/23 09:31 Room Air 12/23/23 07:57 Room Air 12/23/23 02:20 Nasal Cannula 2 12/23/23 02:15 Nasal Cannula 2 12/23/23 02:00 Nasal Cannula 2 12/23/23 01:33 Nasal Cannula 2 12/23/23 01:27 Nasal Cannula 2 12/23/23 01:03 Room Air 12/23/23 00:39 Room Air 12/23/23 00:00 Nasal Cannula 2 12/22/23 23:30 Nasal Cannula 2 12/22/23 23:00 Nasal Cannula 2 12/22/23 22:33 12/22/23 22:30 Nasal Cannula 2 [phone] Report Patient: MARY LOU RIVERA Admit Date: 12/22/23 MR#: [id number] Address[address]: [address] Acct ID:[id number] Address2: Date: 1970 [facility] Zip: [place] [id number] Age: 53 Location: ED Sex: F Room/Bed: Att Phy: Diagnosis: LT FLANK PAIN, ABD PAIN Raine Phy: Ridge Ramos MD Service Date: 12/22/23 Fam Phy: Interpreting Phy: Holly Villarreal MDAdmit Phy: Ordering Phy: Frank Nolen M.D. cc: ~ Exam(s): CT ABDOMEN + PELVIS Without Contrast EXAM: CT Abdomen and Pelvis Without Intravenous Contrast CLINICAL HISTORY: Reason for exam: left flank pain. TECHNIQUE: Axial computed tomography images of the abdomen and pelvis without intravenous contrast. CTDI is 28.14 mGy and DLP is 1408.89 mGy-cm. Automated exposure control was utilized for the study. A dose lowering technique was utilized adhering to the principles of ALARA. COMPARISON: CT abdomen/pelvis: 06/08/2023 FINDINGS: Lung bases: No mass. No consolidation. No pleural effusion. ABDOMEN: Analysis of abdominal/pelvic viscera and vascular structures is limited in absence of IV contrast. Liver: Diffuse steatosis. Mild hepatomegaly. Gallbladder and bile ducts: Prior cholecystectomy. No ductal dilation. Pancreas: Fatty infiltration.. No ductal dilation. Spleen: Unremarkable. No splenomegaly. Adrenals: Left adrenal 1.9 cm versus previously 1.2 cm nodule (series 3 image 88). Morphologically normal right adrenal gland. 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 Multiple nonobstructing bilateral renal stones, largest is a coalescent 18 x 10 mm calculus in the lower pole left kidney. No obstructive calculus or hydronephrosis. Stomach and bowel: Descending colonic/proximal sigmoid diverticulosis. In the left lower quadrant distal colonic/proximal sigmoid abnormal wall thickening and pericolonic inflammatory fat stranding, consistent with acute diverticulitis (series 3 image 275, series 300 image 36). Moderately large colonic stool volume. No obstruction. PELVIS: Appendix: No findings to suggest acute appendicitis. Bladder: A nearly empty bladder. No stones. Reproductive: Unremarkable as visualized. ABDOMEN and PELVIS: Intraperitoneal space: Unremarkable. No free air. No significant fluid collection. Bones/joints: No acute fracture. No dislocation. Multilevel degenerative thoracolumbar spondylosis. Grade 1 L5 spondylolisthesis with L5-S1 moderately severe disc disease. Lower lumbosacral facet arthropathy. Soft tissues: Unremarkable. Vasculature: Unremarkable. No abdominal aortic aneurysm. Lymph nodes: Unremarkable. No enlarged lymph nodes. IMPRESSION: Bilateral nonobstructive nephrolithiasis. No hydronephrosis. Malrotated left kidney. Distal colonic/sigmoid diverticulosis coli. In the left lower quadrant abnormal wall thickening of the distal colon/ proximal sigmoid and pericolonic inflammatory fat stranding, consistent with acute diverticulitis. No abscess or focal fluid collection. Left adrenal gland 1.9 cm versus previously 1.2 cm nodule. Correlation with MRI adrenal exam is recommended. Electronically signed by: Soha Villarreal MD, JOSE A 12/22/23 20:24 PM Dictated: 12/22/232023 Transcribed: 12/22/232023 Results CBC w Diff Results: RBC 3.59 M/uL (4.20-5.40) L 12/23/23 WBC 10.37 K/ul (4.8-10.8) 12/23/23 Hgb 10.6 g/dl (12.0-16.0) L 12/23/23 Hct 32.9 % (37.0-47.0) L 12/23/23 MCV 91.6 fL (80.0-100.0) 12/23/23 MCH 29.5 pg (25.0-34.0) 12/23/23 MCHC 32.2 g/dL (32.0-36.0) 12/23/23 RDW Standard Deviation 43.5 fL (36.4-46.3) 12/23/23 RDW Coefficient of Variation 12.9 % (11.5-14.5) 12/23/23 Plt Count 378 K/uL (130-400) 12/23/23 MPV 9.9 fL (9.4-12.4) 12/23/23 Neutrophils (%) (Auto) 70.9 % 12/23/23 Lymphocytes (%) (Auto) 20.8 % 12/23/23 Monocytes # (Auto) 0.64 K/uL (0.11-0.59) H 12/23/23 Eosinophils # (Auto) 0.12 K/uL (0.00-0.50) 12/23/23 Immature Granulocyte % (Auto) 0.4 % 12/23/23 Neutrophils # (Auto) 7.36 K/uL (1.40-6.50) H 12/23/23 Lymphocytes # (Auto) 2.16 K/uL (1.20-3.40) 12/23/23 Monocytes # (Auto) 0.64 K/uL (0.11-0.59) H 12/23/23 Eosinophils # (Auto) 0.12 K/uL (0.00-0.50) 12/23/23 Basophils # (Auto) 0.05 K/uL (0.00-0.20) 12/23/23 Immature Granulocyte # (Auto) 0.04 K/uL (0.01-0.20) 4 PG Care Time/CCT Total # of Minutes Spent Total Time Spent with Patient: Total time spent is greater than 50% in coordination of care (as documented) at patient's floor/unit and/or counseling patient: Coding Level of Care Code 42695 IN/OBS CONSULT LVL 2,35M Diagnoses Acute diverticulitis K57.92
[2023-12-23] MEDS: DOCUSATE SODIUM 100 MG CAP PO SCH (11:28)
[2023-12-23] MEDS: oxyCODONE HCL IR 5 MG TAB (IMMEDIATE RELEASE) PO PRN (11:28)
--- NOTE | 2023-12-23 14:20 | Electrocardiogram Report ---
Test Reason : Blood Pressure : */* mmHG Vent. Rate : 89 BPM Atrial Rate : 89 BPM P-R Int : 176 ms QRS Dur : 100 ms QT Int : 354 ms P-R-T Axes : 42 -31 6 degrees QTcB Int : 430 ms Normal sinus rhythm Left axis deviation Moderate voltage criteria for LVH, may be normal variant Nonspecific T wave abnormality Abnormal ECG When compared with ECG of 25-Nov-2022 16:09, Premature ventricular complexes are no longer Present Nonspecific T wave abnormality now evident in Lateral leads Confirmed by Doroteo Healy ([id number]) on 12/23/2023 2:19:56 PM Referred By: REFERRED SELF Confirmed By: Doroteo Healy
[2023-12-23] MEDS: RIVAROXABAN 20 MG TAB PO SCH (16:33)
[2023-12-23] MEDS: MONTELUKAST SODIUM 10 MG TABLET PO SCH (21:15)
[2023-12-23] MEDS: CETIRIZINE HCL 10 MG TABLET PO SCH (21:16)
[2023-12-24 07:29] LABS: Hematocrit (blood only) 32.1 % (37.0-47.0); Hemoglobin 10.2 g/dl (12.0-16.0); Mean Corpuscular Hemoglobin 29.7 pg (25.0-34.0); Mean Corpuscular Hgb Conc 31.8 g/dL (32.0-36.0); Mean Corpuscular Volume 93.6 fL (80.0-100.0); Mean Platelet Volume 9.7 fL (9.4-12.4); Platelet Count 331 K/uL (130-400); RDW Coefficient of Variation 12.8 % (11.5-14.5); RDW Standard Deviation 43.8 fL (36.4-46.3); Red Blood Count 3.43 M/uL (4.20-5.40); White Blood Count 7.15 K/ul (4.8-10.8)
[2023-12-24 07:47] LABS: BUN Creatinine Ratio 13.6 (10-20); Calcium 8.9 mg/dl (8.6-10.3); Creatinine Clr Calc Pharmacy 81.9 ml/min; Est GFR (African American) 61.4 ml/min; Potassium 4.5 mmol/L (3.5-5.1)
--- NOTE | 2023-12-24 08:59 | Discharge Summary ---
<Statement entered by Junaid Schwartz, DO - 12/24/23 15:33> I have seen and examined the patient and have discussed the case with the provider above. I have reviewed the advanced practitioner's documentation, and I agree with, and take responsibility for that plan of care. 8 minutes spent at the bedside. Patient is feeling well. Tolerating her diet. Minimal left lower quadrant tenderness. Discharge plans as outlined below Date of Service December 24, 2023 Admission HPI Per Admitting Provider 53-year-old female with past medical history significant for COPD, allergic rhinitis, hypertension, morbid obesity, depression, history of pulmonary embolism on Xarelto,Anxiety disorder, treatment resistant depression, Sleep apnea could not tolerate CPAP use oxygen while sleeping 2 L, comes because of left lower quadrant abdominal pain since last Wednesday. She was having low-grade fevers. Symptoms seems to subside but again today symptoms came back when she decided come to the hospital. She has constipation and and also diarrhea. No blood in the stools. Micturating okay. Appetite is down. No chest pain or shortness of breath. No cough. Had headache earlier but that got resolved now. No runny nose or sore throat. Hemodynamics are okay. In May 2023 she was admitted for acute diverticulitis and also left ureteral stone. Past medical history. As mentioned above Past surgical history. Right breast biopsy. Colonoscopy and EGD. Hysteroscopy and endometrial ablation. Laparoscopic tubal ligation. Cholecystectomy. Social history. Smoked 1 pack a day for 15 years. Alcohol occasionally. No drug use. Family history. Paternal grandfather had lung cancer. Father had diabetes hypertension sepsis and in his 80s. Admission Exam Per Admitting Provider General- Not in distress Head- atraumatic Eyes- PERRL, EOMI, anicteric ENT- oropharynx clear Neck- supple, no JVD. Lungs- clear to auscultation no wheezing or crackles Heart- regular rhythm; no murmur, no gallop. Abdomen- normal bowel sounds, soft, tenderness in LLQ, No distension. Extremities- no pretibial edema, no erythema seen. Neuro- alert, oriented PERRL, no facial palsy; no dysarthria; moves extremities. Principal Diagnosis acute diverticulitis Discharge Exam Neuro: AAOx4, PERRLA, no aphagia, memory changes, CNII-XII grossly intact HEENT: head normocephalic, moist mucus membranes CV: S1/S2, (-) M/G/R, (-) edema, cap refill < 3 seconds Resp: Lungs CTA in all null. On RA GI: Abdomen S/ND, Ax4 bowel sounds, (-) CVA tenderness (+) LLQ tenderness mild with palpation Musculoskeletal: 5/5 B/L UE strength, 5/5 B/L LE strength. No gait disturbance Skin: (-) rashes , (-) erythema. Psych: euthymic mood Discharge Data Allergies Allergy/AdvReac Type Severity Reaction Status Date / Time ciprofloxacin [From Cipro] Allergy Severe Anaphylaxis Verified 12/22/23 19:30 metronidazole [From Flagyl] Allergy Severe Anaphylaxis Verified 12/22/23 19:30 Penicillins Allergy Intermediate RASH Verified 12/22/23 19:30 Sulfa (Sulfonamide Allergy Intermediate RASH Verified 12/22/23 19:30 Antibiotics) Iodinated Contrast Media AdvReac Severe Vomiting Verified 12/22/23 19:30 morphine AdvReac Severe abd pain Verified 12/22/23 19:30 hydromorphone AdvReac Intermediate abd pain Verified 12/22/23 19:30 Consultations 12/22/23 21:01 ED Decision to Admit Stat 12/23/23 08:00 Consult General Surgery Routine Ordered Studies 12/22/23 18:21 CT abd pelvis wo con Stat Hospital Course (1) Acute diverticulitis: (2) Hypertension: (3) Depression: (4) Sleep apnea: (5) UTI (urinary tract infection): (6) On home oxygen therapy: (7) Pulmonary embolism: (8) Morbid obesity with BMI of 45.0-49.9, adult: Plan 53-year-old female with past medical history significant for COPD, allergic rhinitis, hypertension, morbid obesity, depression, history of pulmonary embolism on Xarelto,Anxiety disorder, treatment resistant depression, Sleep apnea could not tolerate CPAP use oxygen while sleeping 2 L, comes because of left lower quadrant abdominal pain since last Wednesday. She was having low-grade fevers. Symptoms seems to subside but again today symptoms came back when she decided come to the hospital. She has constipation and and also diarrhea. No blood in the stools. Micturating okay. Appetite is down. No chest pain or shortness of breath. No cough. Had headache earlier but that got resolved now. No runny nose or sore throat. Hemodynamics are okay. In May 2023 she was admitted for acute diverticulitis and also left ureteral stone. a CTAP was performed with the following results: Bilateral nonobstructive nephrolithiasis. No hydronephrosis. Malrotated left kidney. Distal colonic/sigmoid diverticulosis coli. In the left lower quad rant abnormal wall thickening of the distal colon/ proximal sigmoid and pericolonic inflammatory fat stranding, consistent with acute diverticulitis. No abscess or focal fluid collection. She has numerous drug allergies and has not seen an couples therapist[facility] who recommended a conservative approach for now given no abscess or fluid collection. She started clear liquids yesterday evening and has been advancing her diet and tolerating it well. She required oxycodone intermittently for pain, but has only used tow doses over the past 24 hours. She is passing flatulance, but has not had a bowel movement since Wednesday. She was started on Colace. She was diagnosed with a UTI and started on Rocephin. Her urine culture was negative. Today, her pain is improved and she does not have any nausea or vomiting when she eats. Her leukocytosis and Jarad have also resolved. She is eager to return home and discharge is planned for today. Total Time Total Time Spent Total Time Spent (In Minutes): I spent a total of 54 minutes coordinating, documenting, and providing care for this patient excluding time spent in the performance of separately billed services. All of the aforementioned completed while collaborating with the assigned attending physician for a full treatment plan. Please see their addendum for further details. Discharge Plan Discharge Items Patient Disposition: Home - Self-Care Reason For Visit: ACUTE DIVERTICULITIS Discharge Diagnosis: * Acute diverticulitis * UTI Condition on Discharge: Fair Activity: Resume your previous activity Non-emergency contact: Primary Care Provider and Recorder [employer] Call non-emergency contact if: you have any medication questions, your symptoms worsen, your pain is not controlled, your pain is worsening, your pain is unusual for you and your rectal temperature is above 100.4 Follow-up/Referrals: Ridge Ramos MD [Primary Care Provider] - 12/29/23 3:00 pm (Date & Time 12/29/2023 3:00 PM Provider Zheng Mi MD Department [facility] ) Diet: Other - See Diet Comment Diet Comment: advance your diet back to regular as tolerated Addtl Attending Provider Instructions: You were admitted to the [facility] for left lower quadrant abdominal pain. You received treatment for acute diverticulitis and a urinary tract infection. You were evaluated by our Gastroenterology service who suggest ed conservative measures with outpatient follow up. Please see below for medication changes and recommendations upon your discharge. MEDICATION CHANGES: You will return home and continue your previously prescribed home medications. You will switch from intravenous antibiotics to oral, by mouth, antibiotics. You will take Clindamycin 450 mg by mouth FOUR times per day for TWELVE days. This is treating your diverticulitis. You will take Cephalexin 500 mg by mouth TWICE daily for SEVEN days. This is treating your urinary tract infection. Continue taking your probiotic one week after completion of antibiotics. Continue to take Colace by mouth twice daily until your bowel movements have returned to normal. You had stated you will get the Colace over the counter and do not wish to have a prescription for this. SUMMARY OF TEST RESULTS: Upon arrival to the emergency department, you had an abdominal/pelvis CT performed with the following results. Bilateral nonobstructive nephrolithiasis. No hydronephrosis. Malrotated left kidney. Distal colonic/sigmoid diverticulosis coli. In the left lower quadrant abnormal wall thickening of the distal colon/ proximal sigmoid and pericolonic inflammatory fat stranding, consistent with acute diverticulitis. No abscess or focal fluid collection. Left adrenal gland 1.9 cm versus previously 1.2 cm nodule. Correlation with MRI adrenal exam is recommended. A urinalysis was obtained suggestive of a UTI; your urine culture was negative for bacteria growth. It is suggested that you follow a low fiber diet; see attached for recommendations. RECOMMENDATIONS FOR FOLLOW-UP: You will have a follow up with your Primary Care Physician, Dr. Mi, on WednesdayDecember 28 at 3:00 PM. Gastroenterology arranges their own follow up appointments, if you do not hear from them by December 28, call [phone] to arrange. OTHER INSTRUCTIONS: Seek medical attention if you have: * temperature above 101 * chest pain or trouble breathing * abdominal pain, nausea, vomiting * diarrhea, dark stools or bloody stools * any unanswered questions or concerns Call 911 if symptoms are severe. Please take good care of yourself. It has been a pleasure taking care of you. Please take care of yourself. If you have any questions regarding your recent hospitalization please contact [facility] and request Jess Cooper @ [phone]. Dallin ESPINOZA Pending Studies at Discharge: No Stand-Alone Forms: My [facility], Smoking Cessation Medications and DC Order Prescriptions: New cephalexin 500 mg tablet 500 mg PO BID 7 Days Qty: 14 0RF clindamycin HCl [Cleocin HCl] 300 mg capsule 300 mg PO QID 10 Days Qty: 40 0RF clindamycin HCl 150 mg capsule 150 mg PO QID 10 Days Qty: 40 0RF Continued valacyclovir 1 gram tablet 2,000 mg PO Q12H PRN (Reason: Cold Sores) mometasone 50 mcg/actuation spray,non-aerosol 2 spray intranasal DAILY PRN (Reason: Nasal Congestion) montelukast 10 mg tablet 10 mg PO HS lisinopril 40 mg tablet 40 mg PO QAM Hold Instructions: Resume on 06/13/23. alprazolam 0.5 mg tablet 0.5 mg PO TID PRN (Reason: Anxiety) pantoprazole [Protonix] 40 mg Tablet,Delayed Release (Dr/Ec) 40 mg PO QAM bupropion HCl [Wellbutrin XL] 300 mg Tablet Extended Release 24 Hr 300 mg PO QAM Rx Instructions: TOTAL DOSE 450 MG--TAKES WITH 1-150 MG TAB. cetirizine [Zyrtec] 10 mg Tablet 10 mg PO HS metoprolol succinate 50 mg tablet extended release 24 hr 50 mg PO QAM amlodipine 10 mg tablet 10 mg PO QAM hydrochlorothiazide 12.5 mg capsule 12.5 mg PO QAM Hold Instructions: Resume on 06/13/23. desvenlafaxine succinate [Pristiq] 100 mg tablet extended release 24 hr 100 mg PO QAM Rx Instructions: TOTAL DOSE 150 MG--TAKES WITH 50 MG TAB. cyanocobalamin (vitamin B-12) [Vitamin B-12] 1,000 mcg Tablet 1,000 mcg PO DAILY bupropion HCl 150 mg tablet extended release 24 hr 150 mg PO QAM Rx Instructions: TOTAL DOSE 450 MG--TAKES WITH 300 MG TAB. desvenlafaxine succinate 50 mg tablet extended release 24 hr 50 mg PO QAM Rx Instructions: TOTAL DOSE 150 MG--TAKES WITH 100 MG TAB. Xarelto 20 mg tablet 20 mg PO QAM Hold Instructions: Can resume in 2 days if blood in urine resolves. albuterol sulfate 90 mcg/actuation HFA aerosol inhaler 2 puff INHALATION Q6H PRN (Reason: Shortness Of Breath) Saccharomyces boulardii [Florastor] 250 mg Capsule 250 mg PO QAM cyclobenzaprine [Flexeril] 10 mg Tablet 10 mg PO HS PRN (Reason: MUSCLE SPASMS) No Action ondansetron [Zofran ODT] 8 mg Tablet,Disintegrating 8 mg PO Q8H PRN (Reason: NAUSEA/VOMITING) Discharge Orders: Discharge Order (Routine); Ordered 12/24/23 Ordered By: Olivia Agustin/Other Patient Handouts: Low-Fiber Diet, Diverticulitis Dc Admission Data Admit Date/Time: 12/23/23 01:23 Attending Provider: Junaid Schwartz Admit Provider: Michel Urias Primary Care Provider: Ridge Ramos Other Providers: Michel Urias; Prudence Culver Other Interventions: Discharge Summary Assessment (RN) Last Done: 12/24/23 09:54
--- NOTE | 2023-12-24 09:46 | Surgery Progress Note ---
Date of Service December 24, 2023 Assessment & Plan (1) Acute diverticulitis: Plan: pt with no complaints will advance diet to low fiber VSS , wbc wnl pt may f/u o/p if desires to discuss surgical options General surgery will sign off at this time , call with questions or concerns Jess is covering the weekend Pt seen and examined with Dr. Brown Admission and Anticipated Discharge Date Admission Date: December 23, 2023 Supervising Physician Co-Signing Physician Notes I have seen and examined this patient. I agree with this plan Subjective pt reports no abd pain no f/c tolerating clears Review of Systems Constitutional: no fever and no chills Respiratory: no dyspnea Cardiovascular: no chest pain Gastrointestinal: no abdominal pain, no nausea and no vomiting Physical Exam Constitutional: cooperative and comfortable; no acute distress Respiratory: normal respiratory effort and able to speak in complete sentences; no respiratory distress Cardiovascular: Rate/Rhythm: regular rate Gastrointestinal (Abdomen): Inspection/Auscultation: abdomen not distended Percussion/Palpation: + abdomen tender and abdomen soft Results & Data Vital Signs (Past 12 Hours) Vital Signs Temp Pulse Resp BP Pulse Ox O2 Del Method 12/24/23 07:28 97.9 F 62 16 108/71 95 Room Air Results CBC w Diff Results: RBC 3.43 M/uL (4.20-5.40) L 12/24/23 WBC 7.15 K/ul (4.8-10.8) 12/24/23 Hgb 10.2 g/dl (12.0-16.0) L 12/24/23 Hct 32.1 % (37.0-47.0) L 12/24/23 MCV 93.6 fL (80.0-100.0) 12/24/23 MCH 29.7 pg (25.0-34.0) 12/24/23 MCHC 31.8 g/dL (32.0-36.0) L 12/24/23 RDW Standard Deviation 43.8 fL (36.4-46.3) 12/24/23 RDW Coefficient of Variation 12.8 % (11.5-14.5) 12/24/23 Plt Count 331 K/uL (130-400) 12/24/23 MPV 9.7 fL (9.4-12.4) 12/24/23 Neutrophils (%) (Auto) 70.9 % 12/23/23 Lymphocytes (%) (Auto) 20.8 % 12/23/23 Monocytes # (Auto) 0.64 K/uL (0.11-0.59) H 12/23/23 Eosinophils # (Auto) 0.12 K/uL (0.00-0.50) 12/23/23 Immature Granulocyte % (Auto) 0.4 % 12/23/23 Neutrophils # (Auto) 7.36 K/uL (1.40-6.50) H 12/23/23 Lymphocytes # (Auto) 2.16 K/uL (1.20-3.40) 12/23/23 Monocytes # (Auto) 0.64 K/uL (0.11-0.59) H 12/23/23 Eosinophils # (Auto) 0.12 K/uL (0.00-0.50) 12/23/23 Basophils # (Auto) 0.05 K/uL (0.00-0.20) 12/23/23 Immature Granulocyte # (Auto) 0.04 K/uL (0.01-0.20) 4 PG Care Time/CCT Total # of Minutes Spent Total Time Spent with Patient: Total time spent is greater than 50% in coordination of care (as documented) at patient's floor/unit and/or counseling patient: Coding Level of Care Code 07412 SUB INP/OBS CARE Diagnoses Acute diverticulitis K57.92
[2023-12-24 14:37] VITALS: BP 117/76; PULSE 87; TEMP 97.5; O2SAT 94
== END 2023-12-24 17:32 | disposition home or self-care (01) | DRG 392 ==
LOC: ED 18:05 → 3N 12-23 01:23